=== PATIENT | female | born 1955 | race Caucasian/White ===

== ENCOUNTER 2022-07-05 09:27 | Outpatient (REF) | payer OTHER, SELFPAY ==
--- NOTE | 2022-07-05 | EMG_ITS ---
Bilateral median and ulnar motor and sensory studies were performed, bilateral radial and sensory studies were performed, and paraspinal muscles were tested. IMPRESSION: 1. [id number] bilateral median neuropathy across carpal tunnel. 2. Mild bilateral ulnar neuropathy across cubital tunnel. MD MARIA A Moseley/DEL / [id number]
== END 2022-07-05 09:28 | disposition home or self-care (01) ==
LOC: HO.NEURO 09:27
PROVIDERS: PCP Internal Medicine; Visit Provider Internal Medicine
DX: R20.0 Anesthesia of skin (principal); G62.9 Polyneuropathy, unspecified
CPT/HCPCS: 95886; 95911

== ENCOUNTER 2022-08-30 13:55 | Outpatient (REF) | payer OTHER, SELFPAY ==
--- NOTE | ~2022-08-30 | MM_ITS ---
EXAMINATION: BONE DENSITOMETRY CLINICAL INDICATION: Asymptomatic menopausal state. COMPARISON: None (current study represents initial baseline exam). TECHNIQUE: Using a [employer] DXA System (software version: 13.1) manufactured by [employer], dual-energy x-ray absorptiometry was performed of the lumbar spine and left hip. The images are of good technical quality. Summary results are attached. FINDINGS: AP SPINE L1-L4: BMD 1.206 g/cm2, Z-score 1.6, T-score 0.2, normal. LEFT FEMUR, NECK: BMD 1.032 g/cm2, Z-score 1.4, T-score 0.0, normal. LEFT FEMUR, TOTAL: BMD 1.021 g/cm2, Z-score 1.3, T-score 0.1, normal. IDENTIFIED RISK FACTORS: Menopause. HISTORY OF FRACTURE: Elbow. MEDICATIONS: None listed. MM/XR DEXA axial skeleton IMPRESSION: 1. DIAGNOSIS: Normal bone density based on the lowest T-score value of 0.0 in the femoral neck applying World Health Organization criteria. 2. 10-YEAR FRACTURE RISK PREDICTION, FRAX: According to the guidelines, FRAX calculation should only be performed on patients in the osteopenia bone density category. Therefore, FRAX was not performed on this patient. 3. Treatment Recommendations: NOF guidelines recommend consideration for treatment in postmenopausal women and men age 50 and older presenting with the following: -A hip or vertebral (clinical or morphometric) fracture. -T-score less than or equal to -2.5 at the femoral neck or spine after appropriate evaluation to exclude secondary causes. -Low bone mass at the hip or spine and a 10-year fracture probability by FRAX of greater than or equal to 3% for hip fracture or greater than or equal to 20% for major osteoporotic fracture based on the [place] adapted WHO algorithm. 4. Other Recommendations: All treatment decisions require clinical judgment and consideration of individual patient factors, including patient preferences, comorbidities, previous drug use, risk factors not captured in the FRAX model (e.g. frailty, falls, vitamin D deficiency, increased bone turnover, interval significant decline in bone density) and possible under or overestimation of fracture risk by FRAX. FUTURE SCAN RECOMMENDATION: People with diagnosed cases of osteoporosis or at high risk for fracture should have regular bone mineral density tests. For patients eligible for Medicare, routine testing is allowed once every 2 years. The testing frequency can be increased to one year for patients who have rapidly progressing disease, those who are receiving or discontinuing medical therapy to restore bone mass, or have additional risk factors.
--- NOTE | ~2022-08-30 | MM_ITS ---
EXAMINATION: MM SCREENING DIGITAL BREAST TOMOSYNTHESIS, BILATERAL CLINICAL INFORMATION: Screening. Asymptomatic. Family history breast cancer, mother. The lifetime risk of breast cancer based on the Tyrer-Cuzick Model is 10%. COMPARISON: Mammography: 08/18/2014 ([place]). TECHNIQUE: Digital breast tomosynthesis is performed in both the craniocaudal and mediolateral oblique views along with computer-aided detection (CAD). Synthesized 2D images are generated from the tomosynthesis. FINDINGS: The breasts are almost entirely fatty (ACR BI-RADS breast composition Category a). Background stromal markings are normal. There are no significant masses, abnormal calcifications, or other abnormalities. There are incidental intramammary node mid and posterior upper outer right breast similar to outside exam. The axilla and skin contours are unremarkable. MM/MM tomosynthesis screening BI IMPRESSION: No mammographic evidence of malignancy. ASSESSMENT: BI-RADS 2: Benign RECOMMENDATION: Routine annual mammography screening. This patient's information was entered into a reminder system with a target due date for their next mammogram.
== END 2022-08-30 13:56 | disposition home or self-care (01) ==
LOC: HO.MAMMO 13:55
PROVIDERS: PCP Internal Medicine; Visit Provider Internal Medicine
DX: Z12.31 Encounter for screening mammogram for malignant neoplasm of breast (principal); Z13.820 Encounter for screening for osteoporosis; Z78.0 Asymptomatic menopausal state
CPT/HCPCS: 77063; 77067; 77080

== ENCOUNTER 2023-01-31 11:15 | Outpatient (REF) | payer OTHER, SELFPAY ==
--- NOTE | ~2023-01-31 | XR_ITS ---
EXAMINATION: XR CERVICAL SPINE CLINICAL INFORMATION: Cervical spondylosis without myelopathy or radiculopathy. COMPARISON: None TECHNIQUE: 7 views of the cervical spine, inclusive of flexion and extension views, were obtained. FINDINGS: There is bony demineralization. There is a moderate upper cervical levoscoliosis. Vertebral body heights are normal. There is mild disc space narrowing at C2-C3. At C4-C5, there is a 2 mm anterolisthesis. At C5-C6, there is moderate disc space narrowing. At C6-C7, there is mild disc space narrowing. No acute fracture or spondylolisthesis is seen. There is multi-level cervical spondylosis and facet arthropathy. The posterior elements are intact. At C5-C6, there is mild rightward neural foraminal narrowing. The dens is intact. There is no prevertebral soft tissue swelling. There are left carotid atherosclerotic calcifications. XR/XR cervical spine min 6V IMPRESSION: 1. No acute fracture or spondylolisthesis is seen. 2. There is a moderate upper cervical levoscoliosis. 3. There is multi-level cervical degenerative disc disease, spondylosis and facet arthropathy. Degenerative disc disease is most pronounced at C5-C6, where it is moderate. 4. There is right neural foraminal narrowing at C5-C6. 5. There are left carotid atherosclerotic calcifications, which can be more fully evaluated with dedicated carotid ultrasound, if clinically indicated.
== END 2023-01-31 11:16 | disposition home or self-care (01) ==
LOC: HO.XRAY 11:15
PROVIDERS: PCP Internal Medicine; Visit Provider Nurse Practitioner Family
DX: M54.12 Radiculopathy, cervical region (principal); M47.812 Spondylosis without myelopathy or radiculopathy, cervical region; G25.0 Essential tremor; M62.838 Other muscle spasm; G62.9 Polyneuropathy, unspecified
CPT/HCPCS: 72052; 99202

== ENCOUNTER 2023-02-27 12:54 | Outpatient (REF) | payer OTHER, SELFPAY ==
--- NOTE | ~2023-02-27 | US_ITS ---
EXAMINATION: US EXTRACRANIAL CAROTID DUPLEX, BILATERAL CLINICAL INFORMATION: Left cerebral artery occlusion and stenosis COMPARISON: None available. TECHNIQUE: Real-time ultrasound and Doppler techniques (integrating B-mode 2-D vascular images, Doppler spectral analysis and color-flow Doppler imaging) were utilized to interrogate the extracranial carotid arteries, the vertebral arteries and proximal subclavian arteries bilaterally. The degree of stenosis is determined by criteria similar to NASCET. FINDINGS: Right Side: 1. There is mild atherosclerotic plaque seen in the bifurcation/proximal ICA region. 2. The common carotid artery PSV proximally is 70 cm/s and distally 74 cm/s. 3. The proximal internal carotid artery velocities are 75 cm/s systolic and 12 cm/s diastolic. 4. The proximal external carotid artery PSV is 150 cm/s. 5. The vertebral artery shows antegrade flow. 6. The subclavian artery waveforms are normal. Left Side: 1. There is moderate to marked hypoechoic soft tissue atherosclerotic plaque seen in the bifurcation/proximal ICA region. 2. The common carotid artery PSV proximally is 127 cm/s and distally 69 cm/s. 3. The proximal internal carotid artery velocities are 170 cm/s systolic and 51 cm/s diastolic. 4. The proximal external carotid artery PSV is 114 cm/s. 5. The vertebral artery shows antegrade flow. 6. The subclavian artery waveforms are normal. Incidental note made of a multinodular thyroid goiter. US/US carotid duplex BI IMPRESSION: 1. RIGHT: Minimal, non-hemodynamically significant stenosis of the proximal right internal carotid artery corresponding to a 0-49% stenosis by velocity criteria. 2. LEFT: Moderate, hemodynamically significant stenosis of the proximal left internal carotid artery corresponding to a 50-79% stenosis by velocity criteria. 3. Incidental note made of a multinodular goiter.
== END 2023-02-27 12:55 | disposition home or self-care (01) ==
LOC: HO.US 12:54
PROVIDERS: PCP Internal Medicine; Visit Provider Nurse Practitioner Family
DX: I65.22 Occlusion and stenosis of left carotid artery (principal)
CPT/HCPCS: 93880

== ENCOUNTER → 2023-02-28 08:16 | Outpatient (BNVA) | payer OTHER, SELFPAY | PROVIDERS: PCP Internal Medicine; Visit Provider Nurse Practitioner Family | DX: H26.9 Unspecified cataract (principal); H53.8 Other visual disturbances; I65.22 Occlusion and stenosis of left carotid artery; G62.9 Polyneuropathy, unspecified; M54.12 Radiculopathy, cervical region; M47.812 Spondylosis without myelopathy or radiculopathy, cervical region; E11.9 Type 2 diabetes mellitus without complications | CPT/HCPCS: Q3014 ==

== ENCOUNTER 2023-03-27 11:06 | Outpatient (REF) | payer OTHER, SELFPAY ==
--- NOTE | ~2023-03-27 | US_ITS ---
EXAMINATION: US THYROID CLINICAL INFORMATION: Nontoxic multinodular goiter. COMPARISON: None available. TECHNIQUE: Linear transducer grayscale and color Doppler examination with attention to the region of the thyroid. FINDINGS: SIZE: Measurements of the thyroid lobes and nodules are given in sagittal, anteroposterior and transverse dimensions respectively. Right Thyroid Lobe: 6.1 x 1.5 x 3.2 cm, volume 15.3 mL. Parenchyma: The gland echotexture is heterogeneous. Thyroid vascularity is normal. Left Thyroid Lobe: 5.9 x 2.1 x 2.5 cm, volume 18.8 mL. Parenchyma: The gland echotexture is heterogeneous. Thyroid vascularity is increased. Isthmus: 1.1 cm in maximum AP dimension. Estimated total number of nodules greater than or equal to 1 cm: 1. Tonsorial Artist nodules are described as follows: 1. Location: Left superior. Size: 1.0 x 1.4 x 1.1 cm, volume 0.8 mL. Nodule characteristics: Composition: Cannot be determined (2). Echogenicity: Cannot be determined (1). Shape: Not taller than wide (0). Margins: Irregular (2). Echogenic Foci: None (0). ACR TI-RADS total points: 5 ACR TI-RADS category: 7 NODES: No lymphadenopathy is seen in the tissue surrounding the thyroid gland. US/US thyroid IMPRESSION: Enlarged heterogeneous thyroid lobes. Solitary 1.4 cm upper pole left thyroid nodule, total points 5 and ACR TI-RADS category #7. The nodule can be biopsied if clinically indicated, otherwise follow up can be performed as described below. ACR TI-RADS RECOMMENDATION REFERENCE: Ultrasound-guided fine-needle aspiration, followup ultrasound, no further follow up. * TR1 (0 point) and TR2 (2 points): No FNA or follow up. * TR3 (3 points): FNA if more than or equal to 2.5 cm in maximum dimension, followup ultrasound in 1, 3 and 5 years if 1.5 to 2.4 cm in maximum dimension. * TR4 (4-6 points): FNA if more than or equal to 1.5 cm in maximum dimension, followup ultrasound in 1, 2, 3 and 5 years if 1 to 1.4 cm in maximum dimension. * TR5 (more than or equal to 7 points): FNA if more than or equal to 1 cm in maximum dimension, followup ultrasound every year for 5 years if 0.5 to 0.9 cm in maximum dimension. * TR3, TR4 or TR5 nodules that are below the size threshold for followup receive no follow up.
[2023-03-27 12:52] LABS: Alanine Aminotransferase 8 U/L (0-31); Albumin Level 3.9 g/dL (3.5-5.0); Alkaline Phosphatase 66 U/L (39-117); Anion Gap 13 (12-20); Aspartate Amino Transferase 14 U/L (5-31); Bilirubin Total 0.6 mg/dL (0.0-1.0); Blood Urea Nitrogen 19 mg/dL (9-16); Calcium 9.2 mg/dL (8.4-10.2); Carbon Dioxide 25 mmol/L (22-29); Chloride 109 mmol/L (96-108); Cholesterol 191 mg/dL; Estimated Glomerular Filt Rate > 60; Glucose Fasting 193 mg/dL (60-99); HDL Cholesterol 41 mg/dL; LDL Cholesterol Calculated 127 mg/dl; Potassium 4.5 mmol/L (3.3-5.1); Sodium 142 mmol/L (135-145); Total Protein 6.6 g/dL (6.5-8.0); Triglycerides 118 mg/dL
[2023-03-27 13:09] LABS: Thyroid Stimulating Hormone 0.03 uIU/mL (0.32-4.0); Vitamin D 25-OH Total 24.3 ng/mL (>30)
[2023-03-27 13:38] LABS: Creatinine Urine 194.02 mg/dL; Microalbum/Creatinine Ratio Ur 22.6 ug/mg cr
== END 2023-03-27 11:07 | disposition home or self-care (01) ==
LOC: HO.US 11:06
PROVIDERS: PCP Internal Medicine; Visit Provider Internal Medicine
DX: E04.2 Nontoxic multinodular goiter (principal); E11.9 Type 2 diabetes mellitus without complications; E55.9 Vitamin D deficiency, unspecified; E78.5 Hyperlipidemia, unspecified
CPT/HCPCS: 36415; 76536; 80053; 80061; 82043; 82306; 84439; 84443

== ENCOUNTER 2023-04-03 14:21 | Outpatient (REF) | payer OTHER, SELFPAY ==
[2023-04-06 04:04] LABS: HPV mRNA E6/E7 rflx Not Detected (Not Detected)
== END 2023-04-03 14:22 | disposition home or self-care (01) ==
LOC: HO.LNP 14:21
PROVIDERS: PCP Internal Medicine; Visit Provider Advanced Practice Midwife
DX: Z01.419 Encounter for gynecological examination (general) (routine) without abnormal findings (principal); L90.0 Lichen sclerosus et atrophicus; N95.2 Postmenopausal atrophic vaginitis; Z20.2 Contact with and (suspected) exposure to infections with a predominantly sexual mode of transmission
CPT/HCPCS: 87624; 88142; 99202

== ENCOUNTER 2023-04-03 14:58 | Outpatient (REF) | payer OTHER, SELFPAY ==
[2023-04-04 02:56] LABS: CT PCR NOT DETECTED (Not Detect.); NG PCR NOT DETECTED (Not Detect.)
[2023-04-04 10:55] LABS: BV Int Neg Control Negative (Negative); BV Int Pos Control Positive (Positive)
== END 2023-04-03 14:59 | disposition home or self-care (01) ==
LOC: HO.LAB 14:58
PROVIDERS: PCP Internal Medicine; Visit Provider Advanced Practice Midwife
DX: N95.2 Postmenopausal atrophic vaginitis (principal); Z20.2 Contact with and (suspected) exposure to infections with a predominantly sexual mode of transmission
CPT/HCPCS: 0353U; 87480; 87510; 87660

== ENCOUNTER → 2023-04-09 11:18 | Outpatient (BNVA) | payer OTHER, SELFPAY | PROVIDERS: PCP Internal Medicine; Visit Provider Surgery Vascular Surgery | DX: I65.23 Occlusion and stenosis of bilateral carotid arteries (principal) | CPT/HCPCS: 99202 ==

== ENCOUNTER 2023-05-09 10:00 | Outpatient (RCR) | payer OTHER, SELFPAY ==
--- NOTE | 2023-04-10 12:03 | MHC.PT.EP ---
[facility] [place] [facility] [place] [facility] [place] Office [address] Dominick May [address] [phone] F: [phone] F: [phone] F: [phone] F: [phone] Physical Therapy Plan of Care Date of Evaluation: Date of Surgery: Diagnosis: cervical radiculopathy Assessment: Patient is a 67 year old R handed female who presents with s/s consistent with cervical radiculopathy, neck pain. 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 Patient past medical history includes 35 years of essential tremor of neck and carotid stenosis. Current impairments include pain, posture, ROM, strength, activity tolerance and functional mobility. Functional limitations include decreased ability to turn head, lift, push, pull, and perform house/yardwork. Patient is motivated with good rehab potential. Skilled PT will address impairments and functional limitations in order to achieve goals. Frequency and Duration: The patient will be seen 2x/week for 5 weeks Short Term Goals: I with HEP - 2 weeks C-spine AROM rotation 50 b/l - 3 weeks Full pain free AROM of shoulder - 3 weeks Fdc Goals: C-spine AROM 55 - 5 weeks NPDI 10% or better - 5 weeks Strength in shoulder and MT/LT 4/5 grossly - 5 weeks Improved sleep quality per pt report - 5 weeks Improved activity tolerance per pt report - 5 weeks Treatment Plan: Modalities to reduce pain, spasms and effusion. Manual therapy to restore motion and function. Therapeutic exercise to improve strength and flexibility. Neuromuscular re-education for posture and balance. Therapeutic activities to return to functional activities of daily living. Electronically signed by: Ronaldo Becker, PT Please sign and return to therapist. Thank you for your referral.
--- NOTE | 2023-12-17 14:50 | MHC.PT.DC ---
[facility] [place] Office [place] Office [place] Office [address] Dominick May [address] [phone] F: [phone] F: [phone] F: [phone] F: [phone] Physical Therapy Discharge Report Diagnosis: cervical radiculopathy Date of Surgery: Date of Evaluation: 04/10/23 Date of Discharge: 06/20/23 Treatments to Date: 6 Cancellations to Date: No Shows to Date: Discharge Status: Independent with HEP Discharge Summary: 05/09; Pt felt looser after RX. Decreased c/o r U.E sxs 05/07/23: rotation continues to improve on L (57), R is unchanged from last visit. 05/02/23: pt has been feeling better physically. AROM rotation improving (54 L, 52 R). still with some tissue tension in b/l LS and UT 04/30; Pt noted decreased r U.E sxs after manual Rx. 04/25/23: pt 7 minutes late and accommodated. progressed with postural ex. no adverse reactions. responding well with improved postural awareness, indicated by pt recall and attentiveness during treatment. Patient is a 67 year old R handed female who presents with s/s consistent with cervical radiculopathy, neck pain. 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 Patient past medical history includes 35 years of essential tremor of neck and carotid stenosis. Current impairments include pain, posture, ROM, strength, activity tolerance and functional mobility. Functional limitations include decreased ability to turn head, lift, push, pull, and perform house/yardwork. Patient is motivated with good rehab potential. Skilled PT will address impairments and functional limitations in order to achieve goals. Electronically signed by: Ronaldo Becker, PT Please sign and return to therapist. Thank you for your referral.
== END 2023-12-17 14:50 | disposition home or self-care (01) ==
LOC: HO.PTCHIC 10:00
PROVIDERS: PCP Internal Medicine; Visit Provider Nurse Practitioner Family
DX: M54.12 Radiculopathy, cervical region (principal); M47.812 Spondylosis without myelopathy or radiculopathy, cervical region; G25.0 Essential tremor
CPT/HCPCS: 97110; 97140; 97162

== ENCOUNTER 2023-05-27 12:22 | Outpatient (REF) | payer OTHER, SELFPAY | END 2023-05-27 12:23 | disposition home or self-care (01) | LOC: HO.LAB 12:22 | PROVIDERS: PCP Internal Medicine; Visit Provider Obstetrics & Gynecology | DX: R87.610 Atypical squamous cells of undetermined significance on cytologic smear of cervix (ASC-US) (principal) | CPT/HCPCS: 57454; 88305 ==

== ENCOUNTER 2023-06-25 13:09 | Outpatient (AMB) | payer OTHER, MEDICARE, SELFPAY ==
[2023-06-25 13:13] VITALS: BP 122/80; BMI 31.7
--- NOTE | 2023-06-25 13:13 | MHC.OFFVIS ---
Intake Vital Signs 06/25/23 13:13 Height 5 ft 1 in Weight 168 lb BMI 31.7 BP 122/80 Intake Visit Reasons: Follow up [employer] Required: No Allergies sulfamethoxazole [From Bactrim] Allergy (Mild, Verified 06/25/23 13:14) hives trimethoprim [From Bactrim] Allergy (Mild, Verified 06/25/23 13:14) hives Is last menstrual period known: No Post menopausal: Yes HPI HPI Comments History of Present Illness Details Presenting post colpo for follow-up. The patient is doing well with no complaints. The pathology showed the following: A. Cervix, 10 o'clock, biopsy: - Mildly inflamed squamous mucosa with reactive changes. - No endocervical epithelium identified. B. Cervix, 12 o'clock, biopsy: - Mildly inflamed squamous mucosa with reactive changes. - No endocervical epithelium identified. C. Endocervix, curettage: Superficial strips of endocervical and, predominantly, squamous epithelium within normal limits. COMMENT: The patient's recent Pap is reviewed ([id number]; ASCUS with negative HPV); the atypical cells on the Pap slide are not represented in the current samples. [facility] Medical History Allergic rhinitis Chronic GERD Class 1 obesity with body mass index (BMI) of 31.0 to 31.9 in adult Diabetes mellitus Essential hypertension Essential tremor NILESH (generalized anxiety disorder) Hand numbness Mild recurrent major depression Neck pain Neuropathy Surgical History History of tonsillectomy Family History Mother Breast cancer Hypertension Father Heart attack Brother Substance use disorder Daughter Mental health disorder Sister Breast cancer Social History Housing: House Alcohol intake: current Alcohol intake frequency: holidays/special occasions only Alcohol type: wine Patient Tobacco Use Status: Former Tobacco user Tobacco use type: Cigarette e-Cigarette/Vaping Use: Never Used Second Hand Smoke Exposure: No service: No Current occupational status: retired Sexual orientation: Straight/Heterosexual Gender identity: Female Cognitive needs: No Hearing needs: No Vision needs: Yes Female Reproductive History Menstrual control method: none Review of Systems Const All systems reviewed & are unremarkable except as noted in HPI and below Reports as per HPI and Reports no additional complaints GI Reports no additional complaints Reports no additional complaints Physical Exam Vital Signs: Last Vital Signs BP 122/80 06/25/23 13:13 BMI result Body Mass Index 31.7 Assessment & Plan Assessment & Plan (1) ASCUS of cervix with negative high risk HPV: Comment: History of ascus/HPV positive in 2017 Code(s): R87.610 - Atypical squamous cells of undetermined significance on cytologic smear of cervix (ASC-US) Plan: Discussed with the patient the pathology results of the colposcopy biopsies & endocervical curettage ( negative). Discussed with the patient the sensitivity specificity, positive and negative predictive value in detecting cervical cancer in addition discussed the regression, persistence and progression rates. Recommended co-testing in 12 months, if cytology and or HPV are abnormal will proceed was colposcopy biopsy and endocervical curettage. Instructions given to the patient to schedule a co test appointment in 1 year. All questions answered the patient verbalized understanding. Coding Level of Care Code Est Pt Level 3 (53203) Diagnoses ASCUS of cervix with negative high risk HPV R87.610
== END 2023-06-25 13:40 | disposition home or self-care (01) ==
LOC: HO.HWS 13:09
PROVIDERS: PCP Internal Medicine; Visit Provider Obstetrics & Gynecology
DX: R87.610 Atypical squamous cells of undetermined significance on cytologic smear of cervix (ASC-US) (principal)
CPT/HCPCS: 99213

== ENCOUNTER → 2023-06-25 13:09 | Outpatient (BNVA) | payer OTHER, SELFPAY | PROVIDERS: PCP Internal Medicine; Visit Provider Obstetrics & Gynecology | DX: R87.610 Atypical squamous cells of undetermined significance on cytologic smear of cervix (ASC-US) (principal) | CPT/HCPCS: 99212 ==

== ENCOUNTER 2024-11-18 14:25 | Outpatient (AMB) | payer SELFPAY ==
[2024-11-18 15:06] VITALS: BP 150/100; PULSE 94; O2SAT 95; BMI 31.3
--- NOTE | 2024-11-18 15:06 | A.OFFPC_ITS ---
Vital Signs 11/18/24 15:06 Height 5 ft 1 in Weight 165 lb 8 oz BMI 31.3 BP 150/100 H Blood Pressure Location Lt brachial Position Sitting Pulse 94 Pulse Source Pulse Oximeter Pulse Oximetry (%) 95 Oxygen Delivery Method Room Air Intake Visit Reasons: medication follow up Allergies sulfamethoxazole [From Bactrim] Allergy (Mild, Verified 11/18/24 15:34) hives trimethoprim [From Bactrim] Allergy (Mild, Verified 11/18/24 15:34) hives Medication List - Last Reconciled 11/18/24 by Ruth Ingram MD alprazolam 0.5 mg PO TID PRN 30 days clobetasol 0.05% 1 g topical .twice weekly 90 days duloxetine 30 mg PO BID 90 days estradiol 0.01%(0.1mg/gram) (Estrace) 1 g vaginal .twice weekly 90 days fluticasone propionate 50 mcg/actuation (Allergy Relief (fluticasone)) 1 spray intranasal BID 30 days hydrocortisone 1% 1 appl topical BID PRN 2 weeks loratadine (Allergy Relief (loratadine)) 10 mg PO DAILY 90 days lorazepam 1 mg PO TID PRN 30 days losartan 50 mg PO DAILY 90 days magnesium glycinate 200 mg (2 x 100 mg) PO DAILY metformin 500 mg PO DAILY 90 days naphazoline-pheniramine 0.025-0.3 % (Allergy Eye (naphazoline-pheniramine)) 1 drp ophthalmic (eye) BID-QID PRN 30 days omeprazole 20 mg PO DAILY 90 days propranolol ER 160 mg PO DAILY 90 days Tobacco use date assessed: 11/18/24 Fall risk assessment: 2 + Falls in past year Last assessed Fall Risk: 11/18/24 HPI HPI Comments History of Present Illness Details The patient is a 69-year-old female presenting with hypertension management, depression, and anxiety. Hypertension was identified during the visit as elevated, and the patient reported a history of consistently high blood pressure. The patient is currently on Losartan, which she has not taken recently. The patient has a known history of depression and anxiety, with prior therapy and medication trials including Zoloft, which were not well tolerated. The patient scored a 13 on the PHQ-9, indicating the presence of depressive symptoms. The patient has anxiety treated with lorazepam, with some confusion in the past regarding medication supply. For eczema, the patient uses clobetasol cream. The patient also reports head tremors and takes propranolol, which tremo rs have familial ties and began in the early . The patient reported a recent syncopal episode after a stressful event possibly linked with dehydration. She experienced dizziness and a brief loss of consciousness, palpitations happened before incident. She also has diabetes mellitus type 2 and her A1c today is 13.5% and this is why I will increase metformin from 500 once a day to a 1000 mg twice a day. She complains of GERD and I will refer her omeprazole which she has not had in a while. [facility] Medical History (Updated 11/18/24 @ 15:47 by Ruth Ingram MD) Allergic rhinitis Neck pain Hand numbness Neuropathy Essential tremor NILESH (generalized anxiety disorder) Mild recurrent major depression Chronic GERD Class 1 obesity with body mass index (BMI) of 31.0 to 31.9 in adult Diabetes mellitus Essential hypertension Surgical History History of tonsillectomy Family History Mother Breast cancer Hypertension Father Heart attack Brother Substance use disorder Daughter Mental health disorder Sister Breast cancer Social History Housing: House Alcohol intake: current Alcohol intake frequency: holidays/special occasions only Alcohol type: wine Patient Tobacco Use Status: Former Tobacco user Tobacco use type: Cigarette e-Cigarette/Vaping Use: Never Used Second Hand Smoke Exposure: No service: No Current occupational status: retired Sexual orientation: Straight/Heterosexual Gender identity: Female Cognitive needs: No Hearing needs: No Vision needs: Yes Questionnaire PHQ-9 Over the last 2 weeks, how often have you been bothered by any of the following problems? 1. Little interest or pleasure in doing things: several days 2. Feeling down, depressed, or hopeless: more than half the days 3. Trouble falling or staying asleep, or sleeping too much: nearly every day 4. Feeling tired or having little energy: nearly every day 5. Poor appetite or overeating: nearly every day 6. Feeling bad about yourself - or that you are a failure or have let yourself or your family down: several days 7. Trouble concentrating on things, such as reading the newspaper or watching television: not at all 8. Moving or speaking so slowly that other people could have noticed. Or the opposite - being so fidgety or restless that you have been moving around a lot more than usual: not at all 9. Thoughts that you would be better off or of hurting yourself in some way: not at all Total score: 13 Depression Screening Interpretation: Positive Depression Screening Follow-up: Existing condition and Follow-up Visit Requested Depression Screening Done: Yes 30166 - PHQ-9 Billing: Yes Source: Developed by Drs. Silvino Iniguez, Miladis Kaiser, Jean Person and colleagues, with an educational rogerio from [employer]. Thrive Questionnaire Date Thrive assessed: 11/18/24 I am a: Patient What is your living situation today?: I have a steady place to live Within the past 12 months, did the food you bought not last and you didn't have the money to get more?: Never true Within the past 12 months, did you worry whether your food would run out before you got money to buy more?: Never true Do you have trouble paying for medicines?: No Do you have trouble getting transportation to medical appointments?: No Do you have trouble paying your heating and electricity bill?: No Do you have trouble taking care of your child, family member or friend?: No Do you have trouble with day-to-day activities such as bathing, preparing meals, shopping, managing finances, etc.?: No Are you currently unemployed and looking for a job?: No Are you interested in more education?: No Please select the resources that you would like help with: None Currently or been in a relationship where the following occur: No concerns reported THRIVE Score: 0 AUDIT C Alcohol Use Questionnaire (AUDIT-C) 1. How often do you have a drink containing alcohol?: Monthly or less 2. How many drinks containing alcohol do you have on a typical day when you are drinking?: 1 or 2 3. How often do you have six or more drinks on one occasion?: Never Total Score: 1 Score Reviewed/Action Taken: No NILESH-7 AMB Questionnaire NILESH-7 Date NILESH - 7 assessed: 12/18/24 Feeling nervous, anxious, or on edge: 2 = More than half the days Not being able to stop or control worryin = More than half the days Worrying too much about different things: 2 = More than half the days Trouble relaxin = More than half the days Being so restless that it is hard to sit still: 0 = Not at all Becoming easily annoyed or irritable: 0 = Not at all Feeling afraid as if something awful might happen: 2 = More than half the days Total NILESH-7 score (0-4 normal; 5-9 mild; 10-14 moderate; 15-21 severe): 10 Source: Developed by Drs. Silvino Iniguez, Miladis Kaiser, Jean Person and colleagues, with an educational rogerio from [employer]. NILESH-7 Assessment Billing NILESH-7 Assessment Tool: NILESH-7 Assessment 90327 Review of Systems Const Details: - Neurological: Reports tremors, fatigue, vertigo, dizziness. Denies any seizures. - Cardiac: Reports elevated blood pressure, denies palpitations. - Gastrointestinal: Reports a history of heartburn, current dyspepsia. - Psychiatric: Reports depression, anxiety. - Musculoskeletal: Reports tremors affecting daily activities. Physical exam (Primary Care) Vital Signs: Last Vital Signs Pulse 94 11/18/24 15:06 BP 150/100 H 11/18/24 15:06 Pulse Ox 95 11/18/24 15:06 Oxygen Delivery Method Room Air 11/18/24 15:06 BMI result Body Mass Index 31.3 BMI Assessment/Plan discussion: High BMI High, discussed plan: lifestyle, weight reduction, dietary and physical activity Tobacco/Smoking Status: Tobacco use Status Tobacco use date assessed 11/18/24 11/18/24 15:15 Patient Tobacco Use Status Former Tobacco user 11/18/24 15:15 Tobacco use type Cigarette 11/18/24 15:15 e-Cigarette/Vaping Use Never Used 11/18/24 15:15 PHQ-9: PHQ-9 Score PHQ-9: Total score 13 11/18/24 15:40 Depression Screening Interpretation: Positive Depression Screening Follow-up: Existing condition and Follow-up Visit Requested Thrive Assessment: Date of Thrive Assessment Date Thrive assessed 11/18/24 11/18/24 15:15 Currently or been in a relationship where the following occur: No concerns reported Const Other: General: No confusion Respiratory: Normal respiratory effort, clear to auscultation bilaterally Cardiovascular: No jugular venous distension, regular rate, regular rhythm, S1 normal heart sound present and S2 normal heart sound present Neurology: Patient oriented x3, no focal motor deficits and No confusion, head tremors Extremities: Full ROM Psychology: Depression noted, PHQ-9 score of 13, Anxiety present Results AMB Hemoglobin A1c AMB Hemoglobin A1c 13.5 % Last Edit by STEVE Mckeon on 11/18/24 15: 54 Coding Level of Care Code Est Pt Level 4 (06743) Complex EM visit Add On G2211 Diagnoses Syncope R55 Mild recurrent major depression F33.0 Diabetes mellitus E11.9 Essential hypertension I10 NILESH (generalized anxiety disorder) F41.1 Essential tremor G25.0 Chronic GERD K21.9 Additional Codes NILESH-7 Assessment Billing - NILESH-7 Assessment Tool: NILESH-7 Assessment 88321 ([id number]) PHQ-9 - 29160 - PHQ-9 Billing: Yes ([id number]) Time Spent (min) 24 Assessment & Plan Assessment & Plan (1) Syncope: Code(s): R55 - Syncope and collapse Category: Medical (2) Mild recurrent major depression: Code(s): F33.0 - Major depressive disorder, recurrent, mild Category: Medical (3) Diabetes mellitus: Code(s): E11.9 - Type 2 diabetes mellitus without complications Category: Medical (4) Essential hypertension: Code(s): I10 - Essential (primary) hypertension Category: Medical (5) NILESH (generalized anxiety disorder): Code(s): F41.1 - Generalized anxiety disorder Category: Medical (6) Essential tremor: Comment: Head tremors Code(s): G25.0 - Essential tremor Category: Medical (7) Chronic GERD: Code(s): K21.9 - Gastro-esophageal reflux disease without esophagitis Category: Medical Plan - Re-check blood pressure in three weeks and continue monitoring hypertension signs. - Discontinue using Losartan; patient to bring all medication for proper review. - For diabetes mellitus, increase metformin dosage to 1000 mg twice daily. - Begin a low dose of citalopram for depression and anxiety. - Continue propranolol for tremors. - Order blood work to monitor medication effects and general health. - Arrange a consultation with ophthalmology for cataract evaluation. - Arrange a CT scan of the head and echocardiogram for syncope workup. - Refill prescriptions for current medications at [facility]. - Recommend artificial tears for dry eyes and potential referral to neurology. - Emphasize the importance of consistent medication adherence and discuss insurance resolution to enable diagnostic and treatment options. Patient was informed and verbally consented to the use of an ambient scribe for clinic note documentation during this visit. I discussed with the patient about her current health issues, focusing on the need for proper management of her diabetes and hypertension. I highlighted the importance of increasing her metformin dose due to a significant increase in her HbA1c. We also discussed the introduction of citalopram for managing her depressive symptoms and stated that an outpatient psych service could help assess her response to this medication. It was acknowledged that she had a recent syncopal episode, possibly linked to dehydration and stress, which warrants further evaluation through imaging to rule out any cardiac or neurological issues. I emphasized that an echocardiogram and CT scan are necessary and will be arranged once insurance issues are clarified. I advised on obtaining artificial tears and referred her to an wafer cleaner for cataract assessment due to difficulty driving at night. Finally, I educated her on medication refill processes and ensured she was comfortable with the locations to fill prescriptions. We also discussed the importance of psychosocial stabilizers and follow-up to reassess her mental health treatment plan. Orders: Orders US thyroid Today E04.2 - Nontoxic multinodular goiter Comprehensive [place]. Panel Fast Today E11.9 - Type 2 diabetes mellitus without complications Vitamin B12 and Folate Today E53.8 - Deficiency of other specified B group vitamins, G62.9 - Polyneuropathy, unspecified Thyroid Stimulating Hormone Today E04.2 - Nontoxic multinodular goiter Free T4 (Free Thyroxine) Today E04.2 - Nontoxic multinodular goiter AMB Hemoglobin A1c Today E11.9 - Type 2 diabetes mellitus without complications CA echo transthoracic complete Today R55 - Syncope and collapse CT head/brain wo IV con Today R55 - Syncope and collapse Lipid Panel Today E78.5 - Hyperlipidemia, unspecified Microalbumin, Random (w Creat) Today R80.9 - Proteinuria, unspecified Complete Blood Count Auto Diff Today D64.9 - Anemia, unspecified, R55 - Syncope and collapse US carotid duplex BI Today I65.23 - Occlusion and stenosis of bilateral carotid arteries Referrals Psychiatry Outpatient Consultation Service F33.0 - Major depressive disorder, recurrent, mild, F41.1 - Generalized anxiety disorder Ophthalmology Referral H53.8 - Other visual disturbances Medications: New citalopram 10 mg PO DAILY 90 days 90 tabs 0RF F33.0 - Major depressive disorder, recurrent, mild, F41.1 - Generalized anxiety disorder Refilled propranolol ER 160 mg PO DAILY 90 days 90 caps 1RF losartan 50 mg PO DAILY 90 days 90 tabs 1RF duloxetine 30 mg PO BID 90 days 180 caps 1RF omeprazole 20 mg PO DAILY 90 days 90 caps 1RF clobetasol 0.05% not to be used with other topical cortisone cream in the area at the same time 1 g topical .twice weekly 90 days 45 grams 1RF estradiol 0.01%(0.1mg/gram) (Estrace) 1 g vaginal .twice weekly 90 days 42.5 grams 1RF Discontinued alprazolam Discontinued Reason: Patient Completed Course 0.5 mg PO TID 30 days PRN 90 tabs 0RF anxiety Patient Instructions: - Refill prescribed medications at [facility] and adhere to the recommended dosage. - Monitor blood pressure at home and note any significant changes. - Increase metformin intake to 1000 mg twice daily as directed. - Begin taking citalopram as prescribed; observe any changes in mood or anxiety levels. - Use artificial tears for dry eye symptoms as needed. - Schedule forthcoming appointments, including the CT scan and echocardiogram, once insurance is confirmed. - Ensure to stay hydrated and manage stress levels to prevent further syncopal episodes. - Follow up with ophthalmology for further evaluation of potential cataracts. - Report any new or worsening symptoms promptly.
== END 2024-11-18 15:55 | disposition home or self-care (01) ==
PROVIDERS: PCP Internal Medicine; Visit Provider Internal Medicine
DX: R55 Syncope and collapse (principal); F33.0 Major depressive disorder, recurrent, mild; E11.9 Type 2 diabetes mellitus without complications; I10 Essential (primary) hypertension; F41.1 Generalized anxiety disorder; G25.0 Essential tremor; K21.9 Gastro-esophageal reflux disease without esophagitis

== ENCOUNTER → 2024-11-18 14:25 | Outpatient (BNVA) | payer SELFPAY | PROVIDERS: PCP Internal Medicine; Visit Provider Internal Medicine | DX: R55 Syncope and collapse (principal); F33.0 Major depressive disorder, recurrent, mild; E11.9 Type 2 diabetes mellitus without complications; I10 Essential (primary) hypertension; F41.1 Generalized anxiety disorder; G25.0 Essential tremor; K21.9 Gastro-esophageal reflux disease without esophagitis; Z79.84 Long term (current) use of oral hypoglycemic drugs; Z79.899 Other long term (current) drug therapy | CPT/HCPCS: 83036; 96127; 99212 ==

== ENCOUNTER → 2025-02-09 12:34 | Outpatient (REF) | payer MEDICARE, SELFPAY ==
--- NOTE | 2025-02-09 12:40 | CA_ITS ---
Transthoracic Echocardiogram Patient (Last, First, Middle): Ni Gallardo, Gender: Female Date of : 1955 Age: 69 Procedure Date: 02/09/2025 Procedure Type: Transthoracic Echocardiogram Location: OP Height: 154.94 cm Weight: 74.84 kg BSA: 1.74 m2 Heart Rate: 70 bpm BP: 142 / 80 mmHg Nut Chopper: SB Referring MD: Ruth Ingram MD Symptoms: R55 - Syncope and collapse Study Quality: Technically Difficult ECG Rhythm: Sinus Conclusions: - The left ventricular systolic function is hyperdynamic. The visually estimated ejection fraction is >70%. - No obvious valvular pathology seen on this study. Findings Procedure Information Contrast agent, definity, is being given per protocol without apparent complications. The quality of the study was technically difficult. The study quality is limited by lung artifact. Left Ventricle Normal left ventricular cavity size. The left ventricular systolic function is hyperdynamic. The visually estimated ejection fraction is >70%. There is no evidence of regional wall motion abnormalities. Evidence suggests grade I (mild) diastolic dysfunction. There is mild septal asymmetric hypertrophy. Right Ventricle Normal right ventricular cavity size and systolic function. Atria Both atria are normal in size. Aortic Valve There is a normal trileaflet aortic valve. There is mild calcification of the aortic valve. There is no aortic valve regurgitation. Mitral Valve The mitral valve appears normal. There is no mitral valve regurgitation. There is no mitral valve stenosis. Pulmonic Valve The pulmonic valve is likely normal. Tricuspid Valve Normal tricuspid valve structure. There is no tricuspid valve regurgitation. Tricuspid regurgitation envelope is inadequate for calculation of right ventricular systolic pressure. Great Vessels Top normal ascending aortic size at 3.8 cm. Venous The inferior vena cava is normal in size and collapses greater than 50% with inspiration. Pericardium/Pleural There is no evidence of pericardial effusion. Prior Study Comparison No prior study available for comparison. Recommendations, Care & Conclusions No obvious valvular pathology seen on this study. Measurements 2D Linear Measurements IVSd: 1.22 0.6-0.9/0.6-1.0 cm LVIDd: 4.68 3.9-5.3/4.2-5.9 cm LVIDd Index: 2.69 2.4-3.2/2.2-3.1 cm/m2 LVIDs: 2.67 2.0-3.6 cm LVPWd: 0.63 0.7-1.1 cm LA Diam: 3.10 2.7-3.8/3.0-4.0 cm LAIDs Index: 1.78 1.5-2.3 cm/m2 LV Mass: 183.11 67-162/88-224 g LV Mass Index: 105.24 43-95/49-115 g/m2 LVOT Diam: 1.90 3.0+(-)1.3 cm 2D Systolic Function EF 4C: 80.90 >55% Mitral Valve MV Pk E: 0.63 MV PK A: 0.87 MV Decel Time: 321.00 E/A: 0.70 E'Lateral: 7.29 E'Medial: 4.57 E/E' Med: 13.80 E/E' Lat: 8.60 PHT: 94.00 MVA PHT: 2.34 Decel Adams: 1.96 Aortic Valve AoV Pk Mt: 1.04 AoV Pk Grad: 4.00 NOHEMY: 2.95 LVOT LVOT Pk Mt: 1.09 LVOT Mn Mt: 0.79 LVOT VTI: 0.24 LVOT Pk Grad: 5.00 LVOT Mn Grad: 3.00 LVOT Diam: 1.90 LVOT Area: 2.84 Diastolic Function MV Pk E: 0.63 MV Pk A: 0.87 E/A: 0.70 E'Medial: 4.57 E/E' Med: 13.80 E' Laterial: 7.29 E/E' Lat: 8.60 Right Ventricle TAPSE (mm): 19.40 TVS' Mt: 10.70 Tricuspid Valve RA Press: 3.00 Great Vessels Aorta Sinus of Valsalva: 3.20 2.0-3.5 cm Ao Asc: 3.80 2.1-3.4 cm Pulmonary Veins Pulm Vein S/D 2.00 Pulmonary Valve PV Pk Mt: 0.94 Peak PV Grad: 4.00 Updated in Other Vendor System with Status of Final Mahamed Arrieta MD electronically signed on 02/09/2025 4:06:53 PM with status of Final
--- OUTSIDE RECORDS SUMMARY | 2025-02-09 15:10 | XMS_ITS | Clinical Summary ---
Author Organization [facility] it Address [address] [place] [address] Care Team Providers Care Flower Planter Name Role Phone Unavailable Primary Care Provider Unavailabl e Surgical History Surgery Date Site/Laterality Comments TONSILLECTOMY PROCEDURE: HISTORICAL TONSILLECTOMY; COMMENT: young adult Medical History Medical History Date Comments Abnormal involuntary movements(781.0) DX:Abnormal involuntary movements(781.0) Lumbago DX:Lumbago Essential hypertension, benign 12/24/2005 D X:Essential hypertension, benign; COMMENT: essential tremor Type 2 diabetes mellitus wit h hyperglycemia, with long-term current use of insulin ([facility]) 06/01/2019 DX:Type 2 diabetes mellitus with hyperglycemia, with long-term current use of insulin ([facility]) Family History Medical History Relation Name Comments Breast cancer Aunt great aunt x3 (maternal side) Diabetes Brother 1 trauma induced diabetes Other cancer Brother 2 tumor near [place]/stomach , cancer Heart attack Brother 3 fatal [place] at 61 Coronary artery disease Father fata l [place]; CHF; mental disroder Heart attack Maternal Grandmother Breast cancer Mother AFIB; dementia Breast cancer Sister Relation Name Status Comments Aunt Brother 1 Alive Brother 2 Alive Brother 3 Father Maternal Grandmother Mother Alive Sister Alive Social History Tobacco Use Types Packs/Day Years Used Date Smoking Tobacco: Never Smokeless Tobacco: Never Alcohol Use Standard Drinks/Week Comments Yes 0 (1 standard drink = 0.6 oz pur e alcohol) Comments Unknown Sex and Gender Information Value Date Recorded Sex Assigned at Not on file Legal Sex Female 4:07 PM EST Gender Identity Not on file Sexual Orientation Not on file Obstetrics History Plan of Treatment Health Maintenance Due Date Last Done Comments Breast Cancer Screening 1955 Diabetes: Annual GFR (Glomerular Filtration Rate) 1955 Diabetes: Annual Foot Exam 1964 Diabetes: Annual Retina Eye Exam 1964 RSV Immunization Patients 60+ Years Old (1 - Risk 60-74 years 1-dose series) 2014 Zoster Vaccines (2 of 2) 12/10/2020 10/15/2020 Cholesterol Screening (Lipid Panel) 10/31/2022 Colorectal Cancer Screening: Stool Based Tests (FOBT/FIT) 10/31/2022 Depression Screening 10/31/2022 Falls Risk Assessment 10/31/2022 Hepatitis C Screening 10/31/2022 Osteoporosis Screening (Bone Density Screening) 10/31/2022 Social Influencers of Health Screening 10/31/2022 Diabetes: Annual Urine Albumin-Creatinine Ratio (uACR) 11/08/2022 Diabetes: Blood Sugar Control Test (HGBA1C) 11/08/2022 Hypertension/CHF/CAD Annual BMP Blood Test 11/08/2022 COVID-19 Vaccine ( season) 2024 02/24/2021, 01/27/2021 Influenza Vaccine (#1) 2024 , 10/15/2020, 09/11/2018, Additional history exists DTaP,Tdap,and Td Vaccines (3 - Td or Tdap) 06/30/2029 06/30/2019, 04/18/2009 Pneumococcal Vaccine: 50+ Years Completed 08/28/2021, 06/30/2019 HIB Vaccines Aged Out No longer eligi ble based on patient's age to complete this topic HPV Vaccines Aged Out No longer eligi ble based on patient's age to complete this topic Hepatitis A Vaccines Aged Out No long er eligible based on patient's age to complete this topic Hepatitis B Vaccines Aged Out No long er eligible based on patient's age to complete this topic IPV Vaccines Aged Out No longer eligi ble based on patient's age to complete this topic MMR Vaccines Aged Out No longer eligi ble based on patient's age to complete this topic Meningococcal ACWY Vaccine Aged Out N o longer eligible based on patient's age to complete this topic Meningococcal B Vacine Aged Out No lo nger eligible based on patient's age to complete this topic RSV Immunization Patients Under 20 months Aged Out No longer eligible based on patient's age to complete this topic Varicella Vaccines Aged Out No longer eligible based on patient's age to complete this topic
== END ==
LOC: HO.CARD 12:34
PROVIDERS: PCP Internal Medicine; Visit Provider Internal Medicine
DX: R55 Syncope and collapse (principal)
CPT/HCPCS: 93306; Q9957

== ENCOUNTER → 2025-02-09 12:40 | Outpatient (BNV) | payer MEDICARE, SELFPAY | PROVIDERS: PCP Internal Medicine; Visit Provider Internal Medicine | DX: I42.2 Other hypertrophic cardiomyopathy (principal); I35.8 Other nonrheumatic aortic valve disorders | CPT/HCPCS: 93306 ==

== ENCOUNTER 2025-02-12 13:04 | Outpatient (REF) | payer MEDICARE, SELFPAY ==
--- NOTE | ~2025-02-12 | CT_ITS ---
CLINICAL HISTORY: R55 - Syncope and collapse CT head without contrast Comparison: None Findings: Generalized cerebral and cerebellar atrophy. The size and shape of the ventricular system is within normal limits for this degree of atrophy. Vptu-rt-djgkvpxr areas of low-attenuation are seen within the periventricular and deep white matter. Brown-white differentiation is well preserved. No midline shift or mass effect. No intracranial hemorrhage. No calvarial fractures. Dense calcification of the vertebrobasilar system cavernous carotid arteries. IMPRESSION: 1. No acute intracranial findings. 2. Generalized atrophy with xzzk-er-dwpegndj white matter changes. Although nonspecific, this is likely due to chronic microvascular ischemic change. This document has been electronically signed by: Harry Zuñiga MD on 02/13/2025 09:13:32
--- OUTSIDE RECORDS SUMMARY | 2025-02-12 14:37 | XMS_ITS | Encounter Summary ---
[facility] Address [address] [place] [address] Care Team Providers Care Software Development Advisor Name Role Phone Therese Li MD Primary Care Provider Kristi Gao MD Primary Care Provider [phone] [facility], Pcp Primary Care Provider Unavailabl e Reason for Visit * Reason Comments E-prescribe Rx Request Encounter Details Date Type Department Care Team Description 12/08/2018 Refill Adult Medicine [address] [address] Radha Rogel PA-C [address] [place] [address] E-prescribe Rx Request Social History Tobacco Use Types Packs/Day Years Used Date Smoking Tobacco: Never Smokeless Tobacco: Never Comments:remote hx of minima l smoking x 3 years in teens, about 40 yrs ago Alcohol Use Standard Drinks/Week Comments Yes 0 (1 standard drink = 0.6 oz pur e alcohol) occ Sex Assigned at Date Recorded Not on file documented as of this encounter Miscellaneous Notes * Telephone Encounter - Lupe Coyne M.A. - 12/09/2018 7:33 AM EST Please advise what medication pt needs refilled * Telephone Encounter - Kate Zhang - 12/08/2018 3:46 PM EST Patient would like script to be: E-PRESCRIBED/FAXED TO PHARMACY ?? WHEN WAS THE PATIENT'S LAST APPOINTMENT IN ADULT MEDICINE? 09-11-2018 ?? WHEN WAS THE LAST TIME THE PATIENT SAW THEIR PCP? 09-03-2017 ?? Does patient have an upcoming appointment? Yes 01-15-2019 ?? (THE MEDICATION REQUESTED IS ON THE MED LIST ABOVE) All of the medications requested were on the CURRENT MEDS list ?? Did you check the Pharmacy information above?: YES ?? Patient wants: 30 -day supply ?? Is this a mail order prescription request ? NO ?? If the refill is from a FAXED refill request what is the RX # listed on the fax? N/A ?? Patients current insurance carrier is: Payor: [facility] / Plan: INDEMNITY $20 [place] / Product Type:PPO [id number] ? documented in this encounter Plan of Treatment Not on file documented as of this encounter Visit Diagnoses Not on filedocumented in this encounter Care Teams Software Development Advisor Relationship Specialty Start Date End Date Therese Li MD PCP - General 05/11/11 06/19/21 Kristi Narvaez MD [address] [place] [address] PCP - General Internal Medicine 06/20/21 05/13/[address] [address] PCP - General Internal Medicine 05/14/22 documented as of this encounter
--- OUTSIDE RECORDS SUMMARY | 2025-02-12 14:37 | XMS_ITS | Encounter Summary ---
Author Organization [facility] Address [address] [place] [address] Care Team Providers Care Cargo Station Worker Name Role Phone Therese Li MD Primary Care Provider Kristi Gao MD Primary Care Provider [phone] [facility], Pcp Primary Care Provider Unavailabl e Encounter Details Date Type Department Care Team Description 01/19/2019 [facility] Medical Records [address] [place] [address] Abstract, Provider Social History Tobacco Use Types Packs/Day Years Used Date Smoking Tobacco: Never Smokeless Tobacco: Never Comments:remote hx of minima l smoking x 3 years in teens, about 40 yrs ago Alcohol Use Standard Drinks/Week Comments Yes 0 (1 standard drink = 0.6 oz pur e alcohol) occ Sex Assigned at Date Recorded Not on file documented as of this encounter Plan of Treatment Not on file documented as of this encounter Visit Diagnoses Not on filedocumented in this encounter Care Teams Cargo Station Worker Relationship Specialty Start Date End Date Therese Li MD PCP - General 05/11/11 06/19/21 Kristi Narvaez MD [address] [place], [place] [phone] PCP - General Internal Medicine 06/20/21 05/13/22 [facility], Pcp [address] [place] [address] PCP - General Internal Medicine 05/14/22 documented as of this encounter
--- OUTSIDE RECORDS SUMMARY | 2025-02-12 14:37 | XMS_ITS | Encounter Summary ---
Author Organization [facility] [employer] [facility] Address [address] [place] [address] Care Team Providers Care Industrial Relations Officer Name Role Phone Therese Li MD Primary Care Provider Kristi Gao MD Primary Care Provider [phone] [facility], Pcp Primary Care Provider Unavailabl e Encounter Details Date Type Department Care Team Description 05/29/2019 Hospital Medical Records [address] [place] [address] Judy Frias PA-C Social History Tobacco Use Types Packs/Day Years [...] on filedocumented in this encounter Care Teams Industrial Relations Officer Relationship Specialty Start Date End Date Therese Li MD PCP - General 05/11/11 06/19/21 Kristi Narvaez MD [address] [place], [place] [id number] PCP - General Internal Medicine 06/20/21 05/13/22 [facility], Pcp [address] [place] [address] PCP - General Internal Medicine 05/14/22 documented as of this encounter
--- OUTSIDE RECORDS SUMMARY | 2025-02-12 14:37 | XMS_ITS | Encounter Summary ---
Author Organization [facility] [employer] [facility] Address [address] [place] [address] Care Team Providers Care Quality Rn Name Role Phone Therese Li MD Primary Care Provider Kristi Gao MD Primary Care Provider [phone] [facility], Pcp Primary Care Provider Unavailabl e Encounter Details Date Type Department Care Team Description 05/31/2019 Hospital Medical Records [address] [place] [address] Kelly Dubon MD Social History Tobacco Use Types Packs/Day Years [...] on filedocumented in this encounter Care Teams Quality Rn Relationship Specialty Start Date End Date Therese Li MD PCP - General 05/11/11 06/19/21 Kristi Narvaez MD [address] [place] [address] [id number] PCP - General Internal Medicine 06/20/21 05/13/22 [facility], Pcp [address] [place] [address] PCP - General Internal Medicine 05/14/22 documented as of this encounter
--- OUTSIDE RECORDS SUMMARY | 2025-02-12 14:37 | XMS_ITS | Encounter Summary ---
Author Organization [facility] Address [address] [place] [address] Care Team Providers Care Transporter Radiology Name Role Phone Therese Li MD Primary Care Provider Kristi Gao MD Primary Care Provider [phone] [facility], Pcp Primary Care Provider Unavailabl e Reason for Referral * Non LISETTE (Priority) - Authorized/Booked Specialty Diagnoses / Procedures Referred By Contmendel t Referred To Contact Endocrinology Procedures REFERRAL TO ENDOCRINOLOGY Therese Li MD [address] [place] [address] Jagdish Graves MD Referral ID Status Reason Start Date Expiration Date V isits Requested Visits Authorized [id number] Authorized/ Booked 06/08/2019 06/07/2020 1 1 Reason for Visit * Reason Onset Date Comments Provider Call Back 06/05/2019 Encounter Details Date Type Department Care Team Description 06/05/2019 Telephone Adult Medicine [address] [phone] Therese Li MD Provider Call Back Social History Tobacco Use Types Packs/Day Years [...] encounter Miscellaneous Notes * Telephone Encounter - Therese Li MD - 06/08/2019 12:28 PM EDT Lab Results Component Value Date TSH 0.10 05/28/2019 TSH 0.37 02/07/2017 TSH 0.32 04/19/2016 TSH 0.38 10/17/2015 TSH 0.41 03/08/2015 Visit within 4-6 weeks is appropriate - priority referral placed. * Telephone Encounter - Lupe Coyne M.A. - 06/05/2019 9:23 AM EDT Ok for 06/08/19 Pt asking pcp to change referral to Endo be changed to Urgent since Dr. Graves is not available until 10/2019 * Telephone Encounter - Autumn Holm - 06/05/2019 9:17 AM EDT Caller requesting call back from provider: Patient is aware that Dr Alonzo is unavailable until Saturday06/08/19, message ok to wait. Is the caller the patient? YES If caller is not the patient, what is the callers name? N/A Callers relationship to patient? N/A If person calling is not the patient themselves, is there a verbal release in or permanent comments for this person: NO Reason for call back: Patient states she was referred to Dr Graves however he is booking into October. Patient is asking that Dr Diaz indicate URGENT on the referral request to DR Graves as shefeels she shouldn't wait until October for an appointment. Caller offered to speak with the nurse for assistance: YES Response: Patient offered to speak with nurse for assistance and patient agreed. Message forwarded to nurse. documented in this encounter Plan of Treatment Not on file documented as of this encounter Visit Diagnoses Not on filedocumented in this encounter Care Teams Transporter Radiology Relationship Specialty Start Date End Date Li, Therese, MD PCP - General 05/11/11 06/19/21 Kristi Narvaez MD [address] [place] [address] PCP - General Internal Medicine 06/20/21 05/13/22 [facility], [address] [address] PCP - General Internal Medicine 05/14/22 documented as of this encounter
--- OUTSIDE RECORDS SUMMARY | 2025-02-12 14:37 | XMS_ITS | Encounter Summary ---
[facility] Address [address] [place] [address] Care Team Providers Care Radar Signal Processing Engineer Name Role Phone Therese Li MD Primary Care Provider Kristi Gao MD Primary Care Provider [phone] [facility] Primary Care Provider Unavailabl e Reason for Visit * Reason Onset Date Comments refill request 06/10/2019 Propranolol HCl CR 160 MG CAPSULE SR 24 HR Encounter Details Date Type Department Care Team Description 06/10/2019 Refill Adult Medicine [address] [address] Therese Li MD refill request (Propranolol HCl CR 160 MG CAPSULE SR 24 HR) Social History Tobacco Use Types Packs/Day Years [...] encounter Miscellaneous Notes * Telephone Encounter - Richa Crews M.A. - 06/10/2019 11:44 AM EDT Lab Results Component Value Date NA 129 05/28/2019 K 4.7 05/28/2019 CO2 24 05/28/2019 CL 95 05/28/2019 BUN 33 05/28/2019 CREAT 1.79 05/28/2019 GLU 249 06/01/2019 CA 8.7 05/28/2019 GFR 28 05/28/2019 * Telephone Encounter - Inés Will - 06/10/2019 9:28 AM EDT Patient would like script to be: E-PRESCRIBED/FAXED TO PHARMACY WHEN WAS THE PATIENT'S LAST APPOINTMENT IN ADULT MEDICINE? 06/01/19 WHEN WAS THE LAST TIME THE PATIENT SAW THEIR PCP? Same as above Does patient have an upcoming appointment? Yes 06/23/19 (THE MEDICATION REQUESTED IS ON THE MED LIST ABOVE) All of the medications requested were on the CURRENT MEDS list Did you check the Pharmacy information above?: YES Patient wants: 90 -day supply Is this a mail order prescription request ? NO If the refill is from a FAXED refill request what is the RX # listed on the fax? N/A Patients current insurance [place] is: [place] / Product Type: MEDICARE [id number] documented in this encounter Plan of Treatment Not on file documented as of this encounter Visit Diagnoses Not on filedocumented in this encounter Care Teams Radar Signal Processing Engineer Relationship Specialty Start Date End Date Therese Li MD PCP - General 05/11/11 06/19/21 Kristi Narvaez MD [address] [place] [address] PCP - General Internal Medicine 06/20/21 05/13/22 [place] [address] PCP - General Internal Medicine 05/14/22 documented as of this encounter
--- OUTSIDE RECORDS SUMMARY | 2025-02-12 14:37 | XMS_ITS | Encounter Summary ---
Author Organization [facility] Address [address] [place] [address] Care Team Providers Care Services Mgr Name Role Phone Therese Li MD Primary Care Provider Kristi Gao MD Primary Care Provider [phone] [facility], Pcp Primary Care Provider Unavailabl e Encounter Details Date Type Department Care Team Description 06/02/2019 Home Health Certification Medical Records [address] [place] [address] Home, [facility] [address] [place], [place] [phone] Social History Tobacco Use Types Packs/Day Years [...] on filedocumented in this encounter Care Teams Services Mgr Relationship Specialty Start Date End Date Therese Li MD PCP - General 05/11/11 06/19/21 Kristi Narvaez MD [address] [place] [address] PCP - General Internal Medicine 06/20/21 05/13/22 [facility], Pcp [address] [place] [address] PCP - General Internal Medicine 05/14/22 documented as of this encounter
--- OUTSIDE RECORDS SUMMARY | 2025-02-12 14:38 | XMS_ITS | Clinical Summary ---
[facility] Address [address] [place] [address] Care Team Providers Care Manager Integration Name Role Phone Community, Pcp Primary Care Provider Unavailabl e Allergies Active Allergy Reactions Severity Noted Date Comments Sulfamethoxazole W-Trimethoprim Rash/Dermatitis 12/11/2005 Medications Medication Sig Dispensed Refills Start Date End Date Status Glucose Blood (FREESTYLE LITE) Strip TEST BLOOD SUGAR 3 TIMES A DAY 100 Strip 5 06/20/2020 Active fluticasone 50 MCG/ACT nasal spray USE 1 SPRAY IN EACH NOSTRIL TWICE A DAY 1 Bottle 0 02/07/2021 Active gabapentin (NEURONTIN) 300 MG capsule Take 1 capsule by mouth at bedtime. 30 capsule 0 08/28/2021 Active naphazoline-phenira mine (Naphcon-A) 0.025-0.3 % ophthalmic solution Place 1 Drop into both eyes 4 times daily for 10 days. 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 08/29/2021 Microalbuminuria 08/29/2021 CKD (chronic kidney disease) stage 3, GF R 30-59 ml/min 08/29/2021 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 12/10/2019 Anxiety 09/10/2017 Right radial head fracture 07/03/2016 Overview: NEOS Leukocytosis 04/23/2016 Overview: Mild, since 2012 Dry eyes 04/03/2016 Carpal tunnel syndrome 03/08/2015 Rosacea 10/03/2011 Subclinical hyperthyroidism 06/12/2011 Hypertriglyceridemia 02/19/2011 Leg edema 04/18/2009 Benign head tremor 07/26/2006 HYPERTENSION 12/24/2005 Resolved Problems Problem Noted Date Resolved Date Hand pain 02/02/2013 08/29/2021 Paresthesia of hand 02/02/2013 08/29/2021 Lumbago 07/26/2006 04/18/2009 Immunizations Name Administration Dates Next Due COVID-19 (Moderna) 02/24/2021,01/27/2021 Influenza (> 6 Months) 11/09/2016,2014,01/22/2014,08/16 Influenza Flu (PT Reported) 10/17/2019 Influenza H1N1 Pandemic Flu Vaccine 12/21/2009 Influenza Vaccine-quadrivale nt 4 Years Plus 09/11/2018,09/03/2017 Influenza vaccine high dose age 65 and over 08/28/2021,10/15/2020 Pneumoccoccal(Adult) Polysac charide PPSV23 06/30/2019 Pneumococcal Conjugate PCV-13 08/28/2021 Shingrix (Recombinant zoster vaccine) 10/15/2020 TD (STATE SUPPLIED FOR ADULT S AND CHILDREN) 06/30/2019 Tdap 04/18/2009 Family History Medical History Relation Name Comments [place] Breast Aunt great aunt x3 ( maternal side) Diabetes Brother 1 trauma induced diabetes Cancer, Other Brother 2 tumor near pa ncreas/stomach , cancer [place] Brother 3 fatal [place] at 61 CAD Father fatal [place]; CHF; mental disroder [place] Maternal Grandmother Cancer of the Breast Mother AFIB; d ementia [place] Breast Sister Relation Name Status Comments Aunt Brother 1 Alive Brother 2 Alive Brother 3 Father Maternal Grandmother Mother Alive Sister Alive Social History Tobacco Use Types Packs/Day Years Used Date Smoking Tobacco: Never Smokeless Tobacco: Never Comments:remote hx of jocelyne cardoso smoking x 3 years in teens, about 40 yrs ago Alcohol Use Standard Drinks/Week Comments Yes 0 (1 standard drink = 0.6 oz pur e alcohol) occ Sex Assigned at Date Recorded Not on file Last Filed Vital Signs Vital Sign Reading Time Taken Comments Blood Pressure 128/64 08/28/2021 2:23 PM EDT c Pulse 72 08/28/2021 1:10 PM EDT Temperature 36.9 ??C (98.4 ??F) 08/28/2021 1:10 PM ED T Respiratory Rate 19 02/14/2021 3:33 PM EDT Oxygen Saturation 97% 08/28/2021 1:10 PM EDT Inhaled Oxygen Concentration - - Weight 72.8 kg (160 lb 8 oz) 08/28/2021 1:10 PM EDT Height 156.2 cm (5' 1.5 ) 08/28/2021 1:10 PM EDT Body Mass Index 29.84 08/28/2021 1:10 PM EDT Plan of Treatment Health Maintenance Due Date Last Done Comments DIABETES: ANNUAL EYE EXAM 1972 MAMMOGRAM 08/18/2015 08/18/2014, 06/2008, 12/31/2001, Additional history exists BONE DENSITY SCREENING 2019 08/18/2014, 2007 DEPRESSION SCREEN 06/30/2020 06/30/2019 COLON CANCER SCREEN WITH STO OL CARD 08/31/2020 08/31/2019 SHINGLES VACCINE (2 of 2) 12/10/2020 10/15/2020 DIABETES: BLOOD SUGAR CONTRO L TEST (HGBA1C) 01/16/2022 10/16/2021, 08/28/2021, 02/14/2021, Additional history exists DIABETES/HEART DISEASE: [place] CHOLESTEROL (LDL) 02/14/2022 02/14/2021, 05/28/2019, 02/07/2017, Additional history exists DIABETES: ANNUAL FOOT EXAM 08/28/202208/28, 08/17/2019, 06/01/2019 FALL RISK ASSESSMENT 08/28/2022 08/28/2021, 06/30/20 19 DIABETES: ANNUAL URINE PROTE IN TEST (MICROALBUMIN) 10/16/2022 10/16/2021, 07/21/2020, 06/30/2019, Additional history exists Covid-19 Vaccine (3 - 2022-2 4 season) 2024 02/24/2021, 01/27/2021 INFLUENZA (#1) 2024 08/28/2021, 10/02, 10/17/2019, Additional history exists BMI CHECK/ADVISE 12/02/2024 08/28/2021, , 01/14/2020, Additional history exists DTAP/TDAP/TD (3 - Td or Tdap) 06/30/2029 06/30/2019, 04/18/2009 HEPATITIS C SCREENING Completed 09/28/2013 PNEUMOCOCCAL VACCINE Completed 08/28/2021, 06/30/20 19 Care Teams Manager Integration Relationship Specialty Start Date End Date Community, Pcp PCP - General Internal Medicine 05/14/22
--- OUTSIDE RECORDS SUMMARY | 2025-02-12 14:38 | XMS_ITS | Encounter Summary ---
Author Organization [facility] Address [address] [place] [address] Care Team Providers Care Shirt Finisher Name Role Phone Therese Li MD Primary Care Provider Kristi Gao MD Primary Care Provider [phone] [facility]cp Primary Care Provider Unavailabl e Encounter Details Date Type Department Care Team Description 08/24/2019 Neckties Painter Report Medical Records [address] [place] [address] [facility] Diabetes Education [address] [facility] [address] [place] [address] Social History Tobacco Use Types Packs/Day Years [...] on filedocumented in this encounter Care Teams Shirt Finisher Relationship Specialty Start Date End Date Therese Li MD PCP - General 05/11/11 06/19/21 Kristi Narvaez MD [address] [place] [address] PCP - General Internal Medicine 06/20/21 05/13/22 [facility], Pcp [address] [place] [address] PCP - General Internal Medicine 05/14/22 documented as of this encounter
--- OUTSIDE RECORDS SUMMARY | 2025-02-12 14:38 | XMS_ITS | Encounter Summary ---
Author Organization [facility] Address [address] [place] [address] Care Team Providers Care Binder Sorter Name Role Phone Therese Li MD Primary Care Provider Kristi Gao MD Primary Care Provider [phone] [facility], Pcp Primary Care Provider Unavailabl e Encounter Details Date Type Department Care Team Description 03/15/2020 Placement Secretary Report Medical Records [address] [place] [address] Ni Yanez MD Social History Tobacco Use Types Packs/Day [...] on filedocumented in this encounter Care Teams Binder Sorter Relationship Specialty Start Date End Date Therese Li MD PCP - General 05/11/11 06/19/21 Kristi Narvaez MD [address] [place], [place] [phone] PCP - General Internal Medicine 06/20/21 05/13/22 [facility], Pcp [address] [place] [address] PCP - General Internal Medicine 05/14/22 documented as of this encounter
--- OUTSIDE RECORDS SUMMARY | 2025-02-12 14:38 | XMS_ITS | Encounter Summary ---
Author Organization [facility] Address [address] [place] [address] Care Team Providers Care Corporate Sales Trainer Name Role Phone Kristi Narvaez MD Primary Care Provider [phone] [facility], Pcp Primary Care Provider Unavailabl e Encounter Details Date Type Department Care Team Description 09/06/2021 Orders Only Adult Medicine [facility] [address] [place], [place] [phone] Judy Shields PA-C [address] [place] [phone] Social History Tobacco Use Types Packs/Day Years Used Date Smoking Tobacco: Never Smokeless Tobacco: Never Comments:remote hx of minima l smoking x 3 years in teens, about 40 yrs ago Alcohol Use Standard Drinks/Week Comments Yes 0 (1 standard drink = 0.6 oz pur e alcohol) occ Sex Assigned at Date Recorded Not on file COVID-19 Exposure Response Date Recorded In the last month, have you been in contact with someone who was confirmed or suspected to have Coronavirus / COVID-19? Unable to assess 09/06/2021 9:00 AM EDT documented as of this encounter Plan of Treatment Not on file documented as of this encounter Visit Diagnoses Not on filedocumented in this encounter Care Teams Corporate Sales Trainer Relationship Specialty Start Date End Date Kristi Narvaez MD [address] [place] [address] [phone] PCP - General Internal Medicine 06/20/21 05/13/22 [facility], Pcp [address] [place] [address] PCP - General Internal Medicine 05/14/22 documented as of this encounter
--- OUTSIDE RECORDS SUMMARY | 2025-02-12 14:38 | XMS_ITS | Encounter Summary ---
Author Organization [facility] Address [address] [place] [address] Care Team Providers Care Cloth Cutting Machine Operator Name Role Phone Therese Li MD Primary Care Provider Kristi Gao MD Primary Care Provider [phone] [facility], Pcp Primary Care Provider Unavailabl e Encounter Details Date Type Department Care Team Description 01/04/2021 Telephone Adult Medicine [facility] [address] [place] [address] Therese Li MD Social History Tobacco Use Types Packs/Day [...] or suspected to have Coronavirus / COVID-19? No / Unsure 12/29/2020 3:13 PM EST documented as of this encounter Plan of Treatment Not on file documented as of this encounter Visit Diagnoses Not on filedocumented in this encounter Care Teams Cloth Cutting Machine Operator Relationship Specialty Start Date End Date Therese Li MD PCP - General 05/11/11 06/19/21 Kristi Narvaez MD [address] [place] [id number] PCP - General Internal Medicine 06/20/21 05/13/22 [facility], Pcp [address] [place] [address] PCP - General Internal Medicine 05/14/22 documented as of this encounter
--- OUTSIDE RECORDS SUMMARY | 2025-02-12 14:38 | XMS_ITS | Encounter Summary ---
Author Organization [facility] Address [address] [place] [address] Care Team Providers Care Regional Telecommunications Specialist Name Role Phone Therese Li MD Primary Care Provider Kristi Gao MD Primary Care Provider [phone] [facility], Pcp Primary Care Provider Unavailabl e Encounter Details Date Type Department Care Team Description 10/15/2016 [facility] Medical Records [address] [place] [address] Abstract, Provider Social History Tobacco Use Types [...] on filedocumented in this encounter Care Teams Regional Telecommunications Specialist Relationship Specialty Start Date End Date Therese Li MD PCP - General 05/11/11 06/19/21 Kristi Narvaez MD [address] [place], [place] [phone] PCP - General Internal Medicine 06/20/21 05/13/22 [facility], Pcp [address] [place] [address] PCP - General Internal Medicine 05/14/22 documented as of this encounter
--- OUTSIDE RECORDS SUMMARY | 2025-02-12 14:38 | XMS_ITS | Encounter Summary ---
Author Organization [facility] Address [address] [place] [address] Care Team Providers Care Sanitor Name Role Phone Therese Li MD Primary Care Provider Kristi Gao MD Primary Care Provider [phone] [facility], Pcp Primary Care Provider Unavailabl e Reason for Visit * Reason Comments E-prescribe Rx Request Encounter Details Date Type Department Care Team Description 06/23/2019 Refill Adult Medicine [address] [address] Therese Li MD E-prescribe Rx Request Social History Tobacco Use [...] Miscellaneous Notes * Telephone Encounter - Lupe Segura M.A. - 06/24/2019 8:58 AM EDT Faxed to pharmacy * Telephone Encounter - Scarlett Finnegan - 06/23/2019 3:48 PM EDT Patient would like script to be: E-PRESCRIBED/FAXED TO PHARMACY WHEN WAS THE PATIENT'S LAST APPOINTMENT IN ADULT MEDICINE? 06/23/19 WHEN WAS THE LAST TIME THE PATIENT SAW THEIR PCP? 06/01/19 Does patient have an upcoming appointment? Yes 06/30/19 (THE MEDICATION REQUESTED IS ON THE MED LIST ABOVE) All of the medications requested were on the CURRENT MEDS list Did you check the Pharmacy information above?: YES Patient wants: 30 -day supply Is this a mail order prescription request ? NO If the refill is from a FAXED refill request what is the RX # listed on the fax? N/A Patients current insurance carrier is: Payor: [employer]IC[employer] / Plan: MEDICARE[employer] / Product Type: MEDICARE [id number] documented in this encounter Plan of Treatment Not on file documented as of this encounter Visit Diagnoses Not on filedocumented in this encounter Care Teams Sanitor Relationship Specialty Start Date End Date Therese Li MD PCP - General 05/11/11 06/19/21 Kristi Narvaez MD [address] [place] [address] PCP - General Internal Medicine 06/20/21 05/13/[address] [address] PCP - General Internal Medicine 05/14/22 documented as of this encounter
--- OUTSIDE RECORDS SUMMARY | 2025-02-12 14:38 | XMS_ITS | Encounter Summary ---
Author Organization [facility] Address [address] [place] [address] Care Team Providers Care Crop And Soil Scientist Name Role Phone Therese Li MD Primary Care Provider Kristi Gao MD Primary Care Provider [facility], Pcp Primary Care Provider Unavailabl e Reason for Visit * Reason Onset Date Comments BRCA 02/23/2014 Encounter Details Date Type Department Care Team Description 02/23/2014 Telephone TAX ANALYST - [address] [id number] Luzma Sanders MD BRCA Social History Tobacco Use Types Packs/Day Years Used Date Smoking Tobacco: Never Smokeless Tobacco: Never Alcohol Use Standard Drinks/Week Comments Yes 0 (1 standard drink = 0.6 oz pur e alcohol) occ Sex Assigned at Date Recorded Not on file documented as of this encounter Miscellaneous Notes * Telephone Encounter - Yamila Hook - 02/23/2014 9:27 AM EDT Patient was referred for BRCA testing/consult Has not responded to phone messages or letter sent Closing request FYI to Dr. Olmos documented in this encounter Plan of Treatment Not on file documented as of this encounter Visit Diagnoses Not on filedocumented in this encounter Care Teams Crop And Soil Scientist Relationship Specialty Start Date End Date Therese Li MD PCP - General 05/11/11 06/19/21 Kristi Narvaez MD [address] [place] [address] PCP - General Internal Medicine 06/20/21 05/13/22 [facility], Pcp [address] [place] [address] PCP - General Internal Medicine 05/14/22 documented as of this encounter
--- OUTSIDE RECORDS SUMMARY | 2025-02-12 14:38 | XMS_ITS | Encounter Summary ---
Author Organization [facility]ol[facility] [employer] [facility] Address [address] [place] [address] Care Team Providers Care Senior Living Advisor Name Role Phone Therese Li MD Primary Care Provider Kristi Gao MD Primary Care Provider [phone] [facility], Pcp Primary Care Provider Unavailabl e Encounter Details Date Type Department Care Team Description 05/26/2014 Orders Only Radiology - [place] [address] [place] [address] Therese Li MD Social History Tobacco Use [...] on filedocumented in this encounter Care Teams Senior Living Advisor Relationship Specialty Start Date End Date Therese Li MD PCP - General 05/11/11 06/19/21 Kristi Narvaez MD [address] [place] [address] [id number] PCP - General Internal Medicine 06/20/21 05/13/22 [facility], Pcp [address] [place] [address] PCP - General Internal Medicine 05/14/22 documented as of this encounter
--- OUTSIDE RECORDS SUMMARY | 2025-02-12 14:38 | XMS_ITS | Encounter Summary ---
Author Organization [facility] [employer] [facility] Address [address] [place] [address] Care Team Providers Care Panel Machine Tender Name Role Phone Therese Li MD Primary Care Provider Kristi Gao MD Primary Care Provider [phone] [facility], Pcp Primary Care Provider Unavailabl e Encounter Details Date Type Department Care Team Description 11/07/2015 SUPERINTENDENT GREENS/Mass[employer] Report Medical Records [address] [place] [address] Abstract, Provider Social History Tobacco Use Types [...] on filedocumented in this encounter Care Teams Panel Machine Tender Relationship Specialty Start Date End Date Therese Li MD PCP - General 05/11/11 06/19/21 Kristi Narvaez MD [address] [place], [place] [phone] PCP - General Internal Medicine 06/20/21 05/13/22 [facility], Pcp [address] [place] [address] PCP - General Internal Medicine 05/14/22 documented as of this encounter
--- OUTSIDE RECORDS SUMMARY | 2025-02-12 14:38 | XMS_ITS | Encounter Summary ---
Author Organization [facility] [employer] [facility] Address [address] [place] [address] Care Team Providers Care Sales Assistant Name Role Phone Therese Li MD Primary Care Provider Kristi Gao MD Primary Care Provider [phone] [facility], Pcp Primary Care Provider Unavailabl e Encounter Details Date Type Department Care Team Description 09/26/2011 Controlled Substance Contract with Plan Medical Records [address] [place] [address] Abstract, Provider Social History Tobacco Use Types Packs/Day Years Used Date Smoking Tobacco: Never Alcohol Use Standard Drinks/Week Comments Yes 0 (1 standard drink = 0.6 oz pur e alcohol) occ Sex Assigned at Date Recorded Not on file documented as of this encounter Plan of Treatment Not on file documented as of this encounter Visit Diagnoses Not on filedocumented in this encounter Care Teams Sales Assistant Relationship Specialty Start Date End Date Therese Li MD PCP - General 05/11/11 06/19/21 Kristi Narvaez MD [address] [place] [address] PCP - General Internal Medicine 06/20/21 05/13/22 [facility], [address] [address] PCP - General Internal Medicine 05/14/22 documented as of this encounter
--- OUTSIDE RECORDS SUMMARY | 2025-02-12 14:38 | XMS_ITS | Encounter Summary ---
Author Organization Yolanda [employer] [facility] Address [address] [place] [address] Care Team Providers Care Circular Distributor Name Role Phone Therese Li MD Primary Care Provider Kristi Gao MD Primary Care Provider [phone] [facility], Pcp Primary Care Provider Unavailabl e Encounter Details Date Type Department Care Team Description 11/04/2013 Night Triage Doc Medical Records [address] [place] [address] Abstract, Provider Social History Tobacco Use Types [...] on filedocumented in this encounter Care Teams Circular Distributor Relationship Specialty Start Date End Date Therese Li MD PCP - General 05/11/11 06/19/21 Kristi Narvaez MD [address] [place] [address] PCP - General Internal Medicine 06/20/21 05/13/22 [facility], Pcp [address] [place], [place] [phone] PCP - General Internal Medicine 05/14/22 documented as of this encounter
--- OUTSIDE RECORDS SUMMARY | 2025-02-12 14:38 | XMS_ITS | Encounter Summary ---
Author Organization [facility] Address [address] [place] [address] Care Team Providers Care Truck Leasing Manager Name Role Phone Therese Li MD Primary Care Provider Kristi Gao MD Primary Care Provider [facility], Pcp Primary Care Provider Unavailabl e Encounter Details Date Type Department Care Team Description 08/17/2019 Telephone Adult Medicine [address] [address] Therese Li MD Social History Tobacco Use [...] on filedocumented in this encounter Care Teams Truck Leasing Manager Relationship Specialty Start Date End Date Therese Li MD PCP - General 05/11/11 06/19/21 Kristi Narvaez MD [address] [place] [address] PCP - General Internal Medicine 06/20/21 05/13/22 [facility], [address] [address] PCP - General Internal Medicine 05/14/22 documented as of this encounter
--- OUTSIDE RECORDS SUMMARY | 2025-02-12 14:38 | XMS_ITS | Encounter Summary ---
Author Organization [facility] Address [address] [place] [address] Care Team Providers Care Farm Truck Driver Name Role Phone Therese Li MD Primary Care Provider Kristi Gao MD Primary Care Provider [phone] [facility], Pcp Primary Care Provider Unavailabl e Encounter Details Date Type Department Care Team Description 09/07/2019 Orders Only Adult Medicine [address] [address] Radha Rogel PA-C [address] [place] [address] [phone] Screening for colon cancer Social History Tobacco Use Types Packs/Day Years [...] on file documented as of this encounter Procedures Procedure Name Priority Date/Time Associated Diagnosis Comments CHG BLOOD OCCULT FECAL HGB DETER IA QUAL FECES 1-3 Routine 08/31/2019 4:20 PM EDT Screening for colon cancer documented in this encounter Results * BLOOD OCCULT QUAL FECAL HEMGLBN (08/31/2019 4:20 PM EDT) OCCULT BLOOD, STOOL NEG INTERNAL CONTROL VALID YES Stool 08/31/2019 4:20 PM EDT Radha Rogel PA-C LAB documented in this encounter Visit Diagnoses Diagnosis Screening for colon cancer Special screening for malignant neoplasms, colon documented in this encounter Care Teams Farm Truck Driver Relationship Specialty Start Date End Date Therese Li MD PCP - General 05/11/11 06/19/21 Kristi Narvaez MD [address] [place] [address] PCP - General Internal Medicine 06/20/21 05/13/[address] [address] PCP - General Internal Medicine 05/14/22 documented as of this encounter
--- OUTSIDE RECORDS SUMMARY | 2025-02-12 14:38 | XMS_ITS | Encounter Summary ---
Author Organization [facility] Address [address] [place] [address] Care Team Providers Care Mental Measurements Teacher Name Role Phone Therese Li MD Primary Care Provider Kristi Gao MD Primary Care Provider [phone] [facility], Pcp Primary Care Provider Unavailabl e Encounter Details Date Type Department Care Team Description 06/29/2016 Generation Technologist Report Medical Records [address] [place] [address] Fauzia Thompson APRN Social History Tobacco Use Types Packs/Day Years [...] on filedocumented in this encounter Care Teams Mental Measurements Teacher Relationship Specialty Start Date End Date Therese Li MD PCP - General 05/11/11 06/19/21 Kristi Narvaez MD [address] [place], [place] [phone] PCP - General Internal Medicine 06/20/21 05/13/22 [facility], Pcp [address] [place] [address] PCP - General Internal Medicine 05/14/22 documented as of this encounter
--- OUTSIDE RECORDS SUMMARY | 2025-02-12 14:38 | XMS_ITS | Encounter Summary ---
Author Organization [facility] Address [address] [place] [address] Care Team Providers Care Paint Laboratory Technician Name Role Phone Therese Li MD Primary Care Provider Kristi Gao MD Primary Care Provider [phone] [facility], Pcp Primary Care Provider Unavailabl e Reason for Visit * Reason Onset Date Comments medication problems 10/17/2017 Encounter Details Date Type Department Care Team Description 10/17/2017 Telephone Adult Medicine [address] [address] Radha Rogel PA-C [address] [place] [address] medication problems Social History Tobacco Use Types Packs/Day Years [...] encounter Miscellaneous Notes * Telephone Encounter - JEFFERSON Tafoya, RN - 10/18/2017 1:25 PM EST Pharmacy concerned theres an interraction with pt medication, fluconazole and valium, please advisein providers absence * Telephone Encounter - Jody Chaves L.P.N. - 10/17/2017 2:12 PM EST Tried calling on hold..... * Telephone Encounter - Kate Zhang - 10/17/2017 1:34 PM EST Who is calling? A pharmacist: Pharmacy: [facility] Pharmacist Name: n/a Pharmacy Name of the medication diazepam (VALIUM) 5 MG tablet What is the specific problem or interaction? Pharmacy is asking for script clarification as there is a drug interaction with flucoazle. If the patient is having a problem with taking the med - how long has the problem been going on? N/A documented in this encounter Plan of Treatment Not on file documented as of this encounter Visit Diagnoses Not on filedocumented in this encounter Care Teams Paint Laboratory Technician Relationship Specialty Start Date End Date Therese Li MD PCP - General 05/11/11 06/19/21 Kristi Narvaez MD [address] [place] [address] PCP - General Internal Medicine 06/20/21 05/13/22 [facility], [place] [address] PCP - General Internal Medicine 05/14/22 documented as of this encounter
--- OUTSIDE RECORDS SUMMARY | 2025-02-12 14:38 | XMS_ITS | Encounter Summary ---
Author Organization [facility] Address [address] [place] [address] Care Team Providers Care Director Treasurer Name Role Phone Therese Li MD Primary Care Provider Kristi Gao MD Primary Care Provider [facility], Pcp Primary Care Provider Unavailabl e Reason for Visit * Reason Comments E-prescribe Rx Request Encounter Details Date Type Department Care Team Description 05/28/2020 Refill Adult Medicine [address] [address] Therese Li MD E-prescribe Rx Request Social [...] encounter Miscellaneous Notes * Telephone Encounter - Ricarda Cornell M.A. - 05/30/2020 1:54 PM EDT Lab Results Component Value Date HGBA1C 5.8 09/24/2019 MALBUR 51.1 06/30/2019 MALBCR 22.0 06/30/2019 CHOL 210 05/28/2019 LDL 91 05/28/2019 HDL 35 05/28/2019 TRIG 421 05/28/2019 GLU 249 06/01/2019 CREAT 1.79 05/28/2019 * Telephone Encounter - Talia Vazquez - 05/29/2020 1:53 PM EDT Patient would like script to be: E-PRESCRIBED/FAXED TO PHARMACY WHEN WAS THE PATIENT'S LAST APPOINTMENT IN ADULT MEDICINE? 05/06/2020 WHEN WAS THE LAST TIME THE PATIENT SAW THEIR PCP? Same as above Does patient have an upcoming appointment? Yes 04/11/2020 (THE MEDICATION REQUESTED IS ON THE MED [...] / [place] / Product Type: MEDICARE [id number] documented in this encounter Plan of Treatment Not on file documented as of this encounter Visit Diagnoses Not on filedocumented in this encounter Care Teams Director Treasurer Relationship Specialty Start Date End Date Therese Li MD PCP - General 05/11/11 06/19/21 Kristi Narvaez MD [address] [place] [address] PCP - General Internal Medicine 06/20/21 05/13/22 [place] [address] PCP - General Internal Medicine 05/14/22 documented as of this encounter
--- OUTSIDE RECORDS SUMMARY | 2025-02-12 14:38 | XMS_ITS | Encounter Summary ---
Author Organization [facility]olanda [employer] [facility] Address [address] [place] [address] Care Team Providers Care Kinesiology Professor Name Role Phone Therese Li MD Primary Care Provider Kristi Gao MD Primary Care Provider [phone] [facility], Pcp Primary Care Provider Unavailabl e Encounter Details Date Type Department Care Team Description 10/30/2013 Help Desk Technician Report Medical Records [address] [place] [address] Rajendra Weber MD Social History Tobacco Use Types Packs/Day [...] on filedocumented in this encounter Care Teams Kinesiology Professor Relationship Specialty Start Date End Date Therese Li MD PCP - General 05/11/11 06/19/21 Kristi Narvaez MD [address] [place] [address] [phone] PCP - General Internal Medicine 06/20/21 05/13/22 [facility], Pcp [address] [place] [address] PCP - General Internal Medicine 05/14/22 documented as of this encounter
--- OUTSIDE RECORDS SUMMARY | 2025-02-12 14:38 | XMS_ITS | Encounter Summary ---
Author Organization [facility] Address [address] [place] [address] Care Team Providers Care Billing Administrator Name Role Phone Therese Li MD Primary Care Provider Kristi Gao MD Primary Care Provider [phone] [facility], Pcp Primary Care Provider Unavailabl e Encounter Details Date Type Department Care Team Description 02/28/2021 Orders Only Radiology - [address] [phone] Radiology, Authorizing Social History Tobacco Use Types Packs/Day Years [...] have Coronavirus / COVID-19? No / Unsure 02/14/2021 11:37 AM EDT documented as of this encounter Plan of Treatment Not on file documented as of this encounter Visit Diagnoses Not on filedocumented in this encounter Care Teams Billing Administrator Relationship Specialty Start Date End Date Therese Li MD PCP - General 05/11/11 06/19/21 Kristi Narvaez MD [address] [place] [address] PCP - General Internal Medicine 06/20/21 05/13/22 [facility], Pcp [address] [place] [address] PCP - General Internal Medicine 05/14/22 documented as of this encounter
--- OUTSIDE RECORDS SUMMARY | 2025-02-12 14:38 | XMS_ITS | Encounter Summary ---
Author Organization [facility] Address [address] [place] [address] Care Team Providers Care Attorney Recruiter Name Role Phone Therese Li MD Primary Care Provider Kristi Gao MD Primary Care Provider [facility], Pcp Primary Care Provider Unavailabl e Encounter Details Date Type Department Care Team Description 08/02/2020 Tie Mill Operator Report Medical Records [address] [place] [address] Ni Yanez MD Social History Tobacco Use [...] on filedocumented in this encounter Care Teams Attorney Recruiter Relationship Specialty Start Date End Date Therese Li MD PCP - General 05/11/11 06/19/21 Kristi Narvaez MD [address] [place], [place] [phone] PCP - General Internal Medicine 06/20/21 05/13/22 [facility], Pcp [address] [place] [address] PCP - General Internal Medicine 05/14/22 documented as of this encounter
--- OUTSIDE RECORDS SUMMARY | 2025-02-12 14:38 | XMS_ITS | Encounter Summary ---
[facility] Address [address] [place] [address] Care Team Providers Care Stone Circular Sawyer Name Role Phone Therese Li MD Primary Care Provider Kristi Gao MD Primary Care Provider [phone] [facility], Pcp Primary Care Provider Unavailabl e Reason for Visit * Reason Onset Date Comments refill request 12/22/2014 Encounter Details Date Type Department Care Team Description 12/22/2014 Refill Adult Medicine [address] [address] Therese Li MD refill request Social History Tobacco Use Types Packs/Day Years Used Date Smoking Tobacco: Never Smokeless Tobacco: Never Alcohol Use Standard Drinks/Week Comments Yes 0 (1 standard drink = 0.6 oz pur e alcohol) occ Sex Assigned at Date Recorded Not on file documented as of this encounter Miscellaneous Notes * Telephone Encounter - Heide Mosquera - 12/22/2014 4:24 PM EST Patient calling to check the status of her medication. She would like the refill be faxed to the pharmacy today. * Telephone Encounter - Jody Chaves L.P.N. - 12/22/2014 12:01 PM EST Csc letter Controlled substance contract and last issue date of medication reviewed. Patient is due for medication. Component Value Date URINEOXYCOD NEGATIVE 03/02/2014 URBENZO POSITIVE 03/02/2014 URAMPHETAMIN NEGATIVE 03/02/2014 URMARIJUANA NEGATIVE 03/02/2014 UROPIATES NEGATIVE 03/02/2014 URBARBITUATE NEGATIVE 03/02/2014 URCOCAINE NEGATIVE 03/02/2014 HYDROCODONE Negative 03/02/2014 * Telephone Encounter - Poppy Castrejon - 12/22/2014 11:15 AM EST Patient would like script to be: E-PRESCRIBED/FAXED TO PHARMACY WHEN WAS THE PATIENT'S LAST APPOINTMENT IN ADULT MEDICINE? 09/01/14 WHEN WAS THE LAST TIME THE PATIENT SAW THEIR PCP? 07/08/14 Does patient have an upcoming appointment? Yes 03/08/15 (THE MEDICATION REQUESTED IS ON THE MED LIST ABOVE) All of the medications requested were on the CURRENT MEDS list Did you check the Pharmacy information above?: YES Patient wants: 30 -day supply Is this a mail order prescription request ? NO Patients current insurance carrier is: Payor: [facility] / Plan: PPO $[id number] [id number] / Product Type: PPO [id number] documented in this encounter Plan of Treatment Not on file documented as of this encounter Visit Diagnoses Not on filedocumented in this encounter Care Teams Stone Circular Sawyer Relationship Specialty Start Date End Date Therese Li MD PCP - General 05/11/11 06/19/21 Kristi Narvaez MD [address] [place] [address] PCP - General Internal Medicine 06/20/21 05/13/22 [facility], Pcp [address] [place] [address] PCP - General Internal Medicine 05/14/22 documented as of this encounter
--- OUTSIDE RECORDS SUMMARY | 2025-02-12 14:38 | XMS_ITS | Encounter Summary ---
Author Organization [facility] [employer] [facility] Address [address] [place] [address] Care Team Providers Care Physiognomist Name Role Phone Therese Li MD Primary Care Provider Kristi Gao MD Primary Care Provider [phone] [facility], Pcp Primary Care Provider Unavailabl e Encounter Details Date Type Department Care Team Description 08/20/2017 Release of Information Medical Records [address] [place] [address] Abstract, Provider Social History Tobacco Use Types [...] on filedocumented in this encounter Care Teams Physiognomist Relationship Specialty Start Date End Date Therese Li MD PCP - General 05/11/11 06/19/21 Kristi Narvaez MD [address] [place], [place] [phone] PCP - General Internal Medicine 06/20/21 05/13/22 [facility], Pcp [address] [place] [address] PCP - General Internal Medicine 05/14/22 documented as of this encounter
--- OUTSIDE RECORDS SUMMARY | 2025-02-12 14:38 | XMS_ITS | Encounter Summary ---
Author Organization [facility]olanda [facility] [facility] Address [address] [place] [address] Care Team Providers Care Miller Supervisor Name Role Phone Therese Li MD Primary Care Provider Kristi Gao MD Primary Care Provider [phone] [facility], Pcp Primary Care Provider Unavailabl e Encounter Details Date Type Department Care Team Description 06/02/2014 SPECIAL EVENTS COORDINATOR/Mass[employer] Report Medical Records [address] [place] [address] Abstract, Provider Social History Tobacco Use Types [...] on filedocumented in this encounter Care Teams Miller Supervisor Relationship Specialty Start Date End Date Therese Li MD PCP - General 05/11/11 06/19/21 Kristi Narvaez MD [address] [place] [address] PCP - General Internal Medicine 06/20/21 05/13/22 [facility], Pcp [address] [place] [address] PCP - General Internal Medicine 05/14/22 documented as of this encounter
--- OUTSIDE RECORDS SUMMARY | 2025-02-12 14:38 | XMS_ITS | Encounter Summary ---
Author Organization [facility] Address [address] [place] [address] Care Team Providers Care Pastry Sous Chef Name Role Phone Therese Li MD Primary Care Provider Kristi Gao MD Primary Care Provider [phone] [facility], Pcp Primary Care Provider Unavailabl e Reason for Visit * Reason Onset Date Comments Faxed Refill 02/27/2018 Encounter Details Date Type Department Care Team Description 02/27/2018 Refill Adult Medicine [address] [address] Therese Li MD Faxed Refill Social History Tobacco Use Types Packs/Day Years [...] Telephone Encounter - Therese Li MD - 02/27/2018 6:43 PM EDT Valium printed and faxed to [facility] * Telephone Encounter - Fay Dalton M.A. - 02/27/2018 4:10 PM EDT Controlled substance contract and last issue date of medication reviewed. Patient is due for medication. Lab Results Component Value Date URINEOXYCOD NEGATIVE 07/17/2017 URBENZO POSITIVE 07/17/2017 URAMPHETAMIN NEGATIVE 07/17/2017 URMARIJUANA NEGATIVE 07/17/2017 UROPIATES NEGATIVE 07/17/2017 URBARBITUATE NEGATIVE 07/17/2017 URCOCAINE NEGATIVE 07/17/2017 HYDROCODONE Negative 07/17/2017 * Telephone Encounter - Sherry Baker - 02/27/2018 3:51 PM EDT Patient would like script to be: E-PRESCRIBED/FAXED TO PHARMACY WHEN WAS THE PATIENT'S LAST APPOINTMENT IN ADULT MEDICINE? 09-03-2017 WHEN WAS THE LAST TIME THE PATIENT SAW THEIR PCP? Same as above Does patient have an upcoming appointment? 03-04-2018 (THE MEDICATION REQUESTED IS ON THE MED LIST ABOVE) Did you check the Pharmacy information above?: YES Patient wants: 30 -day supply Is this a mail order prescription request ? NO Patients current insurance carrier is: Payor: [facility] / Plan: PPO $20 ANDOVER [id number] / Product Type: PPO [id number] documented in this encounter Plan of Treatment Not on file documented as of this encounter Visit Diagnoses Not on filedocumented in this encounter Care Teams Pastry Sous Chef Relationship Specialty Start Date End Date Therese Li MD PCP - General 05/11/11 06/19/21 Kristi Narvaez MD [address] [place] [address] PCP - General Internal Medicine 06/20/21 05/13/22 [facility], Pcp [address] [place] [address] PCP - General Internal Medicine 05/14/22 documented as of this encounter
--- OUTSIDE RECORDS SUMMARY | 2025-02-12 14:38 | XMS_ITS | Encounter Summary ---
Author Organization [facility] Address [address] [place] [address] Care Team Providers Care Technology Risk Intern Name Role Phone Therese Li MD Primary Care Provider Kristi Gao MD Primary Care Provider [phone] [facility], [facility] Primary Care Provider Unavailabl e Reason for Visit * Reason Onset Date Comments refill request 09/02/2019 Encounter Details Date Type Department Care Team Description 09/02/2019 Refill Adult Medicine [address] [address] Therese Li MD refill request Social History [...] encounter Miscellaneous Notes * Telephone Encounter - Antonina Addison - 09/02/2019 11:01 AM EDT Patient would like script to be: E-PRESCRIBED/FAXED TO PHARMACY WHEN WAS THE PATIENT'S LAST APPOINTMENT IN ADULT MEDICINE? 09/01/19 WHEN WAS THE LAST TIME THE PATIENT SAW THEIR PCP? Same as above Does patient have an upcoming appointment? Yes 10/08/19 (THE MEDICATION REQUESTED IS ON THE MED [...] N/A Patients current insurance carrier is: Payor: [employer] / Plan: MEDIC[employer] / Product Type: MEDICARE [id number] documented in this encounter Plan of Treatment Not on file documented as of this encounter Visit Diagnoses Not on filedocumented in this encounter Care Teams Technology Risk Intern Relationship Specialty Start Date End Date Therese Li MD PCP - General 05/11/11 06/19/21 Kristi Narvaez MD [address] [place] [address] PCP - General Internal Medicine 06/20/21 05/13/[address] [address] PCP - General Internal Medicine 05/14/22 documented as of this encounter
--- OUTSIDE RECORDS SUMMARY | 2025-02-12 14:38 | XMS_ITS | Encounter Summary ---
Author Organization [facility] Address [address] [place] [address] Care Team Providers Care Stereo Map Plotter Operator Name Role Phone Therese Li MD Primary Care Provider Kristi Gao MD Primary Care Provider [phone] [facility], Pcp Primary Care Provider Unavailabl e Encounter Details Date Type Department Care Team Description 09/08/2019 Sole Filler Report Medical Records [address] [place] [address] Tonyrubens Lalo [address] [place] [address] [address] [place], [place] [id number] Social History Tobacco Use Types Packs/Day Years [...] on filedocumented in this encounter Care Teams Stereo Map Plotter Operator Relationship Specialty Start Date End Date Therese Li MD PCP - General 05/11/11 06/19/21 Kristi Narvaez MD [address] [place] [address] PCP - General Internal Medicine 06/20/21 05/13/22 [facility], Pcp [address] [place] [address] PCP - General Internal Medicine 05/14/22 documented as of this encounter
--- OUTSIDE RECORDS SUMMARY | 2025-02-12 14:38 | XMS_ITS | Encounter Summary ---
Author Organization [facility] Address [address] [place] [address] Care Team Providers Care Manager Trust Name Role Phone Therese Li MD Primary Care Provider Kristi Gao MD Primary Care Provider [phone] [facility], Pcp Primary Care Provider [facility] Encounter Details Date Type Department Care Team Description 09/20/2015 Pt. Non Urgent Medic al Question Adult Medicine [address] [address] Therese Li MD Social History Tobacco Use Types Packs/Day Years Used Date Smoking Tobacco: Never Smokeless Tobacco: Never Comments:remote hx of minima l smoking x 3 years in teens, about 40 yrs ago Alcohol Use Standard Drinks/Week Comments Yes 0 (1 standard drink = 0.6 oz pur e alcohol) occ Sex Assigned at Date Recorded Not on file documented as of this encounter Progress Notes * Tila Coronado M.A. - 09/20/2015 11:40 AM EDTFrom: Ni Gallardo To: Therese Li MD Sent: 09/20/2015 11:12 AM EDT Subject: Blood Pressure Readings Dear Dr. Diaz, I seem to have sent the wrong month for my blood pressure readings, this is the correct month. 09/13....154/100 09/14....152/100 15....148/109 16....153/100 09/17....151/97 09/18....153/9 09/19....154/94 09/20....152/95 documented in this encounter Plan of Treatment Not on file documented as of this encounter Visit Diagnoses Not on filedocumented in this encounter Care Teams Manager Trust Relationship Specialty Start Date End Date Therese Li MD PCP - General 05/11/11 06/19/21 Kristi Narvaez MD [address] [place] [address] PCP - General Internal Medicine 06/20/21 05/13/[address] [address] PCP - General Internal Medicine 05/14/22 documented as of this encounter
--- OUTSIDE RECORDS SUMMARY | 2025-02-12 14:38 | XMS_ITS | Encounter Summary ---
Author Organization [facility] Address [address] [place] [address] Care Team Providers Care Associate Attorney Name Role Phone Therese Li MD Primary Care Provider Kristi Gao MD Primary Care Provider [phone] [facility], Pcp Primary Care Provider Unavailabl e Reason for Visit * Reason Onset Date Comments refill request 06/30/2020 Encounter Details Date Type Department Care Team Description 06/30/2020 Refill Adult Medicine [address] [address] Therese Li MD refill request Social History [...] encounter Miscellaneous Notes * Telephone Encounter - Fabiana Gallardo M.A. - 06/30/2020 4:03 PM EDT Left message to return call, please put call through to [phone] or re message to pool * Telephone Encounter - Therese Li MD - 06/30/2020 3:47 PM EDT Yes, she can now increase the Cymbalta to BID * Telephone Encounter - Kaylie Atkinson C.M.A. - 06/30/2020 3:20 PM EDT Spoke to pt, too soon to refill Valium. Pt is due on 07/04/20 and she will call to request this med when due. Pt states that she was out of Cymbalta for over a month and received her refill on 06/17/20. Pt has been taking med QD as she was concerned about being out for a month, pt would like to know if ok forher to start taking it BID. Please advise * Telephone Encounter - Katia Swain - 06/30/2020 2:38 PM EDT Patient would like script to be: E-PRESCRIBED/FAXED TO PHARMACY WHEN WAS THE PATIENT'S LAST APPOINTMENT IN ADULT MEDICINE? 06/09/20 WHEN WAS THE LAST TIME THE PATIENT SAW THEIR PCP? sane Does patient have an upcoming appointment? No-patient refused appointment, will call back to book appointment (THE MEDICATION REQUESTED IS ON THE MED [...] / [place] / Product Type: MEDICARE [id number] documented in this encounter Plan of Treatment Not on file documented as of this encounter Visit Diagnoses Not on filedocumented in this encounter Care Teams Associate Attorney Relationship Specialty Start Date End Date Therese Li MD PCP - General 05/11/11 06/19/21 Kristi Narvaez MD [address] [place] [address] PCP - General Internal Medicine 06/20/21 05/13/22 [facility], [place] [address] PCP - General Internal Medicine 05/14/22 documented as of this encounter
--- OUTSIDE RECORDS SUMMARY | 2025-02-12 14:38 | XMS_ITS | Encounter Summary ---
Author Organization [facility] Address [address] [place] [address] Care Team Providers Care Brick Layer Name Role Phone Therese Li MD Primary Care Provider Kristi Gao MD Primary Care Provider [phone] [facility], Pcp Primary Care Provider Unavailabl e Reason for Visit * Reason Onset Date Comments Faxed Refill 01/01/2020 Encounter Details Date Type Department Care Team Description 01/01/2020 Refill Adult Medicine [address] [address] Therese Li MD Faxed Refill Social History [...] encounter Miscellaneous Notes * Telephone Encounter - Jose Hutchins M.A. - 01/01/2020 11:24 AM EST Faxed to pharmacy * Telephone Encounter - Ana Medina - 01/01/2020 9:58 AM EST Patient would like script to be: E-PRESCRIBED/FAXED TO PHARMACY WHEN WAS THE PATIENT'S LAST APPOINTMENT IN ADULT MEDICINE? 12/10/19 WHEN WAS THE LAST TIME THE PATIENT SAW THEIR PCP? Same as above Does patient have an upcoming appointment? Yes 03/07/20 (THE MEDICATION REQUESTED IS ON THE MED [...] N/A Patients current insurance carrier is: Payor: [employer] / [place] / Product Type: MEDICARE [id number] documented in this encounter Plan of Treatment Not on file documented as of this encounter Visit Diagnoses Not on filedocumented in this encounter Care Teams Brick Layer Relationship Specialty Start Date End Date Therese Li MD PCP - General 05/11/11 06/19/21 Kritsi Narvaez MD [address] [place], [place] [phone] PCP - General Internal Medicine 06/20/21 05/13/[address] [address] PCP - General Internal Medicine 05/14/22 documented as of this encounter
--- OUTSIDE RECORDS SUMMARY | 2025-02-12 14:38 | XMS_ITS | Encounter Summary ---
Author Organization [facility] Address [address] [place] [address] Care Team Providers Care Bookkeeping Clerk Name Role Phone Therese Li MD Primary Care Provider Kristi Gao MD Primary Care Provider [phone] [facility], Pcp Primary Care Provider Unavailabl e Reason for Visit * Reason Comments E-prescribe Rx Request Encounter Details Date Type Department Care Team Description 03/07/2018 Refill Adult Medicine [address] [address] Therese Li MD E-prescribe Rx Request Social [...] encounter Miscellaneous Notes * Telephone Encounter - Leonie Dalal - 03/07/2018 10:12 AM EDT Patient would like script to be: E-PRESCRIBED/FAXED TO PHARMACY WHEN WAS THE PATIENT'S LAST APPOINTMENT IN ADULT MEDICINE? 09/13/2017 WHEN WAS THE LAST TIME THE PATIENT SAW THEIR PCP? Same as above Does patient have an upcoming appointment? [facility] to refill request. Appt due next available (THE MEDICATION REQUESTED IS ON THE MED LIST ABOVE) All of the medications requested were on the CURRENT MEDS list Did you check the Pharmacy information above?: YES Patient wants: 90 -day supply Is this a mail order prescription request ? NO Patients current insurance carrier is: Payor: [facility] / Plan: PPO $20 [place] 9031 / Product Type: PPO [id number] documented in this encounter Plan of Treatment Not on file documented as of this encounter Visit Diagnoses Not on filedocumented in this encounter Care Teams Bookkeeping Clerk Relationship Specialty Start Date End Date Therese Li MD PCP - General 05/11/11 06/19/21 Kristi Narvaez MD [address] [place] [address] PCP - General Internal Medicine 06/20/21 05/13/[address] [address] PCP - General Internal Medicine 05/14/22 documented as of this encounter
--- OUTSIDE RECORDS SUMMARY | 2025-02-12 14:38 | XMS_ITS | Clinical Summary ---
Author Organization [facility] [employer] [facility] it Address [address] [place] [address] Care Team Providers Care Triple Drum Operator Name Role Phone Unavailable Primary Care Provider Unavailabl e Surgical History Surgery Date Site/Laterality Comments TONSILLECTOMY PROCEDURE: HISTORICAL TONSILLECTOMY; COMMENT: young adult Medical History Medical History Date Comments Abnormal involuntary movements(781.0) DX:Abnormal involuntary movements(781.0) Lumbago DX:Lumbago Essential hypertension, benign 12/24/2005 D X:Essential hypertension, benign; COMMENT: essential tremor Type 2 diabetes mellitus wit h hyperglycemia, with long-term current use of insulin ([facility]) 06/01/2019 DX:Type 2 diabetes mellitus with hyperglycemia, with long-term current use of insulin ([facility]) Family History Medical History Relation Name Comments Breast cancer Aunt great aunt x3 (maternal side) Diabetes Brother 1 trauma induced diabetes Other cancer Brother 2 tumor near [place]/stomach , cancer Heart attack Brother 3 fatal [place] at 61 Coronary artery disease Father fata l [place]; CHF; mental disroder Heart attack Maternal Grandmother [...]
== END 2025-02-12 13:05 | disposition home or self-care (01) ==
LOC: HO.CT 13:04
PROVIDERS: PCP Internal Medicine; Visit Provider Internal Medicine
DX: R55 Syncope and collapse (principal)
CPT/HCPCS: 70450

== ENCOUNTER → 2025-02-12 13:05 | Outpatient (BNV) | payer MEDICARE, SELFPAY | PROVIDERS: PCP Internal Medicine; Visit Provider Radiology Diagnostic Radiology | DX: R55 Syncope and collapse (principal) | CPT/HCPCS: 70450 ==

== ENCOUNTER 2025-03-22 14:41 | Outpatient (AMB) | payer MEDICARE, SELFPAY ==
--- OUTSIDE RECORDS SUMMARY | 2025-03-22 14:46 | XMS_ITS | Encounter Summary ---
Author Organization [facility] Address [address] [place] [address] Care Team Providers Care Torts Law Professor Name Role Phone Therese Li MD Primary Care Provider Kristi Gao MD Primary Care Provider [phone] [facility], Pcp Primary Care Provider Unavailabl e Encounter Details Date Type Department Care Team Description 01/21/2019 [facility] Medical Records [address] [place] [address] Abstract, Provider Social History Tobacco Use Types [...] on filedocumented in this encounter Care Teams Torts Law Professor Relationship Specialty Start Date End Date Therese Li MD PCP - General 05/11/11 06/19/21 Kristi Narvaez MD [address] [place], [place] [phone] PCP - General Internal Medicine 06/20/21 05/13/22 [facility], Pcp [address] [place] [address] PCP - General Internal Medicine 05/14/22 documented as of this encounter
--- OUTSIDE RECORDS SUMMARY | 2025-03-22 14:46 | XMS_ITS | Encounter Summary ---
Author Organization [facility] [employer] [facility] Address [address] [place] [address] Care Team Providers Care Chief Warden Name Role Phone Therese Li MD Primary Care Provider Kristi Gao MD Primary Care Provider [phone] [facility], Pcp Primary Care Provider Unavailabl e Encounter Details Date Type Department Care Team Description 08/17/2019 Telephone Adult Medicine [address] [address] Therese Li MD Social History Tobacco Use [...] on filedocumented in this encounter Care Teams Chief Warden Relationship Specialty Start Date End Date Therese Li MD PCP - General 05/11/11 06/19/21 Kristi Narvaez MD [address] [place] [address] PCP - General Internal Medicine 06/20/21 05/13/22 [facility], [address] [address] PCP - General Internal Medicine 05/14/22 documented as of this encounter
--- OUTSIDE RECORDS SUMMARY | 2025-03-22 14:46 | XMS_ITS | Encounter Summary ---
Author Organization [facility] Address [address] [place] [address] Care Team Providers Care Senior Business Development Manager Name Role Phone Therese Li MD Primary Care Provider Kristi Gao MD Primary Care Provider [phone] [facility], Pcp Primary Care Provider Unavailabl e Encounter Details Date Type Department Care Team Description 06/02/2019 Home Health Certification Medical Records [address] [place] [address] Home, [facility] [address] [facility] [address] [place], [place] [phone] Social History Tobacco Use Types Packs/Day Years [...] filedocumented in this encounter Care Teams Senior Business Development Manager Relationship Specialty Start Date End Date Therese Li MD PCP - General 05/11/11 06/19/21 Kristi Narvaez MD [address] [place] [address] PCP - General Internal Medicine 06/20/21 05/13/22 [facility], Pcp [address] [place] [address] PCP - General Internal Medicine 05/14/22 documented as of this encounter
--- OUTSIDE RECORDS SUMMARY | 2025-03-22 14:46 | XMS_ITS | Encounter Summary ---
Author Organization [facility] Address [address] [place] [address] Care Team Providers Care Registered Occupational Therapist Name Role Phone Therese Li MD Primary Care Provider Kristi Gao MD Primary Care Provider [phone] [facility], Pcp Primary Care Provider Unavailabl e Reason for Visit * Reason Comments E-prescribe Rx Request Encounter Details Date Type Department Care Team Description 03/04/2019 Refill Adult Medicine [address] [address] Therese Li MD E-prescribe Rx Request Social [...] Telephone Encounter - Richa Crews M.A. - 03/04/2019 2:53 PM EDT Lab Results Component Value Date NA 140 02/07/2017 K 4.2 02/07/2017 CO2 23.6 02/07/2017 CL 99 02/07/2017 BUN 22 02/07/2017 CREAT 1.0 02/07/2017 GLU 194 02/07/2017 CA 9.7 02/07/2017 GFR 60 02/07/2017 * Telephone Encounter - Inésremi Sheffieldno - 03/04/2019 1:52 PM EDT Patient would like script to be: E-PRESCRIBED/FAXED TO PHARMACY WHEN WAS THE PATIENT'S LAST APPOINTMENT IN ADULT MEDICINE? 01/21/19 WHEN WAS THE LAST TIME THE PATIENT SAW THEIR PCP? 09/03/17 Does patient have an upcoming appointment? Yes 05/28/19 (THE MEDICATION REQUESTED IS ON THE MED [...] N/A Patients current insurance carrier is: [facility] / Plan: INDEMNITY $20 [place] / Product Type:PPO [id number] documented in this encounter Plan of Treatment Not on file documented as of this encounter Visit Diagnoses Not on filedocumented in this encounter Care Teams Registered Occupational Therapist Relationship Specialty Start Date End Date Therese Li MD PCP - General 05/11/11 06/19/21 Kristi Narvaez MD [address] [place] [address] PCP - General Internal Medicine 06/20/21 05/13/22 [place] [address] PCP - General Internal Medicine 05/14/22 documented as of this encounter
--- OUTSIDE RECORDS SUMMARY | 2025-03-22 14:46 | XMS_ITS | Encounter Summary ---
Author Organization [facility] Address [address] [place] [address] Care Team Providers Care Compensation Vice President Name Role Phone Therese Li MD Primary Care Provider Kristi Gao MD Primary Care Provider [phone] [facility], Pcp Primary Care Provider Unavailabl e Reason for Visit * Reason Onset Date Comments refill request 06/23/2019 Encounter Details Date Type Department Care Team Description 06/23/2019 Refill Adult Medicine [address] [address] Therese Li MD refill request Social History [...] Encounter - Lupe Segura M.A. - 06/24/2019 8:59 AM EDT Faxed to pharmacy * Telephone Encounter - Richa Crews M.A. - 06/23/2019 3:29 PM EDT Please review will you order lancets for pt Lab Results Component Value Date HGBA1C 5.7 05/31/2014 MALBUR 9.5 01/08/2010 MALBCR 5 01/08/2010 CHOL 210 05/28/2019 LDL 91 05/28/2019 HDL 35 05/28/2019 TRIG 421 05/28/2019 GLU 249 06/01/2019 CREAT 1.79 05/28/2019 * Telephone Encounter - Ann-Marie Schwarz - 06/23/2019 2:46 PM EDT Patient would like script to be: E-PRESCRIBED/FAXED TO PHARMACY When was the patients last office visit in Adult Medicine?: 06/23/19 When was the last time the patient saw their PCP? 05/28/19 Does patient have an upcoming appointment? Yes 06/30/19 (THE MEDICATION IS NOT ON THE MED LIST AND IS IDENTIFIED BELOW): {MED LIST:07167) Med name: 28 gauge free style sterile lancets Dosage: 100 each Give by Octavia Diabetic class # of tablets: 100 Local pharmacy with request for 30 -day supply Instructions: Test 3 timed daily Did you check the pharmacy information above?: YES Patients current insurance carrier: [place] / [place] / Product Type: MEDICAREFEE-FOR-SERVICE documented in this encounter Plan of Treatment Not on file documented as of this encounter Visit Diagnoses Not on filedocumented in this encounter Care Teams Compensation Vice President Relationship Specialty Start Date End Date Therese Li MD PCP - General 05/11/11 06/19/21 Kristi Narvaez MD [address] [place] [address] PCP - General Internal Medicine 06/20/21 05/13/22 [facility], Pcp [address] [place] [address] PCP - General Internal Medicine 05/14/22 documented as of this encounter
--- OUTSIDE RECORDS SUMMARY | 2025-03-22 14:46 | XMS_ITS | Encounter Summary ---
Author Organization [facility] Address [address] [place] [address] Care Team Providers Care Shade Bander Name Role Phone Therese Li MD Primary Care Provider Kristi Gao MD Primary Care Provider [phone] [facility], Pcp Primary Care Provider Unavailabl e Reason for Referral * Non LISETTE (Priority) - Authorized/Booked Specialty Diagnoses / Procedures Referred By Contmendel t Referred To Contact Endocrinology Procedures REFERRAL TO ENDOCRINOLOGY Therese iL MD [address] [place] [address] Jagdish Graves MD Referral ID Status Reason Start Date Expiration Date V isits Requested Visits Authorized [id number] Authorized/ Booked 06/08/2019 06/07/2020 1 1 Reason for Visit * Reason Onset Date Comments Provider Call Back 06/05/2019 Encounter Details Date Type Department Care Team Description 06/05/2019 Telephone Adult Medicine [address] [id number] Therese Li MD Provider Call Back Social [...] on filedocumented in this encounter Care Teams Shade Bander Relationship Specialty Start Date End Date Li, Therese, MD PCP - General 05/11/11 06/19/21 Kristi Narvaez MD [address] [place] [address] PCP - General Internal Medicine 06/20/21 05/13/22 [facility], [address] [address] PCP - General Internal Medicine 05/14/22 documented as of this encounter
--- OUTSIDE RECORDS SUMMARY | 2025-03-22 14:46 | XMS_ITS | Encounter Summary ---
Author Organization [facility] Address [address] [place] [address] Care Team Providers Care Jet Man Name Role Phone Therese Li MD Primary Care Provider Kristi Gao MD Primary Care Provider [phone] [facility], Pcp Primary Care Provider Unavailabl e Encounter Details Date Type Department Care Team Description 05/31/2019 Hospital Medical Records [address] [place] [address] Kelly Dubon MD Social History Tobacco Use [...] on filedocumented in this encounter Care Teams Jet Man Relationship Specialty Start Date End Date Therese Li MD PCP - General 05/11/11 06/19/21 Kristi Narvaez MD [address] [place] [address] [id number] PCP - General Internal Medicine 06/20/21 05/13/22 [facility], Pcp [address] [place] [address] PCP - General Internal Medicine 05/14/22 documented as of this encounter
--- OUTSIDE RECORDS SUMMARY | 2025-03-22 14:46 | XMS_ITS | Encounter Summary ---
Author [facility] Address [address] [place] [address] Care Team Providers Care Travelers' Aid Worker Name Role Phone Therese Li MD Primary Care Provider Kristi Gao MD Primary Care Provider [phone] [facility], Pcp Primary Care Provider Unavailabl e Encounter Details Date Type Department Care Team Description 06/15/2019 Freelance Operator Report Medical Records [address] [place] [address] [address] [place] [address] Social History Tobacco Use Types Packs/Day Years [...] on filedocumented in this encounter Care Teams Travelers' Aid Worker Relationship Specialty Start Date End Date Therese Li MD PCP - General 05/11/11 06/19/21 Kristi Narvaez MD [address] [place] [address] PCP - General Internal Medicine 06/20/21 05/13/22 [facility], Pcp [address] [place] [address] PCP - General Internal Medicine 05/14/22 documented as of this encounter
--- OUTSIDE RECORDS SUMMARY | 2025-03-22 14:46 | XMS_ITS | Encounter Summary ---
Author Organization [facility] Address [address] [place] [address] Care Team Providers Care Waiter/Waitress Tourist Class Name Role Phone Therese Li MD Primary Care Provider Kristi Gao MD Primary Care Provider [phone] [facility], Pcp Primary Care Provider Unavailabl e Encounter Details Date Type Department Care Team Description 10/30/2013 Broadcast Chief Engineer Report Medical Records [address] [place] [address] Rajendra Weber MD Social History Tobacco Use [...] on filedocumented in this encounter Care Teams Waiter/Waitress Tourist Class Relationship Specialty Start Date End Date Therese Li MD PCP - General 05/11/11 06/19/21 Kristi Narvaez MD [address] [place] [address] [phone] PCP - General Internal Medicine 06/20/21 05/13/22 [facility], Pcp [address] [place] [address] PCP - General Internal Medicine 05/14/22 documented as of this encounter
--- OUTSIDE RECORDS SUMMARY | 2025-03-22 14:46 | XMS_ITS | Encounter Summary ---
Author Organization [facility] Address [address] [place] [address] Care Team Providers Care Cleaning Technician Name Role Phone Therese Li MD Primary Care Provider Kristi Gao MD Primary Care Provider [phone] [facility], Pcp Primary Care Provider Unavailabl e Reason for Visit * Reason Comments E-prescribe Rx Request Encounter Details Date Type Department Care Team Description 12/08/2018 Refill Adult Medicine [address] [address] Radha Rogel PA-C [address] [place] [address] E-prescribe Rx Request Social History Tobacco Use [...] ?? Patients current insurance carrier is: [facility] / Plan: INDEMNITY $20 ANDOVER / Product Type:PPO [id number] ? documented in this encounter Plan of Treatment Not on file documented as of this encounter Visit Diagnoses Not on filedocumented in this encounter Care Teams Cleaning Technician Relationship Specialty Start Date End Date Therese Li MD PCP - General 05/11/11 06/19/21 Kristi Narvaez MD [address] [place] [address] PCP - General Internal Medicine 06/20/21 05/13/[address] [address] PCP - General Internal Medicine 05/14/22 documented as of this encounter
--- OUTSIDE RECORDS SUMMARY | 2025-03-22 14:47 | XMS_ITS | Encounter Summary ---
Author Organization [facility] Address [address] [place] [address] Care Team Providers Care Side Stitcher Name Role Phone Therese Li MD Primary Care Provider Kristi Gao MD Primary Care Provider [phone] [facility], Pcp Primary Care Provider Unavailabl e Encounter Details Date Type Department Care Team Description 05/26/2014 Orders Only Radiology - [place] [address] [place] [address] Therese Li MD Social History Tobacco Use [...] on filedocumented in this encounter Care Teams Side Stitcher Relationship Specialty Start Date End Date Therese Li MD PCP - General 05/11/11 06/19/21 Kristi Narvaez MD [address] [place] [address] [phone] PCP - General Internal Medicine 06/20/21 05/13/22 [facility], Pcp [address] [place] [address] PCP - General Internal Medicine 05/14/22 documented as of this encounter
--- OUTSIDE RECORDS SUMMARY | 2025-03-22 14:47 | XMS_ITS | Encounter Summary ---
Author Organization [facility] Address [address] [place] [address] Care Team Providers Care Graphotype Operator Name Role Phone Therese Li MD Primary Care Provider Kristi Gao MD Primary Care Provider [phone] [facility], Pcp Primary Care Provider Unavailabl e Reason for Visit * Reason Comments E-prescribe Rx Request Encounter Details Date Type Department Care Team Description 05/28/2020 Refill Adult Medicine [address] [address] Therese Li MD E-prescribe Rx Request Social [...] / [place] / Product Type: MEDICARE [id number] documented in this encounter Plan of Treatment Not on file documented as of this encounter Visit Diagnoses Not on filedocumented in this encounter Care Teams Graphotype Operator Relationship Specialty Start Date End Date Therese Li MD PCP - General 05/11/11 06/19/21 Kristi Narvaez MD [address] [place] [address] PCP - General Internal Medicine 06/20/21 05/13/22 [place] [address] PCP - General Internal Medicine 05/14/22 documented as of this encounter
--- OUTSIDE RECORDS SUMMARY | 2025-03-22 14:47 | XMS_ITS | Encounter Summary ---
[facility] Address [address] [place] [address] Care Team Providers Care Corporate Job Titles Name Role Phone Therese Li MD Primary Care Provider Kristi Gao MD Primary Care Provider [phone] [facility], Pcp Primary Care Provider Unavailabl e Reason for Visit * Reason Onset Date Comments BRCA 02/23/2014 Encounter Details Date Type Department Care Team Description 02/23/2014 Telephone SAFETY INSTRUCTION POLICE OFFICER - [address] [id number] Luzma Sanders MD BRCA Social History Tobacco [...] letter sent Closing request FYI to Dr. lOmos documented in this encounter Plan of Treatment Not on file documented as of this encounter Visit Diagnoses Not on filedocumented in this encounter Care Teams Corporate Job Titles Relationship Specialty Start Date End Date Therese Li MD PCP - General 05/11/11 06/19/21 Kristi Narvaez MD [address] [place] [address] PCP - General Internal Medicine 06/20/21 05/13/22 [facility], Pcp [address] [place] [address] PCP - General Internal Medicine 05/14/22 documented as of this encounter
--- OUTSIDE RECORDS SUMMARY | 2025-03-22 14:47 | XMS_ITS | Encounter Summary ---
Author Organization [facility] Address [address] [place] [address] Care Team Providers Care Sampler Pickup Name Role Phone Kristi Narvaez MD Primary Care Provider [phone] [facility], Pcp Primary Care Provider Unavailabl e Encounter Details Date Type Department Care Team Description 09/06/2021 Orders Only Adult Medicine [facility] [address] [place], [place] [phone] Judy Shields PA-C [address] [place] [address] [phone] Social History Tobacco Use Types Packs/Day Years [...] on filedocumented in this encounter Care Teams Sampler Pickup Relationship Specialty Start Date End Date Kristi Narvaez MD [address] [place] [address] [phone] PCP - General Internal Medicine 06/20/21 05/13/22 [facility], Pcp [address] [place] [address] PCP - General Internal Medicine 05/14/22 documented as of this encounter
--- OUTSIDE RECORDS SUMMARY | 2025-03-22 14:47 | XMS_ITS | Encounter Summary ---
[facility] Address [address] [place] [address] Care Team Providers Care Continuous Drier Operator Name Role Phone Therese Li MD Primary Care Provider Kristi Gao MD Primary Care Provider [phone] [facility], Pcp Primary Care Provider Unavailabl e Reason for Visit * Reason Onset Date Comments refill request 12/22/2014 Encounter Details Date Type Department Care Team Description 12/22/2014 Refill Adult Medicine [address] [address] Therese Li MD refill request Social History [...] NO Patients current insurance carrier is: Payor: [facility] / Plan: PPO $20 ANDOVER [id number] / Product Type: PPO [id number] documented in this encounter Plan of Treatment Not on file documented as of this encounter Visit Diagnoses Not on filedocumented in this encounter Care Teams Continuous Drier Operator Relationship Specialty Start Date End Date Therese Li MD PCP - General 05/11/11 06/19/21 Kristi Narvaez MD [address] [place] [address] PCP - General Internal Medicine 06/20/21 05/13/22 Counts Include [facility], Pcp [address] [place] [address] PCP - General Internal Medicine 05/14/22 documented as of this encounter
--- OUTSIDE RECORDS SUMMARY | 2025-03-22 14:47 | XMS_ITS | Encounter Summary ---
Author Organization [facility] Address [address] [place] [address] Care Team Providers Care Payroll And Benefits Manager Name Role Phone Therese Li MD Primary Care Provider Kristi Gao MD Primary Care Provider [phone] [facility], Pcp Primary Care Provider Unavailabl e Encounter Details Date Type Department Care Team Description 01/04/2021 Telephone Adult Medicine [facility] [address] [place] [address] Therese Li MD Social History Tobacco Use [...] on filedocumented in this encounter Care Teams Payroll And Benefits Manager Relationship Specialty Start Date End Date Therese Li MD PCP - General 05/11/11 06/19/21 Kristi Narvaez MD [address] [place] [address] [phone] PCP - General Internal Medicine 06/20/21 05/13/22 [facility], Pcp [address] [place] [address] PCP - General Internal Medicine 05/14/22 documented as of this encounter
--- OUTSIDE RECORDS SUMMARY | 2025-03-22 14:47 | XMS_ITS | Encounter Summary ---
[facility] Address [address] [place] [address] Care Team Providers Care Construction Project Administrator Name Role Phone Therese Li MD Primary Care Provider Kristi Gao MD Primary Care Provider [phone] [facility], Pcp Primary Care Provider Unavailabl e Reason for Visit * Reason Comments E-prescribe Rx Request Encounter Details Date Type Department Care Team Description 09/21/2019 Refill Adult Medicine [address] [address] Duc Goldman MD [address] [place] [address] E-prescribe Rx Request Social History Tobacco Use [...] Telephone Encounter - Richa Crews M.A. - 09/21/2019 10:48 AM EDT Lab Results Component Value Date NA 129 05/28/2019 K 4.7 05/28/2019 CO2 24 05/28/2019 CL 95 05/28/2019 BUN 33 05/28/2019 CREAT 1.79 05/28/2019 GLU 249 06/01/2019 CA 8.7 05/28/2019 GFR 28 05/28/2019 * Telephone Encounter - Inés Will - 09/21/2019 10:22 AM EDT Patient would like script to be: E-PRESCRIBED/FAXED TO PHARMACY WHEN WAS THE PATIENT'S LAST APPOINTMENT IN ADULT MEDICINE? 09/01/19 WHEN WAS THE LAST TIME THE PATIENT SAW THEIR PCP? same Does patient have an upcoming appointment? Yes 10/08/19 (THE MEDICATION REQUESTED IS ON THE MED LIST ABOVE) All of the medications requested were on the CURRENT MEDS list Did you check the Pharmacy information above?: YES Patient wants: Is this a mail order prescription request ? NO If the refill is from a FAXED refill request what is the RX # listed on the fax? N/A Patients current insurance carrier is: [place] / [place] / Product Type: MEDICARE [id number] documented in this encounter Plan of Treatment Not on file documented as of this encounter Visit Diagnoses Not on filedocumented in this encounter Care Teams Construction Project Administrator Relationship Specialty Start Date End Date Therese Li MD PCP - General 05/11/11 06/19/21 Kristi Narvaez MD [address] [place] [address] PCP - General Internal Medicine 06/20/21 05/13/[address] [address] PCP - General Internal Medicine 05/14/22 documented as of this encounter
--- OUTSIDE RECORDS SUMMARY | 2025-03-22 14:47 | XMS_ITS | Encounter Summary ---
Author Organization [facility] Address [address] [place] [address] Care Team Providers Care Insolvency Practitioner Name Role Phone Therese Li MD Primary Care Provider Kristi Gao MD Primary Care Provider [phone] [facility], Pcp Primary Care Provider Unavailabl e Encounter Details Date Type Department Care Team Description 01/21/2014 SENIOR ACCOUNTING MANAGER/MassPat Report Medical Records [address] [place] [address] Abstract, Provider Social History Tobacco Use Types [...] on filedocumented in this encounter Care Teams Insolvency Practitioner Relationship Specialty Start Date End Date Therese Li MD PCP - General 05/11/11 06/19/21 Kristi Narvaez MD [address] [place] [address] PCP - General Internal Medicine 06/20/21 05/13/22 [facility], Pcp [address] [place] [address] PCP - General Internal Medicine 05/14/22 documented as of this encounter
--- OUTSIDE RECORDS SUMMARY | 2025-03-22 14:47 | XMS_ITS | Encounter Summary ---
Author Organization [facility] Address [address] [place] [address] Care Team Providers Care Prosthetic Aides Teacher Name Role Phone Therese Li MD Primary Care Provider Kristi Gao MD Primary Care Provider [phone] [facility], Pcp Primary Care Provider Unavailabl e Encounter Details Date Type Department Care Team Description 08/02/2020 Capsule Filler Report Medical Records [address] [place] [address] Ni Yanez MD Social History Tobacco Use [...] on filedocumented in this encounter Care Teams Prosthetic Aides Teacher Relationship Specialty Start Date End Date Therese Li MD PCP - General 05/11/11 06/19/21 Kristi Narvaez MD [address] [place], [place] [phone] PCP - General Internal Medicine 06/20/21 05/13/22 [facility], Pcp [address] [place] [address] PCP - General Internal Medicine 05/14/22 documented as of this encounter
--- OUTSIDE RECORDS SUMMARY | 2025-03-22 14:47 | XMS_ITS | Encounter Summary ---
Author Organization [facility] Address [address] [place] [address] Care Team Providers Care Cigarette And Filter Chief Inspector Name Role Phone Therese Li MD Primary Care Provider Kristi Gao MD Primary Care Provider [phone] [facility], Pcp Primary Care [facility] Reason for Visit * Reason Onset Date Comments TEST RESULTS 09/02/2019 Encounter Details Date Type Department Care Team Description 09/02/2019 Telephone Adult Medicine [address] [address] Therese Li MD TEST RESULTS Social History Tobacco Use Types Packs/Day Years [...] encounter Miscellaneous Notes * Telephone Encounter - Radha Rogel PA-C - 09/02/2019 11:33 AM EDT A1C 6.4 was discussed yesterday with PCP * Telephone Encounter - Fauzia Obrien M.A. - 09/02/2019 11:27 AM EDT Pt looking for A1C result please advise, pt was seen yesterday * Telephone Encounter - Antonina Addison - 09/02/2019 11:04 AM EDT Inform patient: ANY URGENT OR ABNORMAL RESULTS WIILL RESULT IN A CALL BACK TO THE PATIENT HUY. Type of test: : A1C blood work Date test was performed: 08/30/19 Where was the test performed: [facility] Who ordered this test?: Therese Li Is the doctor here today?: YES Can the message wait until the doctor returns?: YES IF PATIENT'S PCP IS NOT IN INSTRUCT PATIENT THAT THEY WILL RECEIVE A CALL BACK WHEN THE PCP IS IN THE OFFICE NEXT. documented in this encounter Plan of Treatment Not on file documented as of this encounter Visit Diagnoses Not on filedocumented in this encounter Care Teams Cigarette And Filter Chief Inspector Relationship Specialty Start Date End Date Therese Li MD PCP - General 05/11/11 06/19/21 Kristi Narvaez MD [address] [place] [address] PCP - General Internal Medicine 06/20/21 05/13/22 [place] [address] PCP - General Internal Medicine 05/14/22 documented as of this encounter
--- OUTSIDE RECORDS SUMMARY | 2025-03-22 14:47 | XMS_ITS | Encounter Summary ---
Author Organization [facility] Address [address] [place] [address] Care Team Providers Care Log Chipper Name Role Phone Therese Li MD Primary Care Provider Kristi Gao MD Primary Care Provider [phone] [facility], Pcp Primary Care Provider Unavailabl e Encounter Details Date Type Department Care Team Description 12/24/2019 Wax Pumper Report Medical Records [address] [place] [address] [facility] Diabetes Education [address] [facility] [address] [place] [address] Social History Tobacco Use Types Packs/Day Years [...] on filedocumented in this encounter Care Teams Log Chipper Relationship Specialty Start Date End Date Therese Li MD PCP - General 05/11/11 06/19/21 Kristi Narvaez MD [address] [place] [address] PCP - General Internal Medicine 06/20/21 05/13/22 [facility], Pcp [address] [place] [address] PCP - General Internal Medicine 05/14/22 documented as of this encounter
--- OUTSIDE RECORDS SUMMARY | 2025-03-22 14:47 | XMS_ITS | Encounter Summary ---
Author Organization [facility] Address [address] [place] [address] Care Team Providers Care Fire Extinguisher Charger Name Role Phone Therese Li MD Primary Care Provider Kristi Gao MD Primary Care Provider [phone] [facility], Pcp Primary Care Provider Unavailabl e Encounter Details Date Type Department Care Team Description 11/24/2014 TRAVELING ELECTRICIAN/MassPat Report Medical Records [address] [place] [address] Abstract, Provider Social History Tobacco Use Types [...] on filedocumented in this encounter Care Teams Fire Extinguisher Charger Relationship Specialty Start Date End Date Therese Li MD PCP - General 05/11/11 06/19/21 Kristi Narvaez MD [address] [place] [address] PCP - General Internal Medicine 06/20/21 05/13/22 [facility], Pcp [address] [place] [address] PCP - General Internal Medicine 05/14/22 documented as of this encounter
--- OUTSIDE RECORDS SUMMARY | 2025-03-22 14:47 | XMS_ITS | Encounter Summary ---
Author Organization [facility] Address [address] [place] [address] Care Team Providers Care Burr Filer Name Role Phone Therese Li MD Primary Care Provider Kristi Gao MD Primary Care Provider [phone] [facility], Pcp Primary Care Provider Unavailabl e Encounter Details Date Type Department Care Team Description 06/29/2016 Civil Litigation Attorney Report Medical Records [address] [place] [address] Fauzia Thompson APRN Social History Tobacco Use [...] on filedocumented in this encounter Care Teams Burr Filer Relationship Specialty Start Date End Date Therese Li MD PCP - General 05/11/11 06/19/21 Kristi Narvaez MD [address] [place], [place] [phone] PCP - General Internal Medicine 06/20/21 05/13/22 [facility], Pcp [address] [place] [address] PCP - General Internal Medicine 05/14/22 documented as of this encounter
--- OUTSIDE RECORDS SUMMARY | 2025-03-22 14:47 | XMS_ITS | Encounter Summary ---
Author Organization [facility] Address [address] [place] [address] Care Team Providers Care Guest Room Attendant Name Role Phone Therese Li MD Primary Care Provider Kristi Gao MD Primary Care Provider [phone] [facility], Pcp Primary Care Provider [facility] Encounter Details Date Type Department Care Team Description 06/13/2020 Pt. Non Urgent Medic al Question Adult Medicine [address] [address] Therese Li MD Social History Tobacco Use [...] Telephone Encounter - Lupe Coyne M.A. - 06/14/2020 7:20 AM EDTFrom: Ni Gallardo To: Therese Li MD Sent: 06/13/2020 10:04 PM EDT Subject: Metforman I stopped taking metforman on Saturday. My diarrhea stopped on Saturday. I am having regular small BM???s I started eating a little more. My last 3 blood sugars were today morning 203...afternoon 178...night 135. Still have a bit of nausea...this is also getting better. My coronavirus test was negative. Thank You Ni Gallardo documented in this encounter Plan of Treatment Not on file documented as of this encounter Visit Diagnoses Not on filedocumented in this encounter Care Teams Guest Room Attendant Relationship Specialty Start Date End Date Therese Li MD PCP - General 05/11/11 06/19/21 Kristi Narvaez MD [address] [place] [address] PCP - General Internal Medicine 06/20/21 05/13/22 [place] [address] PCP - General Internal Medicine 05/14/22 documented as of this encounter
--- OUTSIDE RECORDS SUMMARY | 2025-03-22 14:47 | XMS_ITS | Encounter Summary ---
Author Organization [facility] Address [address] [place] [address] Care Team Providers Care Cushion Filler Name Role Phone Therese Li MD Primary Care Provider Kristi Gao MD Primary Care Provider [phone] [facility], Pcp Primary Care Provider [facility]ailcapital [facility] e Encounter Details Date Type Department Care Team Description 09/20/2015 Pt. Non Urgent Medic al Question Adult Medicine [address] [address] Therese Li MD Social History Tobacco Use [...] on filedocumented in this encounter Care Teams Cushion Filler Relationship Specialty Start Date End Date Therese Li MD PCP - General 05/11/11 06/19/21 Kristi Narvaez MD [address] [place] [address] PCP - General Internal Medicine 06/20/21 05/13/[address] [address] PCP - General Internal Medicine 05/14/22 documented as of this encounter
--- OUTSIDE RECORDS SUMMARY | 2025-03-22 14:47 | XMS_ITS | Encounter Summary ---
Author Organization [facility] Address [address] [place] [address] Care Team Providers Care Operations Supervisor Name Role Phone Therese Li MD Primary Care Provider Kristi Gao MD Primary Care Provider [phone] [facility], Pcp Primary Care Provider Unavailabl e Encounter Details Date Type Department Care Team Description 06/02/2014 SENIOR CHEMICAL PROCESS ENGINEER/MassPat Report Medical Records [address] [place] [address] Abstract, Provider Social History Tobacco Use Types [...] on filedocumented in this encounter Care Teams Operations Supervisor Relationship Specialty Start Date End Date Therese Li MD PCP - General 05/11/11 06/19/21 Kristi Narvaez MD [address] [place] [address] PCP - General Internal Medicine 06/20/21 05/13/22 [facility], Pcp [address] [place] [address] PCP - General Internal Medicine 05/14/22 documented as of this encounter
--- OUTSIDE RECORDS SUMMARY | 2025-03-22 14:47 | XMS_ITS | Encounter Summary ---
Author Organization [employer] [facility] Address [address] [place] [address] Care Team Providers Care Photostatic Copy Maker Name Role Phone Therese Li MD Primary Care Provider Kristi Gao MD Primary Care Provider [phone] [facility], Pcp Primary Care Provider Unavailabl e Encounter Details Date Type Department Care Team Description 12/30/2019 Elementary Assistant Teacher Report Medical Records [address] [place] [address] Ni Yanez MD Social History Tobacco Use [...] on filedocumented in this encounter Care Teams Photostatic Copy Maker Relationship Specialty Start Date End Date Therese Li MD PCP - General 05/11/11 06/19/21 Kristi Narvaez MD [address] [place], [place] [id number] PCP - General Internal Medicine 06/20/21 05/13/22 [facility], Pcp [address] [place] [address] PCP - General Internal Medicine 05/14/22 documented as of this encounter
--- OUTSIDE RECORDS SUMMARY | 2025-03-22 14:47 | XMS_ITS | Encounter Summary ---
Author Organization [facility] Address [address] [place] [address] Care Team Providers Care Enterprise Application Analyst Name Role Phone Therese Li MD Primary Care Provider Kristi Gao MD Primary Care Provider [phone] [facility], Pcp Primary Care Provider Unavailabl e Reason for Visit * Reason Onset Date Comments Prior Authorization 08/28/2019 Encounter Details Date Type Department Care Team Description 08/28/2019 Telephone Podiatry - [address] [address] Andria Plunkett DPM Prior Authorization Social History Tobacco Use Types Packs/Day Years [...] encounter Miscellaneous Notes * Telephone Encounter - Arminda [place] M.A. - 08/28/2019 3:19 PM EDT Lidocaine 5% cream is not a covered products by patients pharmacy benefits. Patient can purchase OTC Lidocaine 4% cream, ointment, patches, or roll-on. Faustin code for Cover my meds was for incorrect medication. Please advise patient, Thank you, Arminda Atkins Prior Authorization Dept Ext [phone] Fax [phone] * Telephone Encounter - Coleman Reyes - 08/28/2019 12:21 PM EDT Prior Authorization for Medication-do not complete and send this encounter unless you have the fax from the pharmacy. Is this a Cover My Meds request: Yes -- Faustin Code [id number] Name of Medication Lidocaine 5 % Cream Dose of Medication 5 % Cream What is the RX # from the faxed refill? N/A How does patient take this med? Apply 2 Drops topically 2 times daily. Apply to painful areas of feet twice daily - Apply externally What Pharmacy did the fax come from: [id number] - [facility] [place] - [address] [place] [address] AT Pharmacy fax #: [phone] [employer] Information from fax: What Prescription Plan does the patient have? MEDICARE / [facility] BIN/PCN if applicable: N/A Cardholder ID:[id number] / [id number] Person Code: N/A Relationship Code: N/A Help desk phone: [phone] documented in this encounter Plan of Treatment Not on file documented as of this encounter Visit Diagnoses Not on filedocumented in this encounter Care Teams Enterprise Application Analyst Relationship Specialty Start Date End Date Therese Li MD PCP - General 05/11/11 06/19/21 Kristi Narvaez MD [address] [place] [address] PCP - General Internal Medicine 06/20/21 05/13/22 [facility], [place] [id number] PCP - General Internal Medicine 05/14/22 documented as of this encounter
--- OUTSIDE RECORDS SUMMARY | 2025-03-22 14:47 | XMS_ITS | Encounter Summary ---
Author Organization [facility] Address [address] [place] [address] Care Team Providers Care Airline Dispatcher Name Role Phone Therese Li MD Primary Care Provider Kristi Gao MD Primary Care Provider [phone] [facility], Pcp Primary Care Provider Unavailabl e Encounter Details Date Type Department Care Team Description 08/24/2019 Middleware Systems Architect Report Medical Records [address] [place] [address] [facility] Diabetes Education [address] [facility] [address] [place] [address] Social History Tobacco Use Types Packs/Day Years [...] on filedocumented in this encounter Care Teams Airline Dispatcher Relationship Specialty Start Date End Date Therese Li MD PCP - General 05/11/11 06/19/21 Kristi Narvaez MD [address] [place] [address] PCP - General Internal Medicine 06/20/21 05/13/22 [facility], Pcp [address] [place] [address] PCP - General Internal Medicine 05/14/22 documented as of this encounter
--- OUTSIDE RECORDS SUMMARY | 2025-03-22 14:47 | XMS_ITS | Encounter Summary ---
Author Organization [facility] Address [address] [place] [address] Care Team Providers Care Game Moderator Name Role Phone Therese Li MD Primary Care Provider Kristi Gao MD Primary Care Provider [phone] [facility] [place] [facility], Pcp Primary Care Provider Unavailabl e Reason for Visit * Reason Onset Date Comments refill request 06/30/2020 Encounter Details Date Type Department Care Team Description 06/30/2020 Refill Adult Medicine [address] [address] Therese Li MD refill request Social History [...] return call, please put call through to [phone] or re message to pool * Telephone [...] / Plan: [place] / Product Type: MEDICARE [id number] documented in this encounter Plan of Treatment Not on file documented as of this encounter Visit Diagnoses Not on filedocumented in this encounter Care Teams Game Moderator Relationship Specialty Start Date End Date Therese Li MD PCP - General 05/11/11 06/19/21 Kristi Narvaez MD [address] [place] [address] PCP - General Internal Medicine 06/20/21 05/13/22 [facility] [place] [facility], [place] [address] PCP - General Internal Medicine 05/14/22 documented as of this encounter
--- OUTSIDE RECORDS SUMMARY | 2025-03-22 14:47 | XMS_ITS | Encounter Summary ---
Author Organization [facility] Address [address] [place] [address] Care Team Providers Care Horticultural Farmer Name Role Phone Therese Li MD Primary Care Provider Kristi Gao MD Primary Care Provider [phone] [facility], Pcp Primary Care Provider Unavailabl e Reason for Visit * Reason Onset Date Comments Provider Call Back 01/10/2021 Encounter Details Date Type Department Care Team Description 01/10/2021 Telephone Adult Medicine [address] [address] Therese Li MD Provider Call Back Social [...] PM EST documented as of this encounter Miscellaneous Notes * Telephone Encounter - Therese Li MD - 01/11/2021 11:05 AM EST Noted. Will pass on her message to the Controlled Substance Committee as well (re: stated she was upset that cocaine was found in her urine when she doesn't even drink and wanted to talk to you about that. ) Unfortunately I am not able to reverse the violation on my own as per our office policy. * Telephone Encounter - Richa Crews M.A. - 01/11/2021 10:17 AM EST Patient has been advised to complete letter of appeal and bring in as soon as she can, patient states she is going to seek legal action and advice. Patient has been advised the appt will remain on 02/14 * Telephone Encounter - Fauzia Casillas - 01/11/2021 9:51 AM EST When I spoke to patient she had CX'd her appointment on 01/10/21 due to the weather and stated she wanted to go over her recent lab results with you. She stated she was upset that cocaine was found in her urine when she doesn't even drink and wanted to talk to you about that. * Telephone Encounter - Therese Li MD - 01/10/2021 5:38 PM EST Could squeeze her in at 2:15 on the Can you ask the reason for the urgent visit? I'm happy to see her in the office for any reason, but if she says it's because of the urine, pls advise I will not be able to reverse the CSC violation - let her know the appeal procedure please. She can start on that appeal even before seeing me. (Write a letter of appeal and give it to Patient Services) * Telephone Encounter - Jose Hutchins M.A. - 01/10/2021 2:20 PM EST Pt had an appt today with rohit which Im not she if she canceled or she no showed but now pt is looking for a new appt and I troy she wants it to be with you but cant find an appt im assume as soon as shed like it, please review and advise what youd like me to do thank you * Telephone Encounter - Fauzia Casillas - 01/10/2021 1:17 PM EST Caller requesting call back from provider: Is the caller the patient? YES If caller is not the patient, what is the callers name? N/A Callers relationship to patient? N/A If person calling is not the patient themselves, is there a verbal release in FYI or permanent comments for this person: Reason for call back: Wants an in person appt, unable to find any. Caller offered to speak with the nurse for assistance: YES Response: Patient offered to speak with nurse for assistance and patient agreed. Message forwarded to nurse. documented in this encounter Plan of Treatment Not on file documented as of this encounter Visit Diagnoses Not on filedocumented in this encounter Care Teams Horticultural Farmer Relationship Specialty Start Date End Date Therese Li MD PCP - General 05/11/11 06/19/21 Kristi Narvaez MD [address] [place] [address] PCP - General Internal Medicine 06/20/21 05/13/[address] [address] PCP - General Internal Medicine 05/14/22 documented as of this encounter
--- OUTSIDE RECORDS SUMMARY | 2025-03-22 14:48 | XMS_ITS | Encounter Summary ---
Author Organization [facility] Address [address] [place] [address] Care Team Providers Care Mint Machine Operator Name Role Phone Therese Li MD Primary Care Provider Kristi Gao MD Primary Care Provider [phone] [facility], Pcp Primary Care Provider Unavailabl e Reason for Visit * Reason Comments E-prescribe Rx Request Encounter Details Date Type Department Care Team Description 03/07/2018 Refill Adult Medicine [address] [address] Therese Li MD E-prescribe Rx Request Social [...] an upcoming appointment? No[facility] due to refill request. Appt due next available (THE MEDICATION REQUESTED IS ON THE MED LIST ABOVE) All of the medications requested were on the CURRENT MEDS list Did you check the Pharmacy information above?: YES Patient wants: 90 -day supply Is this a mail order prescription request ? NO Patients current insurance carrier is: Payor: [facility] / Plan: PPO $20 [place] [id number] / Product Type: PPO [id number] documented in this encounter Plan of Treatment Not on file documented as of this encounter Visit Diagnoses Not on filedocumented in this encounter Care Teams Mint Machine Operator Relationship Specialty Start Date End Date Therese Li MD PCP - General 05/11/11 06/19/21 Kristi Narvaez MD [address] [place] [address] PCP - General Internal Medicine 06/20/21 05/13/[address] [address] PCP - General Internal Medicine 05/14/22 documented as of this encounter
--- OUTSIDE RECORDS SUMMARY | 2025-03-22 14:48 | XMS_ITS | Clinical Summary ---
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.0) Lumbago DX:Lumbago Essential hypertension, benign 12/24/2005 D X:Essential hypertension, benign; COMMENT: essential tremor Type 2 diabetes mellitus wit h hyperglycemia, with long-term current use of insulin ([facility]/HCC V24, CMS/HCC V28) 06/01/2019 DX:Type 2 diabetes mellitus with hyperglycemia, with long-term current use of insulin ([facility]) Family History Medical History Relation Name Comments Breast cancer Aunt great aunt x3 (maternal side) Diabetes Brother 1 trauma induced diabetes Other cancer Brother 2 tumor near [place]/stomach , cancer Heart attack Brother 3 fatal NV at 61 Coronary artery disease Father fata l NV; CHF; mental disroder Heart attack Maternal Grandmother [...] Annual Retina Eye Exam 1964 RSV Immunization Adult Patients (1 - Risk 60-74 years 1-dose series) [...] BMP Blood Test 11/08/2022 COVID-19 Vaccine ( - season) 2024 02/24/2021, 01/27/2021 Influenza Vaccine (Season Ended) 2025 08/28/2021, 10/15/2020, 09/11/2018, Additional history exists DTaP,Tdap,and Td [...] age to complete this topic Meningococcal B Vaccine Aged Out No l onger eligible based on patient's age to complete this topic RSV Immunization Patients Under 20 months Aged Out No longer eligible based on patient's age to complete this topic Varicella Vaccines Aged Out No longer eligible based on patient's age to complete this topic
--- OUTSIDE RECORDS SUMMARY | 2025-03-22 14:48 | XMS_ITS | Encounter Summary ---
Author Organization [facility] Address [address] [place] [address] Care Team Providers Care Functional Support Analyst Name Role Phone Kristi Narvaez MD Primary Care Provider [phone] [facility], Pcp Primary Care Provider Unavailabl e Reason for Visit * Reason Comments E-prescribe Rx Request Encounter Details Date Type Department Care Team Description 01/08/2022 Refill Adult Medicine [facility] [address] [place] [address] Judy Shields PA-C [address] [place] [id number] E-prescribe Rx Request Social History Tobacco Use [...] encounter Miscellaneous Notes * Telephone Encounter - Krystian Mei - 01/08/2022 11:07 AM EST Patient would like script to be: E-PRESCRIBED/FAXED TO PHARMACY WHEN WAS THE PATIENT'S LAST APPOINTMENT IN ADULT MEDICINE? 09/06/2021 WHEN WAS THE LAST TIME THE PATIENT SAW THEIR PCP? 02/14/2021 Does patient have an upcoming appointment? Patient was sent a My Chart request to set up an appointment as they are due. (THE MEDICATION REQUESTED IS ON THE MED [...] / Plan: [place] / Product Type: MEDICARE [id number] documented in this encounter Plan of Treatment Not on file documented as of this encounter Visit Diagnoses Not on filedocumented in this encounter Care Teams Functional Support Analyst Relationship Specialty Start Date End Date Kristi Narvaez MD [address] [place] [address] PCP - General Internal Medicine 06/20/21 05/13/[address] [address] PCP - General Internal Medicine 05/14/22 documented as of this encounter
--- OUTSIDE RECORDS SUMMARY | 2025-03-22 14:48 | XMS_ITS | Encounter Summary ---
Author Organization [facility] Address [address] [place] [address] Care Team Providers Care Product Merchandiser Name Role Phone Therese Li MD Primary Care Provider Kristi Gao MD Primary Care Provider [phone] [facility], Pcp Primary Care Provider Unavailabl e Reason for Visit * Reason Onset Date Comments Faxed Refill 02/27/2018 Encounter Details Date Type Department Care Team Description 02/27/2018 Refill Adult Medicine [address] [address] Therese Li MD Faxed Refill Social History [...] PM EDT Valium printed and faxed to [facility] * Telephone Encounter - Fay Dalton M.A. [...] NO Patients current insurance carrier is: [facility]or: [facility] / Plan: PPO $20 [place] [id number] / Product Type: PPO [id number] documented in this encounter Plan of Treatment Not on file documented as of this encounter Visit Diagnoses Not on filedocumented in this encounter Care Teams Product Merchandiser Relationship Specialty Start Date End Date Therese Li MD PCP - General 05/11/11 06/19/21 Kristi Narvaez MD [address] [place] [address] PCP - General Internal Medicine 06/20/21 05/13/22 [facility], Pcp [address] [place] [address] PCP - General Internal Medicine 05/14/22 documented as of this encounter
--- OUTSIDE RECORDS SUMMARY | 2025-03-22 14:48 | XMS_ITS | Encounter Summary ---
Author Organization [facility] Address [address] [place] [address] Care Team Providers Care Frame Runner Name Role Phone Therese Li MD Primary Care Provider Carolva ilEber Villasenor MD Primary Care Provider Unav ailable [facility], Pcp Primary Care Provider Unavailabl e Eber Meléndez MD Primary Care Provider Unav ailable Kristi Narvaez MD Primary Care Provider [phone] [facility], Pcp Primary Care Provider Javier schaffer Encounter Details Date Type Department Care Team Description 04/28/2003 Telephone Adult [address] [address] Eber Meléndez MD Social History Tobacco Use Types Packs/Day Years Used Date Smoking Tobacco: Never Assessed Sex Assigned at Date Recorded Not on file documented as of this encounter Miscellaneous Notes * Telephone Encounter - 05/07/2005 2:55 PM EDTEncounter initiated. documented in this encounter Plan of Treatment Not on file documented as of this encounter Visit Diagnoses Not on filedocumented in this encounter Care Teams Frame Runner Relationship Specialty Start Date End Date Therese Li MD PCP - General 05/11/11 06/19/21 Eber Meléndez MD PCP - General 11/20/10 05/10/11 [facility], Pcp PCP - General 10/12/10 11/19/10 Eber Meléndez MD PCP - General 08/25/1999 10/11/10 Kristi Narvaez MD [address] [place] [address] PCP - General Internal Medicine 06/20/21 05/13/22 [facility], Pcp PCP - General Internal Medicine 05/14/22 documented as of this encounter
--- OUTSIDE RECORDS SUMMARY | 2025-03-22 14:48 | XMS_ITS | Encounter Summary ---
Author Organization [facility] Address [address] [place] [address] Care Team Providers Care Supervisor Paint Name Role Phone Therese Li MD Primary Care Provider Krisit Gao MD Primary Care Provider [phone] [facility], Pcp Primary Care Provider Unavailabl e Encounter Details Date Type Department Care Team Description 12/05/2011 Telephone Adult Medicine [address] [address] Therese Li MD Social History Tobacco Use Types Packs/Day Years Used Date Smoking Tobacco: Never Alcohol Use Standard Drinks/Week Comments Yes 0 (1 standard drink = 0.6 oz pur e alcohol) occ Sex Assigned at Date Recorded Not on file documented as of this encounter Miscellaneous Notes * Telephone Encounter - Nydia Morley M.A. - 12/06/2011 10:10 AM EST Message left for pt in my chart. * Telephone Encounter - Domenica Westfall M.A. - 12/05/2011 1:47 PM EST Message left for patient to return my call. Needs UDS documented in this encounter Plan of Treatment Not on file documented as of this encounter Results * ASSAY, DIHYDROCODEINONE (01/17/2012 3:03 PM EST) [facility] HYDROCODONE UR GCMS NOT DETECTED NOTDETECTED [facility] Comment: TEST PERFORMED AT: [employer] ? [address] ? [facility] [address] ? [phone] HYDROMORPHONE UR GCMS NOT DETECTED NOTDETECTED [facility] Comment: TEST PERFORMED AT: [employer] ? [address] ? [facility] [address] ? [phone] 01/17/2012 3:03 PM EST 01/17/2012 3:03 PM EST Therese Li MD LAB Performing Organization Address [facility] de Phone Number [facility] * OXYCODONE, URINE (01/17/2012 3:03 PM EST) [facility] URINE OXYCODONE NONE DETECTED ND [facility] Comment: Assay cutoff 300 ng/mL Semi-quantitative assay for screening purposes only. Unconfirmed screening result should not be used for non-medical purposes. *ALTERNATE METHOD CONFIRMATION DONE UPON REQUEST ONLY* 01/17/2012 3:03 PM EST 01/17/2012 3:03 PM EST Therese Li MD LAB Performing Organization Address [facility] de Phone Number [facility] * (ABNORMAL) DRUG OF ABUSE SCREEN (01/17/2012 3:03 PM EST) [facility] AMPHETAMINE, URINE NEGATIVE NEGATIVE [facility] BARBITURATES, URINE NEGATIVE NEGATIVE [facility] BENZODIAZEPINE, URINE POSITIVE(A) NEGATIVE [facility] Comment: Semi-quantitative urine assay for screening purposes only. Unconfirmed screening results should not be used for non-medical purposes. ALTERNATE METHOD CONFIRMATION DONE UPON REQUEST ONLY COCAINE, URINE NEGATIVE NEGATIVE [facility] OPIATES, URINE NEGATIVE NEGATIVE [facility] MARIJUANA(THC), URINE NEGATIVE NEGATIVE [facility] 01/17/2012 3:03 PM EST 01/17/2012 3:03 PM EST Therese Li MD LAB [facility] documented in this encounter Visit Diagnoses Diagnosis Encounter for long-term (current) use of other medications- Primary documented in this encounter Care Teams Supervisor Paint Relationship Specialty Start Date End Date Therese Li MD PCP - General 05/11/11 06/19/21 Kristi Narvaez MD [address] [place], [place] [id number] PCP - General Internal Medicine 06/20/21 05/13/22 [facility], Pcp [address] [place], [place] [id number] PCP - General Internal Medicine 05/14/22 documented as of this encounter
--- OUTSIDE RECORDS SUMMARY | 2025-03-22 14:48 | XMS_ITS | Encounter Summary ---
Author Organization [facility] Address [address] [place] [address] Care Team Providers Care Contact Centre Supervisor Name Role Phone Therese Li MD Primary Care Provider Kristi Gao MD Primary Care Provider [phone] [facility], Pcp Primary Care Provider Unavailabl e Reason for Visit * Reason Comments E-prescribe Rx Request Encounter Details Date Type Department Care Team Description 04/23/2017 Refill Adult Medicine [address] [address] Therese Li MD E-prescribe Rx Request Social [...] encounter Miscellaneous Notes * Telephone Encounter - Yareli Casiano M.A. - 04/23/2017 12:52 PM EDT Lab Results Component Value Date ALB 4.8 04/19/2016 SGOT 43 04/19/2016 SGPT 33 04/19/2016 TBILI 0.5 04/19/2016 DBILI 0.1 07/26/2006 IBILI 0.2 07/26/2006 ALKPHOS 72 04/19/2016 TP 7.8 04/19/2016 * Telephone Encounter - Tracie Patel - 04/23/2017 11:25 AM EDT Patient would like script to be: E-PRESCRIBED/FAXED TO PHARMACY WHEN WAS THE PATIENT'S LAST APPOINTMENT IN ADULT MEDICINE? 02/07/17 WHEN WAS THE LAST TIME THE PATIENT SAW THEIR PCP? 10/11/16 Does patient have an upcoming appointment? Yes 08/06/17 (THE MEDICATION REQUESTED IS ON THE MED LIST ABOVE) All of the medications requested were on the CURRENT MEDS list Did you check the Pharmacy information above?: YES Patient wants: 90 -day supply Is this a mail order prescription request ? NO Patients current insurance carrier is: Payor: [facility] / Plan: PPO $20 [place] [id number] / Product Type: PPO [id number] documented in this encounter Plan of Treatment Not on file documented as of this encounter Visit Diagnoses Not on filedocumented in this encounter Care Teams Contact Centre Supervisor Relationship Specialty Start Date End Date Therese Li MD PCP - General 05/11/11 06/19/21 Kristi Narvaez MD [address] [place] [address] PCP - General Internal Medicine 06/20/21 05/13/22 [place] [address] PCP - General Internal Medicine 05/14/22 documented as of this encounter
--- OUTSIDE RECORDS SUMMARY | 2025-03-22 14:48 | XMS_ITS | Encounter Summary ---
Author Organization [facility] Address [address] [place] [address] Care Team Providers Care Supervisor Histology Name Role Phone Therese Li MD Primary Care Provider Kristi Gao MD Primary Care Provider [phone] [facility], Pcp Primary Care Provider Unavailabl e Encounter Details Date Type Department Care Team Description 09/05/2017 PNO Controlled Substance Contract Medical Records [address] [place] [id number] Abstract, Provider Social History Tobacco Use Types [...] on filedocumented in this encounter Care Teams Supervisor Histology Relationship Specialty Start Date End Date Therese Li MD PCP - General 05/11/11 06/19/21 Kristi Narvaez MD [address] [place], [place] [id number] PCP - General Internal Medicine 06/20/21 05/13/22 [facility], Pcp [address] [place] [id number] PCP - General Internal Medicine 05/14/22 documented as of this encounter
--- NOTE | 2025-03-22 14:52 | A.OFFPC_ITS ---
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 Accompanied by: Self / Same As Patient Allergies sulfamethoxazole [From Bactrim] Allergy (Mild, Verified 03/22/25 15:06) hives trimethoprim [From Bactrim] Allergy (Mild, Verified 03/22/25 15:06) hives Medication List - Last Reconciled 03/22/25 by Ruth Ingram MD citalopram 10 mg PO DAILY 90 days clobetasol 0.05% 1 g topical .twice weekly 90 days duloxetine 30 mg PO BID 90 days estradiol 0.01%(0.1mg/gram) (Estrace) 1 g vaginal .twice weekly 90 days fluticasone propionate 50 mcg/actuation (Allergy Relief (fluticasone)) 1 spray intranasal BID 30 days hydrocortisone 1% 1 appl topical BID PRN 2 weeks loratadine (Allergy Relief (loratadine)) 10 mg PO DAILY 90 days lorazepam 1 mg PO TID PRN 30 days losartan 50 mg PO DAILY 90 days magnesium glycinate 200 mg (2 x 100 mg) PO DAILY metformin 500 mg PO DAILY 90 days naphazoline-pheniramine 0.025-0.3 % (Allergy Eye (naphazoline-pheniramine)) 1 drp ophthalmic (eye) BID-QID PRN 30 days omeprazole 20 mg PO DAILY 90 days propranolol ER 160 mg PO DAILY 90 days Tobacco use date assessed: 03/22/25 Fall risk assessment: No Falls in past year Last assessed Fall Risk: 03/22/25 Dental Screening Dental Screen Date: 03/22/25 Did you have a dental visit in the last 12 months?: No Did you have a dental problem in the last 6 months where you did not have access to dental care?: No Was dental information given to patient?: Patient has dentist HPI HPI Comments History of Present Illness Details The patient is a 69-year-old female presenting for a follow-up visit primarily to address her management of diabetes and other chronic conditions. Her diabetes management has been complicated by a significantly elevated hemoglobin A1c level at 13%, despite aiming for a goal of 7% or less. Challenges in self-management have been attributed to weight gain and personal stressors. The patient mentions taking duloxetine for anxiety and lorazepam, although she has been non-compliant with citalopram. She also has hypertension which has been stable, GERD and essential tremor on propranolol. Her history of depression with anxiety has proven challenging amidst responsibilities of caring for her nonagenarian mother and reduced engagement in self-care activities like yoga. Additionally, she reports infrequent swallowing issues though a benign thyroid nodule was identified previously. There is a delay in completing recent preventive screenings such as mammograms and bone density tests, with a family history prompting consideration for a colonoscopy. She does not indicate any acute symptoms such as chest pain or breathlessness but manifests concern about maintaining her health and weight during family obligations. [facility] Medical History Allergic rhinitis Neck pain Hand numbness Neuropathy Essential tremor NILESH (generalized anxiety disorder) Mild recurrent major depression Chronic GERD Class 1 obesity with body mass index (BMI) of 31.0 to 31.9 in adult Diabetes mellitus Essential hypertension Surgical History History of tonsillectomy Family History Mother Breast cancer Hypertension Father Heart attack Brother Substance use disorder Daughter Mental health disorder Sister Breast cancer Social History Housing: House Alcohol intake: current Alcohol intake frequency: holidays/special occasions only Alcohol type: wine Patient Tobacco Use Status: Former Tobacco user Tobacco use type: Cigarette e-Cigarette/Vaping Use: Never Used Second Hand Smoke Exposure: No service: No Current occupational status: retired Sexual orientation: Straight/Heterosexual Gender identity: Female Cognitive needs: No Hearing needs: No Vision needs: Yes Questionnaire PHQ-9 Over the last 2 weeks, how often have you been bothered by any of the following problems? 1. Little interest or pleasure in doing things: not at all 2. Feeling down, depressed, or hopeless: several days 3. Trouble falling or staying asleep, or sleeping too much: several days 4. Feeling tired or having little energy: several days 5. Poor appetite or overeating: not at all 6. Feeling bad about yourself - or that you are a failure or have let yourself or your family down: not at all 7. Trouble concentrating on things, such as reading the newspaper or watching television: not at all 8. Moving or speaking so slowly that other people could have noticed. Or the opposite - being so fidgety or restless that you have been moving around a lot more than usual: not at all 9. Thoughts that you would be better off or of hurting yourself in some way: not at all Total score: 3 Depression Screening Interpretation: Positive Depression Screening Follow-up: Existing condition and Follow-up Visit Requested Depression Screening Done: Yes 99280 - PHQ-9 Billing: Yes Source: Developed by Drs. Silvino Iniguez, Miladis Kaiser, Jean Person and colleagues, with an educational rogerio from [employer]. Thrive Questionnaire Date Thrive assessed: 03/22/25 I am a: Patient What is your living situation today?: I have a steady place to live Within the past 12 months, did the food you bought not last and you didn't have the money to get more?: Never true Within the past 12 months, did you worry whether your food would run out before you got money to buy more?: Never true Do you have trouble paying for medicines?: No Do you have trouble getting transportation to medical appointments?: No Do you have trouble paying your heating and electricity bill?: No Do you have trouble taking care of your child, family member or friend?: No Do you have trouble with day-to-day activities such as bathing, preparing meals, shopping, managing finances, etc.?: No Are you currently unemployed and looking for a job?: No Are you interested in more education?: No Please select the resources that you would like help with: None Currently or been in a relationship where the following occur: No concerns reported THRIVE Score: 0 AUDIT C Alcohol Use Questionnaire (AUDIT-C) 1. How often do you have a drink containing alcohol?: Monthly or less 2. How many drinks containing alcohol do you have on a typical day when you are drinking?: 1 or 2 3. How often do you have six or more drinks on one occasion?: Never Total Score: 1 Score Reviewed/Action Taken: No NILESH-7 AMB Questionnaire NILESH-7 Date NILESH - 7 assessed: 03/22/25 Feeling nervous, anxious, or on edge: 1 = Several days Not being able to stop or control worryin = Not at all Worrying too much about different things: 1 = Several days Trouble relaxin = Not at all Being so restless that it is hard to sit still: 0 = Not at all Becoming easily annoyed or irritable: 0 = Not at all Feeling afraid as if something awful might happen: 0 = Not at all Total NILESH-7 score (0-4 normal; 5-9 mild; 10-14 moderate; 15-21 severe): 2 Source: Developed by Drs. Silvino Iniguez, Miladis Kaiser, Jean Person and colleagues, with an educational rogerio from [employer]. NILESH-7 Assessment Billing NILESH-7 Assessment Tool: NILESH-7 Assessment 66611 Review of Systems Const All systems reviewed & are unremarkable except as noted in HPI and below Card Denies chest pain at rest, Denies chest pain with activity, Denies edema, Denies irregular heart rhythm, Denies claudication, Denies dyspnea, Denies dyspnea on exertion, Denies orthopnea, Denies paroxysmal nocturnal dyspnea and Denies slow heart rate Resp Denies cough, Denies dyspnea and Denies dyspnea on exertion GI Denies abdominal pain, Denies change in bowel habits, Denies excessive flatus, Denies nausea and Denies vomiting Physical exam (Primary Care) Vital Signs: Last Vital Signs BP 130/86 03/22/25 14:54 BMI result Body Mass Index 31.2 Tobacco/Smoking Status: Tobacco use Status Tobacco use date assessed 03/22/25 03/22/25 15:02 Patient Tobacco Use Status Former Tobacco user 03/22/25 14:53 Tobacco use type Cigarette 03/22/25 14:53 e-Cigarette/Vaping Use Never Used 03/22/25 14:53 PHQ-9: PHQ-9 Score PHQ-9: Total score 3 03/22/25 15:02 Depression Screening Interpretation: Positive Depression Screening Follow-up: Existing condition and Follow-up Visit Requested Thrive Assessment: Date of Thrive Assessment Date Thrive assessed 03/22/25 03/22/25 15:02 Currently or been in a relationship where the following occur: No concerns reported Resp Effort & Inspection: normal respiratory effort Auscultation: clear to auscultation bilaterally Cardio Jugular venous distension: no JVD Rate: regular rate Rhythm: regular rhythm Heart sounds: S1 normal heart sound present and S2 normal heart sound present Extrem General: Yes full ROM Results AMB Hemoglobin A1c AMB Hemoglobin A1c 13.4 % Last Edit by STEVE Mckeon on 03/22/25 15: 06 Coding Level of Care Code Est Pt Level 4 (58564) Complex EM visit Add On G2211 Diagnoses Mild recurrent major depression F33.0 Diabetes mellitus E11.9 Essential tremor G25.0 Chronic GERD K21.9 Essential hypertension I10 Additional Codes PHQ-9 - 58295 - PHQ-9 Billing: Yes ([id number]) NILESH-7 Assessment Billing - NILESH-7 Assessment Tool: NILESH-7 Assessment 77313 ([id number]) Time Spent (min) 23 Assessment & Plan Assessment & Plan (1) Mild recurrent major depression: Code(s): F33.0 - Major depressive disorder, recurrent, mild Category: Medical (2) Diabetes mellitus: Code(s): E11.9 - Type 2 diabetes mellitus without complications Category: Medical (3) Essential tremor: Comment: Head tremors Code(s): G25.0 - Essential tremor Category: Medical (4) Chronic GERD: Code(s): K21.9 - Gastro-esophageal reflux disease without esophagitis Category: Medical (5) Essential hypertension: Code(s): I10 - Essential (primary) hypertension Category: Medical Plan I will adjust the patient's diabetes management with metformin 500 mg twice daily and a weekly dose of Trulicity, subject to insurance approval. Referral to psychiatry for further evaluation of her depression and anxiety is advised, considering her current regimen. Thyroid function tests will be conducted given her history of a benign thyroid nodule. Preventative measures will include scheduling a mammogram, bone density test, and colonoscopy. Her plan to initiate Nelson Chi exercises will likely benefit her overall health and aid in weight management. Patient was informed and verbally consented to the use of an ambient scribe for clinic note documentation during this visit. I discussed with the patient her diabetes management options, emphasizing the significance of tighter glycemic control through medication adjustments, including metformin and potential Trulicity. The advantages of medication compliance were highlighted, addressing concerns over polypharmacy. I advised psychiatric consultation to optimize her mental health medication regimen. Screening tests, such as mammogram and colonoscopy, were detailed considering family cancer history. Encouragement was given to engage in Nelson Chi for weight and stress management. We reviewed side effects and insurance coverage related to medicaments. Appropriate follow-up, lifestyle modifications, and return precautions were also addressed. Orders: Orders AMB Hemoglobin A1c Today E11.9 - Type 2 diabetes mellitus without complications MM tomosynthesis screening BI Today Z12.31 - Encounter for screening mammogram for malignant neoplasm of breast Lipid Panel Today E78.5 - Hyperlipidemia, unspecified Microalbumin, Random (w Creat) Today R80.9 - Proteinuria, unspecified Thyroid Stimulating Hormone Today E04.2 - Nontoxic multinodular goiter Thyroid Peroxidase Antibodies Today E04.2 - Nontoxic multinodular goiter XR DEXA axial skeleton Today Z78.0 - Asymptomatic menopausal state Vitamin D 25-OH Total Today E55.9 - Vitamin D deficiency, unspecified Comprehensive [place]. Panel Fast Today E11.9 - Type 2 diabetes mellitus without complications Free T4 (Free Thyroxine) Today E04.2 - Nontoxic multinodular goiter Thyroglobulin Antibodies Today E04.2 - Nontoxic multinodular goiter Referrals Open Access Screening Colonoscopy Referral Z12.12 - Encounter for screening for malignant neoplasm of rectum Psychiatry Outpatient Consultation Service F33.0 - Major depressive disorder, recurrent, mild, F41.1 - Generalized anxiety disorder Medications: New dulaglutide (Trulicity) 0.75 mg (0.5 mL) subcut QWEEK 90 days 6.5 mL 1RF E11.9 - Type 2 diabetes mellitus without complications Changed From metformin 500 mg PO DAILY 90 days 90 tabs 1RF To metformin 500 mg PO BID 90 days 180 tabs 1RF Discontinued citalopram Discontinued Reason: Patient Completed Course 10 mg PO DAILY 90 days 90 tabs 0RF F33.0 - Major depressive disorder, recurrent, mild, F41.1 - Generaliz ed anxiety disorder Patient Instructions: - Take metformin 500 mg twice daily as prescribed. - Await notification regarding Trulicity and potential insurance coverage. - Attend recommended screenings: mammogram, bone density, and colonoscopy. - Follow up with psychiatry for medication review. - Begin Nelson Chi classes twice a week. - Maintain a healthy diet and try to exercise more frequently. - Report any new or worsening symptoms promptly.
[2025-03-22 14:54] VITALS: BP 130/86; BMI 31.2
== END 2025-03-22 15:20 | disposition home or self-care (01) ==
LOC: HO.HMCH 14:42
PROVIDERS: PCP Internal Medicine; Visit Provider Internal Medicine
DX: F33.0 Major depressive disorder, recurrent, mild (principal); E11.9 Type 2 diabetes mellitus without complications; G25.0 Essential tremor; K21.9 Gastro-esophageal reflux disease without esophagitis; I10 Essential (primary) hypertension

== ENCOUNTER → 2025-03-22 14:41 | Outpatient (BNVA) | payer MEDICARE, SELFPAY | PROVIDERS: PCP Internal Medicine; Visit Provider Internal Medicine | DX: F33.0 Major depressive disorder, recurrent, mild (principal); E11.9 Type 2 diabetes mellitus without complications; G25.0 Essential tremor; K21.9 Gastro-esophageal reflux disease without esophagitis; I10 Essential (primary) hypertension | CPT/HCPCS: 83036; 96127; 99212 ==

== ENCOUNTER 2025-04-08 08:45 | Outpatient (AMB) | payer MEDICARE, SELFPAY ==
--- NOTE | 2025-04-08 08:47 | MHC.PC.OV ---
Vital Signs 04/08/25 08:48 Height 5 ft 1 in Weight 161 lb BMI 30.4 BP 138/84 Blood Pressure Location Lt brachial Position Sitting Pulse 118 H Pulse Source Pulse Oximeter Pulse Oximetry (%) 96 Oxygen Delivery Method Room Air Intake Visit Reasons: [facility] 04/16 (rt) & 04/29 (rt) Engineer Conductor Required: No Accompanied by: Self / Same As Patient Allergies sulfamethoxazole [From Bactrim] Allergy (Mild, Verified 04/08/25 09:11) hives trimethoprim [From Bactrim] Allergy (Mild, Verified 04/08/25 09:11) hives Medication List - Last Reconciled 04/08/25 by Ruth Ingram MD clobetasol 0.05% 1 g topical .twice weekly 90 days dulaglutide (Trulicity) 0.75 mg (0.5 mL) subcut QWEEK 4 weeks duloxetine 30 mg PO BID 90 days estradiol 0.01%(0.1mg/gram) (Estrace) 1 g vaginal .twice weekly 90 days fluticasone propionate 50 mcg/actuation (Allergy Relief (fluticasone)) 1 spray intranasal BID 30 days hydrocortisone 1% 1 appl topical BID PRN 2 weeks loratadine (Allergy Relief (loratadine)) 10 mg PO DAILY 90 days lorazepam 1 mg PO TID PRN 30 days losartan 50 mg PO DAILY 90 days magnesium glycinate 200 mg (2 x 100 mg) PO DAILY metformin 500 mg PO BID 90 days naphazoline-pheniramine 0.025-0.3 % (Allergy Eye (naphazoline-pheniramine)) 1 drp ophthalmic (eye) BID-QID PRN 30 days omeprazole 20 mg PO DAILY 90 days propranolol ER 160 mg PO DAILY 90 days Tobacco use date assessed: 03/22/25 Fall risk assessment: No Falls in past year Last assessed Fall Risk: 04/08/25 Dental Screening Dental Screen Date: 03/22/25 HPI HPI Comments History of Present Illness Details The patient is a 69-year-old female presenting for a preoperative evaluation for cataract surgery. Her medical history includes management for diabetes mellitus, hypertension, and essential tremor, with relevant medications such as Losartan, Metformin, and Propranolol. Her recent A1c was high. She performed a tonsillectomy in adolescence and has a sulfa allergy causing hives. Socially, she has quit smoking and drinks alcohol on special occasions. She denies chest pain or shortness of breath. Has 5-7 Mets of ADLs. Blood pressure stable. Still has tremors with propranolol and follow by Neurology. EKG and labs pending for medical clearance. [facility] Medical History (Updated 04/08/25 @ 09:51 by Ruth Ingram MD) Allergic rhinitis Neck pain Hand numbness Neuropathy Essential tremor NILESH (generalized anxiety disorder) Mild recurrent major depression Chronic GERD Class 1 obesity with body mass index (BMI) of 31.0 to 31.9 in adult Diabetes mellitus Essential hypertension Surgical History History of tonsillectomy Family History Mother Breast cancer Hypertension Father Heart attack Brother Substance use disorder Daughter Mental health disorder Sister Breast cancer Social History Housing: House Alcohol intake: current Alcohol intake frequency: holidays/special occasions only Alcohol type: wine Patient Tobacco Use Status: Former Tobacco user Tobacco use type: Cigarette e-Cigarette/Vaping Use: Never Used Second Hand Smoke Exposure: No service: No Current occupational status: retired Sexual orientation: Straight/Heterosexual Gender identity: Female Cognitive needs: No Hearing needs: No Vision needs: Yes Questionnaire Thrive Questionnaire Date Thrive assessed: 03/22/25 NILESH-7 AMB Questionnaire NILESH-7 Date NILESH - 7 assessed: 03/22/25 Source: Developed by Drs. Silvino Iniguez, Miladis Kaiser, Jean Person and colleagues, with an educational rogerio from [employer]. Review of Systems Const All systems reviewed & are unremarkable except as noted in HPI and below Card Denies chest pain at rest, Denies chest pain with activity, Denies edema, Denies irregular heart rhythm, Denies claudication, Denies dyspnea, Denies dyspnea on exertion, Denies orthopnea, Denies paroxysmal nocturnal dyspnea and Denies slow heart rate Resp Denies cough, Denies dyspnea and Denies dyspnea on exertion Denies urinary incontinence, Denies urinary hesitancy and Denies urinary urgency Physical exam (Primary Care) Vital Signs: Last Vital Signs Pulse 118 H 04/08/25 08:48 BP 138/84 04/08/25 08:48 Pulse Ox 96 04/08/25 08:48 Oxygen Delivery Method Room Air 04/08/25 08:48 BMI result Body Mass Index 30.4 BMI Assessment/Plan discussion: High BMI High, discussed plan: lifestyle, weight reduction, dietary and physical activity Tobacco/Smoking Status: Tobacco use Status Tobacco use date assessed 03/22/25 04/08/25 08:55 Patient Tobacco Use Status Former Tobacco user 04/08/25 08:55 Tobacco use type Cigarette 04/08/25 08:55 e-Cigarette/Vaping Use Never Used 04/08/25 08:55 Thrive Assessment: Date of Thrive Assessment Date Thrive assessed 03/22/25 04/08/25 08:55 Resp Effort & Inspection: normal respiratory effort Auscultation: clear to auscultation bilaterally Cardio Jugular venous distension: no JVD Rate: regular rate Rhythm: regular rhythm Heart sounds: S1 normal heart sound present and S2 normal heart sound present Extrem General: Yes full ROM Coding Level of Care Code Est Pt Level 4 (56339) Complex EM visit Add On G2211 Diagnoses Pre-op evaluation Z01.818 Diabetes mellitus E11.9 Essential hypertension I10 Essential tremor G25.0 Hyperlipidemia LDL goal <70 E78.5 Time Spent (min) 22 Assessment & Plan Assessment & Plan (1) Pre-op evaluation: Code(s): Z01.818 - Encounter for other preprocedural examination Category: Medical (2) Diabetes mellitus: Code(s): E11.9 - Type 2 diabetes mellitus without complications Category: Medical (3) Essential hypertension: Code(s): I10 - Essential (primary) hypertension Category: Medical (4) Essential tremor: Comment: Head tremors Code(s): G25.0 - Essential tremor Category: Medical (5) Hyperlipidemia LDL goal <70: Code(s): E78.5 - Hyperlipidemia, unspecified Category: Medical Plan We planned a preoperative evaluation for cataract surgery, emphasizing the need for fasting blood work and an EKG to ensure glucose levels and cardiac status are suitable for surgery. Continued compliance with her hypertension and essential tremor medications is recommended to maintain optimal pre-surgical conditions. Her sulfonamide allergy will be considered in pre- and post-operative planning. Ensuring blood sugar control is paramount as elevated levels could delay surgery dates. Patient was informed and verbally consented to the use of an ambient scribe for clinic note documentation during this visit. I discussed the necessity of coordinating preoperative tests, underscoring the need for fasting glucose testing and an EKG due to her diabetes, despite a normal echocardiogram. We agreed to reassess her medications, considering potential impacts on surgical outcomes. Completion of these tests will allow for surgical clearance, and I advised pursuing these diagnostic measures early in the week to avoid scheduling conflicts. Instruction was given regarding visiting the hospital for both laboratory and cardiac evaluations, aiming for the preceding Saturday for best practice before the upcoming Saturday surgery. Eye drop prescriptions related to the cataract procedure were noted, and plans facilitated for their obtaining. Orders: Orders Complete Blood Count Auto Diff Today D64.9 - Anemia, unspecified ECG 12 lead EKG Today Z01.818 - Encounter for other preprocedural examination Lipid Panel Today E78.5 - Hyperlipidemia, unspecified Comprehensive [place]. Panel Fast Today E11.9 - Type 2 diabetes mellitus without complications Patient Instructions: - Schedule and complete fasting laboratory tests and EKG early next week. - Continue all prescribed medications for hypertension and diabetes. - Ensure you are aware of and avoid all sulfa-containing medications. - Return to the main hospital for preoperative completion of lab work and EKG. - Attend eye surgery as scheduled, pending clearance of lab results. - Contact me if symptoms such as chest pain or unusual breathlessness occur or if you need any guidance on prescribed medications.
[2025-04-08 08:48] VITALS: BP 138/84; PULSE 118; O2SAT 96; BMI 30.4
--- OUTSIDE RECORDS SUMMARY | 2025-04-08 09:04 | XMS_ITS | Encounter Summary ---
Author Organization [facility] Address [address] [place] [address] Care Team Providers Care Riprap Placer Name Role Phone Therese Li MD Primary Care Provider Kristi Gao MD Primary Care Provider [phone] [facility], Pcp Primary Care Provider Unavailabl e Encounter Details Date Type Department Care Team Description 11/24/2014 COLLECTIONS MANAGER/[facility] Report Medical Records [address] [place] [id number] Abstract, Provider Social History Tobacco Use Types [...] on filedocumented in this encounter Care Teams Riprap Placer Relationship Specialty Start Date End Date Therese Li MD PCP - General 05/11/11 06/19/21 Kristi Narvaez MD [address] [place] [id number] PCP - General Internal Medicine 06/20/21 05/13/22 [facility], Pcp [address] [place] [id number] PCP - General Internal Medicine 05/14/22 documented as of this encounter
--- OUTSIDE RECORDS SUMMARY | 2025-04-08 09:04 | XMS_ITS | Encounter Summary ---
Author Organization [facility] [employer] [facility] Address [address] [place] [address] Care Team Providers Care Aircraft De Icer Installer Name Role Phone Therese Li MD Primary Care Provider Kristi Gao MD Primary Care Provider [phone] [facility], Pcp Primary Care Provider Unavailabl e Encounter Details Date Type Department Care Team Description 06/29/2016 Product Delivery Specialist Report Medical Records [address] [place] [address] Fauzia Thompson APRN Social History Tobacco Use [...] on filedocumented in this encounter Care Teams Aircraft De Icer Installer Relationship Specialty Start Date End Date Therese Li MD PCP - General 05/11/11 06/19/21 Kristi Narvaez MD [address] [place], [place] [phone] PCP - General Internal Medicine 06/20/21 05/13/22 [facility], Pcp [address] [place] [address] PCP - General Internal Medicine 05/14/22 documented as of this encounter
--- OUTSIDE RECORDS SUMMARY | 2025-04-08 09:04 | XMS_ITS | Encounter Summary ---
[facility] Organization [facility] Address [address] [place] [address] Care Team Providers Care Supply Crib Attendant Name Role Phone Therese Li MD Primary Care Provider Kristi Gao MD Primary Care Provider [phone] [facility], Pcp Primary Care Provider Unavailabl e Reason for Visit * Reason Onset Date Comments refill request 12/22/2014 Encounter Details Date Type Department Care Team Description 12/22/2014 Refill Adult Medicine [address] [address] Therese Li MD refill request Social History [...] NO Patients current insurance carrier is: Payor: [facility] / Plan: PPO $20 ANDOVER [id number] / Product Type: PPO [id number] documented in this encounter Plan of Treatment Not on file documented as of this encounter Visit Diagnoses Not on filedocumented in this encounter Care Teams Supply Crib Attendant Relationship Specialty Start Date End Date Therese Li MD PCP - General 05/11/11 06/19/21 Kristi Narvaez MD [address] [place] [address] PCP - General Internal Medicine 06/20/21 05/13/22 [facility], Pcp [address] [place] [address] PCP - General Internal Medicine 05/14/22 documented as of this encounter
--- OUTSIDE RECORDS SUMMARY | 2025-04-08 09:04 | XMS_ITS | Encounter Summary ---
Author Organization [facility] [employer] [facility] Address [address] [place] [address] Care Team Providers Care Electrical Installation Supervisor Name Role Phone Therese Li MD Primary Care Provider Kristi Gao MD Primary Care Provider [phone] [facility], Pcp Primary Care Provider Unavailabl e Encounter Details Date Type Department Care Team Description 07/07/2019 Fruit Room Hand Report Medical Records [address] [place] [address] Social History Tobacco Use Types Packs/Day Years [...] on filedocumented in this encounter Care Teams Electrical Installation Supervisor Relationship Specialty Start Date End Date Therese Li MD PCP - General 05/11/11 06/19/21 Kristi Narvaez MD [address] [place] [address] PCP - General Internal Medicine 06/20/21 05/13/22 [facility], Pcp [address] [place], [place] [phone] PCP - General Internal Medicine 05/14/22 documented as of this encounter
--- OUTSIDE RECORDS SUMMARY | 2025-04-08 09:04 | XMS_ITS | Encounter Summary ---
Author Organization [facility] [employer] [facility] Address [address] [place] [address] Care Team Providers Care Web Applications Architect Name Role Phone Therese Li MD Primary Care Provider Kristi Gao MD Primary Care Provider [phone] [facility], Pcp Primary Care Provider Unavailabl e Encounter Details Date Type Department Care Team Description 03/15/2020 Visitor Services Associate Report Medical Records [address] [place] [address] Ni Yanez MD Social History Tobacco Use [...] on filedocumented in this encounter Care Teams Web Applications Architect Relationship Specialty Start Date End Date Therese Li MD PCP - General 05/11/11 06/19/21 Kristi Narvaez MD [address] [place], [place] [phone] PCP - General Internal Medicine 06/20/21 05/13/22 [facility], Pcp [address] [place] [address] PCP - General Internal Medicine 05/14/22 documented as of this encounter
--- OUTSIDE RECORDS SUMMARY | 2025-04-08 09:04 | XMS_ITS | Encounter Summary ---
Author Organization [facility] Address [address] [place] [address] Care Team Providers Care Field Attendant Name Role Phone Therese Li MD Primary Care Provider Kristi Gao MD Primary Care Provider [phone] [facility], Pcp Primary Care Provider Unavailabl e Reason for Visit * Reason Onset Date Comments refill request 06/30/2020 Encounter Details Date Type Department Care Team Description 06/30/2020 Refill Adult Medicine [address] [address] Therese Li MD refill request Social History [...] return call, please put call through to [phone] or re message to pool * Telephone [...] / Plan[place] / Product Type: MEDICARE [id number] documented in this encounter Plan of Treatment Not on file documented as of this encounter Visit Diagnoses Not on filedocumented in this encounter Care Teams Field Attendant Relationship Specialty Start Date End Date Therese Li MD PCP - General 05/11/11 06/19/21 Kristi Narvaez MD [address] [place] [address] PCP - General Internal Medicine 06/20/21 05/13/22 [facility], [place] [address] PCP - General Internal Medicine 05/14/22 documented as of this encounter
--- OUTSIDE RECORDS SUMMARY | 2025-04-08 09:04 | XMS_ITS | Encounter Summary ---
Author Organization [facility] [employer] [facility] Address [address] [place] [address] Care Team Providers Care Sap Bpc Developer Name Role Phone Therese Li MD Primary Care Provider Kristi Gao MD Primary Care Provider [phone] [facility], Pcp Primary Care Provider Unavailabl e Encounter Details Date Type Department Care Team Description 05/26/2014 Orders Only Radiology - [place] [address] [place] [address] Therese Li MD Social History Tobacco Use [...] on filedocumented in this encounter Care Teams Sap Bpc Developer Relationship Specialty Start Date End Date Therese Li MD PCP - General 05/11/11 06/19/21 Kristi Narvaez MD [address] [place] [phone] PCP - General Internal Medicine 06/20/21 05/13/22 [facility], Pcp [address] [place] [address] PCP - General Internal Medicine 05/14/22 documented as of this encounter
--- OUTSIDE RECORDS SUMMARY | 2025-04-08 09:04 | XMS_ITS | Encounter Summary ---
Author Organization [facility] [employer] [facility] Address [address] [place] [address] Care Team Providers Care Lpn Rn Hospice Name Role Phone Therese Li MD Primary Care Provider Kristi Gao MD Primary Care Provider [phone] [facility], Pcp Primary Care Provider Unavailabl e Encounter Details Date Type Department Care Team Description 01/19/2019 [facility] Medical Records [address] [place] [address] Abstract, Provider Social History Tobacco Use Types [...] on filedocumented in this encounter Care Teams Lpn Rn Hospice Relationship Specialty Start Date End Date Therese Li MD PCP - General 05/11/11 06/19/21 Kristi Narvaez MD [address] [place], [place] [phone] PCP - General Internal Medicine 06/20/21 05/13/22 [facility], Pcp [address] [place] [address] PCP - General Internal Medicine 05/14/22 documented as of this encounter
--- OUTSIDE RECORDS SUMMARY | 2025-04-08 09:04 | XMS_ITS | Encounter Summary ---
Author Organization [facility] Address [address] [place] [address] Care Team Providers Care Pecan Picker Name Role Phone Therese Li MD Primary Care Provider Kristi Gao MD Primary Care Provider [phone] [facility], Pcp Primary [facility] Reason for Visit * Reason Onset Date Comments Urine Drug Screen 07/27/2015 Encounter Details Date Type Department Care Team Description 07/27/2015 Telephone Adult Medicine [address] [phone] Therese Li MD Urine Drug Screen Social History Tobacco Use Types Packs/Day Years Used Date Smoking Tobacco: Never Smokeless Tobacco: Never Alcohol Use Standard Drinks/Week Comments Yes 0 (1 standard drink = 0.6 oz pur e alcohol) occ Sex Assigned at Date Recorded Not on file documented as of this encounter Miscellaneous Notes * Telephone Encounter - Kylie Cobb M.A. - 07/27/2015 4:11 PM EDT Telephone Information: Message left for patient to return my call. Component Value Date URINEOXYCOD NEGATIVE 03/02/2014 URBENZO POSITIVE 03/02/2014 URAMPHETAMIN NEGATIVE 03/02/2014 URMARIJUANA NEGATIVE 03/02/2014 UROPIATES NEGATIVE 03/02/2014 URBARBITUATE NEGATIVE 03/02/2014 URCOCAINE NEGATIVE 03/02/2014 HYDROCODONE Negative 03/02/2014 documented in this encounter Plan of Treatment Not on file documented as of this encounter Visit Diagnoses Not on filedocumented in this encounter Care Teams Pecan Picker Relationship Specialty Start Date End Date Therese Li MD PCP - General 05/11/11 06/19/21 Kristi Narvaez MD [address] [place] [address] PCP - General Internal Medicine 06/20/21 05/13/22 [place] [address] PCP - General Internal Medicine 05/14/22 documented as of this encounter
--- OUTSIDE RECORDS SUMMARY | 2025-04-08 09:04 | XMS_ITS | Encounter Summary ---
[facility] Address [address] [place] [address] Care Team Providers Care Operations Administrator Name Role Phone Therese Li MD Primary Care Provider Kristi Gao MD Primary Care Provider [phone] [facility], Pcp Primary Care Provider Unavailabl e Encounter Details Date Type Department Care Team Description 06/15/2019 [employer] Car Report Medical Records [address] [place] [address] [address] [place] [address] Social History Tobacco Use Types Packs/Day Years [...] filedocumented in this encounter Care Teams Operations Administrator Relationship Specialty Start Date End Date Therese Li MD PCP - General 05/11/11 06/19/21 Kristi Narvaez MD [address] [place] [address] PCP - General Internal Medicine 06/20/21 05/13/22 [facility], Pcp [address] [place] [address] PCP - General Internal Medicine 05/14/22 documented as of this encounter
--- OUTSIDE RECORDS SUMMARY | 2025-04-08 09:04 | XMS_ITS | Encounter Summary ---
Author Organization [facility] Address [address] [place] [address] Care Team Providers Care Correctional Program Officer Name Role Phone Therese Li MD Primary Care Provider Kristi Gao MD Primary Care Provider [phone] [facility], Pcp Primary Care [facility] Encounter Details Date Type Department Care Team Description 06/13/2020 Pt. Non Urgent Medic al Question Adult Medicine [address] [address] Therese Li MD Social History Tobacco Use [...] on filedocumented in this encounter Care Teams Correctional Program Officer Relationship Specialty Start Date End Date Therese Li MD PCP - General 05/11/11 06/19/21 Kristi Narvaez MD [address] [place] [address] PCP - General Internal Medicine 06/20/21 05/13/22 [place] [address] PCP - General Internal Medicine 05/14/22 documented as of this encounter
--- OUTSIDE RECORDS SUMMARY | 2025-04-08 09:04 | XMS_ITS | Encounter Summary ---
Author Organization [facility] Address [address] [place] [address] Care Team Providers Care Pipe Line Repairer Name Role Phone Therese Li MD Primary Care Provider Kristi Gao MD Primary Care Provider [phone] Count Includes [facility], Pcp Primary Care Provider Unavailabl e Encounter Details Date Type Department Care Team Description 08/24/2019 Network Specialist Report Medical Records [address] [place] [address] [facility] Diabetes Education 300 [facility] [address] [place] [address] Social History Tobacco Use Types Packs/Day Years [...] on filedocumented in this encounter Care Teams Pipe Line Repairer Relationship Specialty Start Date End Date Therese Li MD PCP - General 05/11/11 06/19/21 Kristi Narvaez MD [address] [place] [address] PCP - General Internal Medicine 06/20/21 05/13/22 Count Includes [facility], Pcp [address] [place] [address] PCP - General Internal Medicine 05/14/22 documented as of this encounter
--- OUTSIDE RECORDS SUMMARY | 2025-04-08 09:04 | XMS_ITS | Encounter Summary ---
Author Organization [facility] [employer] [facility] Address [address] [place] [address] Care Team Providers Care Public Relations Associate Name Role Phone Therese Li MD Primary Care Provider Kristi Gao MD Primary Care Provider [phone] [facility], Pcp Primary Care Provider Unavailabl e Encounter Details Date Type Department Care Team Description 09/26/2011 Controlled Substance Contract with Plan Medical Records [address] [place] [address] Abstract, Provider Social History Tobacco Use Types [...] on filedocumented in this encounter Care Teams Public Relations Associate Relationship Specialty Start Date End Date Therese Li MD PCP - General 05/11/11 06/19/21 Kristi Narvaez MD [address] [place] [address] PCP - General Internal Medicine 06/20/21 05/13/22 [facility], [address] [address] PCP - General Internal Medicine 05/14/22 documented as of this encounter
--- OUTSIDE RECORDS SUMMARY | 2025-04-08 09:04 | XMS_ITS | Encounter Summary ---
Author Organization [facility] [employer] [facility] Address [address] [place] [address] Care Team Providers Care Or Rn Name Role Phone Therese Li MD Primary Care Provider Kristi Gao MD Primary Care Provider [phone] [facility], Pcp Primary Care Provider Unavailabl e Encounter Details Date Type Department Care Team Description 10/07/2019 [facility] Medical Records [address] [place] [address] Abstract, Provider Social History Tobacco Use Types [...] on filedocumented in this encounter Care Teams Or Rn Relationship Specialty Start Date End Date Therese Li MD PCP - General 05/11/11 06/19/21 Kristi Narvaez MD [address] [place], [place] [phone] PCP - General Internal Medicine 06/20/21 05/13/22 [facility], Pcp [address] [place] [address] PCP - General Internal Medicine 05/14/22 documented as of this encounter
--- OUTSIDE RECORDS SUMMARY | 2025-04-08 09:04 | XMS_ITS | Encounter Summary ---
Author [facility] Address [address] [place] [address] Care Team Providers Care Wire Puller Name Role Phone Therese Li MD Primary Care Provider Kristi Gao MD Primary Care Provider [phone] [facility], Pcp Primary Care Provider Unavailabl e Encounter Details Date Type Department Care Team Description 09/08/2019 Photography Professor Report Medical Records [address] [place] [address] [employer] [address] [place] [address] [address] [place], [place] [phone] Social History Tobacco Use Types Packs/Day Years [...] on filedocumented in this encounter Care Teams Wire Puller Relationship Specialty Start Date End Date Therese Li MD PCP - General 05/11/11 06/19/21 Kristi Narvaez MD [address] [place] [address] PCP - General Internal Medicine 06/20/21 05/13/22 [facility], Pcp [address] [place] [address] PCP - General Internal Medicine 05/14/22 documented as of this encounter
--- OUTSIDE RECORDS SUMMARY | 2025-04-08 09:04 | XMS_ITS | Encounter Summary ---
Author Organization [facility] Address [address] [place] [address] Care Team Providers Care Optical Effects Line Up Person Name Role Phone Therese Li MD Primary Care Provider Kristi Gao MD Primary Care Provider [phone] [facility] [place], Pcp Primary Care Provider Unavailabl e Encounter Details Date Type Department Care Team Description 12/05/2011 Telephone Adult Medicine [address] [address] Therese Li MD Social History Tobacco Use [...] * ASSAY, DIHYDROCODEINONE (01/17/2012 3:03 PM EST) [facility] HYDROCODONE UR GCMS NOT DETECTED NOTDETECTED [facility] Comment: TEST PERFORMED AT: [employer]. ? [address] ? [facility] [address] ? [phone] HYDROMORPHONE UR GCMS NOT DETECTED NOTDETECTED [facility] Comment: TEST PERFORMED AT: [employer]. ? [address] ? [facility] [address] ? [phone] 01/17/2012 3:03 PM EST 01/17/2012 3:03 PM EST Therese Li MD LAB Performing Organization Address [facility] de Phone Number [facility] * OXYCODONE, URINE (01/17/2012 3:03 PM EST) [facility] URINE OXYCODONE NONE DETECTED ND [facility] Comment: Assay cutoff 300 ng/mL Semi-quantitative assay for screening purposes only. Unconfirmed screening result should not be used for non-medical purposes. *ALTERNATE METHOD CONFIRMATION DONE UPON REQUEST ONLY* 01/17/2012 3:03 PM EST 01/17/2012 3:03 PM EST Therese Li MD LAB Performing Organization Address [facility] de Phone Number [facility] * (ABNORMAL) DRUG OF ABUSE SCREEN (01/17/2012 3:03 PM EST) [facility] AMPHETAMINE, URINE NEGATIVE NEGATIVE [facility] [...] Li MD LAB [facility] [address] [facility] documented in this encounter Visit Diagnoses Diagnosis Encounter for long-term (current) use of other medications- Primary documented in this encounter Care Teams Optical Effects Line Up Person Relationship Specialty Start Date End Date Therese Li MD PCP - General 05/11/11 06/19/21 Kristi Narvaez MD [address] [place], [place] [phone] PCP - General Internal Medicine 06/20/21 05/13/22 [facility] [place], Pcp [address] [place], [place] [phone] PCP - General Internal Medicine 05/14/22 documented as of this encounter
--- OUTSIDE RECORDS SUMMARY | 2025-04-08 09:04 | XMS_ITS | Encounter Summary ---
Author Organization [facility] [employer] [facility] Address [address] [place] [address] Care Team Providers Care Medical Transport Specialist Name Role Phone Therese Li MD Primary Care Provider Kristi Gao MD Primary Care Provider [phone] [facility], Pcp Primary Care Provider Unavailabl e Encounter Details Date Type Department Care Team Description 06/02/2014 SALES AND SERVICE TECHNICIAN/[place] Report Medical Records [address] [place] [address] Abstract, Provider Social History Tobacco Use Types [...] on filedocumented in this encounter Care Teams Medical Transport Specialist Relationship Specialty Start Date End Date Therese Li MD PCP - General 05/11/11 06/19/21 Kristi Narvaez MD [address] [place] [address] PCP - General Internal Medicine 06/20/21 05/13/22 [facility], Pcp [address] [place] [address] PCP - General Internal Medicine 05/14/22 documented as of this encounter
--- OUTSIDE RECORDS SUMMARY | 2025-04-08 09:04 | XMS_ITS | Encounter Summary ---
Author Organization [facility] Address [address] [place] [address] Care Team Providers Care Promotion Producer Name Role Phone Therese Li MD Primary Care Provider Kristi Gao MD Primary Care Provider [phone] [facility] Primary Care Provider Unavailabl e Reason for Visit * Reason Onset Date Comments refill request 06/10/2019 Propranolol HCl CR 160 MG CAPSULE SR 24 HR Encounter Details Date Type Department Care Team Description 06/10/2019 Refill Adult Medicine [address] [address] Therese Li MD refill request (Propranolol HCl [...] / [place] / Product Type: MEDICARE [id number] documented in this encounter Plan of Treatment Not on file documented as of this encounter Visit Diagnoses Not on filedocumented in this encounter Care Teams Promotion Producer Relationship Specialty Start Date End Date Therese Li MD PCP - General 05/11/11 06/19/21 Kristi Narvaez MD [address] [place] [address] PCP - General Internal Medicine 06/20/21 05/13/22 [place] [address] PCP - General Internal Medicine 05/14/22 documented as of this encounter
--- OUTSIDE RECORDS SUMMARY | 2025-04-08 09:04 | XMS_ITS | Encounter Summary ---
Author Organization [employer] [facility] Address [address] [place] [address] Care Team Providers Care Foiling Machine Adjuster Name Role Phone Therese Li MD Primary Care Provider Kristi Gao MD Primary Care Provider [phone] [facility], Pcp Primary Care Provider Unavailabl e Encounter Details Date Type Department Care Team Description 02/28/2021 Orders Only Radiology - [address] [phone] Radiology, Authorizing Social History Tobacco Use Types [...] on filedocumented in this encounter Care Teams Foiling Machine Adjuster Relationship Specialty Start Date End Date Therese Li MD PCP - General 05/11/11 06/19/21 Kristi Narvaez MD [address] [place] [address] PCP - General Internal Medicine 06/20/21 05/13/22 [facility], Pcp [address] [place] [address] PCP - General Internal Medicine 05/14/22 documented as of this encounter
--- OUTSIDE RECORDS SUMMARY | 2025-04-08 09:04 | XMS_ITS | Encounter Summary ---
Author [facility] Address [address] [place] [address] Care Team Providers Care Data Support Specialist Name Role Phone Therese Li MD Primary Care Provider Kristi Gao MD Primary Care Provider [facility], Pcp Primary Care Provider Unavailabl e Reason for Visit * Reason Comments E-prescribe Rx Request Encounter Details Date Type Department Care Team Description 12/08/2018 Refill Adult Medicine [address] [address] Radha Rogel PA-C [address] [place] [address] E-prescribe Rx Request Social History Tobacco Use [...] ?? Patients current insurance carrier is: [facility] / Plan: INDEMNITY $20 ANDOVER / Product Type:PPO [id number] ? documented in this encounter Plan of Treatment Not on file documented as of this encounter Visit Diagnoses Not on filedocumented in this encounter Care Teams Data Support Specialist Relationship Specialty Start Date End Date Therese Li MD PCP - General 05/11/11 06/19/21 Kristi Narvaze MD [address] [place] [address] PCP - General Internal Medicine 06/20/21 05/13/[address] [address] PCP - General Internal Medicine 05/14/22 documented as of this encounter
--- OUTSIDE RECORDS SUMMARY | 2025-04-08 09:04 | XMS_ITS | Encounter Summary ---
Author Organization [facility] Address [address] [place] [address] Care Team Providers Care Financial Reporting Accountant Name Role Phone Therese Li MD Primary Care Provider Kristi Gao MD Primary Care Provider [phone] [facility], Pcp Primary Care Provider Unavailabl e Reason for Visit * Reason Onset Date Comments medication problems 10/17/2017 Encounter Details Date Type Department Care Team Description 10/17/2017 Telephone Adult Medicine [address] [address] Radha Rogel PA-C [address] [place] [address] medication problems Social History Tobacco Use Types [...] EST Who is calling? A pharmacist: Pharmacy: [facility] Pharmacist Name: n/a Pharmacy Name of the [...] on filedocumented in this encounter Care Teams Financial Reporting Accountant Relationship Specialty Start Date End Date Therese Li MD PCP - General 05/11/11 06/19/21 Kristi Narvaez MD [address] [place] [address] PCP - General Internal Medicine 06/20/21 05/13/22 [facility], [place] [address] PCP - General Internal Medicine 05/14/22 documented as of this encounter
--- OUTSIDE RECORDS SUMMARY | 2025-04-08 09:04 | XMS_ITS | Encounter Summary ---
Author Organization [facility] [employer] [facility] Address [address] [place] [address] Care Team Providers Care Clinical Care Leader Name Role Phone Therese Li MD Primary Care Provider Kristi Gao MD Primary Care Provider [phone] [facility], Pcp Primary Care Provider Unavailabl e Encounter Details Date Type Department Care Team Description 10/30/2013 System Safety Engineer Report Medical Records [address] [place] [address] Rajendra Weber MD Social History Tobacco Use [...] on filedocumented in this encounter Care Teams Clinical Care Leader Relationship Specialty Start Date End Date Therese Li MD PCP - General 05/11/11 06/19/21 Kristi Narvaez MD [address] [place] [address] [phone] PCP - General Internal Medicine 06/20/21 05/13/22 [facility], Pcp [address] [place] [address] PCP - General Internal Medicine 05/14/22 documented as of this encounter
--- OUTSIDE RECORDS SUMMARY | 2025-04-08 09:04 | XMS_ITS | Encounter Summary ---
Author Organization [facility] [employer] [facility] Address [address] [place] [address] Care Team Providers Care Lode Miner Name Role Phone Therese Li MD Primary Care Provider Kristi Gao MD Primary Care Provider [phone] [facility], Pcp [facility] Encounter Details Date Type Department Care Team Description 06/13/2020 Pt. Referral Request [facility] MyChart [address] [place] [address] [id number] Md Sandro Social History Tobacco Use Types Packs/Day Years [...] on filedocumented in this encounter Care Teams Lode Miner Relationship Specialty Start Date End Date Therese Li MD PCP - General 05/11/11 06/19/21 Kristi Narvaez MD [address] [place] [address] [phone] PCP - General Internal Medicine 06/20/21 05/13/22 [facility], [address] [address] PCP - General Internal Medicine 05/14/22 documented as of this encounter
--- OUTSIDE RECORDS SUMMARY | 2025-04-08 09:04 | XMS_ITS | Encounter Summary ---
Author Organization [facility] Address [address] [place] [address] Care Team Providers Care Ticket Manager Name Role Phone Therese Li MD Primary Care Provider Kristi Gao MD Primary Care Provider [phone] [facility], Pcp Primary Care Provider Unavailabl e Reason for Visit * Reason Comments E-prescribe Rx Request Encounter Details Date Type Department Care Team Description 04/23/2017 Refill Adult Medicine [address] [address] Therese Li MD E-prescribe Rx Request Social [...] NO Patients current insurance carrier is: Payor: [facility] / Plan: PPO $20 ANDOVER [id number] / Product Type: PPO [id number] documented in this encounter Plan of Treatment Not on file documented as of this encounter Visit Diagnoses Not on filedocumented in this encounter Care Teams Ticket Manager Relationship Specialty Start Date End Date Therese Li MD PCP - General 05/11/11 06/19/21 Kristi Narvaez MD [address] [place] [address] PCP - General Internal Medicine 06/20/21 05/13/22 [place] [address] PCP - General Internal Medicine 05/14/22 documented as of this encounter
--- OUTSIDE RECORDS SUMMARY | 2025-04-08 09:04 | XMS_ITS | Encounter Summary ---
Author Organization [facility] [facility] Address [address] [place] [address] Care Team Providers Care Grades 1 Thru 5 Teacher Name Role Phone Therese Li MD Primary Care Provider Kristi Gao MD Primary Care Provider [phone] [facility]ending [facility], Pcp Primary Care Provider Unavailabl e Encounter Details Date Type Department Care Team Description 11/04/2013 Night Triage Doc Medical Records [address] [place] [address] Abstract, Provider Social History Tobacco Use Types [...] on filedocumented in this encounter Care Teams Grades 1 Thru 5 Teacher Relationship Specialty Start Date End Date Therese Li MD PCP - General 05/11/11 06/19/21 Kristi Narvaez MD [address] [place] [address] PCP - General Internal Medicine 06/20/21 05/13/22 [facility], Pcp [address] [place], [place] [phone] PCP - General Internal Medicine 05/14/22 documented as of this encounter
--- OUTSIDE RECORDS SUMMARY | 2025-04-08 09:04 | XMS_ITS | Encounter Summary ---
Author Organization [employer] [employer] [facility] Address [address] [place] [address] Care Team Providers Care Financial Management Consultant Name Role Phone Therese Li MD Primary Care Provider Kristi Gao MD Primary Care Provider [facility], Pcp Primary Care Provider Unavailabl e Encounter Details Date Type Department Care Team Description 05/29/2019 Telephone Adult Medicine [address] [address] Therese Li MD Social History Tobacco Use [...] filedocumented in this encounter Care Teams Financial Management Consultant Relationship Specialty Start Date End Date Therese Li MD PCP - General 05/11/11 06/19/21 Kristi Narvaez MD [address] [place] [address] PCP - General Internal Medicine 06/20/21 05/13/22 [facility], [address] [address] PCP - General Internal Medicine 05/14/22 documented as of this encounter
--- OUTSIDE RECORDS SUMMARY | 2025-04-08 09:04 | XMS_ITS | Encounter Summary ---
Author Organization [facility] Address [address] [place] [address] Care Team Providers Care Lens Grinding Machine Operator Name Role Phone Therese Li MD Primary Care Provider Kristi Gao MD Primary Care Provider [phone] [facility], Pcp Primary Care Provider Unavailabl e Encounter Details Date Type Department Care Team Description 06/02/2019 Home Health Certification Medical Records [address] [place] [address] Home, [facility] [address] [facility] [address] [place], [place] [phone] Social History Tobacco Use Types Packs/Day Years [...] on filedocumented in this encounter Care Teams Lens Grinding Machine Operator Relationship Specialty Start Date End Date Therese Li MD PCP - General 05/11/11 06/19/21 Kristi Narvaez MD [address] [place] [address] PCP - General Internal Medicine 06/20/21 05/13/22 [facility], Pcp [address] [place] [address] PCP - General Internal Medicine 05/14/22 documented as of this encounter
--- OUTSIDE RECORDS SUMMARY | 2025-04-08 09:04 | XMS_ITS | Encounter Summary ---
Author Organization [facility] Address [address] [place] [address] Care Team Providers Care Underground Foreman Name Role Phone Therese Li MD Primary Care Provider Kristi Gao MD Primary Care Provider [phone] [facility], Pcp Primary Care Provider Unavailabl e Encounter Details Date Type Department Care Team Description 12/24/2019 Supervisor Die Casting Report Medical Records [address] [place] [phone] [facility] Diabetes Education [address] [facility] [address] [place] [address] Social History Tobacco Use Types Packs/Day Years [...] on filedocumented in this encounter Care Teams Underground Foreman Relationship Specialty Start Date End Date Therese Li MD PCP - General 05/11/11 06/19/21 Kristi Narvaez MD [address] [place] [address] PCP - General Internal Medicine 06/20/21 05/13/22 [facility], Pcp [address] [place] [address] PCP - General Internal Medicine 05/14/22 documented as of this encounter
--- OUTSIDE RECORDS SUMMARY | 2025-04-08 09:04 | XMS_ITS | Encounter Summary ---
Author Organization [facility] [employer] [facility] Address [address] [place] [address] Care Team Providers Care Feather Curling Machine Operator Name Role Phone Therese Li MD Primary Care Provider Kristi Gao MD Primary Care Provider [phone] [facility], Pcp Primary Care Provider Unavailabl e Encounter Details Date Type Department Care Team Description 01/21/2014 YARDER PUNCHER/MassPat Report Medical Records [address] [place] [address] Abstract, Provider Social History Tobacco Use Types [...] on filedocumented in this encounter Care Teams Feather Curling Machine Operator Relationship Specialty Start Date End Date Therese Li MD PCP - General 05/11/11 06/19/21 Kristi Narvaez MD [address] [place] [address] PCP - General Internal Medicine 06/20/21 05/13/22 [facility], Pcp [address] [place] [address] PCP - General Internal Medicine 05/14/22 documented as of this encounter
--- OUTSIDE RECORDS SUMMARY | 2025-04-08 09:04 | XMS_ITS | Encounter Summary ---
[facility] Address [address] [place] [address] Care Team Providers Care Offender Job Retention Specialist Name Role Phone Kristi Narvaez MD Primary Care Provider [facility], Pcp Primary Care Provider Unavailabl e Encounter Details Date Type Department Care Team Description 08/16/2021 Refill Adult Medicine [address] [phone] Kristi Narvaez MD [address] [place] [address] Social History Tobacco Use Types Packs/Day Years [...] on filedocumented in this encounter Care Teams Offender Job Retention Specialist Relationship Specialty Start Date End Date Kristi Narvaez MD [address] [place] [address] PCP - General Internal Medicine 06/20/21 05/13/22 [facility], Pcp [address] [place] [address] PCP - General Internal Medicine 05/14/22 documented as of this encounter
--- OUTSIDE RECORDS SUMMARY | 2025-04-08 09:04 | XMS_ITS | Encounter Summary ---
Author Organization [facility] Address [address] [place] [address] Care Team Providers Care Card Tape Converter Operator Name Role Phone Kristi Narvaez MD Primary Care Provider [phone] [facility], Pcp Primary Care Provider Unavailabl e Encounter Details Date Type Department Care Team Description 09/06/2021 Orders Only Adult Medicine [facility] [address] [place], [place] [phone] Judy Shields PA-C [address] [place] [address] [phone] Social History Tobacco Use Types Packs/Day Years [...] on filedocumented in this encounter Care Teams Card Tape Converter Operator Relationship Specialty Start Date End Date Kristi Narvaez MD [address] [place] [address] [phone] PCP - General Internal Medicine 06/20/21 05/13/22 [facility], Pcp [address] [place] [address] PCP - General Internal Medicine 05/14/22 documented as of this encounter
--- OUTSIDE RECORDS SUMMARY | 2025-04-08 09:04 | XMS_ITS | Encounter Summary ---
Author Organization [facility] Address [address] [place] [address] Care Team Providers Care Butting Saw Operator Name Role Phone Therese Li MD Primary Care Provider Kristi Gao MD Primary Care Provider [phone] [facility], Pcp Primary Care Provider Unavailabl e Reason for Visit * Reason Comments E-prescribe Rx Request Encounter Details Date Type Department Care Team Description 12/13/2020 Refill Adult Medicine [address] [address] Alfred Summers PA-C [address] [place] [address] [phone] E-prescribe Rx Request Social History Tobacco Use [...] Telephone Encounter - Richa Crews M.A. - 12/14/2020 9:48 AM EST Manually faxed on 12/13 per note, unable to locate paper rx Call to pharmacy to [facility] Pharmacy has received and filled * Telephone Encounter - Krystian Mei - 12/14/2020 7:57 AM EST Patient would like script to be: E-PRESCRIBED/FAXED TO PHARMACY WHEN WAS THE PATIENT'S LAST APPOINTMENT IN ADULT MEDICINE? 10/11/2020 WHEN WAS THE LAST TIME THE PATIENT SAW THEIR PCP? Same as above Does patient have an upcoming appointment? Yes 02/14/2021 (THE MEDICATION REQUESTED IS ON THE MED [...] / Plan[place] / Product Type: MEDICARE [id number] documented in this encounter Plan of Treatment Not on file documented as of this encounter Visit Diagnoses Not on filedocumented in this encounter Care Teams Butting Saw Operator Relationship Specialty Start Date End Date Therese Li MD PCP - General 05/11/11 06/19/21 Kristi Narvaez MD [address] [place] [address] PCP - General Internal Medicine 06/20/21 05/13/[address] [address] PCP - General Internal Medicine 05/14/22 documented as of this encounter
--- OUTSIDE RECORDS SUMMARY | 2025-04-08 09:04 | XMS_ITS | Clinical Summary ---
[facility] Address [address] [place] [address] Care Team Providers Care Publications Distribution Clerk Name Role Phone Community, Pcp Primary Care [...] 2 tumor near pa ncreas/stomach , cancer [place] Brother 3 fatal [place] at 61 CAD Father fatal [place]; CHF; mental disroder [place] Maternal Grandmother Cancer of the Breast Mother [...] - 2022-2 4 season) 2024 02/24/2021, 01/27/2021 BMI CHECK/ADVISE 12/02/2024 08/28/2021, , 01/14/2020, Additional history exists INFLUENZA (Season Ended) 2025 021, 10/15/2020, 10/17/2019, Additional history exists DTAP/TDAP/TD (3 - Td or Tdap) 06/30/2029 06/30/2019, 04/18/2009 HEPATITIS C SCREENING Completed 09/28/2013 PNEUMOCOCCAL VACCINE Completed 08/28/2021, 06/30/20 19 Care Teams Publications Distribution Clerk Relationship Specialty Start Date End Date Community, Pcp PCP - General Internal Medicine 05/14/22
--- OUTSIDE RECORDS SUMMARY | 2025-04-08 09:04 | XMS_ITS | Encounter Summary ---
Author Organization [facility] Address [address] [place] [address] Care Team Providers Care Radial Saw Operator Name Role Phone Therese Li MD Primary Care Provider Kristi Gao MD Primary Care Provider [phone] [facility], Pcp Primary Care Provider Unavailabl e Reason for Visit * Reason Onset Date Comments refill request 06/23/2019 Encounter Details Date Type Department Care Team Description 06/23/2019 Refill Adult Medicine [address] [address] Therese Li MD refill request Social History [...] MED LIST AND IS IDENTIFIED BELOW): {MED LIST:13797) Med name: 28 gauge free style sterile lancets Dosage: 100 each Give by Octavia Diabetic class # of tablets: 100 Local pharmacy with request for 30 -day supply Instructions: Test 3 timed daily Did you check the pharmacy information above?: YES Patients current insurance carrier: [place] / [place] / Product Type: MEDICAREFEE-FOR-SERVICE documented in this encounter Plan of Treatment Not on file documented as of this encounter Visit Diagnoses Not on filedocumented in this encounter Care Teams Radial Saw Operator Relationship Specialty Start Date End Date Therese Li MD PCP - General 05/11/11 06/19/21 Kristi Narvaez MD [address] [place] [address] PCP - General Internal Medicine 06/20/21 05/13/22 [facility], Pcp [address] [place] [address] PCP - General Internal Medicine 05/14/22 documented as of this encounter
--- OUTSIDE RECORDS SUMMARY | 2025-04-08 09:04 | XMS_ITS | Encounter Summary ---
Author Organization [facility] Address [address] [place] [address] Care Team Providers Care Exercise Science Internship Name Role Phone Therese Li MD Primary Care Provider Kristi Gao MD Primary Care Provider [phone] [facility], Pcp Primary Care Provider Unavailabl e Reason for Visit * Reason Onset Date Comments medication problems 08/15/2018 Encounter Details Date Type Department Care Team Description 08/15/2018 Telephone Adult Medicine [address] [address] Therese Li MD medication problems Social History Tobacco Use Types [...] Telephone Encounter - Richa Crews M.A. - 08/15/2018 1:48 PM EDT Pt aware rx faxed * Telephone Encounter - Ann-Marie Kenyadimitry - 08/15/2018 1:42 PM EDT Patient states she has not had this med for 4 days and she is getting terrible head pain * Telephone Encounter - Kari Donald M.A. - 08/15/2018 11:22 AM EDT Diazepam 5 mg tabs on back order. Pharmacy is requesting that we send in 10 mg to take 1/2 tab tid prn for anxiety. Will you sign for Dr Li? Set up for your approval * Telephone Encounter - Breonna Keita - 08/15/2018 8:48 AM EDT Who is calling? The patient Name of the medication diazepam (VALIUM) 5 MG tablet What is the specific problem or interaction? Pt [facility]es [facility]am (VALIUM) 5 MG tablet in stock but they do have a 10Mg wants to know if pt can do 10MG pt staes that sheis out of medication If the patient is having a problem with taking the med - how long has the problem been going on? N/A documented in this encounter Plan of Treatment Not on file documented as of this encounter Visit Diagnoses Not on filedocumented in this encounter Care Teams Exercise Science Internship Relationship Specialty Start Date End Date Therese Li MD PCP - General 05/11/11 06/19/21 Kristi Narvaez MD [address] [place] [address] PCP - General Internal Medicine 06/20/21 05/13/22 [facility], [address] [address] PCP - General Internal Medicine 05/14/22 documented as of this encounter
--- OUTSIDE RECORDS SUMMARY | 2025-04-08 09:04 | XMS_ITS | Encounter Summary ---
Author Organization [facility] Address [address] [place] [address] Care Team Providers Care Filament Maker Name Role Phone Therese Li MD Primary Care Provider Kristi Gao MD Primary Care Provider [phone] [facility], Pcp Primary Care Provider Unavailabl e Reason for Visit * Reason Comments E-prescribe Rx Request Encounter Details Date Type Department Care Team Description 03/07/2018 Refill Adult Medicine [address] [address] Therese Li MD E-prescribe Rx Request Social [...] an upcoming appointment? No-[facility]able [facility] to refill request. Appt due next available (THE MEDICATION REQUESTED IS ON THE MED LIST ABOVE) All of the medications requested were on the CURRENT MEDS list Did you check the Pharmacy information above?: YES Patient wants: 90 -day supply Is this a mail order prescription request ? NO Patients current insurance carrier is: Payor: [facility] / Plan: PPO $20 ANDOVER [id number] / Product Type: PPO [id number] documented in this encounter Plan of Treatment Not on file documented as of this encounter Visit Diagnoses Not on filedocumented in this encounter Care Teams Filament Maker Relationship Specialty Start Date End Date Therese Li MD PCP - General 05/11/11 06/19/21 Kristi Narvaez MD [address] [place] [address] PCP - General Internal Medicine 06/20/21 05/13/[address] [address] PCP - General Internal Medicine 05/14/22 documented as of this encounter
--- OUTSIDE RECORDS SUMMARY | 2025-04-08 09:04 | XMS_ITS | Encounter Summary ---
Author Organization [facility] Address [address] [place] [address] Care Team Providers Care Child Welfare Counselor Name Role Phone Therese Li MD Primary Care Provider Kristi Gao MD Primary Care Provider [phone] [facility] Primary Care Provider Unavailabl e Reason for Visit * Reason Onset Date Comments refill request 09/02/2019 Encounter Details Date Type Department Care Team Description 09/02/2019 Refill Adult Medicine [address] [address] Therese Li MD refill request Social History [...] N/A Patients current insurance carrier is: Payor: [employer] / Plan: MEDICARE-Front App / Product Type: MEDICARE [id number] documented in this encounter Plan of Treatment Not on file documented as of this encounter Visit Diagnoses Not on filedocumented in this encounter Care Teams Child Welfare Counselor Relationship Specialty Start Date End Date Therese Li MD PCP - General 05/11/11 06/19/21 Kristi Narvaez MD [address] [place] [address] PCP - General Internal Medicine 06/20/21 05/13/[address] [address] PCP - General Internal Medicine 05/14/22 documented as of this encounter
--- OUTSIDE RECORDS SUMMARY | 2025-04-08 09:04 | XMS_ITS | Encounter Summary ---
Author [facility] Address [address] [place] [address] Care Team Providers Care General Freight Agent Name Role Phone Therese Li MD Primary Care Provider Kristi Gao MD Primary Care Provider [phone] [facility], Pcp Primary Care Provider Unavailabl e Reason for Visit * Reason Comments E-prescribe Rx Request Encounter Details Date Type Department Care Team Description 09/21/2019 Refill Adult Medicine [address] [address] Duc Goldman MD [address] [place] [address] E-prescribe Rx Request Social History Tobacco Use [...] / Plan[place] / Product Type: MEDICARE [id number] documented in this encounter Plan of Treatment Not on file documented as of this encounter Visit Diagnoses Not on filedocumented in this encounter Care Teams General Freight Agent Relationship Specialty Start Date End Date Therese Li MD PCP - General 05/11/11 06/19/21 Kristi Narvaez MD [address] [place] [address] PCP - General Internal Medicine 06/20/21 05/13/[address] [address] PCP - General Internal Medicine 05/14/22 documented as of this encounter
== END 2025-04-08 09:23 | disposition home or self-care (01) ==
LOC: HO.HMCH 08:45
PROVIDERS: PCP Internal Medicine; Visit Provider Internal Medicine
DX: Z01.818 Encounter for other preprocedural examination (principal); E11.9 Type 2 diabetes mellitus without complications; I10 Essential (primary) hypertension; G25.0 Essential tremor; E78.5 Hyperlipidemia, unspecified

== ENCOUNTER → 2025-04-08 08:45 | Outpatient (BNVA) | payer MEDICARE, SELFPAY | PROVIDERS: PCP Internal Medicine; Visit Provider Internal Medicine | DX: Z01.818 Encounter for other preprocedural examination (principal); E11.9 Type 2 diabetes mellitus without complications; I10 Essential (primary) hypertension; G25.0 Essential tremor; E78.5 Hyperlipidemia, unspecified | CPT/HCPCS: 99212 ==

== ENCOUNTER 2025-04-12 12:32 | Outpatient (REF) | payer MEDICARE, SELFPAY ==
--- NOTE | 2025-04-12 12:38 | ECG_ITS ---
Test Reason : PREOP Blood Pressure : */* mmHG Vent. Rate : 76 BPM Atrial Rate : 76 BPM P-R Int : 148 ms QRS Dur : 80 ms QT Int : 386 ms P-R-T Axes : 60 -50 25 degrees QTcB Int : 434 ms Normal sinus rhythm Possible Left atrial enlargement Left anterior fascicular block Abnormal ECG No previous ECGs available Referred By: Ruth Ingram Electronically Signed By: KERRY LIEBERMAN MD
[2025-04-12 12:59] LABS: MANUAL DIFF FLAG NO
--- OUTSIDE RECORDS SUMMARY | 2025-04-12 12:59 | XMS_ITS | Clinical Summary ---
Author Organization [facility] it Address [address] [place] [address] Care Team Providers Care Case Advocate Name Role Phone Unavailable Primary Care Provider Unavailabl e Surgical History Surgery Date Site/Laterality Comments TONSILLECTOMY PROCEDURE: HISTORICAL TONSILLECTOMY; COMMENT: young adult Medical History Medical History Date Comments Abnormal involuntary movements(781.0) DX:Abnormal involuntary movements(781.0) Lumbago DX:Lumbago Essential hypertension, benign 12/24/2005 D X:Essential hypertension, benign; COMMENT: essential tremor Type 2 diabetes mellitus wit h hyperglycemia, with long-term current use of insulin ([facility]/HCC V24, CMS/HCC V28) 06/01/2019 DX:Type 2 diabetes mellitus with hyperglycemia, with long-term current use of insulin ([facility]) Family History Medical History Relation Name Comments Breast cancer Aunt great aunt x3 (maternal side) Diabetes Brother 1 trauma induced diabetes Other cancer Brother 2 tumor near [place]/stomach , cancer Heart attack Brother 3 fatal NC at 61 Coronary artery disease Father fata l NC; CHF; mental disroder Heart attack Maternal Grandmother [...]
[2025-04-12 13:46] LABS: Basophils Absolute Auto 0.1 X10*3/uL (0.0-0.2); Basophils Percent Auto 0.9 % (0-2); Eosinophils Absolute Auto 0.4 X10*3/uL (0.0-0.4); Eosinophils Percent Auto 3.7 % (0-4); Hematocrit 43.9 % (37.0-47.0); Hemoglobin 15.1 g/dl (12.0-16.0); Imm Gran Abs Auto 0.06 X10*3/uL (0.00-0.03); Imm Gran Pct Auto 0.6 % (0.0-0.4); Lymphocytes Absolute Auto 3.5 X10*3/uL (1.2-4.9); Lymphocytes Percent Auto 33.2 % (20-40); Mean Corpuscular HGB Conc 34.4 g/dl (31.0-35.0); Mean Corpuscular Hemoglobin 31.9 pg (27.0-33.0); Mean Corpuscular Volume 92.6 fL (80.0-98.0); Monocytes Absolute Auto 1.1 X10*3/uL (0.1-1.2); Monocytes Percent Auto 10.7 % (2-11); Neutrophils Absolute Auto 5.4 x10*3/uL (2.0-8.3); Neutrophils Percent Auto 50.9 % (45-73); Platelet Count 269 X10*3/uL (160-400); Red Blood Count 4.74 X10*6/uL (4.20-5.50); Red Cell Distribution Width 11.7 % (11.0-16.0); White Blood Count 10.6 X10*3/uL (4.8-10.8)
[2025-04-12 14:11] LABS: Creatinine Urine 27.12 mg/dL; Microalbum/Creatinine Ratio Ur 18.4 ug/mg cr (<30)
[2025-04-12 14:57] LABS: Alanine Aminotransferase 35 U/L (0-31); Albumin Level 3.9 g/dL (3.5-5.0); Alkaline Phosphatase 174 U/L (39-117); Anion Gap 15 (12-20); Aspartate Amino Transferase 34 U/L (5-31); Bilirubin Total 0.4 mg/dL (0.0-1.0); Blood Urea Nitrogen 30 mg/dL (9-16); Calcium 9.4 mg/dL (8.4-10.2); Carbon Dioxide 24 mmol/L (22-29); Chloride 97 mmol/L (96-108); Cholesterol 218 mg/dL (<200); Estimated Glomerular Filt Rate 44; Free T4 (Free Thyroxine) 0.94 ng/dL (0.71-1.85); HDL Cholesterol 40 mg/dL (>40); Potassium 4.7 mmol/L (3.3-5.1); Sodium 131 mmol/L (135-145); Thyroid Stimulating Hormone 0.16 uIU/mL (0.32-4.0); Total Protein 7.4 g/dL (6.5-8.0); Triglycerides 452 mg/dL (<150); Vitamin D 25-OH Total 28.5 ng/mL (>30)
[2025-04-12 14:59] LABS: Glucose Fasting 712 mg/dL (60-99)
[2025-04-13 18:08] LABS: Thyroglobulin Antibodies <1 IU/mL (< or = 1); Thyroid Peroxidase Antibodies <1 IU/mL (<9)
== END 2025-04-12 12:33 | disposition home or self-care (01) ==
LOC: HO.LAB 12:32
PROVIDERS: Visit Provider Internal Medicine
DX: Z13.89 Encounter for screening for other disorder (principal)
CPT/HCPCS: 36415; 80053; 80061; 82043; 82306; 82570; 84439; 84443; 85025; 86376; 86800; 93005

== ENCOUNTER → 2025-04-12 12:38 | Outpatient (BNV) | payer MEDICARE, SELFPAY | PROVIDERS: Visit Provider Internal Medicine Cardiovascular Disease | DX: I44.4 Left anterior fascicular block (principal) | CPT/HCPCS: 93010 ==

== ENCOUNTER 2025-04-12 18:00 | Emergency (ER) | payer MEDICARE, SELFPAY ==
[2025-04-12 18:09] VITALS: BP 170/83; PULSE 76; RESP 18; TEMP 36.8; O2SAT 98; BMI 31.3
--- NOTE | 2025-04-12 18:09 | ED.GENADULT ---
HPI - General Adult General Chief complaint: General Medical Stated complaint: High blood sugar Time Seen by Provider: 04/12/25 18:50 Source: patient Mode of arrival: ambulatory Limitations: no limitations History of Present Illness ED Provider: Dr. Baca HPI narrative: 69-year-old female noncompliant diabetic has been taking metformin but was on insulin and just stopped taking it. She states she has already done classes she knows how to do not insulin injections but stopped taking for some time she was supposed to get glaucoma surgery in the found her blood sugar to be elevated so I sent her here for further evaluation she was able to get insulin from the pharmacy but they did not have any pain she will pick it up tomorrow. Patient had labs done out in triage with no signs of DKA patient denies chest pain cough fever nausea vomiting or diarrhea. Related Data Previous Rx's ?Medication ?Instructions ?Recorded fluticasone propionate 50 1 spray intranasal BID 30 days #16 04/17/22 mcg/actuation nasal grams spray,suspension (Allergy Relief (fluticasone)) naphazoline 0.025 %-pheniramine 1 drp ophthalmic (eye) BID-QID PRN 11/07/22 0.3 % eye drops (Allergy Eye allergic symptoms 30 days #15 mL (naphazoline-pheniramine)) magnesium glycinate 100 mg (as 200 mg (2 x 100 mg) PO DAILY 01/31/23 glycinate) tablet muscle spasms #60 tabs loratadine 10 mg tablet (Allergy 10 mg PO DAILY 90 days #90 tabs 08/24/23 Relief (loratadine)) duloxetine 30 mg capsule,delayed 30 mg PO BID 90 days #180 caps 11/18/24 release estradiol 0.01% (0.1 mg/gram) 1 g vaginal .twice weekly 90 days 11/18/24 vaginal cream (Estrace) #42.5 grams omeprazole 20 mg capsule,delayed 20 mg PO DAILY 90 days #90 caps 11/18/24 release clobetasol 0.05 % topical cream 1 g topical .twice weekly 90 days 03/02/25 #45 grams hydrocortisone 1 % topical cream 1 appl topical BID PRN skin 03/02/25 irritation 2 weeks #28.4 grams propranolol 160 mg capsule,24 160 mg PO DAILY 90 days #90 caps 03/02/25 hr,extended release metformin 500 mg tablet 500 mg PO BID 90 days #180 tabs 03/22/25 dulaglutide 0.75 mg/0.5 mL 0.75 mg (0.5 mL) subcut QWEEK 4 03/29/25 subcutaneous pen injector weeks #2 mL (Trulicity) lorazepam 1 mg tablet 1 mg PO TID PRN anxiety 30 days 03/30/25 #90 tabs atorvastatin 40 mg tablet 40 mg PO BEDTIME 90 days #90 tabs 04/12/25 insulin glargine 100 unit/mL (3 20 unit (0.2 mL) subcut QPM 30 04/12/25 mL) subcutaneous pen (Lantus days #6 mL Solostar U-100 Insulin) losartan 50 mg tablet 50 mg PO DAILY 90 days #90 tabs 04/12/25 pen needle, diabetic 32 gauge x #100 ea 04/12/2504/16 (Comfort EZ Pen [place]) Allergies Allergy/AdvReac Type Severity Reaction Status Date / Time sulfamethoxazole Allergy Mild hives Verified 04/12/25 18:11 [From Bactrim] trimethoprim [From Bactrim] Allergy Mild hives Verified 04/12/25 18:11 Review of Systems Review of Systems: Review of systems: General: Patient denies any fever chills recent illness or falls Musculoskeletal: Denies back pain or body aches or other injuries HEENT: denies headache, runny nose, ear pain Respiratory: denies shortness of breath, cough Cardiovascular: no chest pain or palpitations : denies dysuria, frequency Abdomen: no nausea vomiting denies abdominal pain Extremities: no swelling, no pain Skin: no diaphoresis Yes all other systems are reviewed and are negative [facility] Past Medical History Medical History Allergic rhinitis Neck pain Hand numbness Neuropathy Essential tremor NILESH (generalized anxiety disorder) Mild recurrent major depression Chronic GERD Class 1 obesity with body mass index (BMI) of 31.0 to 31.9 in adult Diabetes mellitus Essential hypertension Surgical History History of tonsillectomy Family History Family History Mother Breast cancer Hypertension Father Heart attack Brother Substance use disorder Daughter Mental health disorder Sister Breast cancer Social History Social History Housing: House Alcohol intake: current Alcohol intake frequency: holidays/special occasions only Alcohol type: wine Patient Tobacco Use Status: Former Tobacco user Tobacco use type: Cigarette e-Cigarette/Vaping Use: Never Used Second Hand Smoke Exposure: No Advance Directives: No Advance Directives Information Provided: Yes Do you have a plan to hurt others: No Plan service: No Current occupational status: retired Sexual orientation: Straight/Heterosexual Gender identity: Female Cognitive needs: No Hearing needs: No Vision needs: Yes Physical Exam ED Vital Signs: Vital Signs - 24 hr 04/12/25 18:09 Temperature 98.3 F Pulse Rate 76 Respiratory Rate 18 Blood Pressure 170/83 H Pulse Oximetry 98 Oxygen Delivery Method Room Air BMI result Body Mass Index 31.3 General: Well-appearing well-nourished in no signs of distress HEENT: Normocephalic atraumatic Neck: No signs of JVD, no masses no tenderness or lymphadenopathy Cardiovascular: Regular rate and rhythm Respiratory: Clear to auscultation bilaterally Abdomen: Soft nontender no masses rectal exam performed guiac negative quality control scientist confirmed. Extremities: Normal pedal pulses no signs of edema Skin: Dry warm no rashes Back: No tenderness full ROM Course Course Course Narrative: RME, this is a rapid medical exam performed by Thom Kaur please refer to primary provider for complete H&P- 69-year-old female with a past medical history significant for diabetes maintained on metformin, GERD, hypertension presents for evaluation of blood sugar. The patient had preop labs done that are in our system showing a glucose of 712. She is a known diabetic as mentioned hand. She is not on insulin, some was prescribed and sent to her pharmacy, however she reports the pharmacy she went to will not have insulin until 6:00 p.m. tomorrow. plan for Repeat labs, VBG, urinalysis, beta hydroxybutyrate. Medications Administered Generic Name Dose Route Start Last Admin Trade Name Freq PRN Reason Stop Dose Admin Sodium Chloride 1,000 mls @ 999 mls/hr 04/12/25 19:00 04/12/25 18:59 Ns IV 04/12/25 20:00 999 mls/hr .Q1H1M BRIGHT Administration Discontinued Medications Generic Name Dose Route Start Last Admin Trade Name Brandy PRN Reason Stop Dose Admin Insulin Human Lispro 5 unit 04/12/25 18:49 04/12/25 19:00 Insulin Lispro 100 Unit/Ml 3 Ml Vial SUBCUT 04/12/25 18:50 5 unit ONCE ONE Administration Medical Decision Making Medical Decision Making [facility] Narrative: Hyperglycemia noncompliant with her diabetes medications I do think the patient looks well and will be safe to go home I did give her some insulin before leaving Differential Diagnosis Differential Diagnoses: The differential diagnosis associated with the presentation includes DKA medication noncompliance diabetes with hyperglycemia Admission/Observation Consideration of admission/observation: Escalation of care including admission/observation considered Lab Data [facility] Lab Attestation statement: I reviewed the patient's lab results. 04/12/25 18:20 04/12/25 18:20 Labs: Lab Results 04/12/25 04/12/25 04/12/25 Range/Units 18:20 18:26 19:00 WBC 12.7 H (4.8-10.8) X10*3/uL RBC 4.75 (4.20-5.50) X10*6/uL Hgb 15.3 (12.0-16.0) g/dl Hct 43.1 (37.0-47.0) % MCV 90.7 (80.0-98.0) fL MCH 32.2 (27.0-33.0) pg MCHC 35.5 H (31.0-35.0) g/dl RDW 11.7 (11.0-16.0) % Plt Count 265 (160-400) X10*3/uL MPV 10.3 (9.4-12.3) fL Immature Gran % (Auto) 0.6 H (0.0-0.4) % Neut % (Auto) 52.9 (45-73) % Lymph % (Auto) 33.5 (20-40) % [place] % (Auto) 9.3 (2-11) % Eos % (Auto) 2.8 (0-4) % Baso % (Auto) 0.9 (0-2) % Lymph # (Auto) 4.2 (1.2-4.9) X10*3/uL [place] # (Auto) 1.2 (0.1-1.2) X10*3/uL Eos # (Auto) 0.4 (0.0-0.4) X10*3/uL Baso # (Auto) 0.1 (0.0-0.2) X10*3/uL Abs Immat Gran (auto) 0.07 H (0.00-0.03) X10*3/uL Absolute Neuts (auto) 6.7 (2.0-8.3) x10*3/uL Absolute Nucleated RBC 0.000 (0.0-0.012) X10*3/uL Nucleated RBC % (auto) 0.0 (0.0-0.2) /100WBC VBG pH 7.33 (7.32-7.43) VBG pCO2 50 mmHg VBG pO2 31 mmHg VBG HCO3 27 H (22-26) mmol/L VBG O2 Saturation 43.0 % VBG Base Excess 0.4 mmol/L Sodium 134 L (135-145) mmol/L Potassium 5.0 (3.3-5.1) mmol/L Chloride 99 (96-108) mmol/L Carbon Dioxide 24 (22-29) mmol/L Anion Gap 16 (12-20) BUN 33 H (9-16) mg/dL Creatinine 1.23 (0.5-1.4) mg/dL Estim Creat Clear Calc 39.4 Estimated GFR 43 POC Glucose 430 H* (60-115) mg/dL Random Glucose 487 H* (60-115) mg/dL Calcium 9.6 (8.4-10.2) mg/dL Beta-Hydroxybutyrate 0.15 (0.02-0.27) mmol/L Discharge Plan Discharge Clinical Impression: Hyperglycemia due to diabetes mellitus Patient Disposition: Home, Self-Care Instructions: How to Give an Insulin Injection (ED), Meal Planning with Diabetes Exchanges (DC), Meal Planning with the Plate Method (DC) Additional Instructions: you seen in the emergency department for elevated blood sugar likely due to not being on your insulin. You were given insulin here as well as labs to check for complications like diabetic ketoacidosis. you were labs are all okay you do need to take the insulin for blood sugar going forward. If you have any other concerns please return to the ER. Prescriptions: No Action fluticasone propionate [Allergy Relief (fluticasone)] 50 mcg/actuation spray,suspension 1 spray intranasal BID 30 Days Qty: 16 1RF Rx Instructions: administer into each nostril Allergy Eye (naphazoline-phen) 0.025-0.3 % drops 1 drp ophthalmic (eye) BID-QID PRN (Reason: allergic symptoms) 30 Days Qty: 15 1RF loratadine [Allergy Relief (loratadine)] 10 mg tablet 10 mg PO DAILY 90 Days Qty: 90 1RF propranolol 160 mg capsule,extended release 24 hr 160 mg PO DAILY 90 Days Qty: 90 1RF hydrocortisone 1 % cream 1 appl topical BID PRN (Reason: skin irritation) 14 Days Qty: 28.4 1RF clobetasol 0.05 % cream 1 g topical .twice weekly 90 Days Qty: 45 1RF Rx Instructions: not to be used with other topical cortisone cream in the area at the same time Trulicity 0.75 mg/0.5 mL pen injector 0.75 mg subcut QWEEK 28 Days Qty: 2 4RF lorazepam 1 mg tablet 1 mg PO TID PRN (Reason: anxiety) 30 Days Qty: 90 0RF insulin glargine [Lantus Solostar U-100 Insulin] 100 unit/mL (3 mL) insulin pen 20 unit subcut QPM 30 Days Qty: 6 2RF (DME) pen needle, diabetic [Comfort EZ Pen [place]] 32 gauge x 5/16 needle See Rx Instructions .Route Qty: 100 6RF Rx Instructions: Use 1 pen needle once a day atorvastatin 40 mg tablet 40 mg PO BEDTIME 90 Days Qty: 90 1RF losartan 50 mg tablet 50 mg PO DAILY 90 Days Qty: 90 1RF magnesium glycinate 100 mg tablet 200 mg PO DAILY Qty: 60 0RF metformin 500 mg tablet 500 mg PO BID 90 Days Qty: 180 1RF omeprazole 20 mg capsule,delayed release(DR/EC) 20 mg PO DAILY 90 Days Qty: 90 1RF duloxetine 30 mg capsule,delayed release(DR/EC) 30 mg PO BID 90 Days Qty: 180 1RF estradiol [Estrace] 0.01 % (0.1 mg/gram) cream 1 g vaginal .twice weekly 90 Days Qty: 42.5 1RF Print Language: Greek
[2025-04-12 18:25] LABS: MANUAL DIFF FLAG NO
[2025-04-12 18:28] LABS: Basophils Absolute Auto 0.1 X10*3/uL (0.0-0.2); Basophils Percent Auto 0.9 % (0-2); Eosinophils Absolute Auto 0.4 X10*3/uL (0.0-0.4); Eosinophils Percent Auto 2.8 % (0-4); Hematocrit 43.1 % (37.0-47.0); Hemoglobin 15.3 g/dl (12.0-16.0); Imm Gran Abs Auto 0.07 X10*3/uL (0.00-0.03); Imm Gran Pct Auto 0.6 % (0.0-0.4); Lymphocytes Absolute Auto 4.2 X10*3/uL (1.2-4.9); Lymphocytes Percent Auto 33.5 % (20-40); Mean Corpuscular HGB Conc 35.5 g/dl (31.0-35.0); Mean Corpuscular Hemoglobin 32.2 pg (27.0-33.0); Mean Corpuscular Volume 90.7 fL (80.0-98.0); Mean Platelet Volume 10.3 fL (9.4-12.3); Monocytes Absolute Auto 1.2 X10*3/uL (0.1-1.2); Monocytes Percent Auto 9.3 % (2-11); Neutrophils Absolute Auto 6.7 x10*3/uL (2.0-8.3); Neutrophils Percent Auto 52.9 % (45-73); Platelet Count 265 X10*3/uL (160-400); Red Blood Count 4.75 X10*6/uL (4.20-5.50); Red Cell Distribution Width 11.7 % (11.0-16.0); White Blood Count 12.7 X10*3/uL (4.8-10.8)
[2025-04-12 18:29] LABS: Venous Blood Gas Refer to POC result
[2025-04-12 18:30] LABS: VBG Base Excess 0.4 mmol/L; VBG HCO3 27 mmol/L (22-26); VBG pCO2 50 mmHg; VBG pH 7.33 (7.32-7.43); VBG pO2 31 mmHg
--- OUTSIDE RECORDS SUMMARY | 2025-04-12 18:38 | XMS_ITS | Encounter Summary ---
Author Organization [facility] Address [address] [place] [address] Care Team Providers Care Training And Development Assistant Name Role Phone Therese Li MD Primary Care Provider Kristi Gao MD Primary Care Provider [facility], Pcp Primary Care Provider Unavailabl e Encounter Details Date Type Department Care Team Description 06/02/2019 Home Health Certification Medical Records [address] [place] [address] Home, [facility] [address] [facility] [address] [place], [place] [id number] Social History Tobacco Use Types Packs/Day Years [...] on filedocumented in this encounter Care Teams Training And Development Assistant Relationship Specialty Start Date End Date Therese Li MD PCP - General 05/11/11 06/19/21 Kristi Narvaez MD [address] [place] [address] PCP - General Internal Medicine 06/20/21 05/13/22 [facility], Pcp [address] [place] [address] PCP - General Internal Medicine 05/14/22 documented as of this encounter
--- OUTSIDE RECORDS SUMMARY | 2025-04-12 18:38 | XMS_ITS | Encounter Summary ---
Author Organization [facility] Address [address] [place] [address] Care Team Providers Care Relief Captain Name Role Phone Therese Li MD Primary Care Provider Kristi Gao MD Primary Care Provider [phone] [facility], Pcp Primary Care Provider Unavailabl e Reason for Visit * Reason Comments E-prescribe Rx Request Encounter Details Date Type Department Care Team Description 06/23/2019 Refill Adult Medicine [address] [address] Therese Li MD E-prescribe Rx Request Social [...] N/A Patients current insurance carrier is: Payor: MEDICARE-WP Fail-[employer] / Plan: MEDICARE-WP Fail-Safe / Product Type: MEDICARE [id number] documented in this encounter Plan of Treatment Not on file documented as of this encounter Visit Diagnoses Not on filedocumented in this encounter Care Teams Relief Captain Relationship Specialty Start Date End Date Therese Li MD PCP - General 05/11/11 06/19/21 Kristi Narvaez MD [address] [place] [address] PCP - General Internal Medicine 06/20/21 05/13/[address] [address] PCP - General Internal Medicine 05/14/22 documented as of this encounter
--- OUTSIDE RECORDS SUMMARY | 2025-04-12 18:38 | XMS_ITS | Encounter Summary ---
Author Organization [facility] [employer] [facility] Address [address] [place] [address] Care Team Providers Care Editing Clerk Name Role Phone Therese Li MD Primary Care Provider Kristi Gao MD Primary Care Provider [phone] [facility], Pcp Primary Care Provider Unavailabl e Encounter Details Date Type Department Care Team Description 05/29/2019 Telephone Adult Medicine [address] [address] Therese Li MD Social History Tobacco Use [...] on filedocumented in this encounter Care Teams Editing Clerk Relationship Specialty Start Date End Date Therese Li MD PCP - General 05/11/11 06/19/21 Kristi Narvaez MD [address] [place] [address] PCP - General Internal Medicine 06/20/21 05/13/22 [facility], [address] [address] PCP - General Internal Medicine 05/14/22 documented as of this encounter
--- OUTSIDE RECORDS SUMMARY | 2025-04-12 18:38 | XMS_ITS | Encounter Summary ---
Author Organization [facility] Address [address] [place] [address] Care Team Providers Care Winding Machine Operator Name Role Phone Therese Li MD Primary Care Provider Kristi Gao MD Primary Care Provider [phone] [facility], Pcp Primary Care Provider Unavailabl e Reason for Visit * Reason Comments E-prescribe Rx Request Encounter Details Date Type Department Care Team Description 03/04/2019 Refill Adult Medicine [address] [address] Therese Li MD E-prescribe Rx Request Social [...] N/A Patients current insurance carrier is: [facility] / Plan: INDEMNITY $20 [place] / Product Type:PPO [id number] documented in this encounter Plan of Treatment Not on file documented as of this encounter Visit Diagnoses Not on filedocumented in this encounter Care Teams Winding Machine Operator Relationship Specialty Start Date End Date Therese Li MD PCP - General 05/11/11 06/19/21 Kristi Narvaez MD [address] [place] [address] PCP - General Internal Medicine 06/20/21 05/13/22 [place] [address] PCP - General Internal Medicine 05/14/22 documented as of this encounter
--- OUTSIDE RECORDS SUMMARY | 2025-04-12 18:38 | XMS_ITS | Encounter Summary ---
Author Organization [facility] [employer] [facility] Address [address] [place] [address] Care Team Providers Care Dining Room Host/Hostess Name Role Phone Therese Li MD Primary Care Provider Kristi Gao MD Primary Care Provider [phone] [facility], Pcp Primary Care Provider Unavailabl e Encounter Details Date Type Department Care Team Description 01/21/2019 [facility] Medical Records [address] [place] [address] Abstract, Provider Social History Tobacco Use Types [...] on filedocumented in this encounter Care Teams Dining Room Host/Hostess Relationship Specialty Start Date End Date Therese Li MD PCP - General 05/11/11 06/19/21 Kristi Narvaez MD [address] [place], [place] [phone] PCP - General Internal Medicine 06/20/21 05/13/22 [facility], Pcp [address] [place] [address] PCP - General Internal Medicine 05/14/22 documented as of this encounter
--- OUTSIDE RECORDS SUMMARY | 2025-04-12 18:38 | XMS_ITS | Encounter Summary ---
Author Organization [facility] [employer] [facility] Address [address] [place] [address] Care Team Providers Care Physical Chemistry Teacher Name Role Phone Therese Li MD Primary Care Provider Kristi Gao MD Primary Care Provider [phone] [facility], Pcp Primary Care Provider Unavailabl e Encounter Details Date Type Department Care Team Description 05/31/2019 Hospital Medical Records [address] [place] [address] Kelly Dubon MD Social History Tobacco Use [...] on filedocumented in this encounter Care Teams Physical Chemistry Teacher Relationship Specialty Start Date End Date Therese Li MD PCP - General 05/11/11 06/19/21 Kristi Narvaez MD [address] [place] [id number] PCP - General Internal Medicine 06/20/21 05/13/22 [facility], Pcp [address] [place] [address] PCP - General Internal Medicine 05/14/22 documented as of this encounter
--- OUTSIDE RECORDS SUMMARY | 2025-04-12 18:38 | XMS_ITS | Encounter Summary ---
Author Organization [facility] [employer] [facility] Address [address] [place] [address] Care Team Providers Care Foster Care Therapist Name Role Phone Therese Li MD Primary Care Provider Kristi Gao MD Primary Care Provider [phone] [facility], Pcp Primary Care Provider Unavailabl e Encounter Details Date Type Department Care Team Description 08/17/2019 Telephone Adult Medicine [address] [address] Therese Li MD Social History Tobacco Use [...] on filedocumented in this encounter Care Teams Foster Care Therapist Relationship Specialty Start Date End Date Therese Li MD PCP - General 05/11/11 06/19/21 Kristi Narvaez MD [address] [place] [address] PCP - General Internal Medicine 06/20/21 05/13/22 [facility], [address] [address] PCP - General Internal Medicine 05/14/22 documented as of this encounter
--- OUTSIDE RECORDS SUMMARY | 2025-04-12 18:38 | XMS_ITS | Encounter Summary ---
Author Organization [facility]anda [employer] [facility] Address [address] [place] [address] Care Team Providers Care Signal Operator Linguist Name Role Phone Therese Li MD Primary Care Provider Kristi Gao MD Primary Care Provider [phone] [facility], Pcp Primary Care Provider Unavailabl e Encounter Details Date Type Department Care Team Description 07/07/2019 Shoemaking Finisher Report Medical Records [address] [place] [address] Social History Tobacco Use Types Packs/Day Years [...] on filedocumented in this encounter Care Teams Signal Operator Linguist Relationship Specialty Start Date End Date Therese iL MD PCP - General 05/11/11 06/19/21 Kristi Narvaez MD [address] [place] [address] PCP - General Internal Medicine 06/20/21 05/13/22 [facility], Pcp [address] [place], [place] [phone] PCP - General Internal Medicine 05/14/22 documented as of this encounter
--- OUTSIDE RECORDS SUMMARY | 2025-04-12 18:38 | XMS_ITS | Encounter Summary ---
Author Organization [facility] Address [address] [place] [address] Care Team Providers Care Community Engagement Manager Name Role Phone Therese Li MD Primary Care Provider Kristi Gao MD Primary Care Provider [phone] [facility], Pcp Primary Care Provider Unavailabl e Reason for Referral * Non LISETTE (Priority) - Authorized/Booked Specialty Diagnoses / Procedures Referred By Contmendel t Referred To Contact Endocrinology Procedures REFERRAL TO ENDOCRINOLOGY Therese Li MD [address] [place] [address] Jagdish Graves MD Referral ID Status Reason Start Date Expiration Date V isits Requested Visits Authorized [id number] Authorized/ Booked 06/08/2019 06/07/2020 1 1 Reason for Visit * Reason Onset Date Comments Provider Call Back 06/05/2019 Encounter Details Date Type Department Care Team Description 06/05/2019 Telephone Adult Medicine [address] [id number] Therese Li MD Provider Call Back Social [...] on filedocumented in this encounter Care Teams Community Engagement Manager Relationship Specialty Start Date End Date Li, Therese, MD PCP - General 05/11/11 06/19/21 Kristi Narvaez MD [address] [place] [address] PCP - General Internal Medicine 06/20/21 05/13/22 [facility], [address] [address] PCP - General Internal Medicine 05/14/22 documented as of this encounter
--- OUTSIDE RECORDS SUMMARY | 2025-04-12 18:38 | XMS_ITS | Encounter Summary ---
Author Organization [facility] [facility] Address [address] [place] [address] Care Team Providers Care Engine Mechanic Name Role Phone Therese Li MD Primary Care Provider Kristi Gao MD Primary Care Provider [phone] [facility], Pcp Primary Care Provider Unavailabl e Encounter Details Date Type Department Care Team Description 01/19/2019 [facility] Medical Records [address] [place] [address] Abstract, Provider Social History Tobacco Use Types [...] on filedocumented in this encounter Care Teams Engine Mechanic Relationship Specialty Start Date End Date Therese Li MD PCP - General 05/11/11 06/19/21 Kristi Narvaez MD [address] [place], [place] [phone] PCP - General Internal Medicine 06/20/21 05/13/22 [facility], Pcp [address] [place] [address] PCP - General Internal Medicine 05/14/22 documented as of this encounter
[2025-04-12 18:39] LABS: Beta-Hydroxybutyrate 0.15 mmol/L (0.02-0.27)
--- OUTSIDE RECORDS SUMMARY | 2025-04-12 18:39 | XMS_ITS | Encounter Summary ---
Author Organization Yolanda [employer] [facility] Address [address] [place] [address] Care Team Providers Care Cow Buyer Name Role Phone Therese Li MD Primary Care Provider Kristi Gao MD Primary Care Provider [phone] [facility], Pcp Primary Care Provider Unavailabl e Encounter Details Date Type Department Care Team Description 10/23/2019 Chucker Report Medical Records [address] [place] [address] Ni Yanez MD Social History Tobacco Use [...] on filedocumented in this encounter Care Teams Cow Buyer Relationship Specialty Start Date End Date Therese Li MD PCP - General 05/11/11 06/19/21 Kristi Narvaez MD [address] [place], [place] [phone] PCP - General Internal Medicine 06/20/21 05/13/22 [facility], Pcp [address] [place] [address] PCP - General Internal Medicine 05/14/22 documented as of this encounter
--- OUTSIDE RECORDS SUMMARY | 2025-04-12 18:39 | XMS_ITS | Encounter Summary ---
Author Organization [facility]olanda [employer] [facility] Address [address] [place] [address] Care Team Providers Care Animal Damage Control Agent Name Role Phone Therese Li MD Primary Care Provider Kristi Gao MD Primary Care Provider [phone] [facility], Pcp Primary Care Provider [facility] e Encounter Details Date Type Department Care Team Description 06/13/2020 Pt. Referral Request [facility] MyChart [address] [place] [address] [id number] Md Sandro Social History Tobacco Use Types [...] on filedocumented in this encounter Care Teams Animal Damage Control Agent Relationship Specialty Start Date End Date Therese Li MD PCP - General 05/11/11 06/19/21 Kristi Narvaez MD [address] [place] [address] [id number] PCP - General Internal Medicine 06/20/21 05/13/22 [facility], [address] [address] PCP - General Internal Medicine 05/14/22 documented as of this encounter
--- OUTSIDE RECORDS SUMMARY | 2025-04-12 18:39 | XMS_ITS | Clinical Summary ---
Author Organization [facility]olanda [employer] [facility] it Address [address] [place] [address] Care Team Providers Care Floor Steward/Stewardess Name Role Phone Unavailable Primary Care Provider Unavailabl e Surgical History Surgery Date Site/Laterality Comments TONSILLECTOMY PROCEDURE: HISTORICAL TONSILLECTOMY; COMMENT: young adult Medical History Medical History Date Comments Abnormal involuntary movements(781.0) DX:Abnormal involuntary movements(781.0) Lumbago DX:Lumbago Essential hypertension, benign 12/24/2005 D X:Essential hypertension, benign; COMMENT: essential tremor Type 2 diabetes mellitus wit h hyperglycemia, with long-term current use of insulin ([facility]/HCC V24, CMS/HCC V28) 06/01/2019 DX:Type 2 diabetes mellitus with hyperglycemia, with long-term current use of insulin ([facility]) Family History Medical History Relation Name Comments Breast cancer Aunt great aunt x3 (maternal side) Diabetes Brother 1 trauma induced diabetes Other cancer Brother 2 tumor near [place]/stomach , cancer Heart attack Brother 3 fatal [place] at 61 Coronary artery disease Father fata l [place]; CHF; mental disroder Heart attack Maternal Grandmother [...]
--- OUTSIDE RECORDS SUMMARY | 2025-04-12 18:39 | XMS_ITS | Encounter Summary ---
Author [facility] Address [address] [place] [address] Care Team Providers Care Aoc Airspace Control Officer Name Role Phone Therese Li MD Primary Care Provider Kristi Gao MD Primary Care Provider [phone] Count Includes [facility], Pcp Primary Care Provider Unavailabl e Reason for Visit * Reason Comments E-prescribe Rx Request Encounter Details Date Type Department Care Team Description 02/16/2020 Refill Adult Medicine [address] [address] Alfred Summers PA-C [address] [place] [address] E-prescribe Rx Request Social History Tobacco Use [...] Telephone Encounter - Jose Hutchins M.A. - 02/17/2020 3:38 PM EDT Faxed to pharmacy * Telephone Encounter - Arlene Collazo - 02/16/2020 11:53 AM EDT Patient would like script to be: E-PRESCRIBED/FAXED TO PHARMACY WHEN WAS THE PATIENT'S LAST APPOINTMENT IN ADULT MEDICINE? 01/14/2020 WHEN WAS THE LAST TIME THE PATIENT SAW THEIR PCP? 12/10/2019 Does patient have an upcoming appointment? No-patient [...] / Plan[place] / Product Type: MEDICARE [id number] documented in this encounter Plan of Treatment Not on file documented as of this encounter Visit Diagnoses Not on filedocumented in this encounter Care Teams Aoc Airspace Control Officer Relationship Specialty Start Date End Date Therese Li MD PCP - General 05/11/11 06/19/21 Kristi Narvaez MD [address] [place] [address] PCP - General Internal Medicine 06/20/21 05/13/22 [place] [address] PCP - General Internal Medicine 05/14/22 documented as of this encounter
--- OUTSIDE RECORDS SUMMARY | 2025-04-12 18:39 | XMS_ITS | Encounter Summary ---
Author Organization Yolanda [employer] [facility] Address [address] [place] [address] Care Team Providers Care Laborer Electroplating Name Role Phone Therese Li MD Primary Care Provider Kristi Gao MD Primary Care Provider [phone] Pending [facility], Pcp Primary Care Provider Unavailabl e Encounter Details Date Type Department Care Team Description 07/25/2011 Night Triage Doc Medical Records [address] [place] [id number] Abstract, Provider Social History Tobacco Use Types [...] on filedocumented in this encounter Care Teams Laborer Electroplating Relationship Specialty Start Date End Date Therese Li MD PCP - General 05/11/11 06/19/21 Kristi Narvaez MD [address] [place] [address] PCP - General Internal Medicine 06/20/21 05/13/22 Pending Sale To [facility], Pcp [address] [place] [address] PCP - General Internal Medicine 05/14/22 documented as of this encounter
--- OUTSIDE RECORDS SUMMARY | 2025-04-12 18:39 | XMS_ITS | Encounter Summary ---
Author Organization Yolanda [employer] [facility] Address [address] [place] [address] Care Team Providers Care Pressing Machine Operator Name Role Phone Therese Li MD Primary Care Provider Kristi Gao MD Primary Care Provider [phone] [facility], Pcp Primary Care Provider Unavailabl e Encounter Details Date Type Department Care Team Description 09/05/2017 PNO Controlled Substance Contract Medical Records [address] [place] [address] Abstract, Provider Social History Tobacco Use Types [...] on filedocumented in this encounter Care Teams Pressing Machine Operator Relationship Specialty Start Date End Date Therese Li MD PCP - General 05/11/11 06/19/21 Kristi Narvaez MD [address] [place], [place] [phone] PCP - General Internal Medicine 06/20/21 05/13/22 [facility], Pcp [address] [place] [address] PCP - General Internal Medicine 05/14/22 documented as of this encounter
--- OUTSIDE RECORDS SUMMARY | 2025-04-12 18:39 | XMS_ITS | Encounter Summary ---
Author Organization [facility] Address [address] [place] [address] Care Team Providers Care Medical Claims Representative Name Role Phone Therese Li MD Primary Care Provider Kristi Gao MD Primary Care Provider [facility], Pcp Primary Care Provider Unavailabl e Reason for Visit * Reason Onset Date Comments BRCA 02/23/2014 Encounter Details Date Type Department Care Team Description 02/23/2014 Telephone AUTO PARTS SALESPERSON - [address] [id number] Luzma Sanders MD BRCA Social History Tobacco [...] filedocumented in this encounter Care Teams Medical Claims Representative Relationship Specialty Start Date End Date Therese Li MD PCP - General 05/11/11 06/19/21 Kristi Narvaez MD [address] [place] [address] PCP - General Internal Medicine 06/20/21 05/13/22 [facility], Pcp [address] [place] [address] PCP - General Internal Medicine 05/14/22 documented as of this encounter
--- OUTSIDE RECORDS SUMMARY | 2025-04-12 18:39 | XMS_ITS | Encounter Summary ---
Author Organization [facility] Address [address] [place] [address] Care Team Providers Care Hose Coupling Joiner Name Role Phone Therese Li MD Primary Care Provider Kristi Gao MD Primary Care Provider [phone] [facility], Pcp Primary Care Provider Unavailabl e Encounter Details Date Type Department Care Team Description 12/05/2011 Telephone Adult Medicine [address] [address] Therese Li MD Social History Tobacco Use [...] * ASSAY, DIHYDROCODEINONE (01/17/2012 3:03 PM EST) [facility] HYDROCODONE UR GCMS NOT DETECTED NOTDETECTED [facility] Comment: TEST PERFORMED AT: [address]. ? [address] ? [facility] [address] ? [phone] HYDROMORPHONE UR GCMS NOT DETECTED NOTDETECTED [facility] Comment: TEST PERFORMED AT: [address] ? [address] ? [facility] [address] ? [phone] 01/17/2012 3:03 PM EST 01/17/2012 3:03 PM EST Threese Li MD LAB Performing Organization Address [facility] de Phone Number [facility] * OXYCODONE, URINE (01/17/2012 3:03 PM EST) [facility] URINE OXYCODONE NONE DETECTED ND [facility] Comment: Assay cutoff 300 ng/mL Semi-quantitative assay for screening purposes only. Unconfirmed screening result should not be used for non-medical purposes. *ALTERNATE METHOD CONFIRMATION DONE UPON REQUEST ONLY* 01/17/2012 3:03 PM EST 01/17/2012 3:03 PM EST Therese Li MD LAB Performing Organization Address [facility] de Phone Number [facility] * (ABNORMAL) DRUG OF ABUSE SCREEN (01/17/2012 3:03 PM EST) [facility] AMPHETAMINE, URINE NEGATIVE NEGATIVE [facility] [...] Li MD LAB [facility] [address] [facility] documented in this encounter Visit Diagnoses Diagnosis Encounter for long-term (current) use of other medications- Primary documented in this encounter Care Teams Hose Coupling Joiner Relationship Specialty Start Date End Date Therese Li MD PCP - General 05/11/11 06/19/21 Kristi Narvaez MD [address] [place], [place] [phone] PCP - General Internal Medicine 06/20/21 05/13/22 [facility], Pcp [address] [place], [place] [phone] PCP - General Internal Medicine 05/14/22 documented as of this encounter
--- OUTSIDE RECORDS SUMMARY | 2025-04-12 18:39 | XMS_ITS | Encounter Summary ---
Author Organization [facility] Address [address] [place] [address] Care Team Providers Care Junior Web Developer Name Role Phone Kristi Narvaez MD Primary Care Provider [phone] [facility], Pcp Primary Care Provider Unavailabl e Encounter Details Date Type Department Care Team Description 09/06/2021 Orders Only Adult Medicine [facility] [address] [place], [place] [phone] Judy Shields PA-C [address] [place] [address] [phone] Social History Tobacco Use Types Packs/Day Years [...] on filedocumented in this encounter Care Teams Junior Web Developer Relationship Specialty Start Date End Date Kristi Narvaez MD [address] [place] [address] [phone] PCP - General Internal Medicine 06/20/21 05/13/22 [facility], Pcp [address] [place] [address] PCP - General Internal Medicine 05/14/22 documented as of this encounter
--- OUTSIDE RECORDS SUMMARY | 2025-04-12 18:39 | XMS_ITS | Encounter Summary ---
Author Organization [facility] Address [address] [place] [address] Care Team Providers Care Mortar Maker Name Role Phone Therese Li MD Primary Care Provider Kristi Gao MD Primary Care Provider [phone] [facility], Pcp Primary Care Provider Unavailabl e Encounter Details Date Type Department Care Team Description 12/24/2019 Workforce Advisor Report Medical Records [address] [place] [address] [address] [facility] Diabetes Education 300 [facility] [address] [place] [address] Social History Tobacco Use Types Packs/Day Years [...] on filedocumented in this encounter Care Teams Mortar Maker Relationship Specialty Start Date End Date Therese Li MD PCP - General 05/11/11 06/19/21 Kristi Narvaez MD [address] [place] [address] PCP - General Internal Medicine 06/20/21 05/13/22 [facility], Pcp [address] [place] [address] PCP - General Internal Medicine 05/14/22 documented as of this encounter
--- OUTSIDE RECORDS SUMMARY | 2025-04-12 18:39 | XMS_ITS | Encounter Summary ---
[facility] Address [address] [place] [address] Care Team Providers Care Marine Technician Name Role Phone Therese Li MD Primary Care Provider Kristi Gao MD Primary Care Provider [phone] [facility], Pcp Primary Care Provider [facility] e Reason for Visit * Reason Onset Date Comments TEST RESULTS 09/02/2019 Encounter Details Date Type Department Care Team Description 09/02/2019 Telephone Adult Medicine [address] [address] Therese Li MD TEST RESULTS Social History [...] on filedocumented in this encounter Care Teams Marine Technician Relationship Specialty Start Date End Date Therese Li MD PCP - General 05/11/11 06/19/21 Kristi Narvaez MD [address] [place] [address] PCP - General Internal Medicine 06/20/21 05/13/22 [place] [address] PCP - General Internal Medicine 05/14/22 documented as of this encounter
--- OUTSIDE RECORDS SUMMARY | 2025-04-12 18:39 | XMS_ITS | Encounter Summary ---
Author Organization Yolanda [employer] [facility] Address [address] [place] [address] Care Team Providers Care Forklift Truck Mechanic Name Role Phone Therese Li MD Primary Care Provider Kristi Gao MD Primary Care Provider [phone] [facility], Pcp Primary Care Provider Unavailabl e Encounter Details Date Type Department Care Team Description 03/15/2020 Personal Injury Legal Assistant Report Medical Records [address] [place] [address] Ni Yanez MD Social History Tobacco Use [...] on filedocumented in this encounter Care Teams Forklift Truck Mechanic Relationship Specialty Start Date End Date Therese Li MD PCP - General 05/11/11 06/19/21 Kristi Narvaez MD [address] [place], [place] [phone] PCP - General Internal Medicine 06/20/21 05/13/22 [facility], Pcp [address] [place] [address] PCP - General Internal Medicine 05/14/22 documented as of this encounter
--- OUTSIDE RECORDS SUMMARY | 2025-04-12 18:39 | XMS_ITS | Encounter Summary ---
Author Organization [facility] Address [address] [place] [address] Care Team Providers Care Cutter Operator Helper Name Role Phone Therese Li MD Primary Care Provider Kristi Gao MD Primary Care Provider [phone] [facility], Pcp Primary Care Provider [facility] e Encounter Details Date Type Department Care Team Description 06/13/2020 Pt. Non Urgent Medic al Question Adult Medicine [address] [address] Therese Li MD Social History Tobacco Use [...] on filedocumented in this encounter Care Teams Cutter Operator Helper Relationship Specialty Start Date End Date Therese Li MD PCP - General 05/11/11 06/19/21 Kristi Narvaez MD [address] [place] [address] PCP - General Internal Medicine 06/20/21 05/13/22 [place] [address] PCP - General Internal Medicine 05/14/22 documented as of this encounter
--- OUTSIDE RECORDS SUMMARY | 2025-04-12 18:39 | XMS_ITS | Encounter Summary ---
Author Organization [facility] Address [address] [place] [address] Care Team Providers Care Robotics Testing Technician Name Role Phone Therese Li MD Primary Care Provider Kristi Gao MD Primary Care Provider [phone] [facility] Primary Care Provider Unavailabl e Reason for Visit * Reason Onset Date Comments refill request 09/02/2019 Encounter Details Date Type Department Care Team Description 09/02/2019 Refill Adult Medicine [address] [address] Therese Li MD refill request Social History [...] N/A Patients current insurance carrier is: Payor: MEDICARE-[place] / Plan: MEDICARE-[place]compl[place] / Product Type: MEDICARE [id number] documented in this encounter Plan of Treatment Not on file documented as of this encounter Visit Diagnoses Not on filedocumented in this encounter Care Teams Robotics Testing Technician Relationship Specialty Start Date End Date Therese Li MD PCP - General 05/11/11 06/19/21 Kristi Narvaez MD [address] [place] [address] PCP - General Internal Medicine 06/20/21 05/13/[address] [address] PCP - General Internal Medicine 05/14/22 documented as of this encounter
--- OUTSIDE RECORDS SUMMARY | 2025-04-12 18:39 | XMS_ITS | Encounter Summary ---
Author Organization Yolanda [employer] [facility] Address [address] [place] [address] Care Team Providers Care Brood Hatchery Manager Name Role Phone Therese Li MD Primary Care Provider Kristi Gao MD Primary Care Provider [facility], Pcp Primary Care Provider Unavailabl e Encounter Details Date Type Department Care Team Description 08/02/2020 Printer Floor Covering Assistant Report Medical Records [address] [place] [address] Ni Yanez MD Social History Tobacco Use [...] on filedocumented in this encounter Care Teams Brood Hatchery Manager Relationship Specialty Start Date End Date Therese Li MD PCP - General 05/11/11 06/19/21 Kristi Narvaez MD [address] [place], [place] [phone] PCP - General Internal Medicine 06/20/21 05/13/22 [facility], Pcp [address] [place] [address] PCP - General Internal Medicine 05/14/22 documented as of this encounter
--- OUTSIDE RECORDS SUMMARY | 2025-04-12 18:39 | XMS_ITS | Encounter Summary ---
Author Organization [facility] Address [address] [place] [address] Care Team Providers Care Gas Mask Assembler Name Role Phone Therese Li MD Primary Care Provider Kristi Gao MD Primary Care Provider [phone] [facility], Pcp Primary Care Provider Unavailabl e Reason for Visit * Reason Comments E-prescribe Rx Request Encounter Details Date Type Department Care Team Description 03/07/2018 Refill Adult Medicine [address] [address] Therese Li MD E-prescribe Rx Request Social [...] an upcoming appointment? No-[facility]able [facility] due to refill request. Appt due next available (THE MEDICATION REQUESTED IS ON THE MED LIST ABOVE) All of the medications requested were on the CURRENT MEDS list Did you check the Pharmacy information above?: YES Patient wants: 90 -day supply Is this a mail order prescription request ? NO Patients current insurance carrier is: Payor: [employer] / Plan: PPO $20 ANDOVER [id number] / Product Type: PPO [id number] documented in this encounter Plan of Treatment Not on file documented as of this encounter Visit Diagnoses Not on filedocumented in this encounter Care Teams Gas Mask Assembler Relationship Specialty Start Date End Date Therese Li MD PCP - General 05/11/11 06/19/21 Kristi Narvaez MD [address] [place] [address] PCP - General Internal Medicine 06/20/21 05/13/[address] [address] PCP - General Internal Medicine 05/14/22 documented as of this encounter
--- OUTSIDE RECORDS SUMMARY | 2025-04-12 18:39 | XMS_ITS | Encounter Summary ---
Author Organization [facility] Address [address] [place] [address] Care Team Providers Care All Source Collection Manager Name Role Phone Therese Li MD Primary Care Provider Kristi Gao MD Primary Care Provider [phone] [facility], Pcp Primary Care Provider Unavailabl e Reason for Visit * Reason Onset Date Comments Faxed Refill 01/01/2020 Encounter Details Date Type Department Care Team Description 01/01/2020 Refill Adult Medicine [address] [address] Therese Li MD Faxed Refill Social History [...] N/A Patients current insurance carrier is: Payor: [place]ARE[place] / [place] / Product Type: MEDICARE [id number] documented in this encounter Plan of Treatment Not on file documented as of this encounter Visit Diagnoses Not on filedocumented in this encounter Care Teams All Source Collection Manager Relationship Specialty Start Date End Date Therese Li MD PCP - General 05/11/11 06/19/21 Kristi Narvaez MD [address] [place], [place] [phone] PCP - General Internal Medicine 06/20/21 05/13/[address] [address] PCP - General Internal Medicine 05/14/22 documented as of this encounter
--- OUTSIDE RECORDS SUMMARY | 2025-04-12 18:39 | XMS_ITS | Encounter Summary ---
Author Organization [facility] Address [address] [place] [address] Care Team Providers Care Battery Assembler Plastic Name Role Phone Therese Li MD Primary Care Provider Kristi Gao MD Primary Care Provider [phone] [facility], Pcp Primary Care Provider [facility] e Encounter Details Date Type Department Care Team Description 01/04/2021 Telephone Adult Medicine [facility] [address] [place] [address] Therese Li MD Social History Tobacco Use [...] on filedocumented in this encounter Care Teams Battery Assembler Plastic Relationship Specialty Start Date End Date Therese Li MD PCP - General 05/11/11 06/19/21 Kristi Narvaez MD [address] [place] [address] [phone] PCP - General Internal Medicine 06/20/21 05/13/22 [facility], Pcp [address] [place] [address] PCP - General Internal Medicine 05/14/22 documented as of this encounter
--- OUTSIDE RECORDS SUMMARY | 2025-04-12 18:39 | XMS_ITS | Encounter Summary ---
Author Organization Yolanda [employer] [facility] Address [address] [place] [address] Care Team Providers Care Full Time Name Role Phone Therese Li MD Primary Care Provider Kristi Gao MD Primary Care Provider [phone] [facility], Pcp Primary Care Provider Unavailabl e Encounter Details Date Type Department Care Team Description 12/07/2016 Release of Information Medical Records [address] [place] [address] Abstract, Provider Social History Tobacco Use Types [...] on filedocumented in this encounter Care Teams Full Time Relationship Specialty Start Date End Date Therese Li MD PCP - General 05/11/11 06/19/21 Kristi Narvaez MD [address] [place], [place] [phone] PCP - General Internal Medicine 06/20/21 05/13/22 [facility], Pcp [address] [place] [address] PCP - General Internal Medicine 05/14/22 documented as of this encounter
--- OUTSIDE RECORDS SUMMARY | 2025-04-12 18:39 | XMS_ITS | Encounter Summary ---
Author Organization Yolanda [employer] [facility] Address [address] [place] [address] Care Team Providers Care Information Security Director Name Role Phone Therese Li MD Primary Care Provider Kristi Gao MD Primary Care Provider [phone] [facility], Pcp Primary Care Provider Unavailabl e Encounter Details Date Type Department Care Team Description 06/02/2014 TOUR SALES REPRESENTATIVE/[place] Report Medical Records [address] [place] [address] Abstract, Provider Social History Tobacco Use Types [...] on filedocumented in this encounter Care Teams Information Security Director Relationship Specialty Start Date End Date Therese Li MD PCP - General 05/11/11 06/19/21 Kristi Narvaez MD [address] [place] [address] PCP - General Internal Medicine 06/20/21 05/13/22 [facility], Pcp [address] [place] [address] PCP - General Internal Medicine 05/14/22 documented as of this encounter
--- OUTSIDE RECORDS SUMMARY | 2025-04-12 18:39 | XMS_ITS | Encounter Summary ---
Author Organization [facility] Address [address] [place] [address] Care Team Providers Care Air Conditioning Sheet Metal Installer Name Role Phone Therese Li MD Primary Care Provider Kristi Gao MD Primary Care Provider [phone] [facility], Pcp Primary Care Provider Unavailabl e Reason for Visit * Reason Onset Date Comments medication problems 08/15/2018 Encounter Details Date Type Department Care Team Description 08/15/2018 Telephone Adult Medicine [address] [address] Therese Li MD medication problems Social History [...] on filedocumented in this encounter Care Teams Air Conditioning Sheet Metal Installer Relationship Specialty Start Date End Date Therese Li MD PCP - General 05/11/11 06/19/21 Kristi Narvaez MD [address] [place] [address] PCP - General Internal Medicine 06/20/21 05/13/22 [facility], [address] [address] PCP - General Internal Medicine 05/14/22 documented as of this encounter
--- OUTSIDE RECORDS SUMMARY | 2025-04-12 18:39 | XMS_ITS | Encounter Summary ---
Author Organization [facility] Address [address] [place] [address] Care Team Providers Care Mold Setter Name Role Phone Therese Li MD Primary Care Provider Kristi Gao MD Primary Care Provider [phone] [facility], Pcp Primary Care Provider Unavailabl e Encounter Details Date Type Department Care Team Description 10/07/2019 [facility] Medical Records [address] [place] [id number] Abstract, Provider Social History Tobacco Use Types [...] on filedocumented in this encounter Care Teams Mold Setter Relationship Specialty Start Date End Date Therese Li MD PCP - General 05/11/11 06/19/21 Kristi Narvaez MD [address] [place], [place] [phone] PCP - General Internal Medicine 06/20/21 05/13/22 [facility], Pcp [address] [place] [address] PCP - General Internal Medicine 05/14/22 documented as of this encounter
--- OUTSIDE RECORDS SUMMARY | 2025-04-12 18:39 | XMS_ITS | Encounter Summary ---
Author Organization [facility] Address [address] [place] [address] Care Team Providers Care Coding Specialist Home Health Name Role Phone Therese Li MD Primary Care Provider Kristi Gao MD Primary Care Provider [phone] [facility], Pcp Primary Care Provider Unavailabl e Reason for Visit * Reason Onset Date Comments Prior Authorization 08/28/2019 Encounter Details Date Type Department Care Team Description 08/28/2019 Telephone Podiatry - [address] [address] Andria Plunkett DPM Prior Authorization Social History [...] you, Arminda Atkins Prior Authorization Dept Ext 1843 Fax [phone] * Telephone Encounter - Coleman Reyes - 08/28/2019 12:21 PM EDT Prior Authorization for Medication-do not complete and send this encounter unless you have the fax from the pharmacy. Is this a Cover My Meds request: Yes -- Faustin Code [id number] Name of Medication Lidocaine 5 % Cream Dose of Medication 5 % Cream What is the RX # from the faxed refill? N/A How does patient take this med? Apply 2 Drops topically 2 times daily. Apply to painful areas of feet twice daily - Apply externally What Pharmacy did the fax come from: [id number] - [facility] [place] - [address] [place] [address] AT Pharmacy fax #: [phone] [employer] Information from fax: What Prescription Plan does the patient have? MEDICARE / [facility] BIN/PCN if applicable: N/A Cardholder ID:[id number] / [id number] Person Code: N/A Relationship Code: N/A Help desk phone: [phone] documented in this encounter Plan of Treatment Not on file documented as of this encounter Visit Diagnoses Not on filedocumented in this encounter Care Teams Coding Specialist Home Health Relationship Specialty Start Date End Date Therese Li MD PCP - General 05/11/11 06/19/21 Kristi Narvaez MD [address] [place] [address] PCP - General Internal Medicine 06/20/21 05/13/22 [facility], [place] [id number] PCP - General Internal Medicine 05/14/22 documented as of this encounter
--- OUTSIDE RECORDS SUMMARY | 2025-04-12 18:39 | XMS_ITS | Encounter Summary ---
Author Organization [facility] [employer] [facility] Address [address] [place] [address] Care Team Providers Care Oracle Database Architect Name Role Phone Therese Li MD Primary Care Provider Kristi Gao MD Primary Care Provider [phone] [facility], Pcp Primary Care Provider Unavailabl e Encounter Details Date Type Department Care Team Description 11/24/2014 AIRWAYS OPERATIONS SPECIALIST/[facility] Report Medical Records [address] [place] [address] Abstract, Provider Social History Tobacco Use Types [...] on filedocumented in this encounter Care Teams Oracle Database Architect Relationship Specialty Start Date End Date Therese Li MD PCP - General 05/11/11 06/19/21 Kristi Narvaez MD [address] [place] [address] PCP - General Internal Medicine 06/20/21 05/13/22 [facility], Pcp [address] [place] [address] PCP - General Internal Medicine 05/14/22 documented as of this encounter
--- OUTSIDE RECORDS SUMMARY | 2025-04-12 18:39 | XMS_ITS | Encounter Summary ---
[facility] Address [address] [place] [address] Care Team Providers Care Envelope Folding Machine Operator Name Role Phone Therese Li MD Primary Care Provider Kristi Gao MD Primary Care Provider [phone] [facility], Pcp Primary Care Provider Unavailabl e Reason for Visit * Reason Comments E-prescribe Rx Request Encounter Details Date Type Department Care Team Description 09/21/2019 Refill Adult Medicine [address] [address] Duc Goldman MD [address] [place] [address] E-prescribe Rx Request Social History Tobacco Use [...] / Plan: [place] / Product Type: MEDICARE [id number] documented in this encounter Plan of Treatment Not on file documented as of this encounter Visit Diagnoses Not on filedocumented in this encounter Care Teams Envelope Folding Machine Operator Relationship Specialty Start Date End Date Therese Li MD PCP - General 05/11/11 06/19/21 Kristi Narvaez MD [address] [place] [address] PCP - General Internal Medicine 06/20/21 05/13/[address] [address] PCP - General Internal Medicine 05/14/22 documented as of this encounter
--- OUTSIDE RECORDS SUMMARY | 2025-04-12 18:39 | XMS_ITS | Encounter Summary ---
Author Organization [facility] Address [address] [place] [address] Care Team Providers Care Furniture Finisher Name Role Phone Therese Li MD Primary Care Provider Kristi Gao MD Primary Care Provider [phone] [facility], Pcp [facility] Reason for Visit * Reason Onset Date Comments Urine Drug Screen 07/27/2015 Encounter Details Date Type Department Care Team Description 07/27/2015 Telephone Adult Medicine [address] [phone] Therese Li MD Urine Drug Screen Social [...] on filedocumented in this encounter Care Teams Furniture Finisher Relationship Specialty Start Date End Date Therese Li MD PCP - General 05/11/11 06/19/21 Kristi Narvaez MD [address] [place] [address] PCP - General Internal Medicine 06/20/21 05/13/22 [place] [address] PCP - General Internal Medicine 05/14/22 documented as of this encounter
--- OUTSIDE RECORDS SUMMARY | 2025-04-12 18:39 | XMS_ITS | Encounter Summary ---
Author Organization [facility] Address [address] [place] [address] Care Team Providers Care Music Specialist Name Role Phone Kristi Narvaez MD Primary Care Provider [phone] [facility], Pcp Primary Care Provider Unavailabl e Reason for Visit * Reason Comments E-prescribe Rx Request Encounter Details Date Type Department Care Team Description 01/08/2022 Refill Adult Medicine [facility] [address] [place] [phone] Judy Shields PA-C [address] [place] [address] [phone] E-prescribe Rx Request Social History Tobacco Use [...] / Plan: [place] / Product Type: MEDICARE [id number] documented in this encounter Plan of Treatment Not on file documented as of this encounter Visit Diagnoses Not on filedocumented in this encounter Care Teams Music Specialist Relationship Specialty Start Date End Date Kristi Narvaez MD [address] [place] [address] PCP - General Internal Medicine 06/20/21 05/13/[address] [address] PCP - General Internal Medicine 05/14/22 documented as of this encounter
--- OUTSIDE RECORDS SUMMARY | 2025-04-12 18:39 | XMS_ITS | Encounter Summary ---
Author Organization [facility] Address [address] [place] [address] Care Team Providers Care Yarn Worker Name Role Phone Therese Li MD Primary Care Provider Kristi Gao MD Primary Care Provider [phone] [facility], Pcp Primary Care Provider Unavailabl e Reason for Visit * Reason Onset Date Comments Provider Call Back 01/10/2021 Encounter Details Date Type Department Care Team Description 01/10/2021 Telephone Adult Medicine [address] [address] Therese Li MD Provider Call Back Social [...] on filedocumented in this encounter Care Teams Yarn Worker Relationship Specialty Start Date End Date Therese Li MD PCP - General 05/11/11 06/19/21 Kristi Narvaez MD [address] [place] [address] PCP - General Internal Medicine 06/20/21 05/13/[address] [address] PCP - General Internal Medicine 05/14/22 documented as of this encounter
--- OUTSIDE RECORDS SUMMARY | 2025-04-12 18:39 | XMS_ITS | Encounter Summary ---
Author Organization [facility] [employer] [facility] Address [address] [place] [address] Care Team Providers Care Dishwashing Machine Operator Name Role Phone Therese Li MD Primary Care Provider Kristi Gao MD Primary Care Provider [phone] [facility], Pcp Primary Care Provider Unavailabl e Encounter Details Date Type Department Care Team Description 06/29/2016 Presiding Judge Report Medical Records [address] [place] [address] Fauzia Thompson APRN Social History Tobacco Use [...] on filedocumented in this encounter Care Teams Dishwashing Machine Operator Relationship Specialty Start Date End Date Therese Li MD PCP - General 05/11/11 06/19/21 Kristi Narvaez MD [address] [place], [place] [phone] PCP - General Internal Medicine 06/20/21 05/13/22 [facility], Pcp [address] [place] [address] PCP - General Internal Medicine 05/14/22 documented as of this encounter
[2025-04-12 18:43] LABS: Anion Gap 16 (12-20); Blood Urea Nitrogen 33 mg/dL (9-16); Calcium 9.6 mg/dL (8.4-10.2); Carbon Dioxide 24 mmol/L (22-29); Chloride 99 mmol/L (96-108); Creatinine Clr Calc Pharmacy 39.4; Estimated Glomerular Filt Rate 43; Glucose Random 487 mg/dL (60-115); Sodium 134 mmol/L (135-145)
[2025-04-12] MEDS: 0.9 % Sodium Chloride 1,000 ML 999 ML IV (18:59)
[2025-04-12] MEDS: Insulin Lispro 100 UNIT/ML 3 ML VIAL SUBCUT (19:00)
[2025-04-12 19:04] LABS: Glucose, Whole Blood 430 mg/dL (60-115)
--- NOTE | 2025-04-12 19:06 | PC.NURSE ---
this rn assumed care of pt, pt a&ox4, respirations even and unlabored. pt reports she had checked her sugar at home which was >700. pt reports she does not have insulin at home. poc at this time >400. 18g placed in left ac, fluids administering.
[2025-04-12 20:04] LABS: Glucose, Whole Blood 357 mg/dL (60-115)
[2025-04-12 20:19] VITALS: BP 145/78; PULSE 65; RESP 18; TEMP 36.9; O2SAT 99
== END 2025-04-12 20:24 | disposition home or self-care (01) ==
PROVIDERS: Physician Assistant; Emergency Provider Student in an Organized Health Care Education/Training Program; PCP Internal Medicine
DX: E11.65 Type 2 diabetes mellitus with hyperglycemia (principal); I10 Essential (primary) hypertension; Z79.4 Long term (current) use of insulin; Z79.84 Long term (current) use of oral hypoglycemic drugs; Z79.899 Other long term (current) drug therapy
CPT/HCPCS: 36415; 80048; 80053; 80061; 82010; 82043; 82306; 82570; 82803; 82947; 84439; 84443; 85025; 86376; 86800; 93005; 99284

== ENCOUNTER 2025-05-07 13:01 | Outpatient (AMB) | payer MEDICARE, SELFPAY ==
--- NOTE | 2025-05-07 13:02 | A.OFFVIS_ITS ---
Vital Signs 05/07/25 13:07 Height 5 ft 1 in Weight 161 lb 9.581 oz BMI 30.5 BP 116/74 Blood Pressure Location Rt brachial Position Sitting Pulse 92 Pulse Source Pulse Oximeter Pulse Oximetry (%) 98 Oxygen Delivery Method Room Air Intake Visit Reasons: Type 2 diabetes mellitus with hypergly Intake Note: New patient internally referred by PCP Dr. Partida for T2DM. Last Diabetic Eye exam: 03/10/2025 Eye & Lasik, Cataract surgery pending. Last Podiatry Visit: Does not see a Business Transformation Analyst Random Glucose: 384 mg/dl HgA1C: 13.4% 03/22/2025 Ground Operations Crew Member Required: No Accompanied by: Self / Same As Patient Allergies sulfamethoxazole [From Bactrim] Allergy (Mild, Verified 05/07/25 13:10) hives trimethoprim [From Bactrim] Allergy (Mild, Verified 05/07/25 13:10) hives HPI Comments Details: This is a 70-year-old female with a past medical history of uncontrolled type 2 diabetes with hyperglycemia, hyperlipidemia, thyroid nodule, carotid artery stenosis, peripheral neuropathy, anxiety with depression and hypertension presenting for an initial consult for diabetic management. She was diagnosed with diabetes 12 years ago at a primary care office when her blood sugar was 600. She was sent to the ED. she also had a recent ER visit for blood sugar 712 in April. She was out of insulin at the time. Denies history of DKA. Nephew has Type I diabetes. Her brother from type 1 diabetes. She has no glucometer today, but she brought a log of some of her blood sugars from home. They range from 182-325. Hemoglobin a1c 13.4% 03/22/2025. Current medication regimen: Metformin 500 mg twice a day, Lantus 20 units every evening Previous medications: [employer] co-pay was over 300 dollars. Patient says insurance changed since then. Compliance issues: none Diet: Breakfast- cereal or yogurt and granola, coffee with milk Lunch- sometimes skips lunch, sandwich pasta, diet coke, sugar free vitamin water Dinner- fish, chicken, vegetables Snacks/desserts: ice cream (stopped recently) drinks a little wine occasionally Hypoglycemia symptoms: none Hyperglycemia symptoms: no symptoms Eye exam: [place] Eye and LASIK Microvascular complications: She has neuropathy. No microalbuminuria. She has decreased GFR on labs from April, but she also had severe hyperglycemia at the time. Last GFR on file was from 2022 and was greater than 60. Macrovascular complications: PAD (JENNIFER) Hypertension: treated with losartan 50 mg and propranolol ER 160 mg Hyperlipidemia: treated with atorvastatin 40 mg - just started taking it She had a thyroid ultrasound on 03/27/2023 which demonstrated a 1 x 1.4 x 1.1 cm thyroid nodule ACR TI-RADS total points 5 with repeat ultrasound recommended. Her recent TSH is low at 0.016. Denies family history of thyroid cancer. Denies compressive symptoms of the neck. ROS: Constitutional: No unexplained weight loss, fever, chills or night sweats. Eyes: +vision impairment due to cataracts. She does not drive. She can not get cataract surgery until diabetes is controlled. Respiratory: No shortness of breath Cardiovascular: No chest pain, chest pressure or chest discomfort. No palpitations or pedal edema. Gastrointestinal: No anorexia, nausea, vomiting or diarrhea. No abdominal pain Neurologic: No headache, dizziness or syncope. + neuropathy in her feet and hands. Skin: No rash or wounds Endocrine: No cold or heat intolerance. No polyuria or polydipsia. Physical exam: Constitutional: Alert, in no distress. Eyes: Pupils are equal, round and reactive to light. Extraocular muscles intact. Neck: Supple, Full range of motion. No lymphadenopathy. No palpable thyroid masses. Respiratory: Clear to auscultation. Cardiovascular: S1 S2 regular. No murmurs. Right foot: Warm and well perfused. No clubbing, cyanosis or edema. Intact DP pulse. Intact vibratory sensation. Intact sensation to monofilament. No open wounds. Left foot: Warm and well perfused. No clubbing, cyanosis or edema. Intact DP pulse. Intact vibratory sensation. Intact sensation to monofilament. No open wounds. [facility] Medical History Allergic rhinitis Neck pain Hand numbness Neuropathy Essential tremor NILESH (generalized anxiety disorder) Mild recurrent major depression Chronic GERD Class 1 obesity with body mass index (BMI) of 31.0 to 31.9 in adult Diabetes mellitus Essential hypertension Surgical History History of tonsillectomy Family History Mother Breast cancer Hypertension Father Heart attack Brother Substance use disorder Daughter Mental health disorder Sister Breast cancer Social History Housing: House Alcohol intake: current Alcohol intake frequency: holidays/special occasions only Alcohol type: wine Patient Tobacco Use Status: Former Tobacco user Tobacco use type: Cigarette e-Cigarette/Vaping Use: Never Used Second Hand Smoke Exposure: No service: No Current occupational status: retired Sexual orientation: Straight/Heterosexual Gender identity: Female Cognitive needs: No Hearing needs: No Vision needs: Yes Physical Exam Vital Signs: BMI result Body Mass Index 30.5 Results Reviewed Results Reviewed: Laboratory Tests 04/12/25 04/12/25 04/12/25 12:55 12:57 18:20 Plt Count 265 AST 34 H ALT 35 H Cholesterol 218 H HDL Cholesterol 40 L 25-OH Vitamin D Total 28.5 L TSH 0.16 L Urine Creatinine 27.12 Urine Microalbumin 5.0 Microalb/Creat Ratio 18.4 Assessment & Plan Assessment & Plan (1) Hyperlipidemia LDL goal <70: Code(s): E78.5 - Hyperlipidemia, unspecified Category: Medical Plan: Continue atorvastatin 40 mg daily. Recommended the Mediterranean diet. (2) Uncontrolled diabetes mellitus with hyperglycemia: Code(s): E11.65 - Type 2 diabetes mellitus with hyperglycemia Category: Medical Plan: In summary this is a 70-year-old female with uncontrolled diabetes with recent severe hyperglycemia warranting ER visit. Discussed pathophysiology of Diabetes Mellitus with the patient in detail.? I explained the senior living risks and complications associated with uncontrolled diabetes including nephropathy, neuropathy, peripheral vascular disease, ret inopathy, increased risk of heart disease and stroke.? Discussed lifestyle modification with the patient. The patient is prescribed a CGM and referred to the telehealth nurse educator. She should always keep a prescription for the fingerstick glucometer to use as a backup. Bring glucometer to all appointments. Stop Lantus and switch to Tresiba 28 units at bedtime. I submitted a prescription for Ozempic 0.25 mg once weekly. This will need a prior authorization from the insurance. She denies contraindications to GLP 1. Side effects reviewed. Continue metformin 500 mg twice daily for now (awaiting lab results to screen for type 1 diabetes given family history) Administer 2 units of Humalog 15 minutes before meals if blood sugar is over 150. We discussed this will likely need to be titrated. Information for diabetes that or given. Written instructions for hypoglycemia given and reviewed. Glucose tablets sent to pharmacy. Written instructions regarding DKA and urine ketone strips provided to the patient and reviewed. Patient advised to call the office when she receives CGM and reader to set up appointment with the telehealth nurse educator. Follow up in 3 weeks for diabetes. (3) Thyroid nodule: Code(s): E04.1 - Nontoxic single thyroid nodule Category: Medical Plan: Recheck TSH. Thyroid ultrasound ordered. Referred to Dr. Barker. (4) Peripheral neuropathy: Code(s): G62.9 - Polyneuropathy, unspecified Category: Medical Plan: Patient is on duloxetine for this. Plan Follow up in 3 weeks. Orders: Orders Creatinine Today E11.65 - Type 2 diabetes mellitus with hyperglycemia, E11.9 - Type 2 diabetes mellitus without complications Glutamic acid decarboxylase Ab Today E11.65 - Type 2 diabetes mellitus with hyperglycemia Islet Cell Antibody Scrn/Titer Today E11.65 - Type 2 diabetes mellitus with hyperglycemia C Peptide Today E11.65 - Type 2 diabetes mellitus with hyperglycemia TSH reflex Free T4 Today E11.65 - Type 2 diabetes mellitus with hyperglycemia US thyroid Today E04.1 - Nontoxic single thyroid nodule Referrals Diabetes Education Referral E11.65 - Type 2 diabetes mellitus with hyperglycemia Endocrinology Referral E04.1 - Nontoxic single thyroid nodule, R79.89 - Other specified abnormal findings of blood chemistry Medications: New blood-glucose,endocrinologist,cont (FreeStyle Demetria 3 [place]) Use daily to monitor blood glucose levels continuously. 1 ea 0RF glucose (Dex4 Glucose Quick Dissolve) until symptoms of low blood sugar are controlled 16 grams (4 x 4 gram) PO Q15M PRN 10 tabs 3RF hypoglycemia blood-glucose sensor (FreeStyle Demetria 3 Plus Sensor device) Apply 1 new sensor every 15 days as directed to monitor blood glucose continuously. 2 ea 11RF acetone (urine) test (Ketone Urine Test strips) As directed 100 ea 0RF insulin degludec (Tresiba FlexTouch U-200 insulin) 28 units (0.14 mL) subcut BEDTIME 9 mL 3RF semaglutide (Ozempic) for 4 weeks 0.25 mg (0.368 mL) subcut QWEEK 3 mL 0RF insulin lispro (Humalog KwikPen (U-100) Insulin) Administer 2 units 3 times daily before meals if blood sugar is over 150. 2 units (0.02 mL) subcut TID 15 mL 5RF Discontinued insulin glargine (Lantus Solostar U-100 Insulin) Discontinued Reason: Doctor's Order 20 units (0.2 mL) subcut QPM 30 days 6 mL 2RF Patient Instructions: Stop Lantus and switch to Tresiba 28 units at bedtime. I submitted a prescription for Ozempic 0.25 mg once weekly. This will need a prior authorization from the insurance. Continue metformin 500 mg twice daily for now. Administer 2 units of Humalog 15 minutes before meals if blood sugar is over 150. I submitted a prescription for the continuous glucose monitor called the Demetria 3 Plus. This will require a prior authorization. When you picking machine operator helper the reader and sensors from the pharmacy please call the office to schedule an appointment with the telehealth nurse educator to set this up for you. [email or web address] If you experience low blood sugar, treat this by eating a chewable fruit candy like skittles or jelly beans (about 8 pieces), 4 ounces (1/2 cup) of fruit juice (not diet), 1 tablespoon of honey or 4 glucose tablets. If your blood sugar is under 55, take double the amount of one of the above. Recheck your blood sugar in 15 minutes. Diabetic ketoacidosis (DKA) A serious condition that can lead to diabetic coma (passing out for a long time) or even When your cells don't get the glucose they need for energy, your body begins to burn fat for energy, which produces ketones. Ketones are chemicals that the body creates when it breaks down fat to use for energy. The body does this when it doesn?t have enough insulin to use glucose, the body?s normal source of energy. When ketones build up in the blood, they make it more acidic. They are a warning sign that your diabetes is out of control or that you are getting sick. Symptoms of Diabetic Ketoacidosis (DKA) DKA usually develops slowly. But when vomiting occurs, this life-threatening condition can develop in a few hours. Early symptoms include the following: ? Thirst or a very dry mouth ? Frequent urination ? High blood glucose (blood sugar) levels ? High levels of ketones in the urine Then, other symptoms appear: ? Constantly feeling tired ? Dry or flushed skin ? Nausea, vomiting, or abdominal pain ? (Vomiting can be caused by many illnesses, not just ketoacidosis. If vomiting continues for more than 2 hours, contact your health care provider.) ? Difficulty breathing ? Fruity odor on breath ? A hard time paying attention, or confusion When should you test for ketones? It is advisable to check for ketones under the following conditions when: Your blood glucose is higher than 250mg/dl. Feeling nauseated, throwing up, or have pains in your abdominal region. Have a cold or flu. Have general body fatigue. Feel thirsty or have a very dry mouth. Have flushed skin. Have a fruity breath or a hard time breathing. You feel confused or in fog. Negative, trace or light ketones: hydrate, bring sugars down with insulin You should go to the ER if you have moderate or large ketones. Coding Level of Care Code New Pt Level 5 (13152) Complex EM visit Add On G2211 Diagnoses Hyperlipidemia LDL goal <70 E78.5 Uncontrolled diabetes mellitus with hyperglycemia E11.65 Thyroid nodule E04.1 Peripheral neuropathy G62.9 Time Spent (min) 70 Comment Chart review, direct patient care, completing documentation
--- OUTSIDE RECORDS SUMMARY | 2025-05-07 13:04 | XMS_ITS | Clinical Summary ---
Author Organization Yolanda [employer] [facility] it Address [address] [place] [address] Care Team Providers Care Bsw Name Role Phone Unavailable Primary Care Provider Unavailabl e Surgical History Surgery Date Site/Laterality Comments TONSILLECTOMY PROCEDURE: HISTORICAL TONSILLECTOMY; COMMENT: young adult Medical History Medical History Date Comments Abnormal involuntary movements(781.0) DX:Abnormal involuntary movements(781.0) Lumbago DX:Lumbago Essential hypertension, benign 12/24/2005 D X:Essential hypertension, benign; COMMENT: essential tremor Type 2 diabetes mellitus wit h hyperglycemia, with long-term current use of insulin ([facility]/HCC V24, CMS/HCC V28) 06/01/2019 DX:Type 2 diabetes mellitus with hyperglycemia, with long-term current use of insulin ([facility]) Family History Medical History Relation Name Comments Breast cancer Aunt great aunt x3 (maternal side) Diabetes Brother 1 trauma induced diabetes Other cancer Brother 2 tumor near [place]/stomach , cancer Heart attack Brother 3 fatal [place] at 61 Coronary artery disease Father fata l [place]; CHF; mental disroder Heart attack Maternal Grandmother [...]
[2025-05-07 13:07] VITALS: BP 116/74; PULSE 92; O2SAT 98; BMI 30.5
[2025-05-07 13:24] LABS: Glucose, Whole Blood 384 mg/dL (60-115)
== END 2025-05-07 14:15 | disposition home or self-care (01) ==
LOC: HO.ENCR 13:02
PROVIDERS: PCP Student in an Organized Health Care Education/Training Program; Visit Provider Physician Assistant Medical
DX: E78.5 Hyperlipidemia, unspecified (principal); E11.65 Type 2 diabetes mellitus with hyperglycemia; E04.1 Nontoxic single thyroid nodule; G62.9 Polyneuropathy, unspecified

== ENCOUNTER → 2025-05-07 13:01 | Outpatient (BNVA) | payer MEDICARE, SELFPAY | PROVIDERS: Visit Provider Physician Assistant Medical | DX: E11.65 Type 2 diabetes mellitus with hyperglycemia (principal); E78.5 Hyperlipidemia, unspecified; E04.1 Nontoxic single thyroid nodule; G62.9 Polyneuropathy, unspecified | CPT/HCPCS: 82947; 99202 ==

== ENCOUNTER 2025-05-10 14:25 | Outpatient (REF) | payer MEDICARE, SELFPAY ==
--- OUTSIDE RECORDS SUMMARY | 2025-05-10 16:20 | XMS_ITS | Clinical Summary ---
Author Organization Yolanda [employer] [facility] it Address [address] [place] [address] Care Team Providers Care Jointer Machine Operator Name Role Phone Unavailable Primary Care Provider Unavailabl e Surgical History Surgery Date Site/Laterality Comments TONSILLECTOMY PROCEDURE: HISTORICAL TONSILLECTOMY; COMMENT: young adult Medical History Medical History Date Comments Abnormal involuntary movements(781.0) DX:Abnormal involuntary movements(781.0) Lumbago DX:Lumbago Essential hypertension, benign 12/24/2005 D X:Essential hypertension, benign; COMMENT: essential tremor Type 2 diabetes mellitus wit h hyperglycemia, with long-term current use of insulin ([facility]/HCC V24, CMS/HCC V28) 06/01/2019 DX:Type 2 diabetes mellitus with hyperglycemia, with long-term current use of insulin ([facility]) Family History Medical History Relation Name Comments Breast cancer Aunt great aunt x3 (maternal side) Diabetes Brother 1 trauma induced diabetes Other cancer Brother 2 tumor near [place]/stomach , cancer Heart attack Brother 3 fatal [place] at 61 Coronary artery disease Father fata l [place]; CHF; mental disroder Heart attack Maternal Grandmother [...]
== END 2025-05-10 14:26 | disposition home or self-care (01) ==
LOC: HO.LAB 14:25
PROVIDERS: PCP Internal Medicine; Visit Provider Physician Assistant Medical
DX: Z13.89 Encounter for screening for other disorder (principal)

== ENCOUNTER 2025-05-12 13:23 | Outpatient (REF) | payer MEDICARE, SELFPAY ==
[2025-05-12 13:43] LABS: MANUAL DIFF FLAG NO
[2025-05-12 14:00] LABS: Basophils Absolute Auto 0.1 X10*3/uL (0.0-0.2); Basophils Percent Auto 0.9 % (0-2); Eosinophils Absolute Auto 0.4 X10*3/uL (0.0-0.4); Eosinophils Percent Auto 2.6 % (0-4); Hematocrit 43.6 % (37.0-47.0); Imm Gran Abs Auto 0.06 X10*3/uL (0.00-0.03); Imm Gran Pct Auto 0.4 % (0.0-0.4); Lymphocytes Absolute Auto 4.5 X10*3/uL (1.2-4.9); Lymphocytes Percent Auto 32.1 % (20-40); Mean Corpuscular HGB Conc 34.4 g/dl (31.0-35.0); Mean Corpuscular Hemoglobin 31.8 pg (27.0-33.0); Mean Corpuscular Volume 92.4 fL (80.0-98.0); Mean Platelet Volume 9.9 fL (9.4-12.3); Monocytes Absolute Auto 1.1 X10*3/uL (0.1-1.2); Monocytes Percent Auto 7.8 % (2-11); Neutrophils Absolute Auto 7.9 x10*3/uL (2.0-8.3); Neutrophils Percent Auto 56.2 % (45-73); Platelet Count 388 X10*3/uL (160-400); Red Blood Count 4.72 X10*6/uL (4.20-5.50); Red Cell Distribution Width 11.8 % (11.0-16.0); White Blood Count 14.1 X10*3/uL (4.8-10.8)
[2025-05-12 14:35] LABS: Alanine Aminotransferase 17 U/L (0-31); Alkaline Phosphatase 75 U/L (39-117); Anion Gap 11 (12-20); Aspartate Amino Transferase 25 U/L (5-31); Bilirubin Total 0.5 mg/dL (0.0-1.0); Blood Urea Nitrogen 22 mg/dL (9-16); Calcium 9.9 mg/dL (8.4-10.2); Carbon Dioxide 25 mmol/L (22-29); Chloride 108 mmol/L (96-108); Cholesterol 128 mg/dL (<200); Estimated Glomerular Filt Rate > 60; Glucose Fasting 260 mg/dL (60-99); HDL Cholesterol 38 mg/dL (>40); LDL Cholesterol Calculated 58 mg/dL (<100); Potassium 4.2 mmol/L (3.3-5.1); Sodium 140 mmol/L (135-145); Total Protein 7.6 g/dL (6.5-8.0); Triglycerides 164 mg/dL (<150)
[2025-05-12 14:50] LABS: TSH reflex Free T4 0.03 uIU/mL (0.32-4.0); Thyroid Stimulating Hormone 0.03 uIU/mL (0.32-4.0)
[2025-05-12 14:51] LABS: Free T4 (Free Thyroxine) 1.19 ng/dL (0.71-1.85)
--- OUTSIDE RECORDS SUMMARY | 2025-05-12 15:04 | XMS_ITS | Clinical Summary ---
Author Organization Yolanda [employer] [facility] it Address [address] [place] [address] Care Team Providers Care Cosmetologist Apprentice Name Role Phone Unavailable Primary Care Provider Unavailabl e Surgical History Surgery Date Site/Laterality Comments TONSILLECTOMY PROCEDURE: HISTORICAL TONSILLECTOMY; COMMENT: young adult Medical History Medical History Date Comments Abnormal involuntary movements(781.0) DX:Abnormal involuntary movements(781.0) Lumbago DX:Lumbago Essential hypertension, benign 12/24/2005 D X:Essential hypertension, benign; COMMENT: essential tremor Type 2 diabetes mellitus wit h hyperglycemia, with long-term current use of insulin ([facility]/HCC V24, CMS/HCC V28) 06/01/2019 DX:Type 2 diabetes mellitus with hyperglycemia, with long-term current use of insulin ([facility]) Family History Medical History Relation Name Comments Breast cancer Aunt great aunt x3 (maternal side) Diabetes Brother 1 trauma induced diabetes Other cancer Brother 2 tumor near [place]/stomach , cancer Heart attack Brother 3 fatal [place] at 61 Coronary artery disease Father fata l [place]; CHF; mental disroder Heart attack Maternal Grandmother [...]
[2025-05-12 15:05] LABS: Folate 11.6 ng/mL (> or = 4.0); Vitamin B12 688 pg/mL (200-900)
[2025-05-13 17:33] LABS: C Peptide 1.97 ng/mL (0.80-3.85)
[2025-05-17 17:38] LABS: Islet Cell Antibody Screen NEGATIVE (NEGATIVE)
[2025-05-17 20:38] LABS: Glutamic acid decarboxylase Ab <5 IU/mL (<5)
== END 2025-05-12 13:24 | disposition home or self-care (01) ==
LOC: HO.LAB 13:23
PROVIDERS: PCP Internal Medicine; Visit Provider Physician Assistant Medical
DX: E11.65 Type 2 diabetes mellitus with hyperglycemia (principal); E53.8 Deficiency of other specified B group vitamins; G62.9 Polyneuropathy, unspecified; E04.2 Nontoxic multinodular goiter; E78.5 Hyperlipidemia, unspecified; D64.9 Anemia, unspecified; R55 Syncope and collapse
CPT/HCPCS: 36415; 80053; 80061; 82607; 82746; 84439; 84443; 84681; 85025; 86341

== ENCOUNTER 2025-06-03 10:51 | Outpatient (AMB) | payer MEDICARE, SELFPAY ==
--- NOTE | 2025-06-03 11:56 | MHC.AMDMED ---
Intake Intake Visit Reasons: Type 2 diabetes mellitus with hyperglycemia Group Fitness Assistant Department Head Required: No Accompanied by: Self / Same As Patient Allergies sulfamethoxazole (From Bactrim) Allergy (Mild, Verified 05/07/25 13:10) hives trimethoprim (From Bactrim) Allergy (Mild, Verified 05/07/25 13:10) hives HPI Comprehensive Diabetes Asmnt General Diabetes type type 2 Age of onset 58 Most Recent Diabetes Results: Microalb/Creat Ratio, (<30) 18.4 ug/mg cr 04/12/25 Cholesterol, (<200) 128 mg/dL 05/12/25 HDL Cholesterol, (>40) 38 mg/dL L 05/12/25 Triglycerides, (<150) 164 mg/dL H 05/12/25 Creatinine, (0.5-1.4) 0.78 mg/dL 05/12/25 BUN, (9-16) 22 mg/dL H 05/12/25 Sodium, (135-145) 140 mmol/L 05/12/25 Potassium, (3.3-5.1) 4.2 mmol/L 05/12/25 Chloride, (96-108) 108 mmol/L 05/12/25 Carbon Dioxide, (22-29) 25 mmol/L 05/12/25 Calcium, (8.4-10.2) 9.9 mg/dL 05/12/25 AST, (5-31) 25 U/L 05/12/25 ALT, (0-31) 17 U/L 05/12/25 Total Protein, (6.5-8.0) 7.6 g/dL 05/12/25 Albumin, (3.5-5.0) 4.0 g/dL 05/12/25 [facility] Medical History (Updated 05/07/25 @ 14:16 by TESHA Sky) Thyroid nodule Allergic rhinitis Neck pain Hand numbness Neuropathy Essential tremor NILESH (generalized anxiety disorder) Mild recurrent major depression Chronic GERD Class 1 obesity with body mass index (BMI) of 31.0 to 31.9 in adult Diabetes mellitus Essential hypertension Surgical History History of tonsillectomy Family History Mother Breast cancer Hypertension Father Heart attack Brother Substance use disorder Daughter Mental health disorder Sister Breast cancer Social History Housing: House Alcohol intake: current Alcohol intake frequency: holidays/special occasions only Alcohol type: wine Patient Tobacco Use Status: Former Tobacco user Tobacco use type: Cigarette e-Cigarette/Vaping Use: Never Used Second Hand Smoke Exposure: No service: No Current occupational status: retired Sexual orientation: Straight/Heterosexual Gender identity: Female Cognitive needs: No Hearing needs: No Vision needs: Yes Assessment & Plan Assessment & Plan (1) Uncontrolled diabetes mellitus with hyperglycemia: Code(s): E11.65 - Type 2 diabetes mellitus with hyperglycemia Plan: Patient at visit to set up an insert RallyCause 3+ sensor with reader At this time patient is unable to download RallyCause 3+ mainor on cell phone, she will bring cell phone to next visit if she can set up apple account. Instructed patient sensors water proof you can shower, or swim do not submerge sensor in water for over 30 minutes Is sensor falls off cannot put back in you need to replace sensor, customer service number given to patient for sensor replacement Sensor placed on the back of left arm Patient left visit with sensor in warmup Reviewed how to interpret trend arrows Discussed lag time between finger stick and sensor data.? Instructed patient the importance of having blood glucometer for backup testing if needed Reviewed delay of CGM from fingersticks Reminded Pt that if symptoms do not match sensor still needs to check fingersticks. Large print explanation of trend arrows and [email or web address] customer service number given to patient. Blood glucose monitoring When/how often to test Target blood sugar ranges Introduction to Nutrition Importance of healthy diet in managing DM Diet is personalized to individual preference Carbohydrates: What is a carbohydrate/Which food/food groups are considered carbohydrates Effect of carbohydrates on blood glucose Portion sizes Basic carb counting (if applicable per nursing assessment) Healthy plate and target goal handout given at today's visit Patient brought ketone strips to today's visit. Reviewed the following: When should you test for ketones? It is advisable to check for ketones under the following conditions when: Your blood glucose is higher than 250mg/dl. Feeling nauseated, throwing up, or have pains in your abdominal region. Have a cold or flu. Feel thirsty or have a very dry mouth. How to Test Urine for Ketones You can detect ketones with a simple urine test using a test strip, similar to a blood testing strip. Ask your health care provider when and how you should test for ketones. Many experts advise to check your urine for ketones when your blood glucose is more than 250 mg/dl. When you are ill (when you have a cold or the flu, for example), check for ketones every 4 to 6 hours. And check every 4 to 6 hours when your blood sugar is more than 250 mg/dl. Also, check for ketones when you have any symptoms of DKA. How to lower your blood sugar level. ? Take medications as directed by physician. ? Drink extra water or noncaffeinated, nonsugared drinks to prevented hydration. ? Exercise if you are not sick Patient Instructions: Patient instruction: CGM provides information on blood glucose control throughout the day, including hyperglycemia and hypoglycemia. ? Continue to monitor blood glucose as instructed. Follow nutrition guidelines provided. Report any discomfort promptly to health care provider. ?Stay well-hydrated. You can bathe ,shower, swim and exercise while wearing the glucose sensor. Do not submerge glucose sensor in water for more than 30 minutes. Patient will follow-up in 15 days Coding Level of Care Code Est Pt Level 1 (52326) Diagnoses Uncontrolled diabetes mellitus with hyperglycemia E11.65
== END 2025-06-03 12:02 | disposition home or self-care (01) ==
LOC: HO.ENCR 10:52
PROVIDERS: PCP Internal Medicine; Visit Provider Registered Nurse Diabetes Educator
DX: E11.65 Type 2 diabetes mellitus with hyperglycemia (principal)

== ENCOUNTER → 2025-06-03 10:51 | Outpatient (BNVA) | payer MEDICARE, SELFPAY | PROVIDERS: PCP Internal Medicine; Visit Provider Registered Nurse Diabetes Educator | DX: E11.65 Type 2 diabetes mellitus with hyperglycemia (principal) | CPT/HCPCS: 99211 ==

== ENCOUNTER 2025-06-18 13:48 | Outpatient (AMB) | payer MEDICARE, SELFPAY ==
--- OUTSIDE RECORDS SUMMARY | 2025-06-18 13:51 | XMS_ITS | Clinical Summary ---
Author Organization Yolanda [facility] it Address [address] [place] [address] Care Team Providers Care Substitute Crossing Guard Name Role Phone Unavailable Primary Care Provider Unavailabl e Surgical History Surgery Date Site/Laterality Comments TONSILLECTOMY PROCEDURE: HISTORICAL TONSILLECTOMY; COMMENT: young adult Medical History Medical History Date Comments Abnormal involuntary movements(781.0) DX:Abnormal involuntary movements(781.0) Lumbago DX:Lumbago Essential hypertension, benign 12/24/2005 D X:Essential hypertension, benign; COMMENT: essential tremor Type 2 diabetes mellitus wit h hyperglycemia, with long-term current use of insulin ([facility]/HCC V24, CMS/HCC V28) 06/01/2019 DX:Type 2 diabetes mellitus with hyperglycemia, with long-term current use of insulin ([facility]) Family History Medical History Relation Name Comments Breast cancer Aunt great aunt x3 (maternal side) Diabetes Brother 1 trauma induced diabetes Other cancer Brother 2 tumor near [place]/stomach , cancer Heart attack Brother 3 fatal [place] at 61 Coronary artery disease Father fata l [place]; CHF; mental disroder Heart attack Maternal Grandmother [...] Annual BMP Blood Test 11/08/2022 COVID-19 Vaccine (3 - season) 2024 02/24/2021, 01/27/2021 Influenza Vaccine (#1) 2025 , 10/15/2020, 09/11/2018, Additional history exists DTaP,Tdap,and [...]
--- OUTSIDE RECORDS SUMMARY | 2025-06-18 13:51 | XMS_ITS | Encounter Summary ---
[facility] Address [address] [place] [address] Care Team Providers Care Strategic Marketing Associate Name Role Phone Therese Li MD Primary Care Provider Kristi Gao MD Primary Care Provider [phone] [facility], Pcp Primary Care Provider Unavailabl e Reason for Visit * Reason Comments E-prescribe Rx Request Encounter Details Date Type Department Care Team Description 10/16/2018 Refill Adult Medicine [address] [address] Alfred Summers PA-C [address] [place] [id number] E-prescribe Rx Request Social History Tobacco Use [...] Telephone Encounter - Richa Crews M.A. - 10/17/2018 9:46 AM EST Lab Results Component Value Date NA 140 02/07/2017 K 4.2 02/07/2017 CO2 23.6 02/07/2017 CL 99 02/07/2017 BUN 22 02/07/2017 CREAT 1.0 02/07/2017 GLU 194 02/07/2017 CA 9.7 02/07/2017 GFR 60 02/07/2017 Please review as care team out of office * Telephone Encounter - Jolly Guzman - 10/16/2018 11:46 AM EST Patient would like script to be: E-PRESCRIBED/FAXED TO PHARMACY WHEN WAS THE PATIENT'S LAST APPOINTMENT IN ADULT MEDICINE?09/11/18 WHEN WAS THE LAST TIME THE PATIENT SAW THEIR PCP? 09/03/17 Does patient have an upcoming appointment? Yes 01/15/19 (THE MEDICATION REQUESTED IS ON THE MED [...] N/A Patients current insurance carrier is: Payor: [employer] / Plan: INDEMNITY $20 [place] / Product Type:PPO [id number] documented in this encounter Plan of Treatment Not on file documented as of this encounter Visit Diagnoses Not on filedocumented in this encounter Care Teams Strategic Marketing Associate Relationship Specialty Start Date End Date Therese Li MD PCP - General 05/11/11 06/19/21 Kristi Narvaez MD [address] [place] [id number] PCP - General Internal Medicine 06/20/21 05/13/[address] [place] [address] PCP - General Internal Medicine 05/14/22 documented as of this encounter
--- NOTE | 2025-06-18 13:52 | A.OFFVIS_ITS ---
Vital Signs 06/18/25 13:55 Height 5 ft 1 in Weight 163 lb 2.273 oz BMI 30.8 BP 140/82 H Blood Pressure Location Lt brachial Position Sitting Pulse 95 Pulse Source Pulse Oximeter Pulse Oximetry (%) 97 Oxygen Delivery Method Room Air Intake Visit Reasons: Type II diabetes Intake Note: Patient present today for T2DM follow up. Last Diabetic Eye exam: 03/10/2025 Eye & Lasik, Cataract surgery pending. Last Podiatry Visit: Does not see a Bagger Meat Random Glucose: 312 mg/dl HgA1C: 8.6% 06/18/2025 Automobile Lights Assembler Required: No Accompanied by: Self / Same As Patient Allergies sulfamethoxazole (From Bactrim) Allergy (Mild, Verified 06/18/25 13:57) hives trimethoprim (From Bactrim) Allergy (Mild, Verified 06/18/25 13:57) hives HPI Comments Details: This is a 70-year-old female with a past medical history of uncontrolled type 2 diabetes with hyperglycemia, hyperlipidemia, thyroid nodule, carotid artery stenosis, peripheral neuropathy, anxiety with depression and hypertension presenting for diabetic management. She was diagnosed with diabetes 12 years ago at a primary care office when her blood sugar was 600. She had a recent ER visit for blood sugar 712 in April. She was out of insulin at the time. Denies history of DKA. Nephew has Type I diabetes. Her brother from type 1 diabetes. We reviewed her lab work which is consistent with type 2 diabetes. She has no glucometer today, but she brought a log of some of her blood sugars from home. Her sensor fell off. AM 126 AM 186 AM 198 PM 285 PM 206 PM 155 PM 157 PM 212 PM 266 QHS 263 QHS 271 Her hemoglobin A1c is 8.6% down from 13.4% 03/22/2025. Current medication regimen: Metformin 500 mg twice a day, Tresiba 28 units every evening, Ozempic 0.25 mg weekly She is prescribed Humalog 2 units before meals to try, but she has not been taking it. Previous medications: [employer] co-pay was over 300 dollars. Lantus was switch to Tresiba. She had 1 low blood sugar of 62. She corrected it with juice. Compliance issues: none Hypoglycemia symptoms: none Hyperglycemia symptoms: no symptoms Eye exam: [facility] Microvascular complications: She has neuropathy. Macrovascular complications: PAD (JENNIFER) Hypertension: treated with losartan 50 mg and propranolol ER 160 mg Hyperlipidemia: treated with atorvastatin 40 mg - just started taking it She had a thyroid ultrasound on 03/27/2023 which demonstrated a 1 x 1.4 x 1.1 cm thyroid nodule ACR TI-RADS total points 5 with repeat ultrasound recommended. Her recent TSH is low. Denies family history of thyroid cancer. Denies compressive symptoms of the neck. She has been referred to Dr. Barker, and I ordered a thyroid ultrasound. ROS: Constitutional: No unexplained weight loss, fever, chills or night sweats. Eyes: +vision impairment due to cataracts. Respiratory: No shortness of breath Cardiovascular: No chest pain, chest pressure or chest discomfort. No palpitations or pedal edema. Gastrointestinal: No anorexia, nausea, vomiting or diarrhea. No abdominal pain Neurologic: No headache, dizziness or syncope. + neuropathy in her feet and hands. Skin: No rash or wounds Endocrine: No cold or heat intolerance. No polyuria or polydipsia. Physical exam: Constitutional: Alert, in no distress. Eyes: Pupils are equal, round and reactive to light. Extraocular muscles intact. Neck: Supple, Full range of motion. No lymphadenopathy. No palpable thyroid masses. Respiratory: Clear to auscultation. Cardiovascular: S1 S2 regular. No murmurs. [facility] Medical History (Updated 06/18/25 @ 15:16 by TESHA Sky) Low TSH level Thyroid nodule Allergic rhinitis Neck pain Hand numbness Neuropathy Essential tremor NILESH (generalized anxiety disorder) Mild recurrent major depression Chronic GERD Class 1 obesity with body mass index (BMI) of 31.0 to 31.9 in adult Diabetes mellitus Essential hypertension Surgical History History of tonsillectomy Family History Mother Breast cancer Hypertension Father Heart attack Brother Substance use disorder Daughter Mental health disorder Sister Breast cancer Social History Housing: House Alcohol intake: current Alcohol intake frequency: holidays/special occasions only Alcohol type: wine Patient Tobacco Use Status: Former Tobacco user Tobacco use type: Cigarette e-Cigarette/Vaping Use: Never Used Second Hand Smoke Exposure: No service: No Current occupational status: retired Sexual orientation: Straight/Heterosexual Gender identity: Female Cognitive needs: No Hearing needs: No Vision needs: Yes Physical Exam Vital Signs: Last Vital Signs Pulse 95 06/18/25 13:55 BP 140/82 H 06/18/25 13:55 Pulse Ox 97 06/18/25 13:55 Oxygen Delivery Method Room Air 06/18/25 13:55 BMI result Body Mass Index 30.8 Results AMB Hemoglobin A1c AMB Hemoglobin A1c 8.6 % Last Edit by STEVE Gagnon on 06/18/25 14:22 Results Reviewed Results Reviewed: Laboratory Last Values Glucose (Clinic) 312 mg/dL (60-115) H 06/18/25 14:06 Hgb A1c (Clinic) 8.6 % (4.0-6.0) H 06/18/25 14:09 Laboratory Tests 05/12/25 13:39 Plt Count 388 D Creatinine 0.78 Estimated GFR > 60 C-Peptide 1.97 AST 25 ALT 17 Triglycerides 164 H Cholesterol 128 LDL Cholesterol, Calc 58 HDL Cholesterol 38 L Vitamin B12 688 TSH 0.03 L Free T4 1.19 Islet Cell Ab Screen NEGATIVE Islet Cell Ab Titer TNP NILESH Antibody <5 Fib 4 value 1.11 06/18/2025 excluding advanced liver disease Assessment & Plan Assessment & Plan (1) Hyperlipidemia LDL goal <70: Code(s): E78.5 - Hyperlipidemia, unspecified Category: Medical Plan: Continue atorvastatin 40 mg daily. Recommended the Mediterranean diet. (2) Uncontrolled diabetes mellitus with hyperglycemia: Code(s): E11.65 - Type 2 diabetes mellitus with hyperglycemia Category: Medical Qualifiers: Diabetes mellitus type: type 2 Qualified Code(s): E11.65 - Type 2 diabetes mellitus with hyperglycemia Plan: In summary this is a 70-year-old female with uncontrolled diabetes, but she has improving glycemic control. Discussed pathophysiology of Diabetes Mellitus with the patient in detail.? I explained the joint terminal attack controller risks and complications associated with uncontrolled diabetes including nephropathy, neuropathy, peripheral vascular disease, retinopathy, increased risk of heart disease and stroke.? Discussed lifestyle modification with the patient. She is swimming for exercise and changing her diet. Placed her new sensor on today and left with it during warm up. She has a backup fingerstick glucometer. Bring glucometer to all appointments. Continue Tresiba 28 units at bedtime. Change metformin to extended release and increase to 1500 mg daily. Increase Ozempic 0.5 mg weekly. She can hold off on administering Humalog for now. She has written instructions for treating hypoglycemia and using urine ketone strips. Follow up in 1 month for type 2 diabetes. (3) Thyroid nodule: Code(s): E04.1 - Nontoxic single thyroid nodule Category: Medical Plan: She will have the thyroid ultrasound scheduled and see Dr. Barker. (4) Peripheral neuropathy: Code(s): G62.9 - Polyneuropathy, unspecified Category: Medical Plan: Patient is on duloxetine for this. (5) Low TSH level: Code(s): R79.89 - Other specified abnormal findings of blood chemistry Category: Medical Plan: Patient has been referred to Dr. Barker. Plan Follow up in 4 weeks. Orders: Orders AMB Hemoglobin A1c Today E11.65 - Type 2 diabetes mellitus with hyperglycemia Medications: New metformin ER (Glucophage XR) 1,500 mg (3 x 500 mg) PO DAILY 270 tabs 0RF Changed From semaglutide (Ozempic) for 4 weeks 0.25 mg (0.368 mL) subcut QWEEK 3 mL 0RF To semaglutide (Ozempic) for 4 weeks 0.5 mg (0.736 mL) subcut QWEEK 3 mL 1RF Refilled insulin degludec (Tresiba FlexTouch U-200 insulin) 28 units (0.14 mL) subcut BEDTIME 9 mL 5RF Discontinued metformin Discontinued Reason: Doctor's Order 500 mg PO BID 90 days 180 tabs 1RF Patient Instructions: Continue Tresiba 28 units nightly Increase Metformin extended release to 3 tablets (1500mg) daily Increase Ozempic to 0.5 mg weekly You can hold off on taking Humalog for now If you experience low blood sugar (under 70), treat this by eating a chewable fruit candy like skittles or jelly beans (about 8 pieces), 4 ounces (1/2 cup) of fruit juice (not diet), 1 tablespoon of honey or 4 glucose tablets. If your blood sugar is under 55, take double the amount of one of the above. Recheck your blood sugar in 15 minutes. Coban wrap or [employer] freestyle sensor covers - you can try either of these to secure the sensor Your hemolgobin a1c today is 8.6% with a goal of less than 7%. This is a big improvement! Target range for fasting sugars is 70-130 Target range throughout 24 hours per day is 70-180 Coding Level of Care Code Est Pt Level 4 (68851) Complex EM visit Add On G2211 Diagnoses Hyperlipidemia LDL goal <70 E78.5 Uncontrolled type 2 diabetes mellitus with hyperglycemia E11.65 Diabetes mellitus type: type 2 Thyroid nodule E04.1 Peripheral neuropathy G62.9 Low TSH level R79.89
[2025-06-18 13:55] VITALS: BP 140/82; PULSE 95; O2SAT 97; BMI 30.8
[2025-06-18 14:10] LABS: Glucose, Whole Blood 312 mg/dL (60-115)
== END 2025-06-18 15:06 | disposition home or self-care (01) ==
LOC: HO.ENCR 13:49
PROVIDERS: PCP Internal Medicine; Visit Provider Physician Assistant Medical
DX: E78.5 Hyperlipidemia, unspecified (principal); E11.65 Type 2 diabetes mellitus with hyperglycemia; E04.1 Nontoxic single thyroid nodule; G62.9 Polyneuropathy, unspecified; R79.89 Other specified abnormal findings of blood chemistry

== ENCOUNTER → 2025-06-18 13:48 | Outpatient (BNVA) | payer MEDICARE, SELFPAY | PROVIDERS: PCP Internal Medicine; Visit Provider Physician Assistant Medical | DX: E78.5 Hyperlipidemia, unspecified (principal); E04.1 Nontoxic single thyroid nodule; E11.65 Type 2 diabetes mellitus with hyperglycemia; E11.42 Type 2 diabetes mellitus with diabetic polyneuropathy; R79.89 Other specified abnormal findings of blood chemistry | CPT/HCPCS: 82947; 83036; 99212 ==

== ENCOUNTER 2025-07-16 15:46 | Outpatient (AMB) | payer MEDICARE, SELFPAY ==
--- NOTE | 2025-07-16 15:48 | A.OFFVIS_ITS ---
Vital Signs 07/16/25 15:50 Height 5 ft 1 in Weight 158 lb 11.725 oz BMI 30.0 BP 130/84 Blood Pressure Location Rt brachial Position Sitting Pulse 106 H Pulse Source Pulse Oximeter Pulse Oximetry (%) 98 Intake Visit Reasons: Type II diabetes Intake Note: Patient present today for T2DM follow up. Last Diabetic Eye exam: 03/10/2025 Eye & Lasik, Patient still waiting to be cleared for cataracts surgery. Last Podiatry Visit: Does not see a Record Center Specialist Random Glucose: 162 mg/dL Most recent HgA1C: 8.6% 06/18/2025 Corporate Human Resources Manager Required: No Accompanied by: Self / Same As Patient Allergies sulfamethoxazole (From Bactrim) Allergy (Mild, Verified 07/16/25 15:57) hives trimethoprim (From Bactrim) Allergy (Mild, Verified 07/16/25 15:57) hives HPI Comments Details: This is a 70-year-old female with a past medical history of uncontrolled type 2 diabetes with hyperglycemia, hyperlipidemia, thyroid nodule, carotid artery stenosis, peripheral neuropathy, anxiety with depression and hypertension presenting for diabetic management. She was diagnosed with diabetes 12 years ago at a primary care office when her blood sugar was 600. She had a recent ER visit for blood sugar 712 in April. She was out of insulin at the time. Denies history of DKA. Nephew has Type I diabetes. Her brother from type 1 diabetes. We reviewed her lab work which is consistent with type 2 diabetes. Her sensor fell off. She brought a list of home readings: 162 82 163 227 223 115 174 162 176 POC 152 today after eating cereal. Her hemoglobin A1c is 8.6% down from 13.4% 03/22/2025. Current medication regimen: Metformin extended release 1500 mg daily, Tresiba 28 units every evening, Ozempic 0.5 mg weeklyt. Previous medications: [employer] co-pay was over 300 dollars. Lantus switched to Tresiba. Denies hypoglycemia. Compliance issues: none Hypoglycemia symptoms: none Hyperglycemia symptoms: no symptoms Eye exam: [facility] Microvascular complications: She has neuropathy. Macrovascular complications: PAD (JENNIFER) Hypertension: treated with losartan 50 mg and propranolol ER 160 mg Hyperlipidemia: treated with atorvastatin 40 mg - just started taking it She had a thyroid ultrasound on 03/27/2023 which demonstrated a 1 x 1.4 x 1.1 cm thyroid nodule ACR TI-RADS total points 5 with repeat ultrasound recommended. Her recent TSH is low. Denies family history of thyroid cancer. Denies compressive symptoms of the neck. She has been referred to Dr. Barker, and I ordered a thyroid ultrasound. ROS: Constitutional: No unexplained weight loss, fever, chills or night sweats. Eyes: +vision impairment due to cataracts. Respiratory: No shortness of breath Cardiovascular: No chest pain, chest pressure or chest discomfort. No palpitations or pedal edema. Gastrointestinal: No anorexia, nausea, vomiting or diarrhea. No abdominal pain Neurologic: No headache, dizziness or syncope. + neuropathy in her feet and hands. Skin: No rash or wounds Endocrine: No cold or heat intolerance. No polyuria or polydipsia. Physical exam: Constitutional: Alert, in no distress. Eyes: Pupils are equal, round and reactive to light. Extraocular muscles intact. Neck: Supple, Full range of motion. No lymphadenopathy. No palpable thyroid masses. Respiratory: Clear to auscultation. Cardiovascular: S1 S2 regular. No murmurs. [facility], [facility] Medical History Low TSH level Thyroid nodule Allergic rhinitis Neck pain Hand numbness Neuropathy Essential tremor NILESH (generalized anxiety disorder) Mild recurrent major depression Chronic GERD Class 1 obesity with body mass index (BMI) of 31.0 to 31.9 in adult Diabetes mellitus Essential hypertension Surgical History History of tonsillectomy Family History Mother Breast cancer Hypertension Father Heart attack Brother Substance use disorder Daughter Mental health disorder Sister Breast cancer Social History Housing: House Alcohol intake: current Alcohol intake frequency: holidays/special occasions only Alcohol type: wine Patient Tobacco Use Status: Former Tobacco user Tobacco use type: Cigarette e-Cigarette/Vaping Use: Never Used Second Hand Smoke Exposure: No service: No Current occupational status: retired Sexual orientation: Straight/Heterosexual Gender identity: Female Cognitive needs: No Hearing needs: No Vision needs: Yes Physical Exam Vital Signs: Last Vital Signs Pulse 106 H 07/16/25 15:50 BP 130/84 07/16/25 15:50 Pulse Ox 98 07/16/25 15:50 BMI result Body Mass Index 30.0 Results Reviewed Results Reviewed: Laboratory Last Values Glucose (Clinic) 162 mg/dL (60-115) H 07/16/25 15:55 Laboratory Tests 05/12/25 13:39 Plt Count 388 D Creatinine 0.78 Estimated GFR > 60 C-Peptide 1.97 AST 25 ALT 17 Triglycerides 164 H Cholesterol 128 LDL Cholesterol, Calc 58 HDL Cholesterol 38 L Vitamin B12 688 TSH 0.03 L Free T4 1.19 Islet Cell Ab Screen NEGATIVE Islet Cell Ab Titer TNP NILESH Antibody <5 Fib 4 value 1.11 06/18/2025 excluding advanced liver disease Assessment & Plan Assessment & Plan (1) Uncontrolled diabetes mellitus with hyperglycemia: Code(s): E11.65 - Type 2 diabetes mellitus with hyperglycemia Category: Medical Qualifiers: Diabetes mellitus type: type 2 Qualified Code(s): E11.65 - Type 2 diabetes mellitus with hyperglycemia Plan: In summary this is a 70-year-old female with uncontrolled diabetes, but she has improving glycemic control. Discussed pathophysiology of Diabetes Mellitus with the patient in detail.? I explained the long term care phlebotomist risks and complications associated with uncontrolled diabetes including nephropathy, neuropathy, peripheral vascular disease, retinopathy, increased risk of heart disease and stroke.? Discussed lifestyle modification with the patient. She is swimming for exercise and changing her diet. She will try Coban wrap since sensor has been falling off. She swims. She has a backup fingerstick glucometer. Bring glucometer to all appointments. Continue Tresiba 28 units at bedtime. Continue metformin extended release 1500 mg daily. Continue Ozempic 0.5 mg weekly.w. She has written instructions for treating hypoglycemia and using urine ketone strips. Follow up in 2 weeks to review CGM data. (2) Hyperlipidemia LDL goal <70: Code(s): E78.5 - Hyperlipidemia, unspecified Category: Medical Plan: Continue atorvastatin 40 mg daily. Recommended the Mediterranean diet. (3) Thyroid nodule: Code(s): E04.1 - Nontoxic single thyroid nodule Category: Medical Plan: Thyroid ultrasound has been ordered, and she was referred to Dr. Barker. (4) Peripheral neuropathy: Code(s): G62.9 - Polyneuropathy, unspecified Category: Medical Plan: Patient is on duloxetine for this. (5) Low TSH level: Code(s): R79.89 - Other specified abnormal findings of blood chemistry Category: Medical Plan: Patient has been referred to Dr. Barker. Plan Follow up in 2 weeks. Medications: New elastic bandage (Coban Self-Adherent Wrap) As directed 24 ea 0RF Coding Level of Care Code Est Pt Level 4 (69873) Complex EM visit Add On G2211 Diagnoses Uncontrolled type 2 diabetes mellitus with hyperglycemia E11.65 Diabetes mellitus type: type 2 Hyperlipidemia LDL goal <70 E78.5 Thyroid nodule E04.1 Peripheral neuropathy G62.9 Low TSH level R79.89
--- OUTSIDE RECORDS SUMMARY | 2025-07-16 15:49 | XMS_ITS | Clinical Summary ---
Author Organization [facility] it Address [address] [place] [address] Care Team Providers Care Director Of Corporate Sales Name Role Phone Unavailable Primary Care Provider Unavailabl e Surgical History Surgery Date Site/Laterality Comments TONSILLECTOMY PROCEDURE: HISTORICAL TONSILLECTOMY; COMMENT: young adult Medical History Medical History Date Comments Abnormal involuntary movements(781.0) DX:Abnormal involuntary movements(781.0) Lumbago DX:Lumbago Essential hypertension, benign 12/24/2005 D X:Essential hypertension, benign; COMMENT: essential tremor Type 2 diabetes mellitus wit h hyperglycemia, with long-term current use of insulin ([facility]/HCC V24, CMS/HCC V28) 06/01/2019 DX:Type 2 diabetes mellitus with hyperglycemia, with long-term current use of insulin ([facility]) Family History Medical History Relation Name Comments Breast cancer Aunt great aunt x3 (maternal side) Diabetes Brother 1 trauma induced diabetes Other cancer Brother 2 tumor near [place]/stomach , cancer Heart attack Brother 3 fatal [place] at 61 Coronary artery disease Father fata l [place]; CHF; mental disroder Heart attack Maternal Grandmother [...] Cancer Screening: Stool Based Tests (FOBT/FIT) 10/31/2022 Falls Risk Assessment 10/31/2022 Hepatitis C Screening 10/31/2022 Osteoporosis Screening (Bone Density Screening) 10/31/2022 Social Influencers of Health Screening 10/31/2022 Diabetes: Annual Urine Albumin-Creatinine Ratio (uACR) 11/08/2022 Diabetes: Blood Sugar Control Test (HGBA1C) 11/08/2022 Hypertension/CHF/CAD Annual BMP Blood Test 11/08/2022 COVID-19 Vaccine (3 - season) 2024 02/24/2021, 01/27/2021 Depression Screening 12/02/2024 Influenza Vaccine (#1) 2025 , 10/15/2020, 09/11/2018, [...]
--- OUTSIDE RECORDS SUMMARY | 2025-07-16 15:49 | XMS_ITS | Encounter Summary ---
[facility] Address [address] [place] [address] Care Team Providers Care Digital Editor Name Role Phone Therese Li MD Primary Care Provider Kristi Gao MD Primary Care Provider [phone] [facility], Pcp Primary Care Provider Unavailabl e Reason for Visit * Reason Comments E-prescribe Rx Request Encounter Details Date Type Department Care Team Description 10/16/2018 Refill Adult Medicine [address] [address] Alfred Summers PA-C [address] [place] [address] E-prescribe Rx Request Social History Tobacco Use [...] Plan: INDEMNITY $20 ANDOVER / Product Type:PPO [id number] documented in this encounter Plan of Treatment Not on file documented as of this encounter Visit Diagnoses Not on filedocumented in this encounter Care Teams Digital Editor Relationship Specialty Start Date End Date Therese Li MD PCP - General 05/11/11 06/19/21 Kristi Narvaez MD [address] [place] [address] PCP - General Internal Medicine 06/20/21 05/13/22 [address] [place] [address] PCP - General Internal Medicine 05/14/22 documented as of this encounter
[2025-07-16 15:50] VITALS: BP 130/84; PULSE 106; O2SAT 98
[2025-07-16 16:01] LABS: Glucose, Whole Blood 162 mg/dL (60-115)
== END 2025-07-16 16:29 | disposition home or self-care (01) ==
LOC: HO.ENCR 15:47
PROVIDERS: PCP Internal Medicine; Visit Provider Physician Assistant Medical
DX: E11.65 Type 2 diabetes mellitus with hyperglycemia (principal); E78.5 Hyperlipidemia, unspecified; E04.1 Nontoxic single thyroid nodule; G62.9 Polyneuropathy, unspecified; R79.89 Other specified abnormal findings of blood chemistry

== ENCOUNTER → 2025-07-16 15:46 | Outpatient (BNVA) | payer MEDICARE, SELFPAY | PROVIDERS: PCP Internal Medicine; Visit Provider Physician Assistant Medical | DX: E11.65 Type 2 diabetes mellitus with hyperglycemia (principal); E11.42 Type 2 diabetes mellitus with diabetic polyneuropathy; E04.1 Nontoxic single thyroid nodule; R79.89 Other specified abnormal findings of blood chemistry; Z79.4 Long term (current) use of insulin; Z79.84 Long term (current) use of oral hypoglycemic drugs; Z79.899 Other long term (current) drug therapy | CPT/HCPCS: 82947; 99212 ==

== ENCOUNTER 2025-07-30 15:47 | Outpatient (AMB) | payer MEDICARE, SELFPAY ==
--- OUTSIDE RECORDS SUMMARY | 2025-07-30 15:50 | XMS_ITS | Encounter Summary ---
Author Organization [facility] Address [address] [place] [address] Care Team Providers Care Data Integrity Analyst Name Role Phone Therese Li MD Primary Care Provider Kristi Gao MD Primary Care Provider [phone] [facility], Pcp Primary Care Provider Unavailabl e Reason for Visit * Reason Onset Date Comments BRCA 02/23/2014 Encounter Details Date Type Department Care Team Description 02/23/2014 Telephone CARBIDE POWDER PROCESSOR - [address] [id number] Luzma Sanders MD BRCA Social History Tobacco [...] filedocumented in this encounter Care Teams Data Integrity Analyst Relationship Specialty Start Date End Date Therese Li MD PCP - General 05/11/11 06/19/21 Kristi Narvaez MD [address] [place] [address] PCP - General Internal Medicine 06/20/21 05/13/22 [facility], Pcp [address] [place] [address] PCP - General Internal Medicine 05/14/22 documented as of this encounter
--- OUTSIDE RECORDS SUMMARY | 2025-07-30 15:50 | XMS_ITS | Encounter Summary ---
Author Organization [facility] Address [address] [place] [address] Care Team Providers Care Internet Architect Name Role Phone Therese Li MD Primary Care Provider Kristi Gao MD Primary Care Provider [phone] [facility], Pcp Primary Care Provider Unavailabl e Encounter Details Date Type Department Care Team Description 10/15/2016 [facility] [address] [place] [address] Abstract, Provider Social History Tobacco Use Types [...] on filedocumented in this encounter Care Teams Internet Architect Relationship Specialty Start Date End Date Theerse Li MD PCP - General 05/11/11 06/19/21 Kristi Narvaez MD [address] [place], [place] [phone] PCP - General Internal Medicine 06/20/21 05/13/22 [facility], Pcp [address] [place] [address] PCP - General Internal Medicine 05/14/22 documented as of this encounter
--- OUTSIDE RECORDS SUMMARY | 2025-07-30 15:50 | XMS_ITS | Encounter Summary ---
Author Organization [facility] Address [address] [place] [address] Care Team Providers Care Development Eng Name Role Phone Therese Li MD Primary Care Provider Kristi Gao MD Primary Care Provider [phone] [facility], Pcp Primary Care Provider Unavailabl e Reason for Visit * Reason Onset Date Comments refill request 06/30/2020 Encounter Details Date Type Department Care Team Description 06/30/2020 Refill Adult Medicine [address] [address] Therese Li MD refill request Social History [...] return call, please put call through to [phone] or re message to pool * Telephone [...] / Plan: [place] / Product Type: MEDICARE [id number] documented in this encounter Plan of Treatment Not on file documented as of this encounter Visit Diagnoses Not on filedocumented in this encounter Care Teams Development Eng Relationship Specialty Start Date End Date Therese Li MD PCP - General 05/11/11 06/19/21 Kristi Narvaez MD [address] [place] [address] PCP - General Internal Medicine 06/20/21 05/13/22 [facility], [place] [address] PCP - General Internal Medicine 05/14/22 documented as of this encounter
--- OUTSIDE RECORDS SUMMARY | 2025-07-30 15:50 | XMS_ITS | Encounter Summary ---
[facility] Address [address] [place] [address] Care Team Providers Care Residency Director Name Role Phone Therese Li MD Primary Care Provider Kristi Gao MD Primary Care Provider [phone] [facility], Pcp Primary Care Provider Unavailabl e Reason for Visit * Reason Comments E-prescribe Rx Request Encounter Details Date Type Department Care Team Description 12/08/2018 Refill Adult Medicine [address] [address] Radha Rogel PA-C [address] [place] [address] E-prescribe Rx Request Social History Tobacco Use [...] ?? Patients current insurance carrier is: Payor: [facility] / Plan: INDEMNITY $20 ANDOVER / Product Type:PPO [id number] ? documented in this encounter Plan of Treatment Not on file documented as of this encounter Visit Diagnoses Not on filedocumented in this encounter Care Teams Residency Director Relationship Specialty Start Date End Date Therese Li MD PCP - General 05/11/11 06/19/21 Kristi Narvaez MD [address] [place] [address] PCP - General Internal Medicine 06/20/21 05/13/[address] [address] PCP - General Internal Medicine 05/14/22 documented as of this encounter
--- OUTSIDE RECORDS SUMMARY | 2025-07-30 15:50 | XMS_ITS | Encounter Summary ---
Author Organization [facility] Address [address] [place] [address] Care Team Providers Care Stewardess Supervisor Name Role Phone Therese Li MD Primary Care Provider Kristi Gao MD Primary Care Provider [phone] [facility], Pcp Primary Care Provider Unavailabl e Encounter Details Date Type Department Care Team Description 08/02/2020 Scoop Operator Report Medical Records [address] [place] [address] Ni Yanez MD Social History Tobacco Use [...] on filedocumented in this encounter Care Teams Stewardess Supervisor Relationship Specialty Start Date End Date Therese Li MD PCP - General 05/11/11 06/19/21 Kristi Narvaez MD [address] [place], [place] [phone] PCP - General Internal Medicine 06/20/21 05/13/22 [facility], Pcp [address] [place] [address] PCP - General Internal Medicine 05/14/22 documented as of this encounter
--- OUTSIDE RECORDS SUMMARY | 2025-07-30 15:50 | XMS_ITS | Encounter Summary ---
Author Organization [facility] [employer] [facility] Address [address] [place] [address] Care Team Providers Care Nautical Instrument Mechanic Name Role Phone Therese Li MD Primary Care Provider Kristi Gao MD Primary Care Provider [phone] [facility], Pcp Primary Care Provider Unavailabl e Encounter Details Date Type Department Care Team Description 05/26/2014 Orders Only Radiology - [place] [address] [place] [address] Therese Li MD Social History Tobacco Use [...] on filedocumented in this encounter Care Teams Nautical Instrument Mechanic Relationship Specialty Start Date End Date Therese Li MD PCP - General 05/11/11 06/19/21 Kristi Narvaez MD [address] [place] [phone] PCP - General Internal Medicine 06/20/21 05/13/22 [facility], Pcp [address] [place] [address] PCP - General Internal Medicine 05/14/22 documented as of this encounter
--- OUTSIDE RECORDS SUMMARY | 2025-07-30 15:50 | XMS_ITS | Encounter Summary ---
Author Organization [facility] Address [address] [place] [address] Care Team Providers Care Shirring Machine Operator Automatic Name Role Phone Therese Li MD Primary Care Provider Kristi Gao MD Primary Care Provider [phone] [facility], Pcp Primary Care Provider Unavailabl e Encounter Details Date Type Department Care Team Description 11/07/2015 PUMPER HELPER/[facility] Report Medical Records [address] [place] [address] Abstract, Provider Social History Tobacco Use Types [...] on filedocumented in this encounter Care Teams Shirring Machine Operator Automatic Relationship Specialty Start Date End Date Therese Li MD PCP - General 05/11/11 06/19/21 Kristi Narvaez MD [address] [place], [place] [phone] PCP - General Internal Medicine 06/20/21 05/13/22 [facility], Pcp [address] [place] [address] PCP - General Internal Medicine 05/14/22 documented as of this encounter
--- OUTSIDE RECORDS SUMMARY | 2025-07-30 15:50 | XMS_ITS | Encounter Summary ---
Author Organization [facility] Address [address] [place] [address] Care Team Providers Care Tugboat Dispatcher Name Role Phone Therese Li MD Primary Care Provider Kristi Gao MD Primary Care Provider [phone] [facility], Pcp Primary Care Provider Unavailabl e Reason for Visit * Reason Comments E-prescribe Rx Request Encounter Details Date Type Department Care Team Description 06/23/2019 Refill Adult Medicine [address] [address] Therese Li MD E-prescribe Rx Request Social [...] N/A Patients current insurance carrier is: Payor: MEDICARE-[employer] / Plan: MEDICARE-[employer] / Product Type: MEDICARE [id number] documented in this encounter Plan of Treatment Not on file documented as of this encounter Visit Diagnoses Not on filedocumented in this encounter Care Teams Tugboat Dispatcher Relationship Specialty Start Date End Date Therese Li MD PCP - General 05/11/11 06/19/21 Kristi Narvaez MD [address] [place] [address] PCP - General Internal Medicine 06/20/21 05/13/[address] [address] PCP - General Internal Medicine 05/14/22 documented as of this encounter
--- OUTSIDE RECORDS SUMMARY | 2025-07-30 15:50 | XMS_ITS | Encounter Summary ---
Author Organization [facility] Address [address] [place] [address] Care Team Providers Care Motion And Time Study Teacher Name Role Phone Therese Li MD Primary Care Provider Kristi Gao MD Primary Care Provider [phone] [facility], Pcp [facility] Encounter Details Date Type Department Care Team Description 01/04/2021 Telephone Adult Medicine [facility] [address] [place] [address] Therese Li MD Social History Tobacco Use [...] on filedocumented in this encounter Care Teams Motion And Time Study Teacher Relationship Specialty Start Date End Date Therese Li MD PCP - General 05/11/11 06/19/21 Kristi Narvaez MD [address] [place] [phone] PCP - General Internal Medicine 06/20/21 05/13/22 [facility], Pcp [address] [place] [address] PCP - General Internal Medicine 05/14/22 documented as of this encounter
--- OUTSIDE RECORDS SUMMARY | 2025-07-30 15:50 | XMS_ITS | Encounter Summary ---
Author Organization [facility] Address [address] [place] [address] Care Team Providers Care Production Machine Shop Supervisor Name Role Phone Therese Li MD Primary Care Provider Kristi Gao MD Primary Care Provider [phone] [facility], Pcp Primary Care Provider Unavailabl e Encounter Details Date Type Department Care Team Description 11/24/2014 MACHINE STRAP BUCKLER/[facility] Report Medical Records [address] [place] [address] Abstract, Provider Social History Tobacco Use Types [...] on filedocumented in this encounter Care Teams Production Machine Shop Supervisor Relationship Specialty Start Date End Date Therese Li MD PCP - General 05/11/11 06/19/21 Kristi Narvaez MD [address] [place] [address] PCP - General Internal Medicine 06/20/21 05/13/22 [facility], Pcp [address] [place] [address] PCP - General Internal Medicine 05/14/22 documented as of this encounter
--- OUTSIDE RECORDS SUMMARY | 2025-07-30 15:50 | XMS_ITS | Encounter Summary ---
Author [facility] Address [address] [place] [address] Care Team Providers Care Account Director Name Role Phone Therese Li MD Primary Care Provider Kristi Gao MD Primary Care Provider [phone] [facility], Pcp Primary Care Provider Unavailabl e Reason for Visit * Reason Onset Date Comments Provider Call Back 01/10/2021 Encounter Details Date Type Department Care Team Description 01/10/2021 Telephone Adult Medicine [address] [address] Therese Li MD Provider Call Back Social [...] on filedocumented in this encounter Care Teams Account Director Relationship Specialty Start Date End Date Therese Li MD PCP - General 05/11/11 06/19/21 Kristi Narvaez MD [address] [place] [address] PCP - General Internal Medicine 06/20/21 05/13/[address] [address] PCP - General Internal Medicine 05/14/22 documented as of this encounter
--- OUTSIDE RECORDS SUMMARY | 2025-07-30 15:50 | XMS_ITS | Encounter Summary ---
Author [facility] Address [address] [place] [address] Care Team Providers Care Urban And Regional Planner Name Role Phone Therese Li MD Primary Care Provider Kristi Gao MD Primary Care Provider [phone] [facility], Pcp Primary Care Provider Unavailabl e Encounter Details Date Type Department Care Team Description 06/15/2019 Speaker Wirer Report Medical Records [address] [place] [address] [address] [place] [address] Social History Tobacco Use Types Packs/Day Years [...] on filedocumented in this encounter Care Teams Urban And Regional Planner Relationship Specialty Start Date End Date Therese Li MD PCP - General 05/11/11 06/19/21 Kristi Narvaez MD [address] [place] [address] PCP - General Internal Medicine 06/20/21 05/13/22 [facility], Pcp [address] [place] [address] PCP - General Internal Medicine 05/14/22 documented as of this encounter
--- OUTSIDE RECORDS SUMMARY | 2025-07-30 15:50 | XMS_ITS | Encounter Summary ---
Author Organization [facility] Address [address] [place] [address] Care Team Providers Care Homeopathic Doctor Name Role Phone Therese Li MD Primary Care Provider Kristi Gao MD Primary Care Provider [phone] [facility], Pcp Primary Care Provider Unavailabl e Encounter Details Date Type Department Care Team Description 06/02/2019 Home Health Certification Medical Records [address] [place] [address] Home, [facility] [address] [facility] [address] [place], [place] [id number] Social History Tobacco Use Types Packs/Day Years [...] on filedocumented in this encounter Care Teams Homeopathic Doctor Relationship Specialty Start Date End Date Therese Li MD PCP - General 05/11/11 06/19/21 Kristi Narvaez MD [address] [place] [address] PCP - General Internal Medicine 06/20/21 05/13/22 [facility], Pcp [address] [place] [address] PCP - General Internal Medicine 05/14/22 documented as of this encounter
--- OUTSIDE RECORDS SUMMARY | 2025-07-30 15:50 | XMS_ITS | Encounter Summary ---
Author Organization [facility] [employer] [facility] Address [address] [place] [address] Care Team Providers Care Television Repairman Name Role Phone Therese Li MD Primary Care Provider Kristi Gao MD Primary Care Provider [phone] [facility], Pcp Primary Care Provider Unavailabl e Encounter Details Date Type Department Care Team Description 10/23/2019 Geodesist Report Medical Records [address] [place] [address] Ni Yanez MD Social History Tobacco Use [...] on filedocumented in this encounter Care Teams Television Repairman Relationship Specialty Start Date End Date Therese Li MD PCP - General 05/11/11 06/19/21 Kristi Narvaez MD [address] [place], [place] [phone] PCP - General Internal Medicine 06/20/21 05/13/22 [facility], Pcp [address] [place] [address] PCP - General Internal Medicine 05/14/22 documented as of this encounter
--- OUTSIDE RECORDS SUMMARY | 2025-07-30 15:50 | XMS_ITS | Encounter Summary ---
Author Organization [facility] [employer] [facility] Address [address] [place] [address] Care Team Providers Care Refrigerator Room Clerk Name Role Phone Therese Li MD Primary Care Provider Kristi Gao MD Primary Care Provider [phone] [facility], Pcp Primary Care Provider Unavailabl e Encounter Details Date Type Department Care Team Description 10/30/2013 Eyewear Manufacturing Supervisor Report Medical Records [address] [place] [address] Rajendra Weber MD Social History Tobacco Use [...] on filedocumented in this encounter Care Teams Refrigerator Room Clerk Relationship Specialty Start Date End Date Therese Li MD PCP - General 05/11/11 06/19/21 Kristi Narvaez MD [address] [place] [address] [phone] PCP - General Internal Medicine 06/20/21 05/13/22 [facility], Pcp [address] [place] [address] PCP - General Internal Medicine 05/14/22 documented as of this encounter
--- OUTSIDE RECORDS SUMMARY | 2025-07-30 15:50 | XMS_ITS | Encounter Summary ---
Author Organization [facility] [employer] [facility] Address [address] [place] [address] Care Team Providers Care Direct Response Consultant Name Role Phone Therese Li MD Primary Care Provider Kristi Gao MD Primary Care Provider [phone] [facility], Pcp Primary Care Provider Unavailabl e Encounter Details Date Type Department Care Team Description 01/21/2014 CAT OPERATOR/MassPat Report Medical Records [address] [place] [address] Abstract, Provider Social History Tobacco Use Types [...] on filedocumented in this encounter Care Teams Direct Response Consultant Relationship Specialty Start Date End Date Therese Li MD PCP - General 05/11/11 06/19/21 Kristi Narvaez MD [address] [place] [address] PCP - General Internal Medicine 06/20/21 05/13/22 [facility], Pcp [address] [place] [address] PCP - General Internal Medicine 05/14/22 documented as of this encounter
--- OUTSIDE RECORDS SUMMARY | 2025-07-30 15:50 | XMS_ITS | Encounter Summary ---
Author Organization [facility] Address [address] [place] [address] Care Team Providers Care Wealth Management Consultant Name Role Phone Kristi Narvaez MD Primary Care Provider [phone] [facility], Pcp Primary Care Provider Unavailabl e Encounter Details Date Type Department Care Team Description 09/06/2021 Orders Only Adult Medicine [facility] [address] [place], [place] [phone] Judy Shields PA-C [address] [place] [address] [phone] Social History Tobacco Use Types Packs/Day Years [...] on filedocumented in this encounter Care Teams Wealth Management Consultant Relationship Specialty Start Date End Date Kristi Narvaez MD [address] [place] [address] [phone] PCP - General Internal Medicine 06/20/21 05/13/22 [facility], Pcp [address] [place] [address] PCP - General Internal Medicine 05/14/22 documented as of this encounter
--- OUTSIDE RECORDS SUMMARY | 2025-07-30 15:50 | XMS_ITS | Encounter Summary ---
Author Organization [facility] Address [address] [place] [address] Care Team Providers Care Administrative Support Technician Name Role Phone Therese Li MD Primary Care Provider Kristi Gao MD Primary Care Provider [phone] [facility], Pcp Primary Care Provider Unavailabl e Reason for Visit * Reason Onset Date Comments refill request 12/22/2014 Encounter Details Date Type Department Care Team Description 12/22/2014 Refill Adult Medicine [address] [address] Therese Li MD refill request Social History [...] NO Patients current insurance carrier is: Payor: [facility] / Plan: PPO $20 ANDOVER [id number] / Product Type: PPO [id number] documented in this encounter Plan of Treatment Not on file documented as of this encounter Visit Diagnoses Not on filedocumented in this encounter Care Teams Administrative Support Technician Relationship Specialty Start Date End Date Therese Li MD PCP - General 05/11/11 06/19/21 Kristi Narvaez MD [address] [place] [address] PCP - General Internal Medicine 06/20/21 05/13/22 [facility], Pcp [address] [place] [address] PCP - General Internal Medicine 05/14/22 documented as of this encounter
--- OUTSIDE RECORDS SUMMARY | 2025-07-30 15:50 | XMS_ITS | Encounter Summary ---
Author Organization [facility] [employer] [facility] Address [address] [place] [address] Care Team Providers Care Vocational Adviser Name Role Phone Therese Li MD Primary Care Provider Kristi Gao MD Primary Care Provider [phone] [facility], Pcp Primary Care Provider Unavailabl e Encounter Details Date Type Department Care Team Description 10/07/2019 [facility] Medical Records [address] [place] [address] Abstract, Provider Social History Tobacco Use Types [...] on filedocumented in this encounter Care Teams Vocational Adviser Relationship Specialty Start Date End Date Therese Li MD PCP - General 05/11/11 06/19/21 Kristi Narvaez MD [address] [place], [place] [phone] PCP - General Internal Medicine 06/20/21 05/13/22 [facility], Pcp [address] [place] [address] PCP - General Internal Medicine 05/14/22 documented as of this encounter
--- OUTSIDE RECORDS SUMMARY | 2025-07-30 15:50 | XMS_ITS | Encounter Summary ---
[facility] Address [address] [place] [address] Care Team Providers Care Paint Tinter Name Role Phone Therese Li MD Primary Care Provider Kristi Gao MD Primary Care Provider [phone] [facility], [facility]cp Primary Care Provider Unavailabl e Reason for Visit * Reason Comments E-prescribe Rx Request Encounter Details Date Type Department Care Team Description 10/16/2018 Refill Adult Medicine [address] [address] Alfred Summers PA-C [address] [place] [address] E-prescribe Rx Request Social History Tobacco Use [...] Plan: INDEMNITY $20 ANDOVER / Product Type:PPO [id number] documented in this encounter Plan of Treatment Not on file documented as of this encounter Visit Diagnoses Not on filedocumented in this encounter Care Teams Paint Tinter Relationship Specialty Start Date End Date Therese Li MD PCP - General 05/11/11 06/19/21 Kristi Narvaez MD [address] [place] [address] PCP - General Internal Medicine 06/20/21 05/13/22 [address] [place] [address] PCP - General Internal Medicine 05/14/22 documented as of this encounter
--- OUTSIDE RECORDS SUMMARY | 2025-07-30 15:50 | XMS_ITS | Encounter Summary ---
Author Organization [facility] Address [address] [place] [address] Care Team Providers Care Assistant At Surgery Name Role Phone Therese Li MD Primary Care Provider Kristi Gao MD Primary Care Provider [phone] [facility], Pcp Primary Care Provider Unavailabl e Reason for Referral * Non LISETTE (Priority) - Authorized/Booked Specialty Diagnoses / Procedures Referred By Contmendel t Referred To Contact Endocrinology Procedures REFERRAL TO ENDOCRINOLOGY Therese Li MD [address] [place] [address] Jagdish Graves MD Referral ID Status Reason Start Date Expiration Date V isits Requested Visits Authorized [id number] Authorized/ Booked 06/08/2019 06/07/2020 1 1 Reason for Visit * Reason Onset Date Comments Provider Call Back 06/05/2019 Encounter Details Date Type Department Care Team Description 06/05/2019 Telephone Adult Medicine [address] [phone] Therese Li MD Provider Call Back Social [...] on filedocumented in this encounter Care Teams Assistant At Surgery Relationship Specialty Start Date End Date Li, Therese, MD PCP - General 05/11/11 06/19/21 Kristi Narvaez MD [address] [place] [address] PCP - General Internal Medicine 06/20/21 05/13/22 [facility], [address] [address] PCP - General Internal Medicine 05/14/22 documented as of this encounter
--- OUTSIDE RECORDS SUMMARY | 2025-07-30 15:50 | XMS_ITS | Encounter Summary ---
Author Organization [facility] [employer] [facility] Address [address] [place] [address] Care Team Providers Care Glacing Machine Tender Name Role Phone Therese Li MD Primary Care Provider Kristi Gao MD Primary Care Provider [phone] [facility], Pcp Primary Care Provider Unavailabl e Encounter Details Date Type Department Care Team Description 05/29/2019 Telephone Adult Medicine [address] [address] Therese Li MD Social History Tobacco Use [...] on filedocumented in this encounter Care Teams Glacing Machine Tender Relationship Specialty Start Date End Date Therese Li MD PCP - General 05/11/11 06/19/21 Kristi Narvaez MD [address] [place] [address] PCP - General Internal Medicine 06/20/21 05/13/22 [facility], [address] [address] PCP - General Internal Medicine 05/14/22 documented as of this encounter
--- OUTSIDE RECORDS SUMMARY | 2025-07-30 15:50 | XMS_ITS | Encounter Summary ---
Author Organization [facility] Address [address] [place] [address] Care Team Providers Care Maintenance Superintendent Name Role Phone Therese Li MD Primary Care Provider Kristi Gao MD Primary Care Provider [phone] [facility], Pcp Primary Care Provider Unavailabl e Reason for Visit * Reason Comments E-prescribe Rx Request Encounter Details Date Type Department Care Team Description 03/04/2019 Refill Adult Medicine [address] [address] Therese Li MD E-prescribe Rx Request Social [...] N/A Patients current insurance carrier is: Pay[facility]: [facility] / Plan: INDEMNITY $20 ANDOVER / Product Type:PPO [id number] documented in this encounter Plan of Treatment Not on file documented as of this encounter Visit Diagnoses Not on filedocumented in this encounter Care Teams Maintenance Superintendent Relationship Specialty Start Date End Date Therese Li MD PCP - General 05/11/11 06/19/21 Kristi Narvaez MD [address] [place] [address] PCP - General Internal Medicine 06/20/21 05/13/22 [place] [address] PCP - General Internal Medicine 05/14/22 documented as of this encounter
--- OUTSIDE RECORDS SUMMARY | 2025-07-30 15:50 | XMS_ITS | Encounter Summary ---
Author Organization [facility] Address [address] [place] [address] Care Team Providers Care Oil Well Gun Perforator Operator Name Role Phone Therese Li MD Primary Care Provider Kristi Gao MD Primary Care Provider [phone] [facility], Pcp Primary Care Provider [facility] Reason for Visit * Reason Onset Date Comments Urine Drug Screen 07/27/2015 Encounter Details Date Type Department Care Team Description 07/27/2015 Telephone Adult Medicine [address] [phone] Therese Li MD Urine Drug Screen Social [...] on filedocumented in this encounter Care Teams Oil Well Gun Perforator Operator Relationship Specialty Start Date End Date Therese Li MD PCP - General 05/11/11 06/19/21 Kristi Narvaez MD [address] [place] [address] PCP - General Internal Medicine 06/20/21 05/13/22 [place] [address] PCP - General Internal Medicine 05/14/22 documented as of this encounter
--- OUTSIDE RECORDS SUMMARY | 2025-07-30 15:50 | XMS_ITS | Encounter Summary ---
Author Organization [facility] Address [address] [place] [address] Care Team Providers Care Halal Meat Packer Name Role Phone Therese Li MD Primary Care Provider Kristi Gao MD Primary Care Provider [phone] [facility], Pcp Primary Care Provider [facility] Encounter Details Date Type Department Care Team Description 06/13/2020 Pt. Non Urgent Medic al Question Adult Medicine [address] [address] Therese Li MD Social History Tobacco Use [...] on filedocumented in this encounter Care Teams Halal Meat Packer Relationship Specialty Start Date End Date Therese Li MD PCP - General 05/11/11 06/19/21 Kristi Narvaez MD [address] [place] [address] PCP - General Internal Medicine 06/20/21 05/13/22 [place] [address] PCP - General Internal Medicine 05/14/22 documented as of this encounter
--- OUTSIDE RECORDS SUMMARY | 2025-07-30 15:50 | XMS_ITS | Encounter Summary ---
Author Organization [facility] [employer] [facility] Address [address] [place] [address] Care Team Providers Care Inbound Telemarketer Name Role Phone Therese Li MD Primary Care Provider Kristi Gao MD Primary Care Provider [phone] [facility], Pcp Primary Care Provider [facility] Encounter Details Date Type Department Care Team Description 06/13/2020 Pt. Referral Request [facility] MyChart [address] [place] [address] [phone] Md Sandro Social History Tobacco Use Types [...] on filedocumented in this encounter Care Teams Inbound Telemarketer Relationship Specialty Start Date End Date Therese Li MD PCP - General 05/11/11 06/19/21 Kristi Narvaez MD [address] [place] [address] [phone] PCP - General Internal Medicine 06/20/21 05/13/22 [facility], [address] [address] PCP - General Internal Medicine 05/14/22 documented as of this encounter
--- OUTSIDE RECORDS SUMMARY | 2025-07-30 15:50 | XMS_ITS | Encounter Summary ---
Author Organization [facility] Address [address] [place] [address] Care Team Providers Care Direct Of Real Estate Name Role Phone Therese Li MD Primary Care Provider Kristi Gao MD Primary Care Provider [phone] [facility] Primary Care Provider Unavailabl e Reason for Visit * Reason Onset Date Comments refill request 06/10/2019 Propranolol HCl CR 160 MG CAPSULE SR 24 HR Encounter Details Date Type Department Care Team Description 06/10/2019 Refill Adult Medicine [address] [address] Therese Li MD refill request (Propranolol HCl [...] / Plan[place] / Product Type: MEDICARE [id number] documented in this encounter Plan of Treatment Not on file documented as of this encounter Visit Diagnoses Not on filedocumented in this encounter Care Teams Direct Of Real Estate Relationship Specialty Start Date End Date Therese Li MD PCP - General 05/11/11 06/19/21 Kristi Narvaez MD [address] [place] [address] PCP - General Internal Medicine 06/20/21 05/13/22 [place] [address] PCP - General Internal Medicine 05/14/22 documented as of this encounter
--- OUTSIDE RECORDS SUMMARY | 2025-07-30 15:50 | XMS_ITS | Encounter Summary ---
Author [facility] Address [address] [place] [address] Care Team Providers Care Estimator Lumber Name Role Phone Therese Li MD Primary Care Provider Kristi Gao MD Primary Care Provider [phone] [facility], Pcp Primary Care Provider Unavailabl e Encounter Details Date Type Department Care Team Description 09/08/2019 Seed Expert Report Medical Records [address] [place] [address] [employer] [address] [place] [address] 8 [place], [place] [phone] Social History Tobacco Use Types Packs/Day Years [...] on filedocumented in this encounter Care Teams Estimator Lumber Relationship Specialty Start Date End Date Therese Li MD PCP - General 05/11/11 06/19/21 Kristi Narvaez MD [address] [place] [address] PCP - General Internal Medicine 06/20/21 05/13/22 [facility], Pcp [address] [place] [address] PCP - General Internal Medicine 05/14/22 documented as of this encounter
--- OUTSIDE RECORDS SUMMARY | 2025-07-30 15:50 | XMS_ITS | Encounter Summary ---
Author Organization [facility] [facility] Address [address] [place] [address] Care Team Providers Care Echo Technician Name Role Phone Therese Li MD Primary Care Provider Kristi Gao MD Primary Care Provider [phone] [facility], Pcp Primary Care Provider Unavailabl e Encounter Details Date Type Department Care Team Description 11/04/2013 Night Triage Doc Medical Records [address] [place] [address] Abstract, Provider Social History Tobacco Use Types [...] on filedocumented in this encounter Care Teams Echo Technician Relationship Specialty Start Date End Date Therese Li MD PCP - General 05/11/11 06/19/21 Kristi Narvaez MD [address] [place] [address] PCP - General Internal Medicine 06/20/21 05/13/22 [facility], Pcp [address] [place], [place] [phone] PCP - General Internal Medicine 05/14/22 documented as of this encounter
--- OUTSIDE RECORDS SUMMARY | 2025-07-30 15:51 | XMS_ITS | Encounter Summary ---
Author Organization [facility] Address [address] [place] [address] Care Team Providers Care Head Inspector And Center Marker Name Role Phone Therese Li MD Primary Care Provider Kristi Gao MD Primary Care Provider [phone] [facility], Pcp Primary Care Provider Unavailabl e Reason for Visit * Reason Comments E-prescribe Rx Request Encounter Details Date Type Department Care Team Description 04/23/2017 Refill Adult Medicine [address] [address] Therese Li MD E-prescribe Rx Request Social [...] NO Patients current insurance carrier is: Payor: [facility] / Plan: PPO $20 ANDOVER [id number] / Product Type: PPO [id number] documented in this encounter Plan of Treatment Not on file documented as of this encounter Visit Diagnoses Not on filedocumented in this encounter Care Teams Head Inspector And Center Marker Relationship Specialty Start Date End Date Therese Li MD PCP - General 05/11/11 06/19/21 Kristi Narvaez MD [address] [place] [address] PCP - General Internal Medicine 06/20/21 05/13/22 [place] [address] PCP - General Internal Medicine 05/14/22 documented as of this encounter
--- OUTSIDE RECORDS SUMMARY | 2025-07-30 15:51 | XMS_ITS | Encounter Summary ---
Author Organization [facility] Address [address] [place] [address] Care Team Providers Care Crew Leader Gluing Name Role Phone Therese Li MD Primary Care Provider Kristi Gao MD Primary Care Provider [phone] [facility], Pcp Primary Care Provider Unavailabl e Reason for Visit * Reason Onset Date Comments medication problems 08/15/2018 Encounter Details Date Type Department Care Team Description 08/15/2018 Telephone Adult Medicine [address] [address] Therese Li MD medication problems Social History [...] on filedocumented in this encounter Care Teams Crew Leader Gluing Relationship Specialty Start Date End Date Therese Li MD PCP - General 05/11/11 06/19/21 Kristi Narvaez MD [address] [place] [address] PCP - General Internal Medicine 06/20/21 05/13/22 [facility], [address] [address] PCP - General Internal Medicine 05/14/22 documented as of this encounter
--- OUTSIDE RECORDS SUMMARY | 2025-07-30 15:51 | XMS_ITS | Encounter Summary ---
Author Organization [facility] [employer] [facility] Address [address] [place] [address] Care Team Providers Care Montessori Preschool Teacher Name Role Phone Therese Li MD Primary Care Provider Kristi Gao MD Primary Care Provider [phone] [facility], Pcp Primary Care Provider Unavailabl e Encounter Details Date Type Department Care Team Description 08/20/2017 Release of Information Medical Records [address] [place] [address] Abstract, Provider Social History Tobacco Use Types [...] on filedocumented in this encounter Care Teams Montessori Preschool Teacher Relationship Specialty Start Date End Date Therese Li MD PCP - General 05/11/11 06/19/21 Kristi Narvaez MD [address] [place], [place] [phone] PCP - General Internal Medicine 06/20/21 05/13/22 [facility], Pcp [address] [place] [address] PCP - General Internal Medicine 05/14/22 documented as of this encounter
--- OUTSIDE RECORDS SUMMARY | 2025-07-30 15:51 | XMS_ITS | Clinical Summary ---
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.0) Lumbago DX:Lumbago Essential hypertension, benign 12/24/2005 D X:Essential hypertension, benign; COMMENT: essential tremor Type 2 diabetes mellitus wit h hyperglycemia, with long-term current use of insulin ([facility]/HCC V24, CMS/HCC V28) 06/01/2019 DX:Type 2 diabetes mellitus with hyperglycemia, with long-term current use of insulin ([facility]) Family History Medical History Relation Name Comments Breast cancer Aunt great aunt x3 (maternal side) Diabetes Brother 1 trauma induced diabetes Other cancer Brother 2 tumor [place]/stomach , cancer Heart attack Brother 3 fatal [place] at 61 Coronary artery disease Father fata l [place]; CHF; mental disroder Heart attack Maternal Grandmother [...]
--- OUTSIDE RECORDS SUMMARY | 2025-07-30 15:51 | XMS_ITS | Encounter Summary ---
Author Organization [facility] Address [address] [place] [address] Care Team Providers Care Herbicide Sprayer Name Role Phone Kristi Narvaez MD Primary Care Provider [phone] [facility], Pcp Primary Care Provider Unavailabl e Reason for Visit * Reason Comments E-prescribe Rx Request Encounter Details Date Type Department Care Team Description 01/08/2022 Refill Adult Medicine [facility] [address] [place] [address] [id number] Judy Shields PA-C [address] [place] [address] [phone] E-prescribe Rx Request Social History Tobacco Use [...] / Plan[place] / Product Type: MEDICARE [id number] documented in this encounter Plan of Treatment Not on file documented as of this encounter Visit Diagnoses Not on filedocumented in this encounter Care Teams Herbicide Sprayer Relationship Specialty Start Date End Date Kristi Narvaez MD [address] [place] [id number] PCP - General Internal Medicine 06/20/21 05/13/[address] [address] PCP - General Internal Medicine 05/14/22 documented as of this encounter
--- OUTSIDE RECORDS SUMMARY | 2025-07-30 15:51 | XMS_ITS | Encounter Summary ---
Author Organization [facility] Address [address] [place] [address] Care Team Providers Care Technology Training Associate Name Role Phone Therese Li MD Primary Care Provider Kristi Gao MD Primary Care Provider [phone] [facility], Pcp Primary Care Provider Unavailabl e Reason for Visit * Reason Comments E-prescribe Rx Request Encounter Details Date Type Department Care Team Description 03/07/2018 Refill Adult Medicine [address] [address] Therese Li MD E-prescribe Rx Request Social [...] NO Patients current insurance carrier is: Payor: [facility] / Plan: PPO $20 ANDOVER [id number] / Product Type: PPO [id number] documented in this encounter Plan of Treatment Not on file documented as of this encounter Visit Diagnoses Not on filedocumented in this encounter Care Teams Technology Training Associate Relationship Specialty Start Date End Date Therese Li MD PCP - General 05/11/11 06/19/21 Kristi Narvaez MD [address] [place] [address] PCP - General Internal Medicine 06/20/21 05/13/[address] [address] PCP - General Internal Medicine 05/14/22 documented as of this encounter
--- OUTSIDE RECORDS SUMMARY | 2025-07-30 15:51 | XMS_ITS | Encounter Summary ---
Author Organization [facility] Address [address] [place] [address] Care Team Providers Care Energy Management Specialist Name Role Phone Therese Li MD Primary Care Provider Kristi Gao MD Primary Care Provider [phone] [facility], Pcp Primary Care Provider Unavailabl e Reason for Visit * Reason Onset Date Comments Faxed Refill 02/27/2018 Encounter Details Date Type Department Care Team Description 02/27/2018 Refill Adult Medicine [address] [address] Therese Li MD Faxed Refill Social History [...] PM EDT Valium printed and faxed to [facility] * Telephone Encounter - Fay Dalton [...] NO Patients current insurance carrier is: Payor: [facility] / Plan: PPO $20 ANDOVER [id number] / Product Type: PPO [id number] documented in this encounter Plan of Treatment Not on file documented as of this encounter Visit Diagnoses Not on filedocumented in this encounter Care Teams Energy Management Specialist Relationship Specialty Start Date End Date Therese Li MD PCP - General 05/11/11 06/19/21 Kristi Narvaez MD [address] [place] [id number] PCP - General Internal Medicine 06/20/21 05/13/22 [facility], Pcp [address] [place] [id number] PCP - General Internal Medicine 05/14/22 documented as of this encounter
--- OUTSIDE RECORDS SUMMARY | 2025-07-30 15:51 | XMS_ITS | Encounter Summary ---
Author Organization [facility] Address [address] [place] [address] Care Team Providers Care Machine Operator Picker Name Role Phone Therese Li MD Primary Care Provider Kristi Gao MD Primary Care Provider [phone] [facility], Pcp Primary Care Provider Unavailabl e Encounter Details Date Type Department Care Team Description 09/26/2011 Controlled Substance Contract with Plan Medical Records [address] [place] [id number] Abstract, Provider Social History Tobacco Use Types [...] on filedocumented in this encounter Care Teams Machine Operator Picker Relationship Specialty Start Date End Date Therese Li MD PCP - General 05/11/11 06/19/21 Kristi Narvaez MD [address] [place] [id number] PCP - General Internal Medicine 06/20/21 05/13/22 [facility], [address] [address] PCP - General Internal Medicine 05/14/22 documented as of this encounter
[2025-07-30 15:52] VITALS: BP 114/84; PULSE 86; O2SAT 97; BMI 29.9
--- NOTE | 2025-07-30 15:52 | MHC.OFFVIS ---
Vital Signs 07/30/25 15:52 Height 5 ft 1 in Weight 158 lb 8.198 oz BMI 29.9 BP 114/84 Blood Pressure Location Rt brachial Position Sitting Pulse 86 Pulse Source Pulse Oximeter Pulse Oximetry (%) 97 Oxygen Delivery Method Room Air Intake Visit Reasons: review CGM Type II Diabetes Intake Note: Patient present today for T2DM follow up. Last Diabetic Eye exam: 03/10/2025 [facility], Patient still waiting to be cleared for cataracts surgery. Last Podiatry Visit: Does not see a Health And Safety Technician Random Glucose: 99 mg/dL Most recent HgA1C: 8.6% 06/18/2025 [facility] Consultant Required: No Accompanied by: Self / Same As Patient Allergies sulfamethoxazole (From Bactrim) Allergy (Mild, Verified 07/30/25 16:02) hives trimethoprim (From Bactrim) Allergy (Mild, Verified 07/30/25 16:02) hives HPI Comments Details: This is a 70-year-old female with a past medical history of uncontrolled type 2 diabetes with hyperglycemia, hyperlipidemia, thyroid nodule, carotid artery stenosis, peripheral neuropathy, anxiety with depression and hypertension presenting for diabetic management. She was diagnosed with diabetes 12 years ago at a primary care office when her blood sugar was 600. She had a recent ER visit for blood sugar 712 in April. She was out of insulin at the time. Denies history of DKA. Nephew has Type I diabetes. Her brother from type 1 diabetes. Laboratory testing was consistent with type 2 diabetes. She brought a list of home readings: 163, 227, 223, 115, 174, 162, 176, 142, 131, 181, 153, 151, 179, 211, 162 Her hemoglobin A1c is 8.6% down from 13.4% 03/22/2025. Current medication regimen: Metformin extended release 1500 mg daily, Tresiba 28 units every evening, Ozempic 0.25 mg weekly (I increased her dose to 0.5 mg, but she realized she has only been taking 0.25 mg) [facility]. Lantus switched to Tresiba. Denies hypoglycemia. Compliance issues: none Hypoglycemia symptoms: none Hyperglycemia symptoms: no symptoms Eye exam: [facility] Microvascular complications: She has neuropathy. Macrovascular complications: PAD (JENNIFER) Hypertension: treated with losartan 50 mg and propranolol ER 160 mg Hyperlipidemia: treated with atorvastatin 40 mg . She started taking this recently. Reviewed again with the patient today: She had a thyroid ultrasound on 03/27/2023 which demonstrated a 1 x 1.4 x 1.1 cm thyroid nodule ACR TI-RADS total points 5 with repeat ultrasound recommended. Her recent TSH is low. Denies family history of thyroid cancer. Denies compressive symptoms of the neck. She has been referred to Dr. Barker, and I ordered a thyroid ultrasound. She has a mildly itchy scaly rash in the umbilicus for the past few days. No discharge or pain. Endorses a history of yeast infections. Denies fevers and chills. ROS: Constitutional: No unexplained weight loss, fever, chills or night sweats. Eyes: +vision impairment due to cataracts. Respiratory: No shortness of breath Cardiovascular: No chest pain, chest pressure or chest discomfort. No palpitations or pedal edema. Gastrointestinal: No anorexia, nausea, vomiting or diarrhea. No abdominal pain Neurologic: No headache, dizziness or syncope. + neuropathy in her feet and hands. Skin: See HPI Endocrine: No cold or heat intolerance. No polyuria or polydipsia. Physical exam: Constitutional: Alert, in no distress. Eyes: Pupils are equal, round and reactive to light. Extraocular muscles intact. Neck: Supple, Full range of motion. No lymphadenopathy. No palpable thyroid masses. Respiratory: Clear to auscultation. Cardiovascular: S1 S2 regular. No murmurs. Skin: Mildly erythematous scaly umbilical rash. No discharge or swelling [facility] Medical History (Updated 07/30/25 @ 16:55 by TESHA Sky) Rash Low TSH level Thyroid nodule Allergic rhinitis Neck pain Hand numbness Neuropathy Essential tremor NILESH (generalized anxiety disorder) Mild recurrent major depression Chronic GERD Class 1 obesity with body mass index (BMI) of 31.0 to 31.9 in adult Diabetes mellitus Essential hypertension Surgical History History of tonsillectomy Family History Mother Breast cancer Hypertension Father Heart attack Brother Substance use disorder Daughter Mental health disorder Sister Breast cancer Social History (Reviewed 07/30/25 @ 16:02 by BRITTANI Gagnon Housing: House Alcohol intake: current Alcohol intake frequency: holidays/special occasions only Alcohol type: wine Patient Tobacco Use Status: Former Tobacco user Tobacco use type: Cigarette e-Cigarette/Vaping Use: Never Used Second Hand Smoke Exposure: No service: No Current occupational status: retired Sexual orientation: Straight/Heterosexual Gender identity: Female Cognitive needs: No Hearing needs: No Vision needs: Yes Physical Exam Vital Signs: Last Vital Signs Pulse 86 07/30/25 15:52 BP 114/84 07/30/25 15:52 Pulse Ox 97 07/30/25 15:52 Oxygen Delivery Method Room Air 07/30/25 15:52 BMI result Body Mass Index 29.9 Results Reviewed Results Reviewed: Laboratory Last Values Glucose (Clinic) 99 mg/dL (60-115) 07/30/25 16:08 Laboratory Tests 05/12/25 13:39 Plt Count 388 D Creatinine 0.78 Estimated GFR > 60 C-Peptide 1.97 AST 25 ALT 17 Triglycerides 164 H Cholesterol 128 LDL Cholesterol, Calc 58 HDL Cholesterol 38 L Vitamin B12 688 TSH 0.03 L Free T4 1.19 Islet Cell Ab Screen NEGATIVE Islet Cell Ab Titer TNP NILESH Antibody <5 Fib 4 value 1.11 06/18/2025 excluding advanced liver disease Assessment & Plan Assessment & Plan (1) Uncontrolled diabetes mellitus with hyperglycemia: Code(s): E11.65 - Type 2 diabetes mellitus with hyperglycemia Category: Medical Qualifiers: Diabetes mellitus type: type 2 Qualified Code(s): E11.65 - Type 2 diabetes mellitus with hyperglycemia Plan: In summary this is a 70-year-old female with suboptimally controlled type 2 diabetes. She has significantly improved glycemic control. Discussed pathophysiology of Diabetes Mellitus with the patient in detail.? I explained the intermediate risks and complications associated with uncontrolled diabetes including nephropathy, neuropathy, peripheral vascular disease, retinopathy, increased risk of heart disease and stroke.? Discussed lifestyle modification with the patient. She is swimming for exercise and changing her diet. Sensor applied to the patient today. She has a backup fingerstick glucometer. Bring glucometer to all appointments. Continue Tresiba 28 units at bedtime. Continue metformin extended release 1500 mg daily. Increase Ozempic to 0.5 mg weekly. She has written instructions for treating hypoglycemia and using urine ketone strips. Follow up in 1 month for type 2 diabetes. (2) Hyperlipidemia LDL goal <70: Code(s): E78.5 - Hyperlipidemia, unspecified Category: Medical Plan: Continue atorvastatin 40 mg daily. Recommended the Mediterranean diet. (3) Thyroid nodule: Code(s): E04.1 - Nontoxic single thyroid nodule Category: Medical Plan: Thyroid ultrasound has been ordered, and she was referred to Dr. Barker. We discussed this again today. Patient agreed to schedule appointments. (4) Peripheral neuropathy: Code(s): G62.9 - Polyneuropathy, unspecified Category: Medical Plan: Patient is on duloxetine for this. (5) Low TSH level: Code(s): R79.89 - Other specified abnormal findings of blood chemistry Category: Medical Plan: Patient has been referred to Dr. Barker. (6) Rash: Code(s): R21 - Rash and other nonspecific skin eruption Category: Medical Plan: Prescribed topical clotrimazole twice daily for 14 days. Call if the rash worsens. Plan Follow up in 1 month. Medications: New clotrimazole 1% 1 appl topical BID 15 grams 0RF 14 days Refilled semaglutide (Ozempic) for 4 weeks 0.5 mg (0.736 mL) subcut QWEEK 3 mL 1RF Coding Level of Care Code Est Pt Level 4 (77948) Complex EM visit Add On G2211 Diagnoses Uncontrolled type 2 diabetes mellitus with hyperglycemia E11.65 Diabetes mellitus type: type 2 Hyperlipidemia LDL goal <70 E78.5 Thyroid nodule E04.1 Peripheral neuropathy G62.9 Low TSH level R79.89 Rash R21
[2025-07-30 16:11] LABS: Glucose, Whole Blood 99 mg/dL (60-115)
== END 2025-07-30 16:48 | disposition home or self-care (01) ==
LOC: HO.ENCR 15:48
PROVIDERS: PCP Internal Medicine; Visit Provider Physician Assistant Medical
DX: E11.65 Type 2 diabetes mellitus with hyperglycemia (principal); E78.5 Hyperlipidemia, unspecified; E04.1 Nontoxic single thyroid nodule; G62.9 Polyneuropathy, unspecified; R79.89 Other specified abnormal findings of blood chemistry; R21 Rash and other nonspecific skin eruption

== ENCOUNTER → 2025-07-30 15:47 | Outpatient (BNVA) | payer MEDICARE, SELFPAY | PROVIDERS: PCP Internal Medicine; Visit Provider Physician Assistant Medical | DX: E11.65 Type 2 diabetes mellitus with hyperglycemia (principal); E11.42 Type 2 diabetes mellitus with diabetic polyneuropathy; E78.5 Hyperlipidemia, unspecified; E04.1 Nontoxic single thyroid nodule; R21 Rash and other nonspecific skin eruption; R79.89 Other specified abnormal findings of blood chemistry; Z79.4 Long term (current) use of insulin; Z79.84 Long term (current) use of oral hypoglycemic drugs | CPT/HCPCS: 82947; 99212 ==

== ENCOUNTER 2025-08-17 10:55 | Outpatient (AMB) | payer MEDICARE, SELFPAY ==
[2025-08-17 11:03] VITALS: BP 120/78; PULSE 96; O2SAT 98; BMI 29.5
--- NOTE | 2025-08-17 11:03 | A.OFFPC_ITS ---
Vital Signs 08/17/25 11:03 Height 5 ft 1 in Weight 156 lb 6 oz BMI 29.5 BP 120/78 Blood Pressure Location Lt brachial Position Sitting Pulse 96 Pulse Source Pulse Oximeter Pulse Oximetry (%) 98 Oxygen Delivery Method Room Air Intake Visit Reasons: discuss sugar/eye surgeon Gas Controller Required: No Accompanied by: Self / Same As Patient Allergies sulfamethoxazole (From Bactrim) Allergy (Mild, Verified 08/17/25 11:19) hives trimethoprim (From Bactrim) Allergy (Mild, Verified 08/17/25 11:19) hives Medication List - Last Reconciled 08/17/25 by Ruth Ingram MD acetone (urine) test (Ketone Urine Test strips) As directed atorvastatin 40 mg PO BEDTIME 90 days blood sugar diagnostic (True Metrix Glucose Test Strip) As directed 5 x daily blood-glucose meter (True Metrix Glucose Meter) As directed blood-glucose sensor (FreeStyle Demetria 3 Plus Sensor device) Apply 1 new sensor every 15 days as directed to monitor blood glucose continuously. blood-glucose,micro computer data processor,cont (FreeStyle Demetria 3 [place]) Use daily to monitor blood glucose levels continuously. clobetasol 0.05% 1 g topical .twice weekly 90 days clotrimazole 1% 1 appl topical BID 14 days duloxetine 30 mg PO BID 90 days elastic bandage (Coban Self-Adherent Wrap) As directed estradiol 0.01%(0.1mg/gram) (Estrace) 1 g vaginal .twice weekly 90 days fluticasone propionate 50 mcg/actuation (Allergy Relief (fluticasone)) 1 spray intranasal BID 30 days glucose (Dex4 Glucose Quick Dissolve) 16 grams (4 x 4 gram) PO Q15M PRN hydrocortisone 1% 1 appl topical BID PRN 2 weeks insulin degludec (Tresiba FlexTouch U-200 insulin) 28 units (0.14 mL) subcut BEDTIME insulin lispro (Humalog KwikPen (U-100) Insulin) 2 units (0.02 mL) subcut TID ketorolac 0.5% drps ophthalmic (eye) lancets (TRUEplus Lancets) As directed loratadine (Allergy Relief (loratadine)) 10 mg PO DAILY 90 days lorazepam 1 mg PO TID PRN 30 days losartan 50 mg PO DAILY 90 days magnesium glycinate 200 mg (2 x 100 mg) PO DAILY metformin ER (Glucophage XR) 1,500 mg (3 x 500 mg) PO DAILY naphazoline-pheniramine 0.025-0.3 % (Allergy Eye (naphazoline-pheniramine)) 1 drp ophthalmic (eye) BID-QID PRN 30 days omeprazole 20 mg PO DAILY 90 days pen needle, diabetic (Comfort EZ Pen [place]) Use 1 pen needle once a day propranolol ER 160 mg PO DAILY 90 days semaglutide (Ozempic) 0.5 mg (0.736 mL) subcut QWEEK Tobacco use date assessed: 08/17/25 Fall risk assessment: 2 + Falls in past year Last assessed Fall Risk: 08/17/25 Dental Screening Dental Screen Date: 08/17/25 Did you have a dental visit in the last 12 months?: No Did you have a dental problem in the last 6 months where you did not have access to dental care?: No Was dental information given to patient?: Patient has dentist HPI HPI Comments History of Present Illness Details The patient is a 70-year-old female presenting with diabetes mellitus type 2. Her last hemoglobin A1c was 8.6% on June 18, but since then, her blood glucose levels have improved, ranging from 90 to 120 mg/dL. She also has a history of mild recurrent major depressive disorder, which is currently stable with duloxetine. Her anxiety disorder is managed with benzodiazepines, though she is aware of the potential risks such as addiction and sedation. The patient has hyperlipidemia, for which she is on atorvastatin, and her LDL cholesterol goal is less than 70 mg/dL. A lipid panel has been ordered to monitor her cholesterol levels. She has hypertension, which is well-controlled with losartan, and her blood pressure today is 120/78 mmHg. The patient experiences essential tremor, which persists despite the use of propranolol. She has chronic gastroesophageal reflux disease, which is stable with the use of proton pump inhibitors as needed. The patient has cataracts requiring surgery, which has affected her ability to drive at night. She has a skin lesion and would like to be referred to [facility]. [facility] Medical History (Updated 08/17/25 @ 11:29 by Ruth Ingram MD) Rash Low TSH level Thyroid nodule Allergic rhinitis Neck pain Hand numbness Neuropathy Essential tremor NILESH (generalized anxiety disorder) Mild recurrent major depression Chronic GERD Class 1 obesity with body mass index (BMI) of 31.0 to 31.9 in adult Diabetes mellitus Essential hypertension Surgical History History of tonsillectomy Family History Mother Breast cancer Hypertension Father Heart attack Brother Substance use disorder Daughter Mental health disorder Sister Breast cancer Social History Housing: House Alcohol intake: current Alcohol intake frequency: holidays/special occasions only Alcohol type: wine Patient Tobacco Use Status: Former Tobacco user Tobacco use type: Cigarette e-Cigarette/Vaping Use: Never Used Second Hand Smoke Exposure: No service: No Current occupational status: retired Sexual orientation: Straight/Heterosexual Gender identity: Female Cognitive needs: No Hearing needs: No Vision needs: Yes Questionnaire PHQ-9 Over the last 2 weeks, how often have you been bothered by any of the following problems? 1. Little interest or pleasure in doing things: several days 2. Feeling down, depressed, or hopeless: not at all 3. Trouble falling or staying asleep, or sleeping too much: more than half the days 4. Feeling tired or having little energy: more than half the days 5. Poor appetite or overeating: not at all 6. Feeling bad about yourself - or that you are a failure or have let yourself or your family down: not at all 7. Trouble concentrating on things, such as reading the newspaper or watching television: nearly every day 8. Moving or speaking so slowly that other people could have noticed. Or the opposite - being so fidgety or restless that you have been moving around a lot more than usual: not at all 9. Thoughts that you would be better off or of hurting yourself in some way: not at all Total score: 8 Depression Screening Interpretation: Positive Depression Screening Follow-up: Existing condition, In treatment and Follow-up Visit Requested Depression Screening Done: Yes 61380 - PHQ-9 Billing: Yes Source: Developed by Drs. Silvino Iniguez, Miladis Kaiser, Jean Person and colleagues, with an educational rogerio from [employer]. Thrive Questionnaire Date Thrive assessed: 08/17/25 I am a: Patient What is your living situation today?: I have a steady place to live Within the past 12 months, did the food you bought not last and you didn't have the money to get more?: Never true Within the past 12 months, did you worry whether your food would run out before you got money to buy more?: Sometimes True Do you have trouble paying for medicines?: Yes Do you have trouble getting transportation to medical appointments?: No Do you have trouble paying your heating and electricity bill?: I choose not to answer this question Do you have trouble taking care of your child, family member or friend?: No Do you have trouble with day-to-day activities such as bathing, preparing meals, shopping, managing finances, etc.?: No Are you currently unemployed and looking for a job?: No Are you interested in more education?: No Please select the resources that you would like help with: None Currently or been in a relationship where the following occur: No concerns reported THRIVE Score: 1 AUDIT C Alcohol Use Questionnaire (AUDIT-C) 1. How often do you have a drink containing alcohol?: Monthly or less 2. How many drinks containing alcohol do you have on a typical day when you are drinking?: 1 or 2 3. How often do you have six or more drinks on one occasion?: Never Total Score: 1 Score Reviewed/Action Taken: No NILESH-7 AMB Questionnaire NILESH-7 Date NILESH - 7 assessed: 03/22/25 Source: Developed by Drs. Silvino Iniguez, Miladis Kaiser, Jean Person and colleagues, with an educational rogerio from [employer]. Review of Systems Const All systems reviewed & are unremarkable except as noted in HPI and below Card Denies chest pain at rest, Denies chest pain with activity, Denies edema, Denies irregular heart rhythm, Denies claudication, Denies dyspnea, Denies dyspnea on exertion, Denies orthopnea, Denies paroxysmal nocturnal dyspnea and Denies slow heart rate Resp Denies cough, Denies dyspnea and Denies dyspnea on exertion Physical exam (Primary Care) Vital Signs: Last Vital Signs Pulse 96 08/17/25 11:03 BP 120/78 08/17/25 11:03 Pulse Ox 98 08/17/25 11:03 Oxygen Delivery Method Room Air 08/17/25 11:03 BMI result Body Mass Index 29.5 Tobacco/Smoking Status: Tobacco use Status Tobacco use date assessed 08/17/25 08/17/25 11:06 Patient Tobacco Use Status Former Tobacco user 08/17/25 11:06 Tobacco use type Cigarette 08/17/25 11:06 e-Cigarette/Vaping Use Never Used 08/17/25 11:06 PHQ-9: PHQ-9 Score PHQ-9: Total score 8 08/17/25 11:06 Depression Screening Interpretation: Positive Depression Screening Follow-up: Existing condition, In treatment and Follow-up Visit Requested Thrive Assessment: Date of Thrive Assessment Date Thrive assessed 08/17/25 08/17/25 11:06 Currently or been in a relationship where the following occur: No concerns reported Resp Effort & Inspection: normal respiratory effort Auscultation: clear to auscultation bilaterally Cardio Jugular venous distension: no JVD Rate: regular rate Rhythm: regular rhythm Heart sounds: S1 normal heart sound present and S2 normal heart sound present Extrem General: Yes full ROM Coding Level of Care Code Est Pt Level 4 (67052) Complex EM visit Add On G2211 Diagnoses Mild recurrent major depression F33.0 NILESH (generalized anxiety disorder) F41.1 Essential hypertension I10 Hyperlipidemia LDL goal <70 E78.5 Diabetes mellitus E11.9 Chronic GERD K21.9 Essential tremor G25.0 Skin lesion L98.9 Additional Codes PHQ-9 - 65099 - PHQ-9 Billing: Yes ([id number]) Time Spent (min) 22 Assessment & Plan Assessment & Plan (1) Mild recurrent major depression: Code(s): F33.0 - Major depressive disorder, recurrent, mild Category: Medical (2) NILESH (generalized anxiety disorder): Code(s): F41.1 - Generalized anxiety disorder Category: Medical (3) Essential hypertension: Code(s): I10 - Essential (primary) hypertension Category: Medical (4) Hyperlipidemia LDL goal <70: Code(s): E78.5 - Hyperlipidemia, unspecified Category: Medical (5) Diabetes mellitus: Code(s): E11.9 - Type 2 diabetes mellitus without complications Category: Medical (6) Chronic GERD: Code(s): K21.9 - Gastro-esophageal reflux disease without esophagitis Category: Medical (7) Essential tremor: Comment: Head tremors Code(s): G25.0 - Essential tremor Category: Medical (8) Skin lesion: Code(s): L98.9 - Disorder of the skin and subcutaneous tissue, unspecified Category: Medical Plan Plan Patient was informed and verbally consented to the use of an ambient scribe for clinic note documentation during this visit. 1. Diabetes Mellitus Type 2 The patient's diabetes mellitus type 2 is being managed with insulin therapy. Her recent blood glucose levels have improved, ranging from 90 to 120 mg/dL, indicating better control since her last A1c of 8.6% in June. 2. Major Depressive Disorder, Recurrent, Mild The patient's mild recurrent major depressive disorder is stable with duloxetine therapy. 3. Hyperlipidemia The patient is on atorvastatin for hyperlipidemia, with an LDL cholesterol goal of less than 70 mg/dL. A lipid panel has been ordered to assess her current cholesterol levels. 4. Hypertension The patient's hypertension is well-controlled with losartan, and her current blood pressure is 120/78 mmHg. 5. Anxiety Disorder The patient's anxiety disorder is managed with benzodiazepines, with awareness of potential risks such as addiction and sedation. 6. Essential Tremor The patient experiences essential tremor, which persists despite treatment with propranolol. 7. Gastroesophageal Reflux Disease (Gerd) The patient's GERD is stable with the use of proton pump inhibitors as needed. 8. Cataracts The patient has cataracts requiring surgical intervention, affecting her ability to drive at night. Orders: Orders Comprehensive [place]. Panel Fast Today I10 - Essential (primary) hypertension Complete Blood Count Auto Diff Today D64.9 - Anemia, unspecified Lipid Panel Today E78.5 - Hyperlipidemia, unspecified Microalbumin, Random (w Creat) Today R80.9 - Proteinuria, unspecified Hemoglobin A1c Today E11.9 - Type 2 diabetes mellitus without complications Referrals Dermatology Referral L98.9 - Disorder of the skin and subcutaneous tissue, unspecified
--- OUTSIDE RECORDS SUMMARY | 2025-08-17 14:42 | XMS_ITS | Clinical Summary ---
Author Organization [employer] [facility] it Address [address] [place] [address] Care Team Providers Care [employer] Associate Name Role Phone Unavailable Primary Care Provider Unavailabl e Surgical History Surgery Date Site/Laterality Comments TONSILLECTOMY PROCEDURE: HISTORICAL TONSILLECTOMY; COMMENT: young adult Medical History Medical History Date Comments Abnormal involuntary movements(781.0) DX:Abnormal involuntary movements(781.0) Lumbago DX:Lumbago Essential hypertension, benign 12/24/2005 D X:Essential hypertension, benign; COMMENT: essential tremor Type 2 diabetes mellitus wit h hyperglycemia, with long-term current use of insulin ([facility]/HCC V24, CMS/HCC V28) 06/01/2019 DX:Type 2 diabetes mellitus with hyperglycemia, with long-term current use of insulin ([facility]) Family History Medical History Relation Name Comments Breast cancer Aunt great aunt x3 (maternal side) Diabetes Brother 1 trauma induced diabetes Other cancer Brother 2 tumor near [place]/stomach , cancer Heart attack Brother 3 fatal NH at 61 Coronary artery disease Father fata l NH; CHF; mental disroder Heart attack Maternal Grandmother [...] 11/08/2022 Hypertension/CHF/CAD Annual BMP Blood Test 11/08/2022 Depression Screening 12/02/2024 COVID-19 Vaccine (3 - season) 2025 02/24/2021, 01/27/2021 Influenza Vaccine (#1) 2025 , [...]
== END 2025-08-17 11:36 | disposition home or self-care (01) ==
PROVIDERS: PCP Internal Medicine; Visit Provider Internal Medicine
DX: E11.69 Type 2 diabetes mellitus with other specified complication (principal); F33.0 Major depressive disorder, recurrent, mild; F41.1 Generalized anxiety disorder; I10 Essential (primary) hypertension; E78.5 Hyperlipidemia, unspecified; K21.9 Gastro-esophageal reflux disease without esophagitis; G25.0 Essential tremor; L98.9 Disorder of the skin and subcutaneous tissue, unspecified

== ENCOUNTER → 2025-08-17 10:55 | Outpatient (BNVA) | payer SELFPAY | PROVIDERS: PCP Internal Medicine; Visit Provider Internal Medicine | DX: F33.0 Major depressive disorder, recurrent, mild (principal); F41.1 Generalized anxiety disorder; E11.9 Type 2 diabetes mellitus without complications; E78.5 Hyperlipidemia, unspecified; I10 Essential (primary) hypertension; G25.0 Essential tremor; K21.9 Gastro-esophageal reflux disease without esophagitis; L98.9 Disorder of the skin and subcutaneous tissue, unspecified; D64.9 Anemia, unspecified; R80.9 Proteinuria, unspecified; Z79.899 Other long term (current) drug therapy | CPT/HCPCS: 96127; 99212 ==